=== PATIENT | female | born 1995 | race Caucasian/White ===

== ENCOUNTER 2023-04-02 10:10 | Outpatient (OUT) | payer MEDICAID, SELFPAY ==
--- NOTE | 2023-04-02 10:13 | US_ITS ---
[address] [address] Patient Name: RADHA KEENAN MRN: [id number] date: 1995 Sex: F Assigned Patient Location: [place] Current Patient Location: [place] Accession/Order Number: [id number] Exam Date: 04/02/2023 10:13 Report Date: 04/02/2023 18:03 At the request of: RIANNA LOREDO Procedure: US OB transvaginal EXAMINATION: US OB transvaginal HISTORY: MISSED MENSES COMPARISON: No relevant comparison available. FINDINGS: Diana intrauterine gestation Gestational sac: 3.99 cm, 9 weeks 2 days CRL: 2.31 cm, 9 weeks 0 days Yolk sac: 4.9 mm Heart rate: 167 bpm Uterus is normal The cervix is closed measuring 4.0 cm The ovaries are normal in appearance Clinical age: 9 weeks 6 days Clinical MAVERICK: 10/30/2023 Ultrasound age: 9 weeks 0 days Ultrasound MAVERICK: 11/05/2023 US/US OB transvaginal IMPRESSION: Viable diana intrauterine gestation measuring 9 weeks 0 days Electronically authenticated by: MICHAEL KIRK Date: 04/02/2023 18:03
== END 2023-04-02 10:11 | disposition home or self-care (01) ==
LOC: US 10:11
PROVIDERS: Visit Provider Obstetrics & Gynecology
DX: N92.6 Irregular menstruation, unspecified (principal); Z3A.09 9 weeks gestation of pregnancy
CPT/HCPCS: 76817

== ENCOUNTER 2023-04-09 13:48 | Outpatient (OUT) | payer MEDICAID, SELFPAY ==
[2023-04-09 14:45] LABS: Basophils Percent Auto 0.3 % (0.2-2.0); Eosinophils Absolute Auto 0.2 10^3/uL (0.0-0.7); Eosinophils Percent Auto 2.7 % (0.9-7.0); Hematocrit 39.2 % (36.0-48.0); Hemoglobin 13.3 g/dL (12.0-16.0); Immature Granulocytes Abs Auto 0.02 10^3/uL (0.00-0.03); Immature Granulocytes Pct Auto 0.3 % (0.0-0.5); Lymphocytes Absolute Auto 1.5 10^3/uL (1.2-3.8); Lymphocytes Percent Auto 19.6 % (20.5-60.0); Mean Corpuscular HGB Conc 33.9 g/dL (29.9-35.2); Mean Corpuscular Hemoglobin 29.4 pg (26.7-34.0); Mean Corpuscular Volume 86.7 fL (81.0-99.0); Mean Platelet Volume 9.4 fL (9.5-13.5); Monocytes Absolute Auto 0.4 10^3/uL (0.3-0.8); Neutrophils Absolute Auto 5.6 10^3/uL (1.4-6.5); Neutrophils Percent Auto 72.1 % (43.0-75.0); Platelet Count 277 10^3/uL (150-450); Red Blood Count 4.52 10^6/uL (4.20-5.40); Red Cell Distribution Width 11.9 % (11.0-15.0); White Blood Count 7.8 10^3/uL (4.0-11.0)
[2023-04-09 14:52] LABS: Estimated Average Glucose 105 mg/dL; Glycohemoglobin A1C 5.3 % (4.5-6.2)
[2023-04-09 15:19] LABS: Thyroid Stimulating Hormone 0.692 uIU/mL (0.358-3.740)
[2023-04-10 06:10] LABS: Rubella Antibodies, IgG 2.23 index (Immune >0.99)
[2023-04-10 07:08] LABS: HBsAg Screen Negative (Negative); HCV Ab Non Reactive (Non Reactive); HIV Ab/p24 Ag Screen Non Reactive (Non Reactive)
[2023-04-10 10:11] LABS: Rapid Plasma Reagin, Quant Non Reactive titer (NonRea<1:1)
== END 2023-04-09 13:49 | disposition home or self-care (01) ==
PROVIDERS: PCP Obstetrics & Gynecology; Visit Provider Obstetrics & Gynecology
DX: Z34.81 Encounter for supervision of other normal pregnancy, first trimester (principal); Z31.430 Encounter of female for testing for genetic disease carrier status for procreative management; N92.6 Irregular menstruation, unspecified
CPT/HCPCS: 36415; 83036; 84443; 85025; 86592; 86762; 86803; 86850; 86900; 86901; 87086; 87340; 87389

== ENCOUNTER 2023-06-03 19:55 | Outpatient (REF) | payer MEDICAID, SELFPAY ==
--- OUTSIDE RECORDS SUMMARY | 2023-06-03 19:58 | XMS_ITS | CCD ---
Author Name Unknown Address [address] [facility] [address] [place] [address] Organization [facility] Care Team Providers Care Fitter Tacker Name Role Phone HARISH, AN E. Unavailable Unavailable DON PEREZ Unavailable Unavailable HARISH, AN E. Unavailable Unavailable DON PEREZ Unavailable Unavailable HARISH, AN E. Unavailable Unavailable SHANA ABERNATHY Unavailable Unavailable HARISH, AN E. Unavailable Unavailable HARISH, AN E. Unavailable Unavailable HARISH, AN E. Unavailable Unavailable HARISH, AN E. Unavailable Unavailable HARISH, AN E. Unavailable Unavailable HARISH, AN E. Unavailable Unavailable Martin Burgos DO Primary Care Provider Martin Burgos DO Primary Care Provider BurgosMartin rodrigez DO Primary Care Provider LAMONT PULIDO Attending Unavailable MARTIN BURGOS Primary Care Unavailable SERENA SRINIVASAN Attending Unavailable MARTIN BURGOS Primary Care Unavailable MARTIN BURGOS Primary Care Unavailable RAINA BONNER Attending Unavailable MARTIN BURGOS Primary Care Unavailable MARTIN BURGOS Primary Care Unavailable DR RIANNA RODRIGUEZ Consulting Unavailable DR RIANNA RODRIGUEZ Attending Unavailable SOLIS, DR BYRNE Primary Care Unavailable DR RIANNA RODRIGUEZ Admitting Unavailable ADAN ., STEPHANIE Admitting Unavailable ADAN ., STEPHANIE Attending Unavailable COTTONWOOD, DR MICHAEL Siddiqui Consulting Unavailable MISC, DR BYRNE Primary Care Unavailable ADAN ., STEPHANIE Consulting Unavailable ADAN ., STEPHANIE Consulting Unavailable ADAN ., STEPHANIE Attending Unavailable SOLIS, DR BRYNE Primary Care Unavailable ADAN ., STEPHANIE Admitting Unavailable DR RIANNA RODRIGUEZ Attending Unavailable FACUNDO ., DR BLANCA Admitting Unavailable FACUNDO ., DR BLANCA Consulting Unavailable ZIEBER, DR SCARLET Yao Consulting Unavailable MISC, DR BYRNE Primary Care Unavailable KARASIK ., DR FLORES Attending Unavailabl e KARASIK ., DR FLORES Admitting Unavailabl e FACUNDO ., DR BLANCA Attending Unavailable MISC, DR BYRNE Primary Care Unavailable FACUNDO ., DR BLANCA Admitting Unavailable FACUNDO ., DR BLANCA Attending Unavailable MISC, DR BYRNE Primary Care Unavailable FACUNDO ., DR BLANCA Admitting Unavailable MISC, DR BYRNE Primary Care Unavailable REINECK, DR VALENTINO Martin Attending Unavailabl e REINECK, DR VALENTINO Martin Admitting Unavailabl e REINECK, DR VALENTINO Martin Consulting Unavailabl e NEWATIA, RONNY Consulting Unavailable MISC, DR BYRNE Primary Care Unavailable KARASIK ., DR FLORES Attending Unavailabl e KARASIK ., DR FLORES Admitting Unavailabl e KARASIK ., DR FLORES Consulting Unavailabl e WEST, DR MICHAEL Siddiqui Consulting Unavailable FACUNDO ., DR BLANCA Consulting Unavailable NADINE ENCISO Consulting Unavailable FACUNDO ., DR BLANCA Procedure Practitioner Unavail able ELLA BURKETT Consulting Unavailable FACUNDO ., DR BLANCA Consulting Unavailable FACUNDO ., DR BLANCA Admitting Unavailable FACUNDO ., DR BLANCA Attending Unavailable FACUNDO ., DR BLANCA Consulting Unavailable FACUNDO ., DR BLANCA Attending Unavailable FACUNDO ., DR BLANCA Admitting Unavailable ZIEBER, DR SCARLET Yao Consulting Unavailable ADAN ., STEPHANIE Admitting Unavailable ADAN ., STEPHANIE Consulting Unavailable ADAN ., STEPHANIE Attending Unavailable MISC, DR BYRNE Primary Care Unavailable FACUNDO ., DR BLANCA Attending Unavailable FACUNDO ., DR BLANCA Admitting Unavailable FACUNDO ., DR BLANCA Consulting Unavailable FACUNDO, RIANNA Attending Unavailable Allergies Allergy Classification Reported Allergen(s) Allergy Type Date of Onset Reaction(s) Facility (6 sources) environmental [Other] Propensity to adverse reactions 8 [facility] Work Phone: (1 source) OTHER; Translations: [OTHER] Propensity to adverse reactions (disorder) 8 [facility] Repository Medications Current Medications Medication Drug Class(es) Dates Sig (Normalized) Sig (Original) fluconazole 150 mg oral tablet (1 source) Azole Antifungal Start: 10-22-2015 End: 12-16-2021 fluconazole (DIFLUCAN) 150 mg tablet Indications: Monilial vaginitis Take 1 tablet today and repeat in 3 days 2 tablet 0 10/22/2015 12/16/2021 Discontinued (Course of therapy completed) Comment on above: Take 1 tablet today and repeat in 3 days Loratadine / Pseudoephedrine (5 sources) alpha-Adrenergic Agonist End: 01-27-2022 take 1 tablet by mouth once daily LORATADINE/PSEUDOE PHEDRINE (CLARITIN-D 24 HOUR ORAL) Take 1 tablet by mouth once daily. 0 01/27/2022 Discontinued take 1 tablet by jorge th once daily LORATADINE/PSEUDOEPHEDRINE (CLARITIN-D 2 4 HOUR ORAL) Take 1 tablet by mouth once daily. 0 Active Comment on above: Take 1 tablet by jorge th once daily. MULTIVITS,CA,AIRCRAFT ENGINE SPECIALIST ALS/IRON/FA (ONE-A-DAY WOMENS FORMULA ORAL) (1 source) End: 12-16-2021 take 1 tablet by mouth once daily MULTIVITS,CA,MINERALS/ IRON/FA (ONE-A-DAY WOMENS FORMULA ORAL) Take 1 tablet by mouth once daily. 0 12/16/2021 Discontinued (Course of therapy completed) Comment on above: Take 1 tablet by jorge th once daily. Completed/Discontinued Medications Medication Drug Class(es) Dates Sig (Normalized) Sig (Original) [id number] 200 actuat albuterol 0.09 mg/actuat metered dose inhaler (7 sources) beta2-Adrenergic Agonist Start: 12-16-2021 take 2 puff(s) by inhalation every four hours as needed albuterol HFA (PROVENTIL HFA, VENTOLIN HFA) 90 mcg/actuation inhaler Inhale 2 Puffs as instructed every 4 hours as needed. 1 g 1 12/16/2021 Active Start: 04-12-2010 End: 12-16-2021 take 2 puff(s) by inhalation every four to six hours as needed albuterol HFA 90 mcg/Actuation INHALATION inhaler 2 puffs q 4 to 6 hrs prn 1 g 1 04/12/2010 12/16/2021 Discontinued Comment on above: 2 puffs q 4 to 6 hrs prn Inhale 2 Puffs as in structed every 4 hours as needed. PNV no.95/ferrous fum/folic ac ( ORAL) (6 sources) PNV no.95/ferrou s fum/folic ac ( ORAL) Take by mouth. 0 Active Comment on above: Take by mouth. Problems Active Problems Problem Classification Problem Date Documented Date Episodic/Chronic Abdominal pain (1 source) Pelvic and perineal pain; Translations: [Pelvic and perineal pain] Onset: 11-25-2016 Asthma (6 sources) Unspecified asthma, uncomplicated; Translations: [Asthma, unspecified type, unspecified] Onset: 04-28-2006 04-28-2006 Chronic Genitourinary symptoms and ill-defined conditions (8 sources) Dysuria; Translations: [Unspecified symptoms and signs involving the genitourinary system] Onset: 06-10-2022 Episodic Menstrual disorders (2 sources) Missed period; Translations: [Irregular menstruation, unspecified] Onset: 12-16-2021 Chronic Mood disorders (6 sources) Depressive disorder; Translations: [Depression] Onset: 08-12-2012 08-12-2012 Chronic OB-related trauma to perineum and vulva (1 source) Second degree perineal laceration during delivery; Translations: [SECOND DEG PERINEAL LAC DUR DELIV] Onset: 07-27-2022 Episodic Other complications of (1 source) High risk ; Translations: [Supervision of high risk , unspecified, unspecified trimester] Episodic Other and delivery including normal (20 sources) test positive; Translations: [Encounter for test, result positive] Onset: 12-16-2021 Episodic Pulmonary heart disease (6 sources) Septic pulmonary embolism with acute cor pulmonale; Translations: [Septic pulmonary embolism] Onset: 10-22-2015 10-22-2015 Chronic Pulmonary heart disease (9 sources) H/O: pulmonary embolus; Translations: [Personal history of pulmonary embolism] Onset: 12-16-2021 12-16-2021 Episodic Residual codes; unclassified (1 source) Gestation period, 14 weeks; Translations: [14 weeks gestation of ] Episodic Residual codes; unclassified (1 source) 38 weeks gestation of ; Translations: [38 WEEKS GESTATION OF ] Onset: 07-27-2022 Episodic Urinary tract infections (1 source) Urinary tract infection, site not specified; Translations: [UTI SITE NOT SPECIFIED] Onset: 10-06-2022 Episodic Past or Other Problems Problem Classification Problem Date Documented Da te Episodic/Chronic Contraceptive and procreative management (2 sources) Encounter for routine checking of intrauterine contraceptive device; Translations: [Encounter for routine checking of intrauterine contraceptive device] Onset: 11-25-2016 Episodic Hemorrhage during ; abruptio placenta; placenta previa (4 sources) Low lying placenta NOS or without hemorrhage, second trimester; Translations: [LOW LYING PL NOS W/O HEMORR 2ND TRI] Onset: 04-28-2022 Episodic Immunizations and screening for infectious disease (1 source) Contact with and (suspected) exposure to infections with a predominantly sexual mode of transmission; Translations: [CONTCT W EXPOS INFECT SEXUAL TRNSMS] Onset: 06-24-2022 Episodic Other complications of (3 sources) Uterine size-date discrepancy, unspecified trimester; Translations: [UTERINE SZ-DATE DISCREPANCY UNS TRI] Onset: 06-09-2022 Episodic Other complications of (1 source) Uterine size-date discrepancy, third trimester; Translations: [UTERINE SZ-DATE DISCREPANCY 3RD TRI] Onset: 06-10-2022 Episodic Other female genital disorders (1 source) Other specified noninflammatory disorders of vagina; Translations: [OTH SPEC NONINFLAMMATORY D/O VAGINA] Onset: 06-24-2022 Episodic Other gastrointestinal disorders (4 sources) Other fecal abnormalities; Translations: [OTHER FECAL ABNORMALITIES] Onset: 04-14-2022 Episodic Other screening for suspected conditions (not mental disorders or infectious disease) (4 sources) Encounter for other specified screening; Translations: [ENCTR OTH SPEC SCREENING] Onset: 03-09-2022 Episodic Residual codes; unclassified (1 source) 33 weeks gestation of ; Translations: [33 WEEKS GESTATION OF ] Onset: 06-10-2022 Episodic Residual codes; unclassified (1 source) 27 weeks gestation of ; Translations: [27 WEEKS GESTATION OF ] Onset: 05-02-2022 Episodic Screening and history of mental health and substance abuse codes (9 sources) H/O: depression; Translations: [Personal history of other mental and behavioral disorders] Onset: 12-16-2021 Episodic Spondylosis; intervertebral disc disorders; other back problems (1 source) Low back pain; Translations: [Low back pain] Onset: 12-02-2016 Episodic Results Test Name Value Interpretation Reference Range Facil ity CULTURE URINEon 10-06-2022 CULTURE URINE Isolate 1 Escherichia coli >100,000 cfu/mL of ORGANISM 1 Escherichia coli ANTIBIOTIC M.I.C RX STATUS Ampicillin <=2 S F Ampicillin/Sulbactam <=2 S F Piperacillin/Tazobac rajput <=4 S F Cefazolin <=4 S F Ceftazidime <=1 S F Ceftriaxone <=1 S F Ertapenem <=0.5 S F Imipenem <=0.25 S F Amikacin <=2 S F Gentamicin <=1 S F Tobramycin <=1 S F Ciprofloxacin <=0.25 S F Levofloxacin <=0.12 S F Nitrofurantoin <=16 S F Trimethoprim/Sulfame thoxazole <=20 S F Normal [facility] Comment on above: Performed By: #### U RCX #### [facility] [address] [place] [address] Dr. Brando Betancourt CBC AUTO DIFFon 10-03-2022 BASO # 0.0 103/ul Normal 0.0-0.1 [facility] Comment on above: Performed By: #### H BSANS #### [facility] [address] [place] [address] Dr. Brando Betancourt Basophils/100 WBC (Bld) 0.3 % Normal 0.2-2.0 [facility] Comment on above: Performed By: #### H BSANS #### [facility] [address] [place] [address] Dr. Brando Betancourt EO # 0.2 103/ul Normal 0.0-0.7 [facility] Comment on above: Performed By: #### H BSANS #### [facility] [address] [place] [address] Dr. Brando Betancourt Eosinophils/100 WBC (Bld) 1.5 % Normal 0.9-7.0 [facility] Comment on above: Performed By: #### H BSANS #### [facility] [address] [place] [address] Dr. Brando Betancourt Erythrocyte distribution width (RBC) [Ratio] 12.6 % Normal 11.0-15.0 [facility] Comment on above: Performed By: #### H BSANS #### [facility] [address] [place] [address] Dr. Brando Betancourt Hematocrit (Bld) [Volume fraction] 38.3 % Normal 36.0-48.0 [facility] Comment on above: Performed By: #### H BSANS #### [facility] [address] [place] [address] Dr. Brando Betancourt Hemoglobin (Bld) [Mass/Vol] 12.8 g/dL Normal 12.0-16.0 [facility] Comment on above: Performed By: #### H BSANS #### [facility] [address] [place] [address] Dr. Brando Betancourt IG # 0.03 10e3/ul Normal 0.00-0.03 [facility] Comment on above: Performed By: #### H BSANS #### [facility] [address] [place] [address] Dr. Brando Betancourt IG % 0.3 % Normal 0.0-0.5 [facility] Comment on above: Performed By: #### H BSANS #### [facility] [address] [place] [address] Dr. Brando Betancourt LYMPH # 1.4 103/ul Normal 1.2-3.8 [facility] Comment on above: Performed By: #### H BSANS #### [facility] [address] [place] [address] Dr. Brando Betancourt Lymphocytes/100 WBC (Bld) 13.2 % Critically low 20.5-60.0 [facility] Comment on above: Performed By: #### H BSANS #### [facility] [address] [place] [address] Dr. Brando Betancourt MANUAL DIFF REQ NO Normal [facility] Comment on above: Performed By: #### H BSANS #### [facility] [address] [place] [address] Dr. Brando Betancourt MCH (RBC) [Entitic mass] 28.6 pg Normal 26.7-34.0 [facility] Comment on above: Performed By: #### H BSANS #### [facility] [address] [place] [address] Dr. Brando Betancourt MCHC (RBC) [Mass/Vol] 33.4 g/dL Normal 29.9-35.2 [facility] Comment on above: Performed By: #### H BSANS #### [facility] [address] [place] [address] Dr. Brando Betancourt MCV (RBC) [Entitic vol] 85.5 fL Normal 81.0-99.0 [facility] Comment on above: Performed By: #### H BSANS #### [facility] [address] [place] [address] Dr. Brando Betancourt MONO # 0.7 103/ul Normal 0.3-0.8 [facility] Comment on above: Performed By: #### H BSANS #### [facility] [address] [place] [address] Dr. Brando Betancourt Monocytes/100 WBC (Bld) 7.0 % Normal 1.7-12.0 [facility] Comment on above: Performed By: #### H BSANS #### [facility] [address] [place] [address] Dr. Brando Betancourt NEUT # 8.3 103/ul Critically high 1.4-6.5 [facility] Comment on above: Performed By: #### H BSANS #### [facility] [address] [place] [address] Dr. Brando Betancourt Neutrophils/100 WBC (Bld) 77.7 % Critically high 43.0-75.0 [facility] Comment on above: Performed By: #### H BSANS #### [facility] [address] [place] [address] Dr. Brando Betancourt Platelet mean volume (Bld) [Entitic vol] 8.5 fL Critically low 9.5-13.5 [facility] Comment on above: Performed By: #### H BSANS #### [facility] [address] [place] [address] Dr. Brando Betancourt PLT 263 103/ul Normal 150-450 [facility] Comment on above: Performed By: #### H BSANS #### [facility] [address] [address] [address] Brando Betancourt RBC 4.48 106/ul Normal 4.20-5.40 [facility] Comment on above: Performed By: #### H BSANS #### [facility] [id number] Brando Betancourt WBC 10.6 103/ul Normal 4.0-11.0 [facility] Comment on above: Performed By: #### H BSANS #### [facility] [id number] Brando Betancourt CT ABD/PELVIS WO CONon 10-03 CT ABD/PELVIS WO CON EXAMINATION: CT ABD/PELVIS WO CON, 10/03/2022 6:23 PM EDT HISTORY: CALCULUS OF KIDNEY COMPARISON: None. TECHNIQUE: CT scan of the abdomen and pelvis was performed without IV contrast. CT dose reduction technique was used, including Automated Exposure Control. FINDINGS: LOWER CHEST: There is a patchy reticular nodular density in the right lower lobe suspicious for an infiltrate. There is a 9 mm nodular density in this region (series 5, image 57). LIVER: Unremarkable. GALLBLADDER AND BILIARY SYSTEM: Unremarkable. SPLEEN: Unremarkable. PANCREAS: Unremarkable. ADRENAL GLANDS: Unremarkable. KIDNEYS AND URETERS: No nephrolithiasis or hydronephrosis. No ureteral calculus. BLADDER: Under distended. GASTROINTESTINAL TRACT: No evidence of bowel obstruction or colitis. Normal appendix. Moderate amount of stool in the right colon. VASCULATURE: The abdominal aorta is normal in caliber. RETROPERITONEUM: No lymphadenopathy. PERITONEUM/MESENTERY : No abdominal ascites. No free air. PELVIS: No pelvic ascites or lymphadenopathy. BODY WALL: Tiny fat-containing umbilical hernia. BONES: No acute abnormality. IMPRESSION: 1. Suspected right lower lobe infiltrate with 9 mm nodular density in this region. Short-term follow-up chest CT after treatment is suggested. 2. No nephrolithiasis or hydronephrosis noted. Electronically authenticated by: RONNY CUMMINGS Date: 2022-10-03 18:56 Normal [facility] URINE PROFILEon 3 Bilirubin Ql (U) Negative Normal NEGATIVE [facility] Comment on above: Performed By: #### H BSANS #### [facility] [address] [place] [address] Dr. Brando Betancourt Clarity (U) SL CLOUDY Abnormal CLEAR [facility] Comment on above: Performed By: #### H BSANS #### [facility] [address] [place] [address] Dr. Brando Betancourt Color (U) YELLOW Normal YELLOW [facility] Comment on above: Performed By: #### H BSANS #### [facility] [address] [place] [address] Dr. Brando Betancourt ERUAHDeonte A micrscopic examination will be performed if indicated. Normal [facility] Comment on above: Performed By: #### H BSANS #### [facility] [address] [place] [address] Dr. Brando Betancourt Glucose Ql (U) Negative Normal NEGATIVE [facility] Comment on above: Performed By: #### H BSANS #### [facility] [address] [place] [address] Dr. Brando Betancourt Hemoglobin Ql (U) MODERATE Abnormal NEGATIVE [facility] Comment on above: Performed By: #### H BSANS #### [facility] [address] [place] [address] Dr. Brando Betancourt Ketones Ql (U) Negative Normal NEGATIVE [facility] Comment on above: Performed By: #### H BSANS #### [facility] [address] [place] [address] Dr. Brando Betancourt LEUKOCYTES LARGE Abnormal NEGATIVE [facility] Comment on above: Performed By: #### H BSANS #### [facility] [address] [place] [address] Dr. Brando Betancourt Nitrite Ql (U) Negative Normal NEGATIVE [facility] Comment on above: Performed By: #### H BSANS #### [facility] [address] [place] [address] Dr. Brando Betancourt pH (U) 6.0 [pH] Normal 5-9 [facility] Comment on above: Performed By: #### H BSANS #### [facility] [address] [address] [address] Brando Betancourt Protein (U) [Mass/Vol] 100 mg/dL Abnormal NEGATIVE/ TRACE [facility] Comment on above: Performed By: #### H BSANS #### [facility] [address] [address] [address] Brando Betancourt SPEC GRAVITY 1.025 Normal 1.005-<=1.025 [facility] Comment on above: Performed By: #### H BSANS #### [facility] [address] [address] [address] Brando Betancourt UR MICRO IND INDICATED Normal [facility] Comment on above: Performed By: #### H BSANS #### [facility] [address] [place] [address] Dr. Brando Betancourt Urobilinogen Qn (U) 0.2 {Arturo'U}/dL Normal 0.2 - 1. 0 [facility] Comment on above: Performed By: #### H BSANS #### [facility] [address] [place] [address] Dr. Brando Betancourt URon 10-03-2022 , QUAL Negative Normal NEGATIVE [facility] Comment on above: Performed By: #### H BSANS #### [facility] [address] [place] [address] Dr. Brando Betancourt PROF CHEM 8 (BAS METB)on Anion gap [Moles/Vol] 11.8 mmol/L Normal [facility] Comment on above: Performed By: #### C BC #### [facility] [address] [place] [address] Dr. Brando Betancourt Calcium [Mass/Vol] 9.1 mg/dL Normal 8.5-10.1 [facility] Comment on above: Performed By: #### C BC #### [facility] [address] [place] [address] Dr. Brando Betancourt Chloride [Moles/Vol] 99 mmol/L Normal 98-107 [facility] Comment on above: Performed By: #### C BC #### [facility] [address] [address] [address] Brando Betancourt CO2 [Moles/Vol] 29.9 mmol/L Normal 21.0-32.0 [facility] Comment on above: Performed By: #### C BC #### [facility] [address] [address] [address] Brando Betancourt Creatinine [Mass/Vol] 0.89 mg/dL Normal 0.55-1.02 [facility] Comment on above: Performed By: #### C BC #### [facility] [address] [address] [address] Brando Betancourt EGFR-AF NIGERIAN >60 Normal >=60 [facility] Comment on above: Performed By: #### C BC #### [facility] [address] [place] [address] Dr. Brando Betancourt EGFR-NON AF NIGERIAN >60 Normal >=60 [facility] Comment on above: Performed By: #### C BC #### [facility] [address] [address] [address] Brando Betancourt Glucose [Mass/Vol] 122 mg/dL Critically high 74-106 [facility] Comment on above: Performed By: #### C BC #### [facility] [address] [address] [address] Brando Betancourt Potassium [Moles/Vol] 3.7 mmol/L Normal 3.5-5.1 [facility] Comment on above: Performed By: #### C BC #### [facility] [address] [place] [address] Dr. Brando Betancourt Sodium [Moles/Vol] 137 mmol/L Normal 136-145 [facility] Comment on above: Performed By: #### C BC #### [facility] [address] [address] [address] Brando Betancourt Urea nitrogen [Mass/Vol] 17.0 mg/dL Normal 7.0-18.0 [facility] Comment on above: Performed By: #### C BC #### [facility] [address] [place] [address] Dr. Brando Betancourt Urea nitrogen/Creatinine [Mass ratio] 19.1 mg/mg Normal [facility] Comment on above: Performed By: #### C BC #### [facility] [address] [place] [address] Dr. Brando Betancourt URINE MICROSCOPIC ONLYon BACTERIA TRACE Abnormal NONE SEEN [facility] Comment on above: Performed By: #### H BSANS #### [facility] [address] [place] [address] Dr. Brando Betancourt Bacteria identified Cx Nom (U) INDICATED Normal [facility] Comment on above: Performed By: #### H BSANS #### [facility] [address] [place] [address] Dr. Brando Betancourt CAST NONE SEEN Normal NONE SEEN [facility] Comment on above: Performed By: #### H BSANS #### [facility] [address] [place] [address] Dr. Brando Betancourt Crystals LM Nom (Urine sed) NONE SEEN Normal NONE SEEN [facility] Comment on above: Performed By: #### H BSANS #### [facility] [address] [place] [address] Dr. Brando Betancourt Epithelial cells LM Ql (Urine sed) RARE Normal NONE SEEN /RARE [facility] Comment on above: Performed By: #### H BSANS #### [facility] [address] [place] [address] Dr. Brando Betancourt MUCOUS NONE SEEN Normal NONE SEEN [facility] Comment on above: Performed By: #### H BSANS #### [facility] [address] [place] [address] Dr. Brando Betancourt RBC 5-10 Abnormal 0-2 [facility] Comment on above: Performed By: #### H BSANS #### [facility] [address] [place] [address] Dr. Brando Betancourt WBC 50-75 Abnormal NONE SEEN [facility] Comment on above: Performed By: #### H BSANS #### [facility] [address] [place] [address] Dr. Brando Betancourt CBC AUTO DIFFon 07-14-2022 BASO # 0.0 103/ul Normal 0.0-0.1 [facility] Comment on above: Performed By: #### C BC #### [facility] [address] [place] [address] [address] Brando Betancourt Basophils/100 WBC (Bld) 0.2 % Normal 0.2-2.0 [facility] Comment on above: Performed By: #### C BC #### [facility] [address] [place] [address] [address] Brando Betancourt EO # 0.0 103/ul Normal 0.0-0.7 [facility] Comment on above: Performed By: #### C BC #### [facility] [address] [place] [address] Dr. Brando Betancourt Eosinophils/100 WBC (Bld) 0.3 % Critically low 0.9-7.0 [facility] Comment on above: Performed By: #### C BC #### [facility] [address] [place] [address] Dr. Brando Betancourt Erythrocyte distribution width (RBC) [Ratio] 13.0 % Normal 11.0-15.0 [facility] Comment on above: Performed By: #### C BC #### [facility] [address] [place] [address] Dr. Brando Betancourt Hematocrit (Bld) [Volume fraction] 28.8 % Critically low 36.0-48.0 [facility] Comment on above: Performed By: #### C BC #### [facility] [address] [place] [address] Dr. Brando Betancourt Hemoglobin (Bld) [Mass/Vol] 9.7 g/dL Critically low 12.0-16.0 [facility] Comment on above: Performed By: #### C BC #### [facility] [address] [place] [address] Dr. Brando Betancourt IG # 0.04 10e3/ul Critically high 0.00-0.03 [facility] Comment on above: Performed By: #### C BC #### [facility] [address] [place] [address] Dr. Brando Betancourt IG % 0.4 % Normal 0.0-0.5 [facility] Comment on above: Performed By: #### C BC #### [facility] [address] [place] [address] Dr. Brando Betancourt LYMPH # 1.6 103/ul Normal 1.2-3.8 [facility] Comment on above: Performed By: #### C BC #### [facility] [address] [place] [address] Dr. Brando Betancourt Lymphocytes/100 WBC (Bld) 15.0 % Critically low 20.5-60.0 [facility] Comment on above: Performed By: #### C BC #### [facility] [address] [place] [address] Dr. Brando Betancourt MANUAL DIFF REQ NO Normal [facility] Comment on above: Performed By: #### C BC #### [facility] [address] [place] [address] Dr. Brando Betancourt MCH (RBC) [Entitic mass] 30.0 pg Normal 26.7-34.0 [facility] Comment on above: Performed By: #### C BC #### [facility] [address] [place] [address] Dr. Brando Betancourt MCHC (RBC) [Mass/Vol] 33.7 g/dL Normal 29.9-35.2 [facility] Comment on above: Performed By: #### C BC #### [facility] [address] [place] [address] Dr. Brando Betancourt MCV (RBC) [Entitic vol] 89.2 fL Normal 81.0-99.0 [facility] Comment on above: Performed By: #### C BC #### [facility] [address] [place] [address] Dr. Brando Betancourt MONO # 0.6 103/ul Normal 0.3-0.8 [facility] Comment on above: Performed By: #### C BC #### [facility] [address] [place] [address] Dr. Brando Betancourt Monocytes/100 WBC (Bld) 5.6 % Normal 1.7-12.0 [facility] Comment on above: Performed By: #### C BC #### [facility] [address] [place] [address] Dr. Brando Betancourt NEUT # 8.6 103/ul Critically high 1.4-6.5 [facility] Comment on above: Performed By: #### C BC #### [facility] [address] [place] [address] Dr. Brando Betancourt Neutrophils/100 WBC (Bld) 78.5 % Critically high 43.0-75.0 [facility] Comment on above: Performed By: #### C BC #### [facility] [address] [place] [address] Dr. Brando Betancourt Platelet mean volume (Bld) [Entitic vol] 11.2 fL Normal 9.5-13.5 [facility] Comment on above: Performed By: #### C BC #### [facility] [address] [place] [address] Dr. Brando Betancourt PLT 143 103/ul Critically low 150-450 [facility] Comment on above: Performed By: #### C BC #### [facility] [address] [place] [address] Dr. Brando Betancourt RBC 3.23 106/ul Critically low 4.20-5.40 [facility] Comment on above: Performed By: #### C BC #### [facility] [address] [place] [address] Dr. Brando Betancourt WBC 10.9 103/ul Normal 4.0-11.0 [facility] Comment on above: Performed By: #### C BC #### [facility] [address] [place] [address] Dr. Brando Betancourt AMNISUREon 07-12-2022 AMNISURE Negative Normal NEGATIVE [facility] Comment on above: Performed By: #### H BSANS #### [facility] [address] [place] [address] Dr. Brando Betancourt CBC AUTO DIFFon 07-12-2022 BASO # 0.0 103/ul Normal 0.0-0.1 [facility] Comment on above: Performed By: #### C BC #### [facility] [address] [place] [address] Dr. Brando Betancourt Basophils/100 WBC (Bld) 0.1 % Critically low 0.2-2.0 [facility] Comment on above: Performed By: #### C BC #### [facility] [address] [place] [address] Dr. Brando Betancourt EO # 0.1 103/ul Normal 0.0-0.7 [facility] Comment on above: Performed By: #### C BC #### [facility] [address] [place] [address] Dr. Brando Betancourt Eosinophils/100 WBC (Bld) 0.7 % Critically low 0.9-7.0 [facility] Comment on above: Performed By: #### C BC #### [facility] [address] [place] [address] Dr. Brando Betancourt Erythrocyte distribution width (RBC) [Ratio] 12.6 % Normal 11.0-15.0 [facility] Comment on above: Performed By: #### C BC #### [facility] [address] [place] [address] Dr. Brando Betancourt Hematocrit (Bld) [Volume fraction] 29.4 % Critically low 36.0-48.0 [facility] Comment on above: Performed By: #### C BC #### [facility] [address] [place] [address] Dr. Brando Betancourt Hemoglobin (Bld) [Mass/Vol] 10.0 g/dL Critically low 12.0-16.0 [facility] Comment on above: Performed By: #### C BC #### [facility] [address] [place] [address] Dr. Brando Betancourt IG # 0.04 10e3/ul Critically high 0.00-0.03 [facility] Comment on above: Performed By: #### C BC #### [facility] [address] [place] [address] Dr. Brando Betancourt IG % 0.4 % Normal 0.0-0.5 [facility] Comment on above: Performed By: #### C BC #### [facility] [address] [place] [address] Dr. Brando Betancourt LYMPH # 1.3 103/ul Normal 1.2-3.8 [facility] Comment on above: Performed By: #### C BC #### [facility] [address] [place] [address] Dr. Brando Betancourt Lymphocytes/100 WBC (Bld) 11.8 % Critically low 20.5-60.0 [facility] Comment on above: Performed By: #### C BC #### [facility] [address] [place] [address] Dr. Brando Betancourt MANUAL DIFF REQ NO Normal [facility] Comment on above: Performed By: #### C BC #### [facility] [address] [place] [address] Dr. Brando Betancourt MCH (RBC) [Entitic mass] 30.1 pg Normal 26.7-34.0 [facility] Comment on above: Performed By: #### C BC #### [facility] [address] [place] [address] Dr. Brando Betancourt MCHC (RBC) [Mass/Vol] 34.0 g/dL Normal 29.9-35.2 [facility] Comment on above: Performed By: #### C BC #### [facility] [address] [place] [address] Dr. Brando Betancourt MCV (RBC) [Entitic vol] 88.6 fL Normal 81.0-99.0 [facility] Comment on above: Performed By: #### C BC #### [facility] [address] [place] [address] Dr. Brando Betancourt MONO # 0.7 103/ul Normal 0.3-0.8 [facility] Comment on above: Performed By: #### C BC #### [facility] [address] [place] [address] Dr. Brando Betancourt Monocytes/100 WBC (Bld) 6.9 % Normal 1.7-12.0 [facility] Comment on above: Performed By: #### C BC #### [facility] [address] [place] [address] [address] Brando Betancourt NEUT # 8.6 103/ul Critically high 1.4-6.5 [facility] Comment on above: Performed By: #### C BC #### [facility] [address] [place] [address] [address] Brando Betancourt Neutrophils/100 WBC (Bld) 80.1 % Critically high 43.0-75.0 [facility] Comment on above: Performed By: #### C BC #### [facility] [address] [place] [address] [address] Brando Betancourt Platelet mean volume (Bld) [Entitic vol] 11.3 fL Normal 9.5-13.5 [facility] Comment on above: Performed By: #### C BC #### [facility] [address] [place] [address] Dr. Brando Betancourt PLT 149 103/ul Critically low 150-450 [facility] Comment on above: Performed By: #### C BC #### [facility] [address] [place] [address] [address] Brando Betancourt RBC 3.32 106/ul Critically low 4.20-5.40 [facility] Comment on above: Performed By: #### C BC #### [facility] [address] [place] [address] [address] Brando Betancourt WBC 10.7 103/ul Normal 4.0-11.0 [facility] Comment on above: Performed By: #### C BC #### [facility] [address] [place] [address] Dr. Brando Betancourt TYPE AND SCREENon 07-12-2022 TYPE AND SCREEN Negative Normal [facility] Comment on above: Performed By: #### T NS #### [facility] [address] [place] [address] Dr. Brando Betancourt US PREG AMNIOTIC FLUID VOLUM Zenon 07-12-2022 US PREG AMNIOTIC FLUID VOLUME EXAMINATION: US PREG AMNIOTIC FLUID VOLUME HISTORY: leaking COMPARISON: No relevant comparison available. TECHNIQUE: Limited sonographic examination for amniotic fluid volume FINDINGS: Amniotic fluid volume: 14.9 cm, normal, largest fluid pocket 8.9 cm position: Cephalic presentation, longitudinal Heart rate: 132 beats minute Clinical age: 38 weeks 2 days Clinical MAVERICK: 07/20 07/31 IMPRESSION: Normal amniotic fluid volume Electronically authenticated by: MICHAEL KIRK Date: 2022-07-12 07:56 Normal [facility] AMNISUREon 07-11-2022 AMNISURE Positive Abnormal NEGATIVE [facility] Comment on above: Performed By: #### A MNI #### [facility] [address] [place] [address] Dr. Brando Betancourt DRUG SCREEN RAPID (URINE)on 07-11-2022 AMP Negative Normal NEGATIVE [facility] Comment on above: Performed By: #### H BSANS #### [facility] [address] [place] [address] Dr. Brando Betancourt BAR Negative Normal NEGATIVE [facility] Comment on above: Performed By: #### H BSANS #### [facility] [address] [place] [address] Dr. Brando Betancourt BUP Negative Normal NEGATIVE [facility] Comment on above: Performed By: #### H BSANS #### [facility] [address] [place] [address] Dr. Brando Betancourt BZO Negative Normal NEGATIVE [facility] Comment on above: Performed By: #### H BSANS #### [facility] [address] [place] [address] Dr. Brando Betancourt JHONY Negative Normal NEGATIVE [facility] Comment on above: Performed By: #### H BSANS #### [facility] [address] [place] [address] Dr. Brando Betancourt CUT-OFFS SEE BELOW Normal [facility] Comment on above: Result Comment: AMP (Amphetamine): 500ng/mL, BAR (Barbituates): 200 ng/mL, BZO (Benzodiazepines): 150 ng/mL, BUP (Buprenorphine): 10 ng/mL, JHONY (Cocaine): 150 ng/mL, mAMP (Methamphetamine): 500 ng/mL, MTD (Methadone): 200 ng/mL, OPI (Opiates): 100 ng/mL, OXY (Oxycodone): 100 ng/mL, PCP (Phencyclidine): 25 ng/mL, PPX (Propoxyphene): 300 ng/mL, THC (Cannabinoids): 50 ng/mL, TCA (Trycyclic Antidepressants): 300 ng/mL Performed By: #### H BSANS #### [facility] [address] [place] [address] Dr. Brando Betancourt DRUG CUT HEADER DRUG CLASS TEST SYSTEM CUT-OFF CONCENTRATIONS ARE FOLLOWS: Normal [facility] Comment on above: Performed By: #### H BSANS #### [facility] [address] [place] [address] Dr. Brando Betancourt mAMP Negative Normal NEGATIVE [facility] Comment on above: Performed By: #### H BSANS #### [facility] [address] [place] [address] Dr. Brando Betancourt MTD Negative Normal NEGATIVE [facility] Comment on above: Performed By: #### H BSANS #### [facility] [address] [place] [address] Dr. Brando Betancourt OPI Negative Normal NEGATIVE [facility] Comment on above: Performed By: #### H BSANS #### [facility] [address] [place] [address] Dr. Brando Betancourt OXY Negative Normal NEGATIVE [facility] Comment on above: Performed By: #### H BSANS #### [facility] [address] [place] [address] Dr. Brando Betancourt PCP Negative Normal NEGATIVE [facility] Comment on above: Performed By: #### H BSANS #### [facility] [address] [place] [address] Dr. Brando Betancourt PPX Negative Normal NEGATIVE [facility] Comment on above: Performed By: #### H BSANS #### [facility] [address] [place] [address] Dr. Brando Betancourt TCA Negative Normal NEGATIVE [facility] Comment on above: Performed By: #### H BSANS #### [facility] [address] [place] [address] Dr. Brando Betancourt THC Negative Normal NEGATIVE [facility] Comment on above: Performed By: #### H BSANS #### [facility] [address] [place] [address] Dr. Brando Betancourt UA (CLEAN/CATCH) EXHIBITS MANAGER/MICRO I F IND.on 07-11-2022 Bilirubin Ql (U) Negative Normal NEGATIVE [facility] Comment on above: Performed By: #### C T/NGNA #### [facility] [address] [place] [address] Dr. Brando Betancourt Clarity (U) CLEAR Normal CLEAR [facility] Comment on above: Performed By: #### C T/NGNA #### [facility] [address] [place] [address] Dr. Brando Betancourt Color (U) LT. YELLOW Normal YELLOW [facility] Comment on above: Performed By: #### C T/NGNA #### [facility] [address] [place] [address] Dr. Brando Betancourt Glucose Ql (U) Negative Normal NEGATIVE [facility] Comment on above: Performed By: #### C T/NGNA #### [facility] [address] [place] [address] Dr. Brando Betancourt Hemoglobin Ql (U) Negative Normal NEGATIVE [facility] Comment on above: Performed By: #### C T/NGNA #### [facility] [address] [place] [address] Dr. Brando Betancourt Ketones Ql (U) Negative Normal NEGATIVE [facility] Comment on above: Performed By: #### C T/NGNA #### [facility] [address] [place] [address] Dr. Brando Betancourt LEUKOCYTES Negative Normal NEGATIVE [facility] Comment on above: Performed By: #### C T/NGNA #### [facility] [address] [place] [address] Dr. Brando Betancourt Nitrite Ql (U) Negative Normal NEGATIVE [facility] Comment on above: Performed By: #### C T/NGNA #### [facility] [address] [place] [address] Dr. Brando Betancourt pH (U) 7.0 [pH] Normal 5-9 [facility] Comment on above: Performed By: #### C T/NGNA #### [facility] [address] [place] [address] Dr. Brando Betancourt SPEC GRAVITY <=1.005 Abnormal 1.005-<=1.025 [facility] Comment on above: Performed By: #### C T/NGNA #### [facility] [address] [place] [address] Dr. Brando Betancourt UA PROTEIN Negative Normal NEGATIVE/ TRACE [facility] Comment on above: Performed By: #### C T/NGNA #### [facility] [address] [place] [address] Dr. Brando Betancourt UR MICRO IND NOT INDICATED Normal [facility] Comment on above: Performed By: #### C T/NGNA #### [facility] [address] [place] [address] Dr. Brando Betancourt Urobilinogen Qn (U) 0.2 {Arturo'U}/dL Normal 0.2 - 1. 0 [facility] Comment on above: Performed By: #### C T/NGNA #### [facility] [address] [place] [address] Dr. Brando Betancourt CHLAMYDIA/GONOCOCCUS JOBY (SW AB/URINE/PAPon 06-25-2022 Chlamydia trachomatis, JOBY Negative Normal Negative [facility] Comment on above: Performed By: #### C T/NGNA #### [facility] [address] [place] [address] Dr. Brando Betancourt Neisseria gonorrhoeae, JOBY Negative Normal Negative [facility] Comment on above: Performed By: #### C T/NGNA #### [facility] [address] [place] [address] Dr. Brando Betancourt VAGINITIS/VAGINOSIS DNA PROB [facility] 06-25-2022 Eugenia species Negative Normal Negative [facility] Comment on above: Performed By: #### C T/NGNA #### [facility] [address] [place], [place] [id number] Dr. Brando Betancourt Gardnerella vaginalis Negative Normal Negative [facility] Comment on above: Performed By: #### C T/NGNA #### [facility] [address] [place] [address] Dr. Brando Betancourt Trichomonas vaginalis Negative Normal Negative [facility] Comment on above: Performed By: #### C T/NGNA #### [facility] [address] [place] [address] Dr. Brando Betancourt GROUP B STREP CULTUREon 06-01 S. agalactiae Ag Ql (Unsp spec) Culture Observations: NEGATIVE FOR GROUP B STREPTOCOCCUS. Normal [facility] Comment on above: Performed By: #### C T/NGNA #### [facility] [address] [place] [address] Dr. Brando Betancourt CULTURE URINEon 06-09-2022 CULTURE URINE Culture Observations: NO GROWTH. Normal [facility] Comment on above: Performed By: #### U RCX #### [facility] [address] [place] [address] Dr. Brando Betancourt US PREG GROWTHon 06-09-2022 US PREG GROWTH EXAMINATION: US PREG GROWTH HISTORY: Uterine size for dates discrepancy COMPARISON: No relevant comparison available. FINDINGS: Heart Rate: 132.0 bpm Amniotic Fluid Volume: 15.5 cm Number: 1.0 Position: Cephalic presentation, longitudinal lie Maximum Vertical Pocket: 4.0 cm cm 4.8 cm cm 3.0 cm cm 3.6 cm cm BIOMETRY: BPD: 7.9 cm cm; 31 weeks 6 days; 5% HC: 29.8 cmcm; 33 weeks 0 days, 6% AC: 29.6 cm cm; 33 weeks 4 days, 48% FL: 6.7 cm cm; 34 weeks 4 days; 61.6 % % EFW: 2231.2 grams, 4 lbs. 15 oz., 39% FL/AC: 22.7 FL/BPD: 84.7 HC/AC: 1.0 GESTATIONAL AGE: Age by EDC: 33 weeks 5 days MAVERICK by EDC: 07/23/2022 Age by US: 33 weeks 2 days MAVERICK by US: 07/26/2022 IMPRESSION: BPD at the 5th percentile Head circumference at the 6th percentile Electronically authenticated by: MICHAEL KIRK Date: 2022-06-09 10:31 Normal [facility] HEP B SURFACE ANTIGEN SCREEN on 05-13-2022 HBsAg Screen Negative Normal Negative [facility] Comment on above: Performed By: #### H BSANS #### [facility] [address] [place] [address] Dr. Brando Betancourt HEPATITIS C VIRUS AB W/ REFL EX QUANTon 05-13-2022 HCV AB <0.1 Normal 0.0-0.9 [facility] Comment on above: Performed By: #### H BSANS #### [facility] [address] [place] [address] Dr. Brando Betancourt Interpretation: Comment Normal [facility] Comment on above: Result Comment: Nega tive Not infected with HCV, unless recent infection is suspected or other evidence exists to indicate HCV infection. Performed By: #### H BSANS #### [facility] [address] [address] [address] Brando Betancourt HIV 1 AND 2 WITH REFLEXon HIV Screen 4th Generation wRfx Non-Reactive Normal Non Reactive [facility] Comment on above: Result Comment: HIV Negative HIV-1/HIV-2 antibodies and HIV-1 p24 antigen were NOT detected. There is no laboratory evidence of HIV infection. Performed By: #### C BC #### [facility] [address] [place] [address] Dr. Brando Betancourt RPR QUANTon 05-13-2022 Rapid Plasma Reagin, Quant Non-Reactive Normal NonRea<1:1 [facility] Comment on above: Result Comment: Plea se Note: This test does not meet current guidelines for screening and diagnosis of syphilis. This test is intended for following treatment response in patients being treated for syphilis infection. To screen for syphilis infection, a reflex cascade that includes both RPR and a treponema-specific assay should be utilized, such as Treponema pallidum (Syphilis) Screening Heard (668094) or Rapid Plasma Reagin (RPR) Test With Reflex to Quantitative RPR and Confirmatory Treponema pallidum Antibodies (651147). Performed By: #### H BSANS #### [facility] [address] [place] [address] Dr. Brando Betancourt RUBELLA AB IGGon 05-13-2022 Rubella Antibodies, IgG 1.64 index Normal Immune >0.99 [facility] Comment on above: Result Comment: Non- immune <0.90 Equivocal 0.90 - 0.99 Immune >0.99 Performed By: #### R UBIGG #### [facility] [address] [place] [address] Dr. Brando Betancourt CBC AUTO DIFFon 05-12-2022 BASO # 0.0 103/ul Normal 0.0-0.1 [facility] Comment on above: Performed By: #### C BC #### [facility] [address] [place] [address] Dr. Brando Betancourt Basophils/100 WBC (Bld) 0.2 % Normal 0.2-2.0 [facility] Comment on above: Performed By: #### C BC #### [facility] [address] [place] [address] Dr. Brando Betancourt EO # 0.2 103/ul Normal 0.0-0.7 [facility] Comment on above: Performed By: #### C BC #### [facility] [address] [place] [address] Dr. Brando Betancourt Eosinophils/100 WBC (Bld) 2.0 % Normal 0.9-7.0 [facility] Comment on above: Performed By: #### C BC #### [facility] [address] [place] [address] Dr. Brando Betancourt Erythrocyte distribution width (RBC) [Ratio] 13.1 % Normal 11.0-15.0 [facility] Comment on above: Performed By: #### C BC #### [facility] [address] [place] [address] Dr. Brando Betancourt Hematocrit (Bld) [Volume fraction] 30.8 % Critically low 36.0-48.0 [facility] Comment on above: Performed By: #### C BC #### [facility] [address] [place] [address] Dr. Brando Betancourt Hemoglobin (Bld) [Mass/Vol] 10.4 g/dL Critically low 12.0-16.0 [facility] Comment on above: Performed By: #### C BC #### [facility] [address] [place] [address] Dr. Brando Betancourt IG # 0.04 10e3/ul Critically high 0.00-0.03 [facility] Comment on above: Performed By: #### C BC #### [facility] [address] [place] [address] Dr. Brando Betancourt IG % 0.4 % Normal 0.0-0.5 [facility] Comment on above: Performed By: #### C BC #### [facility] [address] [place] [address] Dr. Brando Betancourt LYMPH # 0.8 103/ul Critically low 1.2-3.8 [facility] Comment on above: Performed By: #### C BC #### [facility] [address] [place] [address] Dr. Brando Betancourt Lymphocytes/100 WBC (Bld) 8.6 % Critically low 20.5-60.0 [facility] Comment on above: Performed By: #### C BC #### [facility] [address] [place] [address] Dr. Brando Betancourt MANUAL DIFF REQ NO Normal [facility] Comment on above: Performed By: #### C BC #### [facility] [address] [place] [address] Dr. Brando Betancourt MCH (RBC) [Entitic mass] 30.5 pg Normal 26.7-34.0 [facility] Comment on above: Performed By: #### C BC #### [facility] [address] [place] [address] Dr. Brando Betancourt MCHC (RBC) [Mass/Vol] 33.8 g/dL Normal 29.9-35.2 [facility] Comment on above: Performed By: #### C BC #### [facility] [address] [place] [address] Dr. Brando Betancourt MCV (RBC) [Entitic vol] 90.3 fL Normal 81.0-99.0 [facility] Comment on above: Performed By: #### C BC #### [facility] [address] [place] [address] Dr. Brando Betancourt MONO # 0.5 103/ul Normal 0.3-0.8 [facility] Comment on above: Performed By: #### C BC #### [facility] [address] [place] [address] Dr. Brando Betancourt Monocytes/100 WBC (Bld) 4.9 % Normal 1.7-12.0 [facility] Comment on above: Performed By: #### C BC #### [facility] [address] [place] [address] Dr. Brando Betancourt NEUT # 7.9 103/ul Critically high 1.4-6.5 [facility] Comment on above: Performed By: #### C BC #### [facility] [address] [place] [address] Dr. Brando Betancourt Neutrophils/100 WBC (Bld) 83.9 % Critically high 43.0-75.0 [facility] Comment on above: Performed By: #### C BC #### [facility] [address] [place] [address] Dr. Brando Betancourt Platelet mean volume (Bld) [Entitic vol] 9.4 fL Critically low 9.5-13.5 [facility] Comment on above: Performed By: #### C BC #### [facility] [address] [place] [address] Dr. Brando Betancourt PLT 189 103/ul Normal 150-450 [facility] Comment on above: Performed By: #### C BC #### [facility] [address] [place] [address] Dr. Brando Betancourt RBC 3.41 106/ul Critically low 4.20-5.40 [facility] Comment on above: Performed By: #### C BC #### [facility] [address] [place] [address] Dr. Brando Betancourt WBC 9.4 103/ul Normal 4.0-11.0 [facility] Comment on above: Performed By: #### C BC #### [facility] [address] [address] [address] Brando Betancourt CULTURE URINEon 05-12-2022 CULTURE URINE Culture Observations: LIGHT GROWTH OF MIXED GENITAL STACEY. NO POTENTIAL PATHOGENS SEEN. Normal [facility] Comment on above: Performed By: #### U RCX #### [facility] [address] [address] [address] Brando Betancourt GLYCOHEMOGLOBIN A1Con 2021 ADA RECOMMENDATION SEE BELOW Normal The [facility] Comment on above: Result Comment: ADA RECOMMENDED LIMIT 4.0 - 6.0 ADA THERAPEUTIC TARGET < 7.0 ACTION SUGGESTED > 7.0 Performed By: #### C BC #### [facility] [address] [place] [address] Dr. Brando Betancourt Glucose [Mass/Vol] 94 mg/dL Normal [facility] Comment on above: Performed By: #### C BC #### [facility] [address] [address] [address] Brando Betancourt HbA1c (Bld) [Mass fraction] 4.9 % Normal 4.5-6.2 [facility] Comment on above: Performed By: #### C BC #### [facility] [address] [place] [address] Dr. Brando Betancourt TYPE AND SCREENon 05-12-2022 TYPE AND SCREEN Negative Normal [facility] Comment on above: Performed By: #### C T/NGNA #### [facility] [address] [address] [address] Brando Betancourt US PREG PLACENTAon 2 US PREG PLACENTA EXAMINATION: US PREG PLACENTA HISTORY: Low lying placenta COMPARISON: Ultrasound anatomy single 03/09/2022 FINDINGS: PLACENTA: Posterior with distal margin 4.0 cm from os. CERVIX LENGTH: Not measured. HEART RATE: 153 bpm OTHER: None. GA: 27 weeks 5 days MAVERICK: 07/23/2022 IMPRESSION: 1. Single live intrauterine . 2. Posterior placenta which is no longer low-lying. Electronically authenticated by: SCARLET TIAN Date: 2022-04-28 16:22 Normal [facility] OVA AND PARASITE EXAMINATION on 04-15-2022 Ova + Parasite Exam Final report Normal [facility] Comment on above: Result Comment: Thes e results were obtained using wet preparation(s) and trichrome stained smear. This test does not include testing for Cryptosporidium parvum, Cyclospora, or Microsporidia. Performed By: #### H SULAIMAN #### [facility] [address] [place] [address] Dr. Brando Betancourt Result 1 Comment Normal [facility] Comment on above: Result Comment: No o va, cysts, or parasites seen. . One negative specimen does not rule out the possibility of a parasitic infection. Performed By: #### H SULAIMAN #### [facility] [address] [place] [address] Dr. Brando Betancourt GLUCOSE - 1HRon 04-07-2022 Glucose [Mass/Vol] 113 mg/dL Critically high 74-106 T [facility] Comment on above: Performed By: #### H SULAIMAN #### [facility] [address] [place] [address] Dr. [facility] CNPN Telephone (OBGYWM) ELIDA KEENAN ([id number]) 1995 F Date Time Provider Department 03/30/22 ODESSA ISLAS OBGYWM During your visit today, we recorded the following information about you: Ike Teresa RN 03/30/2022 10:27 AM Signed Patient transferred care to [facility] office. She was seen in our office for 2 visits. Please bill all visits if needed. Ike Teresa RN Allergies As of Date: 03/30/2022 Noted Allergy Reaction environmental [Other] 07/15/2007 Date Reviewed: 01/27/2022 Reviewed by: Serena Srinivasan MD - Fully Assessed Reason for Visit: Transfer of Care [Other] Prescriptions as of 03/30/2022 - PNV no.95/ferrous fum/folic ac ( ORAL) Take by mouth. - albuterol HFA (PROVENTIL HFA, VENTOLIN HFA) 90 mcg/actuation inhaler Inhale 2 Puffs as instructed every 4 hours as needed. Problem List As Of Date 03/30/2022 Noted Resolved ASTHMA UNSPECIFIED [J45.909] 04/28/2006 Excessive or frequent menstruation [N92.0] 01/20/2008 04/04/2012 Shoulder disorder [M25.9] 05/02/2009 04/04/2012 Weight gain, abnormal [R63.5] 05/21/2010 04/04/2012 Abdominal pain, acute, epigastric [R10.13] 05/21/2010 04/04/2012 GERD (gastroesophageal reflux disease) [K21.9] 07/25/2010 01/19/2014 Depression [F32.A] 08/12/2012 Pulmonary embolism (HCC) [I26.99] 01/26/2013 01/19/2014 Acute septic pulmonary embolism with acute cor *10/22/2015 Patient request for diagnostic testing [Z01.89] 12/16/2021 History of pulmonary embolism [Z86.711] 12/16/2021 History of depression [Z86.59] 12/16/2021 Encounter Status:Closed by IKE TERESA RN on 03/30/22 Normal [facility] US PREG ANATOMY SINGLEon PREG ANATOMY SINGLE EXAMINATION: US PREG ANATOMY SINGLE HISTORY: Irregular periods COMPARISON: No relevant comparison available. TECHNIQUE: Transabdominal sonographic examination was performed for obstetrical and evaluation. FINDINGS: Number: 1 Heart Rate: 139.2 bpm H.B. /min Amniotic Fluid Volume: Subjectively normal Placental Location: POSTERIOR with lower margin 2.7 cm from os. Cervix Length: 5 cm , closed. ANATOMY: Normal Structures -cerebellum, choroid plexus, cisterna magna, lateral cerebral ventricles, orbits, midline falx, hard palate, four-chamber heart, RVOT, LVOT, stomach, kidneys, bladder, umbilical cord insertion into abdomen, three-vessel cord, cervical spine, thoracic spine, lumbar spine, sacral spine, right upper extremity, left upper extremity, right lower extremity, left lower extremity. SUBOPTIMALLY SEEN: None ABNORMALITIES: None BIOMETRY: BPD: 4.7 cm 20 weeks 1 days HC: 17.9 cm 20 weeks 3 days AC: 16.1 cm 21 weeks 1 days FL: 3.4 cm 20 weeks 5 days EFW:381.4 grams; 61% FL/AC: 21.1 FL/BPD: 72.3 HC/AC: 1.1 GESTATIONAL AGE: Age by EDC: 20 weeks 4 days MAVERICK by EDC: 07/23/2022 Age by current US: 20 weeks 4 days MAVERICK by current US: 07/23/2022 IMPRESSION: 1. Single live intrauterine with growth detailed above. 2. Low-lying posterior placenta. Electronically authenticated by: SCARLET TIAN Date: 2022-03-09 16:44 Normal [facility] URINE OB DIP B/Oon 2 Glucose Ql (U) Negative Neg mg/dL [facility] Protein.monoclonal (U) [Mass/Vol] Negative Neg mg/dL [facility] Bacteria Ur Culton 2 Bacteria identified Cx Nom (U) ORGANISM ID: 1 <10,000 CFU/ml Normal urogenital stacey Normal [facility] Comment on above: Performed By: #### 6 30-4 #### [facility] CLIA [id number] [address] [place] [address] [place] C. trachomatis+N. gonorrhoea e DNA JOBY+probe Ql (Unsp spec)on 12-30-2021 C. trachomatis DNA JOBY+probe Ql (Unsp spec) Negative Normal Negative for Chlamydia trachomatis by amplificaton [facility] Comment on above: Order Comment: Speci men Type: SWAB Ordering Facility: [facility] Address: [address] [place] [address] Performed By: #### 3 [id number] #### [facility] CLIA [id number] [address] [place] [address] [place] N. gonorrhoeae DNA JOBY+probe Ql (Unsp spec) Negative Normal Negative for Neisseria gonorrhoeae by amplification [facility] Comment on above: Order Comment: Speci men Type: SWAB Ordering Facility: [facility] Address: [address] [place] [address] Performed By: #### 3 6902-5 #### [facility] CLIA [id number] [address] [place] [address] [place] PAP FLUID CERVICAL SCREENING on 12-30-2021 CASE REPORT Normal [facility] Comment on above: Order Comment: Speci men Type: FLUID SAMPLE Ordering Facility: [facility] Address: [address] [place] [address] Result Comment: Gyne cologic Cytology Report Case: [id number] Authorizing Provider: Lamont Pulido MD Collected: 12/30/2021 01:57 PM Ordering Location: OB/Gynecology Received: 12/30/2021 05:25 PM First Screen: MITZY Scott, ASCP Specimen: Pap, Foundry Worker Apprentice, Screening, CERVICAL SCREENING FLUID Performed By: #### L [id number] #### [facility] CLIA [id number] [address] [place] [address] [place] CLINICAL HISTORY ROUTINE EXAM Normal [facility] Comment on above: Order Comment: Speci men Type: FLUID SAMPLE Ordering Facility: [facility] Address: [address] [place] [address] Performed By: #### L [id number] #### [facility] CLIA [id number] [address] [place] [address] [place] CYTOLOGY INTERPRETATION PAP Normal [facility] Comment on above: Order Comment: Speci men Type: FLUID SAMPLE Ordering Facility: [facility] Address: [address] [place] [address] Result Comment: Nega tive for Intraepithelial lesion or malignancy. Performed By: #### L [id number] #### [facility] CLIA [id number] [address] [place], [place] [id number] [place] FINAL DIAGNOSIS Normal [facility] Comment on above: Order Comment: Speci men Type: FLUID SAMPLE Ordering Facility: [facility] Address: [address] [place] [address] Result Comment: A - CERVICAL SCREENING FLUID Satisfactory for interpretation, No endocervical component Negative for Intraepithelial lesion or malignancy. Performed By: #### L [id number] #### [facility] CLIA [id number] [address] [place] [address] [place] [facility] FINAL PERFORMING LAB Normal [facility] Comment on above: Order Comment: Speci men Type: FLUID SAMPLE Ordering Facility: [facility] Address: [address] [place] [address] Result Comment: Tech nical component, manager wound care screening performed at [facility], [address] [place] [address] CLIA# [id number] Diagnostic interpretation performed at [facility], [address] [place] [address] [place] [address] CLIA# [id number] Pepper Picker: Baldev Jones M.D. Performed By: #### L [id number] #### [facility] CLIA [id number] [address] [place] [address] [place] HPV REQUESTED? Yes, Reflex HPV for ASCUS Normal [facility] Comment on above: Order Comment: Speci men Type: FLUID SAMPLE Ordering Facility: [facility] Address: [address] [place] [address] Performed By: #### L [id number] #### [facility] CLIA [id number] [address] [place], [place] [id number] [place] LMP Normal [facility] Comment on above: Order Comment: Speci men Type: FLUID SAMPLE Ordering Facility: [facility] Address: [address] [place] [address] Performed By: #### L [id number] #### [facility] CLIA [id number] [address] [place] [address] PAP DISCLAIMER COMMENT The Pap Smear is a screening test for cervical cancer. False negative results occur with all screening tests, emphasizing the need for rescreening at recommended intervals, and clinical correlation. Normal [facility] Comment on above: Order Comment: Speci men Type: FLUID SAMPLE Ordering Facility: [facility] Address: [address] [place] [address] Performed By: #### L [id number] #### [facility] CLIA [id number] [address] [place] [address] STATES [facility] PAP CONSULTANT INTERN COMMENT This specimen has been analyzed by the ThinPrep Imaging System, an automated imaging and review system, which assists the laboratory in evaluating cells on ThinPrep Pap tests. Following automated imaging, selected arriaga from every slide are reviewed by a manager wound care. Normal [facility] Comment on above: Order Comment: Speci men Type: FLUID SAMPLE Ordering Facility: [facility] Address: [address] [place] [address] Performed By: #### L [id number] #### [facility] CLIA [id number] [address] [place] [address] CNNURSEon 12-16-2021 CNNURSE Nurse Visit (OBGYWM) ELIDA KEENAN ([id number]) 1995 F Date Time Provider Department 12/16/21 9:30 AM NURSE PNOB [facility] OBGYWM During your visit today, we recorded the following information about you: Last Period 10/25/21 Anabel Bhardwaj RN 12/16/2021 10:11 AM Signed SEQUENTIAL SCREENINGS The [facility] offers sequential screenings for women who are interested in screenings for chromosomal abnormalities and certain defects during a . The sequential screen combines ultrasound and blood tests to determine the risk of chromosomal abnormalities, including Down's Syndrome (Trisomy 21) and Trisomy 18, as well as open neural tube defects including spina bifida. Ultrasound examination is performed between 11 weeks and 13 weeks gestational age. Blood tests are drawn after the ultrasound and again later in the between 15 and 21 weeks gestational age. Please let your physician know if you are interested in this testing. It will require an appointment with our semiconductor manufacturing technician. This is not an ultrasound performed by a physician in our office during a routine visit. SIGNS AND SYMPTOMS OF LABOR 1. Contractions every 10 minutes or more often 2. Clear, pink, or brownish fluid (water) leaking from vagina 3. Feeling that baby is pushing down, pressure 4. Low, dull backache 5. Cramps that feel like a period 6. Cramps with or without diarrhea If you notice any of the above symptoms, contact our office at [phone] and ask to speak with a nurse. After hours, you can call doctors registry at [phone] OR call [facility] at [phone] and ask to have the doctor communications clerk paged. If you consider this an emergency, dial 9-1-1 or go to your nearest emergency department. Cord-Blood Banking Up until recently, the umbilical cord--along with the blood that remained in it after a baby was born and the cord cut--was simply discarded by the hospital. Then, in the late 1980s, researchers discovered that cord blood possessed unusual properties that made it useful in the treatment of patients with some cancers and other illnesses. While the actual process of collecting cord blood is straightforward, many parents are not even aware that this option now exists, much less familiar with all the issues involved. The case for saving your baby's cord blood The blood running back and forth between your baby and the placenta is full of immature cells called stem cells. Unlike embryonic stem cells, which have the ability to develop into any type of body cell, cord-blood stem cells already are locked into a certain, vital function: making all the different components of the blood, such as platelets, white blood cells, and red blood cells-serving, in effect, like bone marrow. When transfused into a patient whose own blood cells have faulty genetic coding or have been destroyed by chemotherapy or other cancer treatments, the cord-blood cells can implant themselves in the bone marrow and generate legions of new, healthy cells. These days, cord-blood transplants most commonly are used in cancer patients when a donor can't be found for a bone-marrow transplant. The treatment is particularly effective in young patients-the [facility] Cord Blood Bank reports a 70 percent success rate in children, but only 20 to 40 percent in adults. Researchers envision improving those odds and see many future applications as well, such as curing sickle cell disease and other blood-related genetic illnesses. So there is a possibility that your child, or someone else, may need these super-healthy and versatile cells one day. The drawbacks Aside from not knowing about this medical option, the main reason most people do not save their baby's stem cells is cost. In a private blood bank, the initial costs run from $275 to $1,500. Most also charge a yearly storage fee of $50 to $95. The advantage of using a private bank is that your sample is saved for only you to use. An alternative to private banking Public cord-blood herrmann are an alternative. These cost no money to use, but your sample is not specifically saved for you. Another person with a more immediate need may use it. If the time should come that you need stem cells, yours may still be available, or you may use donations from other people without charge. You also can direct your sample to go to a relative with an immediate need if the blood type matches. Anyone else needing to use stem cells from a public bank who has not been a donor must pay for it, sometimes tens of thousands of dollars. Will my family benefit from saving stem cells? Right now, situations in which stem cells would be helpful are quite rare. As mentioned earlier, stem-cell transplants are most commonly used for rare genetic conditions and for some types of can (more content not included)... Normal [facility] HCG QUAL UR B/Oon 12-16-2021 status Positive neg - pos [facility] Quality Check Yes [facility] US TRANSVAGINAL OBon 017 US TRANSVAGINAL OB EXAMINATION: Transvaginal pelvic ultrasound.CLINICAL INFORMATION: Pelvic pain, check IUD placement.COMPARISON : None.FINDINGS: The uterus measures 7.8 x 3.8 x 5.5 cm. An IUD is present in the upper uterine segment, in good position. The endometrium measures 4 mm in thickness. There is no uterine mass.The right ovary measures 2.6 x 2.0 x 3.0 cm. The left ovary measures 3.3 x 1.8 x 2.4 cm. No adnexal mass or free fluid is present.IMPRESSION: 1. IUD in good position in the upper uterine segment.2. Otherwise, normal pelvic ultrasound.Report electronically signed by: Dr. Adair Blank [facility] Vital Signs Date Time Vital Sign Value Performing Clinician Dorian james 01-27-2022 09:28-0400 Body weight 63.5 kg Serena Srinivasan MD Work Phone: [facility] 01-27-2022 09:28-0400 Diastolic blood pressure 62 mm[Hg] Serena Srinivasan MD Work Phone: [facility] 01-27-2022 09:28-0400 Systolic blood pressure 98 mm[Hg] Serena Srinivasan MD Work Phone: [facility] 12-30-2021 13:09-0400 Body weight 62.6 kg Lamont Pulido MD Work Phone: [facility] 12-30-2021 13:09-0400 Diastolic blood pressure 70 mm[Hg] Lamont Pulido MD Work Phone: [facility] 12-30-2021 13:09-0400 Systolic blood pressure 110 mm[Hg] Lamont Pulido MD Work Phone: [facility] 12-16-2021 08:55-0400 Body height 160 cm Raina Bonner [employer]CNM Work Phone: [facility] 12-16-2021 08:55-0400 Body weight 61.69 kg Raina Bonner [employer].CNM Work Phone: [facility] 12-16-2021 08:55-0400 Diastolic blood pressure 64 mm[Hg] Raina Bonner [employer].CNM Work Phone: [facility] 12-16-2021 08:55-0400 Systolic blood pressure 112 mm[Hg] Raina Bonner [employer].CNM Work Phone: [facility] Encounters Encounter Date Encounter Type Care Provider Facility Start: 05-05-2023 End: 05-05-2023 ambulatory RIANNA LOREDO Not Available Start: 10-03-2022 End: 10-03-[address] DOCTOR AYON Facility:[facility] Start: 07-28-2022 End: 07-28-[address] RIANNA LOREDO . Facility:[facility] Start: 07-21-2022 End: 07-21-[address] RIANNA LOREDO . Facility:[facility] Start: 07-13-[address] DOCTOR AYON Facility :[facility] Start: 07-12-2022 End: 07-15-2022 Evaluation and management of inpatient DR DOCTOR AYON Facility:[facility] Start: 06-23-2022 End: 06-23-2022 ambulatory STEPHANIE ARELLANO . Facility:[facility] Start: 06-09-2022 End: 06-10-2022 ambulatory STEPHANIE ARELLANO . Facility:[facility] Start: 05-12-2022 End: 05-13-2022 ambulatory STEPHANIE ARELLANO . Facility:[facility] Start: 04-28-2022 End: 04-29-[address] RIANNA LOREDO . Facility:[facility] Start: 04-14-2022 End: 04-14-[address] RIANNA LOREDO . Facility:[facility] Start: 04-07-2022 End: 04-08-[address] RIANNA LOREDO . Facility: Start: 03-30-2022 Telephone encounter Odessa Baldwin zack [employer].ANNETTEM Work Phone: OB/Gynecology Comment on above: Transfer of Care Start: 03-09-2022 End: 03-10-[address] RIANNA LOREDO . Facility: Start: 01-27-2022 End: 01-27-2022 ambulatory SERENA SRINIVASAN Facility:[facility] Start: 01-27-2022 End: 01-27-2022 Patient encounter procedure Serena Srinivasan MD Work Phone: OB/Gynecology Comment on above: 14 weeks gestation o f (Primary Dx); Encounter for supervision of normal first in second trimester Start: 12-30-2021 End: 12-30-2021 ambulatory LAMONT PULIDO Facility:[facility] Start: 12-30-2021 End: 12-30-2021 Patient encounter procedure Lamont Pulido MD Work Phone: OB/Gynecology Comment on above: History of pulmonary embolism (Primary Dx); History of depression; Encounter for care in first trimester of first Start: 12-16-2021 End: 12-16-2021 ambulatory Raina Bonner APRN.CNIsaias Work Phone: OB/Gynecology Comment on above: online resource Start: 12-16-2021 E-mail encounter fro m caregiver Raina Bonner APRN.CNIsaias Work Phone: [facility] Start: 12-16-2021 End: 12-16-2021 Nursing evaluation of patient and report Nurse [facility] Work Phone: OB/Gynecology Comment on above: Supervision of high risk , antepartum (Primary Dx); Patient request for diagnostic testing; History of pulmonary embolism; History of depression Start: 12-16-2021 End: 12-16-2021 Patient requested procedure Nurse [facility] Work Phone: [facility] Work Phone: Start: 12-16-2021 End: 12-16-2021 Patient encounter procedure Raina Bonner APRN.CNIsaias Work Phone: OB/Gynecology Comment on above: Missed menses (Prima ry Dx); Encounter for test, result positive; History of depression Start: 12-11-2021 End: 12-11-2021 ambulatory MARTIN BURGOS Facility:[facility] Start: 12-18-2016 Ambulatory AN MOREIRA Facili ty:[facility] Start: 12-02-2016 End: 12-28-2016 Ambulatory AN MOREIRA Facility:[facility] Start: 11-26-2016 End: 11-26-2016 Ambulatory AN MOREIRA Facility:[facility] Start: 11-25-2016 End: 11-25-2016 Ambulatory AN NÚÑEZIN Facility:[facility] Procedures Date Procedure Procedure Detail Performing Clinician Start: 07-13-2022 Delivery of Products of Conception, External Approach DR RIANNA LOREDO . Start: 07-13-2022 Division of Female Perineum, External Approach DR RIANNA LOREDO . Start: 07-13-2022 Drainage of Amniotic Fluid, Therapeutic from Products of Conception, Via Natural or Artificial Opening DR RIANNA LOREDO . Start: 07-13-2022 Repair Perineum Musc le, Open Approach DR RIANNA LOREDO . Start: 01-27-2022 URINE OB DIP B/O Serena Srinivasan MD Work Phone: Start: 12-16-2021 Urine test visual color cmprsn ramin Allandinesh [employer] BUILDER.CNM Work Phone: Plan of Treatment Date Care Activity Detail Author Start: 12-30-2024 PAP TESTING PAP TESTING [facility] Start: 01-29-2022 Influenza vaccination INFLUENZA (#1) [facility] Start: 12-30-2021 End: 03-01-2022 CBC panel - Blood by Automated count CBC Lab Routine History of pulmonary embolism History of depression Encounter for care in first trimester of first Expected: 12/30/2021, Expires: 03/01/2022 [facility] Work Phone: Comment on above: Expected: 12/30/2021 , Expires: 03/01/2022 Start: 12-30-2021 End: 03-01-2022 Hepatitis B virus surface Ab [Presence] in Serum by Immunoassay HEP B SURF AG SCRN Lab Routine History of pulmonary embolism History of depression Encounter for care in first trimester of first Expected: 12/30/2021, Expires: 03/01/2022 [facility] Work Phone: Comment on above: Expected: 12/30/2021 , Expires: 03/01/2022 Start: 12-30-2021 End: 03-01-2022 Hepatitis C virus Ab [Presence] in Serum HEP C AB IA W/CONF SCRN Lab Routine History of pulmonary embolism History of depression Encounter for care in first trimester of first Expected: 12/30/2021, Expires: 03/01/2022 [facility] Work Phone: Comment on above: Expected: 12/30/2021 , Expires: 03/01/2022 Start: 12-30-2021 End: 03-01-2022 HIV 1+2 Ab [Presence] in Serum or Plasma by Immunoassay HIV 1 2 COMBO(AG/AB),WITH REFLEX TO DIFFERENTIATION Lab Routine History of pulmonary embolism History of depression Encounter for care in first trimester of first Expected: 12/30/2021, Expires: 03/01/2022 [facility] Work Phone: Comment on above: Expected: 12/30/2021 , Expires: 03/01/2022 Start: 12-30-2021 End: 03-01-2022 RUBELLA IGG AB RUBELLA IGG AB Lab Routine History of pulmonary embolism History of depression Encounter for care in first trimester of first Expected: 12/30/2021, Expires: 03/01/2022 [facility] Work Phone: Comment on above: Expected: 12/30/2021 , Expires: 03/01/2022 Start: 12-30-2021 End: 03-01-2022 SYPHILIS TOTAL W/REFLEX SYPHILIS TOTAL W/REFLEX Lab Routine History of pulmonary embolism History of depression Encounter for care in first trimester of first Expected: 12/30/2021, Expires: 03/01/2022 [facility] Work Phone: Comment on above: Expected: 12/30/2021 , Expires: 03/01/2022 Start: 12-30-2021 End: 03-01-2022 TYPE + SCREEN TYPE + SCREEN Blood Bank Routine History of pulmonary embolism History of depression Encounter for care in first trimester of first Expected: 12/30/2021, Expires: 03/01/2022 [facility] Work Phone: Comment on above: Expected: 12/30/2021 , Expires: 03/01/2022 Start: 07-15-2017 Urine microalbumin profile DTAP,TDAP,TD (2 - Td or Tdap) [facility] Start: 04-09-2017 PAP TESTING PAP TESTING [facility] Start: 1993 COVID-19 VACCINE (#1) COVID-19 VACCI NE (#1) [facility] Start: 1993 HEPATITIS B (1 of 3 - 3-dose series) HEPATITIS B (1 of 3 - 3-dose series) [facility] Bacteria identified in Urine by Culture URINE CULTURE Microbiology Routine History of pulmonary embolism History of depression Encounter for care in first trimester of first 12/30/2021 1:57 PM EDT [facility] Work Phone: Chlamydia trachomatis+Neisseria gonorrhoeae DNA [Presence] in Unspecified specimen by JOBY with probe detection GC/CHLAMYDIA DNA DET Lab Routine History of pulmonary embolism History of depression Encounter for care in first trimester of first 12/30/2021 1:57 PM EDT [facility] Work Phone: OBSTETRIC ULTRASOUND [facility] OBSTETRIC ULTRASOUND [facility] Anc Imaging Routine Encounter for supervision of normal first in second trimester Ordered: 01/27/2022 [facility] Work Phone: Comment on above: Ordered: 01/27/2022 PAP FLUID CERVICAL SCREENING PAP FLUID CERVICAL SCREENING Lab Routine History of pulmonary embolism History of depression Encounter for care in first trimester of first 12/30/2021 1:57 PM EDT [facility] Work Phone: [facility] Immunizations Immunization Date Immunization Notes Care Provider Jack mora 04-12-2010 influenza virus vaccine, unspecified formulation Raina Bonner [employer] BUILDER.CNM Work Phone: [facility] 09-04-2008 human papilloma viru s vaccine, quadrivalent Raina Bonner BR[employer] CH[employer]NEY BUILDER.CNM Work Phone: [facility] Work Phone: 03-19-2008 human papilloma viru s vaccine, quadrivalent Raina Bonner BR[employer] CHIMNEY BUILDER.CNM Work Phone: [facility] Work Phone: 01-17-2008 hepatitis A vaccine, unspecified formulation Raina Bonner BR[employer] CH[employer] BUILDER.CNM Work Phone: [facility] Work Phone: 01-17-2008 human papilloma viru s vaccine, quadrivalent Raina Bonner BR[employer] CHIMNEY BUILDER.CNM Work Phone: [facility] Work Phone: 07-15-2007 hepatitis A vaccine, unspecified formulation Raina Bonner BR[employer] CHIMNEY BUILDER.CNM Work Phone: [facility] Work Phone: 07-15-2007 Meningococcal, MCV4, unspecified conjugate formulation(groups A, C, Y and W-135) Raina Bonner BR[employer] CHIMNEY BUILDER.CNM Work Phone: [facility] Work Phone: 07-15-2007 tetanus toxoid, redu ruchi diphtheria toxoid, and acellular pertussis vaccine, adsorbed Rainadanyelle Bonner BRICK CHIMNEY BUILDER.CNM Work Phone: [facility] Work Phone: Payers Date Payer Category Payer Medicaid [place] [id number] 2021-Present [phone] [address] [place] [address] Medicaid [id number] 2015 Private Health Insurance [id number] 1993 Unknown [id number] 1993 Unknown [id number] 1993 Unknown [id number] [id number] 1993 Unknown [id number] [id number] 1993 Unknown [id number] [id number] 1993 Unknown [id number] [id number] 93 1993 Unknown [id number] [id number] 93 1993 Unknown [id number] [id number] 93 1993 Unknown [id number] [id number] 93 1993 Unknown [id number] [id number] 93 1993 Unknown [id number] [id number] 93 1993 Unknown [id number] [id number] 93 1993 Unknown [id number] [id number] 93 1993 Unknown [id number] 259 1959 Medicaid [id number] Social History Date Type Detail Facility Start: 01-27-2022 Tobacco smoking stat [facility] Never smoked tobacco [facility] Start: 12-16-2021 End: 03-30-2022 Alcohol intake Current non-drinker of alcohol (finding) [facility] Start: 12-16-2021 Education 15 [facility] Start: 10-30-2021 [facility] Start: 1995 Sex Assigned At Female C [facility] Start: 12-06-2021 End: 01-27-2022 Exposure to SARS-CoV-2 (event) Not sure [facility] Start: 01-27-2022 Tobacco use and exposure Smoke less tobacco non-user [facility] Goals Date Patient Goal Desired Activity /State Clinical Notes 01-26-2013 to 07-12-2022 Telephone Encounter - Ike Teresa RN - 03/30/2022 10:22 AM EDTPrenatal Quick Notes - Serena Srinivasan MD - 01/27/2022 9:47 AM EDTPatient Kofi Pulido MD - 12/30/2021 12:59 PM EDT Note Date & Type Note Facility 07-12-2022 Note PROCEDURE: US PREG B IOPHYSICAL NO NST, 07/12/2022 6:52 AM EST CLINICAL INDICATIONS: Encounter for third trimester . Pain, biophysical profile assessment. 1 para 0 Expected gestational age: 30 weeks 3 days Expected MAVERICK: 07/23/2022 COMPARISON: 06/09/2022 TECHNIQUE: Limited third trimester obstetric sonogram, biophysical profile evaluation. FINDINGS: Single living intrauterine identified, cephalic presentation. body and cardiac motion seen heart rate 130 bpm. Amniotic fluid index 14.3 cm, maximum vertical pocket 10.5 cm. Placenta: Not evaluated, no previa BIOPHYSICAL PROFILE ASSESSMENT: movement: 2/2 tone: 2/2 breathin/2 fluid: 2/2 Total biophysical profile score: 8/8 anatomic assessment: Not performed. biometry: Not performed. IMPRESSION: 1. Single living intrauterine , cephalic presentation 2. Normal amniotic fluid index, 14.3 cm, maximum vertical pocket 10.5 3. Normal biophysical profile assessment, total score 8/8 Electronically authenticated by: NADINE ENCISO Date: 2022-07-12 07:58 [facility] 03-30-2022 Miscellaneous Notes Patient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 the cells would be after years of being stored. The treatment is so new and rare, we just don't have the data yet to resolve these important issues. What do the experts say? The [place] [employer] encourages philanthropic blood banking in public herrmann, but only for families with a current or potential need. Blood-bank proponents encourage any kind of banking, pointing out that research is getting closer and closer to many diverse, live-saving applications. How do I decide? Each family must weigh the pros and cons for themselves. Some families say that any cost is worth their peace of mind. Others say that in the face of uncertainty about the effectiveness of the treatment, they will use their resources elsewhere. Some choose the middle ground of donating publicly, knowing that their sample might benefit another family, if not themselves. For more information, ask your doctor or nurse, and be sure to check out our article on the technical aspects of cord-blood banking. Technical Aspects of Cord-Blood Banking If you are interested in storing your baby's umbilical-cord blood because of its possible use in emerging medical treatments, you must make arrangements with a blood bank before your child is born. The collection procedure is quite simple: After delivery of the baby, the umbilical cord is clamped and cut in the usual way. The blood that remains in the umbilical-cord vessels is then collected in sterile containers. The blood may be removed from the cord with a large needle or allowed to flow freely, depending on the company's collection system. The containers may look like large test tubes or like the plastic bags used in a blood bank. It does not cause the mother or the baby any pain to collect the blood, and no blood is taken that the baby needs at the moment. The nurse, major account representative, or physician will then label the samples, check them over with you, and package them for a special pickup arranged with a commercial carrier. When the blood arrives at the blood-bank facility, it is processed and the parents are notified. It is then kept in an advanced storage system for years. How do I know that my sample is safe? Power outages and bankruptcies potentially could threaten any organization, but so far none have been reported. It is to be hoped that the scientists in these herrmann would arrange for safe transfer to another facility if the need arose. YOU MUST MAKE ARRANGEMENTS AHEAD OF TIME! Public cord-blood herrmann--DONATION: [employer] [phone] [facility]'s Placental Blood Program, [facility] Umbilical Cord Blood [facility], Private cord-blood herrmann--SAVING FOR YOUR OWN USE: [employer], (I think this is the least expensive) [employer] [phone] [employer], (278) [employer] [place] [facility], [phone], [phone] [place] [facility], Cord Blood Registry, (647) [employer], An Internet search may provide you with additional listings. documented in this encounter [facility] 12-16-2021 History of Presen t illness Narrative Elida Keenan is a 26 year old female who presents with missed menses. LMP was approximately 10/25/21. No control since 2018- only using condoms Currently but from . Was in open relationship and unsure of paternity. OB History T0 L0 SAB0 IAB0 Ectopic0 Multiple0 Live Births0 Mobile Practice Lead History LMP: 10/25/2021, Age at Menarche: Age at First : Age at Menopause: Mobile Practice Lead History Comments: Sexual Activity: Yes; Male Contraception: Condom, I.U.D. PAST MEDICAL HISTORY Diagnosis Date HPV test positive 03/2014 MTHFR mutation PE (pulmonary embolism) 12/2012 [facility], took Xarelto for 6+ months from [facility] ([place], [place]) PMH - PAST MEDICAL HISTORY OF stayed in hospital after for r/o meningitis PMH - PAST MEDICAL HISTORY OF asthma PMH - PAST MEDICAL HISTORY OF recurrent ear infections when younger PMH - PAST MEDICAL HISTORY OF was a slow learner for reading PMH - PAST MEDICAL HISTORY OF broken 2nd toe left foot -2004 PMH - PAST MEDICAL HISTORY OF tore a hole in right leg with hog fencing PMH - PAST MEDICAL HISTORY OF nosebleeds Precocious sexual development and puberty, not elsewhere classified age 6 years PAST SURGICAL HISTORY Procedure Laterality Date COLONOSCOPY FLX DX W/COLLJ SPEC WHEN PFRMD 01-15-13 EGD TRANSORAL BIOPSY SINGLE/MULTIPLE 01-15-13 FAMILY HISTORY Problem Relation Age of Onset No Known Problems Mother Diabetes Father Type 1 Heart Father 2ndary to diabetes No Known Problems Sister No Known Problems Sister Breast Cancer Maternal Grandmother Cervical Cancer Maternal Grandmother Cancer Maternal Grandfather bone cancer No Known Problems Paternal Grandmother Alzheimer's Disease Paternal Grandfather other (Crohn's [Other]) Maternal Uncle Social History Tobacco Use Smoking status: Never Smoker Smokeless tobacco: Never Used Substance Use Topics Alcohol use: No Drug use: No Current Outpatient Medications Medication Sig PNV no.95/ferrous fum/folic ac ( ORAL) Take by mouth. albuterol HFA 90 mcg/Actuation INHALATION inhaler 2 puffs q 4 to 6 hrs prn fluconazole (DIFLUCAN) 150 mg tablet Take 1 tablet today and repeat in 3 days MULTIVITS,CA,MINERALS/IRON/FA (ONE-A-DAY WOMENS FORMULA ORAL) Take 1 tablet by mouth once daily. (Patient not taking: Reported on 12/16/2021 ) LORATADINE/PSEUDOEPHEDRINE (CLARITIN-D 24 HOUR ORAL) Take 1 tablet by mouth once daily. (Patient not taking: Reported on 12/16/2021 ) No current facility-administered medications for this visit. Allergies As of Date: 12/16/2021 Allergen Noted Reaction ENVIRONMENTAL [OTHER] 07/15/2007 Fully Assessed 12/16/2021 REVIEW OF SYSTEMS Abdomen: No bloating, early satiety, indigestion, or increased flatulence. No abdominal pain, diarrhea, or constipation. Occasional nausea without emesis Bladder: No dysuria, gross hematuria, urinary frequency, urinary urgency, or incontinence. Breast: No breast lumps, nipple d/c, overlying skin changes, redness or skin retraction. Expanded ROS: N/A Allergies and current medication updated:Yes EXAM: BP 112/64 Ht 5' 3 (1.60m) Wt 136 lb (61.7kg) LMP 10/25/2021 BMI 24.10 kg/(m^2). GENERAL: pleasant, female in no apparent distress HEENT: Normocephalic and atraumatic NECK: Supple and full range of motion DERMATOLOGY: Normal and without lesions BREAST: deferred CHEST: Normal inspiratory effort ABDOMEN: Deferred PELVIC: deferred BIMANUAL: deferred NEURO: alert and oriented x3,exam grossly non-focal EXTREMITIES: normal ASSESSMENT/PLAN: 1. Missed menses - ICD9: 626.4, ICD10: N92.6 (primary diagnosis) - HCG QUAL UR B/O- Positive 2. Encounter for test, result positive - ICD9: V72.42, ICD10: Z32.01 - Patient to have PNOB completed today - Bleeding/ectopic precautions reviewed RTO- 2 weeks for NOB or sooner if needed Raina Bonner APRN.CNM I spent a total of 30 minutes on the date of the service which included preparing to see the patient, [id number] patient care, completing clinical documentation, obtaining and/or reviewing separately obtained history and counseling and educating the patient/family/caregiver Medical Decision Making Raina Bonner APRN.CNM documented in this encounter [facility] 01-26-2013 History of Past i llness Narrative Problem Noted Date Resolved Date Pulmonary embolism 01/26/2013 01/19/2014 GERD (gastroesophageal reflux disease) 01/19/2014 Weight gain, abnormal 05/21/2010 04/04/2012 Abdominal pain, acute, epigastric 05/21/2010 04/04/2012 Shoulder disorder 05/02/2009 04/04/2012 Excessive or frequent menstruation 01/20/2008 04/04/2012 documented as of this encounter (statuses as of 12/16/2021) [facility] History of Past illness Narrative* Problem Noted Date Resolved Date Pulmonary embolism 01/26/2013 01/19/2014 GERD (gastroesophageal reflux disease) 01/19/2014 Weight gain, abnormal 05/21/2010 04/04/2012 Abdominal pain, acute, epigastric 05/21/2010 04/04/2012 Shoulder disorder 05/02/2009 04/04/2012 Excessive or frequent menstruation 01/20/2008 04/04/2012 documented as of this encounter (statuses as of 12/16/2021) [facility] History of Past illness Narrative* Problem Noted Date Resolved Date Pulmonary embolism 01/26/2013 01/19/2014 GERD (gastroesophageal reflux disease) 01/19/2014 Weight gain, abnormal 05/21/2010 04/04/2012 Abdominal pain, acute, epigastric 05/21/2010 04/04/2012 Shoulder disorder 05/02/2009 04/04/2012 Excessive or frequent menstruation 01/20/2008 04/04/2012 documented as of this encounter (statuses as of 12/16/2021) [facility] History of Past illness Narrative* Problem Noted Date Resolved Date Pulmonary embolism 01/26/2013 01/19/2014 GERD (gastroesophageal reflux disease) 01/19/2014 Weight gain, abnormal 05/21/2010 04/04/2012 Abdominal pain, acute, epigastric 05/21/2010 04/04/2012 Shoulder disorder 05/02/2009 04/04/2012 Excessive or frequent menstruation 01/20/2008 04/04/2012 documented as of this encounter (statuses as of 12/30/2021) [facility] History of Past illness Narrative* Problem Noted Date Resolved Date Pulmonary embolism 01/26/2013 01/19/2014 GERD (gastroesophageal reflux disease) 01/19/2014 Weight gain, abnormal 05/21/2010 04/04/2012 Abdominal pain, acute, epigastric 05/21/2010 04/04/2012 Shoulder disorder 05/02/2009 04/04/2012 Excessive or frequent menstruation 01/20/2008 04/04/2012 documented as of this encounter (statuses as of 01/27/2022) [facility] History of Past illness Narrative* Problem Noted Date Resolved Date Pulmonary embolism 01/26/2013 01/19/2014 GERD (gastroesophageal reflux disease) 01/19/2014 Weight gain, abnormal 05/21/2010 04/04/2012 Abdominal pain, acute, epigastric 05/21/2010 04/04/2012 Shoulder disorder 05/02/2009 04/04/2012 Excessive or frequent menstruation 01/20/2008 04/04/2012 documented as of this encounter (statuses as of 03/30/2022) [facility] Missed menses- Primary Absence of menstruation Encounter for test, result positive examination or test, positive result History of depression Personal history of other mental disorder documented in this encounter [facility] note* Diagnosis Supervision of high risk , antepartum- Primary Patient request for diagnostic testing Other specified examination History of pulmonary embolism Personal history of pulmonary embolism History of depression Personal history of other mental disorder documented in this encounter [facility] note* Diagnosis History of pulmonary embolism- Primary Personal history of pulmonary embolism History of depression Personal history of other mental disorder Encounter for care in first trimester of first documented in this encounter [facility] note* Diagnosis 14 weeks gestation of - Primary state, incidental Encounter for supervision of normal first in second trimester Supervision of normal first documented in this encounter [facility] for referral (narrative)* Diagnostic Procedure Only (Routine) - Pending Review Specialty Diagnoses / Procedures Referred By Pavel nettles Referred To Contact [facility] Diagnoses Encounter for supervision of normal first in second trimester Procedures OBSTETRIC ULTRASOUND WHI US PREG UTERUS AFTER 1ST TRIMEST GESTATION Serena Srinivasan MD [facility] [place] [address] Formerly Named [facility] [address] [place] [id number] Referral ID Status Reason Start Date Expiration Date Visits Requested Visits Authorized [id number] Pending Review Auto-Generat ed Referral 01/27/2022 01/27/2023 1 1 [facility] Summary Purpose Family History No Family History Records FoundNo Family History Records FoundNo Family History Records FoundNo Family History Records Found Advance Directives No Advanced Directives Records FoundDocuments on File Type Date Recorded Patient 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 EPIC Source Comments (unrecognize d section and content) In the event this informatio n is protected by the Federal Confidentiality of Alcohol and Drug Abuse Patient Records regulations: The Federal rules restrict any use of the information to criminally investigate or prosecute any alcohol or drug abuse patient.[facility] the event this information is protected by the Federal Confidentiality of Alcohol and Drug Abuse Patient Records regulations: The Federal rules restrict any use of the information to criminally investigate or prosecute any alcohol or drug abuse patient.[facility] the event this information is protected by the Federal Confidentiality of Alcohol and Drug Abuse Patient Records regulations: The Federal rules restrict any use of the information to criminally investigate or prosecute any alcohol or drug abuse patient.[facility] the event this information is protected by the Federal Confidentiality of Alcohol and Drug Abuse Patient Records regulations: The Federal rules restrict any use of the information to criminally investigate or prosecute any alcohol or drug abuse patient.[facility] the event this information is protected by the Federal Confidentiality of Alcohol and Drug Abuse Patient Records regulations: The Federal rules restrict any use of the information to criminally investigate or prosecute any alcohol or drug abuse patient.[facility] the event this information is protected by the Federal Confidentiality of Alcohol and Drug Abuse Patient Records regulations: The Federal rules restrict any use of the information to criminally investigate or prosecute any alcohol or drug abuse patient.[facility] Reason for Visit (unrecogniz ed section and content) Reason Comments Missed period Specialty Diagnoses / Procedures Referred By Pavel nettles Referred To Contact [facility] Diagnoses NEW PATIENT Procedures ANNUAL EXAM MD Bobo Formerly Named [facility] [address] [place] [address] Referral ID Status Reason Start Date Expiration Date Visits Requested Visits Authorized [id number] Authorized Financial Clearance Required - Self Pay Patient Cleared - Qualified 100% FAS 11/28/2021 02/26/2022 99 99 Reason Onset Date Comments Care 12/16/2021 Pre-New OB Reason Comments Initial OB Visit Reason Onset Date Comments Care 01/27/2022 Specialty Diagnoses / Procedures Referred By Pavel nettles Referred To Contact [facility] Diagnoses NEW PATIENT Procedures ANNUAL EXAM MD Bobo Formerly Named [facility] [address] [place] [address] Reason Comments Transfer of Care Care Teams (unrecognized sec tion and content) Fitter Tacker Relationship Specialty Start Date End Date Martin Burgos, DO [address] [facility] [place] [address] PCP - General Family Practice 03/03/14 Fitter Tacker Relationship Specialty Start Date End Date Martin Burgos, DO [address] [place] [place] [address] PCP - General Family Practice 03/03/14 Fitter Tacker Relationship Specialty Start Date End Date Martin Burgos, DO [address] [place] [address] PCP - General Family Practice 03/03/14 Fitter Tacker Relationship Specialty Start Date End Date Martin Burgos, DO [address] [place] [place] [address] PCP - General Family Practice 03/03/14 Fitter Tacker Relationship Specialty Start Date End Date Martin Burgos, DO [address] [place] [place] [address] PCP - General Family Practice 03/03/14 Fitter Tacker Relationship Specialty Start Date End Date Martin Burgos, DO [address] [place] [place] [address] PCP - General Family Medicine 03/03/14 FOR RECORDS PERTAINING TO PATIENTS WHO ARE OR HAVE BEEN ENROLLED IN A CHEMICAL DEPENDENCY/SUBSTANCEABUSE PROGRAM, SOME INFORMATION MAY BE OMITTED. This clinical summary was aggregated from multiple sources. Caution should be exercised in using it in the provision of clinical care. This summary normalizes information from multiple sources, and as a consequence, information in this document may materially change the coding, format and clinical context of patient data. In addition, data may be omitted in some cases. CLINICAL DECISIONS SHOULD BE BASED ON THE PRIMARY CLINICAL RECORDS. [facility] [employer] [facility]. provides no warranty or guarantee of the accuracy or completeness of information in this document.
[2023-06-08 16:09] LABS: Age Gdln ACOG Testing Note (.); HPV Aptima Negative (Negative); IGP, Aptima HPV, rfx 16/18,45 Note (.)
== END 2023-06-03 19:56 | disposition home or self-care (01) ==
LOC: LAB 19:55
PROVIDERS: PCP Obstetrics & Gynecology; Visit Provider Physician Assistant
DX: Z01.419 Encounter for gynecological examination (general) (routine) without abnormal findings (principal)
CPT/HCPCS: 87624; G0145

== ENCOUNTER 2023-06-24 09:02 | Outpatient (OUT) | payer MEDICAID, SELFPAY ==
--- NOTE | 2023-06-24 09:05 | US_ITS ---
[address] [address] Patient Name: RADHA KEENAN MRN: [id number] date: 1995 Sex: F Assigned Patient Location: [facility] Current Patient Location: [facility] Accession/Order Number: [id number] Exam Date: 06/24/2023 09:05 Report Date: 06/24/2023 10:51 At the request of: RIANNA LOREDO Procedure: US OB anatomy EXAMINATION: US OB anatomy, US OB cervical length HISTORY: ANATOMY COMPARISON: No relevant comparison available. TECHNIQUE: Transabdominal sonographic examination was performed for obstetrical and evaluation. FINDINGS: Number: 1 Heart Rate: 153.0 bpm H.B. /min Amniotic Fluid Volume: Subjectively normal position: Breech presentation, longitudinal lie Placental Location: POST/FUNDAL , grade 1. Placental edge 6.5 cm from the cervical os Cervix Length: 4.9 cm , closed Normal anatomy: Lateral ventricles, cerebellum, posterior fossa, nose, lips, orbits, four-chamber heart, RVOT, LVOT, diaphragm, stomach, kidneys, abdominal cord insertion, bladder, umbilical arteries, three-vessel cord, spine, extremities BIOMETRY: BPD: 4.7 cm 20 weeks 1 days , 20% HC: 18.4 cm 20 weeks 5 days, 35% AC: 16.3 cm 21 weeks 3 days, 61% FL: 3.5 cm 21 weeks 0 days , 44% EFW:398.2 grams; 14 ounces, 58% FL/AC: 21.3 FL/BPD: 74.3 HC/AC: 1.1 GESTATIONAL AGE: Age by EDC: 20 weeks 6 days Age by current US: 20 weeks 6 days MAVERICK by current US: 11/05/2023 MAVERICK by EDC: 11/05/2023 US/US OB anatomy IMPRESSION: Normal anatomy scan Closed cervix measuring 4.9 cm *Reference: [employer] Practice Guideline for the performance of Obstetric Ultrasound Examinations, February 28, 2007. Electronically authenticated by: MICHAEL KIRK Date: 06/24/2023 10:51
--- NOTE | 2023-06-24 09:07 | US_ITS ---
[address] [address] Patient Name: RADHA KEENAN MRN: [id number] date: 1995 Sex: F Assigned Patient Location: [facility] Current Patient Location: [facility] Accession/Order Number: [id number] Exam Date: 06/24/2023 09:08 Report Date: 06/24/2023 10:51 At the request of: RIANNA LOREDO Procedure: US OB cervical length EXAMINATION: US OB anatomy, US OB cervical length HISTORY: ANATOMY COMPARISON: No relevant comparison available. TECHNIQUE: Transabdominal sonographic examination was performed for obstetrical and evaluation. FINDINGS: Number: 1 Heart Rate: 153.0 bpm H.B. /min Amniotic Fluid Volume: Subjectively normal position: Breech presentation, longitudinal lie Placental Location: POST/FUNDAL , grade 1. Placental edge 6.5 cm from the cervical os Cervix Length: 4.9 cm , closed Normal anatomy: Lateral ventricles, cerebellum, posterior fossa, nose, lips, orbits, four-chamber heart, RVOT, LVOT, diaphragm, stomach, kidneys, abdominal cord insertion, bladder, umbilical arteries, three-vessel cord, spine, extremities BIOMETRY: BPD: 4.7 cm 20 weeks 1 days , 20% HC: 18.4 cm 20 weeks 5 days, 35% AC: 16.3 cm 21 weeks 3 days, 61% FL: 3.5 cm 21 weeks 0 days , 44% EFW:398.2 grams; 14 ounces, 58% FL/AC: 21.3 FL/BPD: 74.3 HC/AC: 1.1 GESTATIONAL AGE: Age by EDC: 20 weeks 6 days Age by current US: 20 weeks 6 days MAVERICK by current US: 11/05/2023 MAVERICK by EDC: 11/05/2023 US/US OB cervical length IMPRESSION: Normal anatomy scan Closed cervix measuring 4.9 cm *Reference: [employer] Practice Guideline for the performance of Obstetric Ultrasound Examinations, February 28, 2007. Electronically authenticated by: MICHAEL KIRK Date: 06/24/2023 10:51
--- OUTSIDE RECORDS SUMMARY | 2023-06-24 09:07 | XMS_ITS | CCD ---
Author Name Unknown Address [address] [facility] [address] [place] [address] Organization [facility] Care Team Providers Care Patient Assessment Coordinator Name Role Phone HARISH, AN E. Unavailable [...] Admitting Unavailable ADAN ., STEPHANIE Attending Unavailable [place], DR MICHAEL Siddiqui Consulting Unavailable MISC, DR BYRNE Primary Care Unavailable ADAN ., STEPHANIE Consulting Unavailable ADAN ., STEPHANIE Consulting Unavailable ADAN ., STEPHANIE Attending Unavailable SOLIS, DR BYRNE Primary Care Unavailable ADAN ., STEPHANIE Admitting [...] Unavailable FACUNDO ., DR BLANCA Consulting Unavailable ADAN, STEPHANIE Attending Unavailable FACUNDO, RIANNA Attending Unavailable Allergies Allergy Classification Reported Allergen(s) Allergy Type Date of Onset Reaction(s) Facility (6 sources) environmental [Other] Propensity to adverse reactions [address] [place] [address] Work Phone: (1 source) OTHER; Translations: [OTHER] Propensity to adverse reactions (disorder) [facility] Repository Medications Current Medications Medication Drug Class(es) [...] 1 tablet by jorge th once daily. 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 0 12/16/2021 Discontinued (Course of therapy completed) Comment on above: Take 1 tablet by jorge th once daily. Completed/Discontinued Medications Medication Drug Class(es) Dates Sig (Normalized) Sig (Original) [id number] 200 actuat albuterol 0.09 mg/actuat metered dose [...] Translations: [38 WEEKS GESTATION OF ] Onset: 2023 Episodic Urinary tract infections (1 source) Urinary [...] F Trimethoprim/Sulfame thoxazole <=20 S F Normal [facility] Comment on above: Performed By: #### U RCX #### [facility] [address] [place] [address] Dr. Brando Betancourt CBC AUTO DIFFon 10-03-2022 BASO # 0.0 103/ul Normal 0.0-0.1 [facility] Comment on above: Performed By: #### H BSANS #### [facility] [address] [place] [address] Dr. Brando Betancourt Basophils/100 WBC (Bld) 0.3 % Normal 0.2-2.0 [facility] Comment on above: Performed By: #### H BSANS #### [facility] [address] [place] [address] Dr. Brando Betancourt EO # 0.2 103/ul Normal 0.0-0.7 [facility] Comment on above: Performed By: #### H BSANS #### [facility] [address] [place] [address] Dr. Brando Betancourt Eosinophils/100 WBC (Bld) 1.5 % Normal 0.9-7.0 [facility] Comment on above: Performed By: #### H BSANS #### [facility] [address] [place] [address] Dr. Brando Betancourt Erythrocyte distribution width (RBC) [Ratio] 12.6 % Normal 11.0-15.0 [facility] Comment on above: Performed By: #### H BSANS #### [facility] [address] [place] [address] Dr. Brando Betancourt Hematocrit (Bld) [Volume fraction] 38.3 % Normal 36.0-48.0 [facility] Comment on above: Performed By: #### H BSANS #### [facility] [address] [place] [address] Dr. Brando Betancourt Hemoglobin (Bld) [Mass/Vol] 12.8 g/dL Normal 12.0-16.0 [facility] Comment on above: Performed By: #### H BSANS #### [facility] [address] [place] [address] Dr. Brando Betancourt IG # 0.03 10e3/ul Normal 0.00-0.03 [facility] Comment on above: Performed By: #### H BSANS #### [facility] [address] [place] [address] Dr. Brando Betancourt IG % 0.3 % Normal 0.0-0.5 [facility] Comment on above: Performed By: #### H BSANS #### [facility] [address] [place] [address] Dr. Brando Betancourt LYMPH # 1.4 103/ul Normal 1.2-3.8 [facility] Comment on above: Performed By: #### H BSANS #### [facility] [address] [place] [address] Dr. Brando Betancourt Lymphocytes/100 WBC (Bld) 13.2 % Critically low 20.5-60.0 [facility] Comment on above: Performed By: #### H BSANS #### [facility] [address] [place] [address] Dr. Brando Betancourt MANUAL DIFF REQ NO Normal [facility] Comment on above: Performed By: #### H BSANS #### [facility] [address] [place] [address] Dr. Brando Betancourt MCH (RBC) [Entitic mass] 28.6 pg Normal 26.7-34.0 [facility] Comment on above: Performed By: #### H BSANS #### [facility] [address] [place] [address] Dr. Brando Betancourt MCHC (RBC) [Mass/Vol] 33.4 g/dL Normal 29.9-35.2 [facility] Comment on above: Performed By: #### H BSANS #### [facility] [address] [place] [address] Dr. Brando Betancourt MCV (RBC) [Entitic vol] 85.5 fL Normal 81.0-99.0 [facility] Comment on above: Performed By: #### H BSANS #### [facility] [address] [place] [address] Dr. Brando Betancourt MONO # 0.7 103/ul Normal 0.3-0.8 [facility] Comment on above: Performed By: #### H BSANS #### [facility] [address] [place] [address] Dr. Brando Betancourt Monocytes/100 WBC (Bld) 7.0 % Normal 1.7-12.0 [facility] Comment on above: Performed By: #### H BSANS #### [facility] [address] [place] [address] Dr. Brando Betancourt NEUT # 8.3 103/ul Critically high 1.4-6.[address] [facility] Comment on above: Performed By: #### H BSANS #### [facility] [address] [place] [address] Dr. Brando Betancourt Neutrophils/100 WBC (Bld) 77.7 % Critically high 43.0-75.0 [facility] Comment on above: Performed By: #### H BSANS #### [facility] [address] [place] [address] Dr. Brando Betancourt Platelet mean volume (Bld) [Entitic vol] 8.5 fL Critically low 9.5-13.5 [facility] Comment on above: Performed By: #### H BSANS #### [facility] [address] [place], [place] [id number] Dr. Brando Betancourt PLT 263 103/ul Normal 150-450 [facility] Comment on above: Performed By: #### H BSANS #### [facility] [address] [address] [address] Brando Betancourt RBC 4.48 106/ul Normal 4.20-5.40 [facility] Comment on above: Performed By: #### H BSANS #### [facility] [address] [address] [address] Brando Betancourt WBC 10.6 103/ul Normal 4.0-11.0 [facility] Comment on above: Performed By: #### H BSANS #### [facility] [address] [address] [address] ABD/PELVIS WO CONon [...] RONNY CUMMINGS Date: 2022-10-03 18:56 Normal [facility] ER URINE PROFILEon 3 Bilirubin Ql (U) Negative Normal NEGATIVE [facility] Comment on above: Performed By: #### H BSANS #### [facility] [address] [place] [address] Dr. Brando Betancourt Clarity (U) SL CLOUDY Abnormal CLEAR [facility] Comment on above: Performed By: #### H BSANS #### [facility] [address] [address] [address] Brando Betancourt Color (U) YELLOW Normal YELLOW [facility] Comment on above: Performed By: #### H BSANS #### [facility] [address] [address] [address] Brando ORE A micrscopic examination will be performed if indicated. Normal [facility] Comment on above: Performed By: #### H BSANS #### [facility] [address] [place] [address] Dr. Brando Betancourt Glucose Ql (U) Negative Normal NEGATIVE [facility] Comment on above: Performed By: #### H BSANS #### [facility] [address] [place] [address] Dr. Brando Betancourt Hemoglobin Ql (U) MODERATE Abnormal NEGATIVE [facility] Comment on above: Performed By: #### H BSANS #### [facility] [address] [place] [address] Dr. Brando Betancourt Ketones Ql (U) Negative Normal NEGATIVE [facility] Comment on above: Performed By: #### H BSANS #### [facility] [address] [address] [address] Brando Betancourt LEUKOCYTES LARGE Abnormal NEGATIVE [facility] Comment on above: Performed By: #### H BSANS #### [facility] [address] [place] [address] Dr. Brando Betancourt Nitrite Ql (U) Negative Normal NEGATIVE [facility] Comment on above: Performed By: #### H BSANS #### [facility] [address] [place] [address] Dr. Brando Betancoutr pH (U) 6.0 [pH] Normal 5-9 [facility] Comment on above: Performed By: #### H BSANS #### [facility] [address] [address] [address] Brando Betancourt Protein (U) [Mass/Vol] 100 mg/dL Abnormal NEGATIVE/ TRACE [facility] Comment on above: Performed By: #### H BSANS #### [facility] [address] [address] [address] Brando Betancourt SPEC GRAVITY 1.025 Normal 1.005-<=1.025 [facility] Comment on above: Performed By: #### H BSANS #### [facility] [address] [address] [address] Brando Betancourt UR MICRO IND INDICATED Normal [facility] Comment on above: Performed By: #### H BSANS #### [facility] [address] [address] [address] Brando Betancourt Urobilinogen Qn (U) 0.2 {Arturo'U}/dL Normal 0.2 - 1. 0 [facility] Comment on above: Performed By: #### H BSANS #### [facility] [address] [address] [address] Brando Betancourt URon 10-03-2022 , QUAL Negative Normal NEGATIVE [facility] Comment on above: Performed By: #### H BSANS #### [facility] [address] [address] [address] Brando Betancourt PROF CHEM 8 (BAS METB)on Anion gap [Moles/Vol] 11.8 mmol/L Normal [facility] Comment on above: Performed By: #### C BC #### [facility] [address] [address] [address] Brando Betancourt Calcium [Mass/Vol] 9.1 mg/dL Normal 8.5-10.1 [facility] Comment on above: Performed By: #### C BC #### [facility] [address] [address] [address] Brando Betancourt Chloride [Moles/Vol] 99 mmol/L Normal 98-107 [facility] Comment on above: Performed By: #### C BC #### [facility] [address] [address] [address] Brando Betancourt CO2 [Moles/Vol] 29.9 mmol/L Normal 21.0-32.0 [facility] Comment on above: Performed By: #### C BC #### [facility] [address] [address] [address] Brando Betancourt Creatinine [Mass/Vol] 0.89 mg/dL Normal 0.55-1.02 [facility] Comment on above: Performed By: #### C BC #### [facility] [address] [address] [address] Brando Betancourt EGFR-AF SLOVENIAN >60 Normal >=60 [facility] Comment on above: Performed By: #### C BC #### [facility] [address] [place] [address] Dr. Brando Betancourt EGFR-NON AF SLOVENIAN >60 Normal >=60 [facility] Comment on above: Performed By: #### C BC #### [facility] [address] [address] [address] Brando Betancourt Glucose [Mass/Vol] 122 mg/dL Critically high 74-[address] [facility] Comment on above: Performed By: #### C BC #### [facility] [address] [address] [address] Brando Betancourt Potassium [Moles/Vol] 3.7 mmol/L Normal 3.5-5.1 [facility] Comment on above: Performed By: #### C BC #### [facility] [address] [address] [address] Brando Betancourt Sodium [Moles/Vol] 137 mmol/L Normal 136-145 [facility] Comment on above: Performed By: #### C BC #### [facility] [address] [address] [address] Brando Betancourt Urea nitrogen [Mass/Vol] 17.0 mg/dL Normal 7.0-18.0 [facility] Comment on above: Performed By: #### C BC #### [facility] [address] [place] [address] Dr. Brando Betancourt Urea nitrogen/Creatinine [Mass ratio] 19.1 mg/mg Normal [facility] Comment on above: Performed By: #### C BC #### [facility] [address] [place] [address] Dr. Brando Betancourt URINE MICROSCOPIC ONLYon BACTERIA TRACE Abnormal NONE SEEN [facility] Comment on above: Performed By: #### H BSANS #### [facility] [address] [place] [address] Dr. Brando Betancourt Bacteria identified Cx Nom (U) INDICATED Normal [facility] Comment on above: Performed By: #### H BSANS #### [facility] [address] [place] [address] Dr. Brando Betancourt CAST NONE SEEN Normal NONE SEEN [facility] Comment on above: Performed By: #### H BSANS #### [facility] [address] [place] [address] Dr. Brando Betancourt Crystals LM Nom (Urine sed) NONE SEEN Normal NONE SEEN [facility] Comment on above: Performed By: #### H BSANS #### [facility] [address] [place] [address] Dr. Brando Betancourt Epithelial cells LM Ql (Urine sed) RARE Normal NONE SEEN /RARE [facility] Comment on above: Performed By: #### H BSANS #### [facility] [address] [place] [address] Dr. Brando Betancourt MUCOUS NONE SEEN Normal NONE SEEN [facility] Comment on above: Performed By: #### H BSANS #### [facility] [address] [place] [address] Dr. Brando Betancourt RBC 5-10 Abnormal 0-2 [facility] Comment on above: Performed By: #### H BSANS #### [facility] [address] [place] [address] Dr. Brando Betancourt WBC 50-75 Abnormal NONE SEEN [facility] Comment on above: Performed By: #### H BSANS #### [facility] [address] [place] [address] Dr. Brando Betancourt CBC AUTO DIFFon 07-14-2022 BASO # 0.0 103/ul Normal 0.0-0.1 [facility] Comment on above: Performed By: #### C BC #### [facility] [address] [place] [address] Dr. Brando Betancourt Basophils/100 WBC (Bld) 0.2 % Normal 0.2-2.0 [facility] Comment on above: Performed By: #### C BC #### [facility] [address] [place] [address] Dr. Brando Betancourt EO # 0.0 103/ul Normal 0.0-0.7 [facility] Comment on above: Performed By: #### C BC #### [facility] [address] [place] [address] Dr. Brando Betancourt Eosinophils/100 WBC (Bld) 0.3 % Critically low 0.9-7.0 [facility] Comment on above: Performed By: #### C BC #### [facility] [address] [place] [address] Dr. Brando Betancourt Erythrocyte distribution width (RBC) [Ratio] 13.0 % Normal 11.0-15.0 [facility] Comment on above: Performed By: #### C BC #### [facility] [address] [place] [address] Dr. Brando Betancourt Hematocrit (Bld) [Volume fraction] 28.8 % Critically low 36.0-48.0 [facility] Comment on above: Performed By: #### C BC #### [facility] [address] [place] [address] Dr. Brando Betancourt Hemoglobin (Bld) [Mass/Vol] 9.7 g/dL Critically low 12.0-16.0 [facility] Comment on above: Performed By: #### C BC #### [facility] [address] [place] [address] Dr. Brando Betancourt IG # 0.04 10e3/ul Critically high 0.00-0.03 [facility] Comment on above: Performed By: #### C BC #### [facility] [address] [place] [address] Dr. Brando Betancourt IG % 0.4 % Normal 0.0-0.5 [facility] Comment on above: Performed By: #### C BC #### [facility] [address] [place] [address] Dr. Brando Betancourt LYMPH # 1.6 103/ul Normal 1.2-3.8 [facility] Comment on above: Performed By: #### C BC #### [facility] [address] [place] [address] Dr. Brando Betancourt Lymphocytes/100 WBC (Bld) 15.0 % Critically low 20.5-60.0 [facility] Comment on above: Performed By: #### C BC #### [facility] [address] [place] [address] Dr. Brando Betancourt MANUAL DIFF REQ NO Normal [facility] Comment on above: Performed By: #### C BC #### [facility] [address] [place] [address] Dr. Brando Betancourt MCH (RBC) [Entitic mass] 30.0 pg Normal 26.7-34.0 [facility] Comment on above: Performed By: #### C BC #### [facility] [address] [place] [address] Dr. Brando Betancourt MCHC (RBC) [Mass/Vol] 33.7 g/dL Normal 29.9-35.2 [facility] Comment on above: Performed By: #### C BC #### [facility] [address] [place] [address] Dr. Brando Betancourt MCV (RBC) [Entitic vol] 89.2 fL Normal 81.0-99.0 [facility] Comment on above: Performed By: #### C BC #### [facility] [address] [place] [address] Dr. Brando Betancourt MONO # 0.6 103/ul Normal 0.3-0.8 [facility] Comment on above: Performed By: #### C BC #### [facility] [address] [place] [address] Dr. Brando Betancourt Monocytes/100 WBC (Bld) 5.6 % Normal 1.7-12.0 [facility] Comment on above: Performed By: #### C BC #### [facility] [address] [place] [address] Dr. Brando Betancourt NEUT # 8.6 103/ul Critically high 1.4-6.5 [facility] Comment on above: Performed By: #### C BC #### [facility] [address] [place] [address] Dr. Brando Betancourt Neutrophils/100 WBC (Bld) 78.5 % Critically high 43.0-75.0 [facility] Comment on above: Performed By: #### C BC #### [facility] [address] [place] [address] Dr. Brando Betancourt Platelet mean volume (Bld) [Entitic vol] 11.2 fL Normal 9.5-13.5 [facility] Comment on above: Performed By: #### C BC #### [facility] [address] [place] [address] Dr. Brando Betancourt PLT 143 103/ul Critically low 150-450 [facility] Comment on above: Performed By: #### C BC #### [facility] [address] [place] [address] Dr. Brando Betancourt RBC 3.23 106/ul Critically low 4.20-5.[address] [facility] Comment on above: Performed By: #### C BC #### [facility] [address] [place] [address] Dr. Brando Betancourt WBC 10.9 103/ul Normal 4.0-11.0 [facility] Comment on above: Performed By: #### C BC #### [facility] [address] [place] [address] Dr. Brando Betancourt AMNISUREon 07-12-2022 AMNISURE Negative Normal NEGATIVE [facility] Comment on above: Performed By: #### H BSANS #### [facility] [address] [place] [address] Dr. Brando Betancourt CBC AUTO DIFFon 07-12-2022 BASO # 0.0 103/ul Normal 0.0-0.1 [facility] Comment on above: Performed By: #### C BC #### [facility] [address] [place] [address] Dr. Brando Betancourt Basophils/100 WBC (Bld) 0.1 % Critically low 0.2-2.0 [facility] Comment on above: Performed By: #### C BC #### [facility] [address] [place] [address] Dr. Brando Betancourt EO # 0.1 103/ul Normal 0.0-0.7 [facility] Comment on above: Performed By: #### C BC #### [facility] [address] [place] [address] Dr. Brando Betancourt Eosinophils/100 WBC (Bld) 0.7 % Critically low 0.9-7.0 [facility] Comment on above: Performed By: #### C BC #### [facility] [address] [place] [address] Dr. Brando Betancourt Erythrocyte distribution width (RBC) [Ratio] 12.6 % Normal 11.0-15.0 [facility] Comment on above: Performed By: #### C BC #### [facility] [address] [place] [address] Dr. Brando Betancourt Hematocrit (Bld) [Volume fraction] 29.4 % Critically low 36.0-48.0 [facility] Comment on above: Performed By: #### C BC #### [facility] [address] [place] [address] Dr. Brando Betancourt Hemoglobin (Bld) [Mass/Vol] 10.0 g/dL Critically low 12.0-16.0 [facility] Comment on above: Performed By: #### C BC #### [facility] [address] [place] [address] Dr. Brando Betancourt IG # 0.04 10e3/ul Critically high 0.00-0.03 [facility] Comment on above: Performed By: #### C BC #### [facility] [address] [place] [address] Dr. Brando Betancourt IG % 0.4 % Normal 0.0-0.5 [facility] Comment on above: Performed By: #### C BC #### [facility] [address] [place] [address] Dr. Brando Betancourt LYMPH # 1.3 103/ul Normal 1.2-3.8 [facility] Comment on above: Performed By: #### C BC #### [facility] [address] [place] [address] Dr. Brnado Betancourt Lymphocytes/100 WBC (Bld) 11.8 % Critically low 20.5-60.0 [facility] Comment on above: Performed By: #### C BC #### [facility] [address] [place] [address] Dr. Brando Betancourt MANUAL DIFF REQ NO Normal [facility] Comment on above: Performed By: #### C BC #### [facility] [address] [place] [address] Dr. Brando Betancourt MCH (RBC) [Entitic mass] 30.1 pg Normal 26.7-34.0 [facility] Comment on above: Performed By: #### C BC #### [facility] [address] [place] [address] Dr. Brando Betancourt MCHC (RBC) [Mass/Vol] 34.0 g/dL Normal 29.9-35.2 [facility] Comment on above: Performed By: #### C BC #### [facility] [address] [place] [address] Dr. Brando Betancourt MCV (RBC) [Entitic vol] 88.6 fL Normal 81.0-99.0 [facility] Comment on above: Performed By: #### C BC #### [facility] [address] [place] [address] Dr. Brando Betancourt MONO # 0.7 103/ul Normal 0.3-0.8 [facility] Comment on above: Performed By: #### C BC #### [facility] [address] [place] [address] Dr. Brando Betancourt Monocytes/100 WBC (Bld) 6.9 % Normal 1.7-12.0 [facility] Comment on above: Performed By: #### C BC #### [facility] [address] [place] [address] Dr. Brando Betancourt NEUT # 8.6 103/ul Critically high 1.4-6.5 [facility] Comment on above: Performed By: #### C BC #### [facility] [address] [address] [address] Brando Betancourt Neutrophils/100 WBC (Bld) 80.1 % Critically high 43.0-75.0 [facility] Comment on above: Performed By: #### C BC #### [facility] [address] [place] [address] Dr. Brando Betancourt Platelet mean volume (Bld) [Entitic vol] 11.3 fL Normal 9.5-13.5 [facility] Comment on above: Performed By: #### C BC #### [facility] [address] [place] [address] Dr. Brando Betancourt PLT 149 103/ul Critically low 150-450 [facility] Comment on above: Performed By: #### C BC #### [facility] [address] [place] [address] Dr. Brando Betancourt RBC 3.32 106/ul Critically low 4.20-5.40 [facility] Comment on above: Performed By: #### C BC #### [facility] [address] [place] [address] Dr. Brando Betancourt WBC 10.7 103/ul Normal 4.0-11.0 [facility] Comment on above: Performed By: #### C BC #### [facility] [address] [place] [address] Dr. Brando Betancourt TYPE AND SCREENon 07-12-2022 TYPE AND SCREEN Negative Normal [facility] Comment on above: Performed By: #### T NS #### [facility] [address] [place] [address] Dr. Brando Betancourt US PREG AMNIOTIC FLUID [...] MICHAEL KIRK Date: 2022-07-12 07:56 Normal [facility] AMNISUREon 07-11-2022 AMNISURE Positive Abnormal NEGATIVE [facility] Comment on above: Performed By: #### A MNI #### [facility] [address] [place] [address] Dr. Brando Betancourt DRUG SCREEN RAPID (URINE)on 07-11-2022 AMP Negative Normal NEGATIVE [facility] Comment on above: Performed By: #### H BSANS #### [facility] [address] [place] [address] Dr. Brando Betancourt BAR Negative Normal NEGATIVE [facility] Comment on above: Performed By: #### H BSANS #### [facility] [address] [place] [address] Dr. Brando Betancourt BUP Negative Normal NEGATIVE [facility] Comment on above: Performed By: #### H BSANS #### [facility] [address] [place] [address] Dr. Brando Betancourt BZO Negative Normal NEGATIVE [facility] Comment on above: Performed By: #### H BSANS #### [facility] [address] [place] [address] Dr. Brando Betancourt JHONY Negative Normal NEGATIVE [facility] Comment on above: Performed By: #### H BSANS #### [facility] [address] [place] [address] Dr. Brando Betancourt CUT-OFFS SEE BELOW Normal [facility] Comment on above: Result Comment: AMP (Amphetamine): 500ng/mL, BAR (Barbituates): 200 ng/mL, BZO (Benzodiazepines): 150 ng/mL, BUP (Buprenorphine): 10 ng/mL, JHONY (Cocaine): 150 ng/mL, mAMP (Methamphetamine): 500 ng/mL, MTD (Methadone): 200 ng/mL, OPI (Opiates): 100 ng/mL, OXY (Oxycodone): 100 ng/mL, PCP (Phencyclidine): 25 ng/mL, PPX (Propoxyphene): 300 ng/mL, THC (Cannabinoids): 50 ng/mL, TCA (Trycyclic Antidepressants): 300 ng/mL Performed By: #### H BSANS #### [facility] [address] [place] [address] Dr. Brando Betancourt DRUG CUT HEADER DRUG CLASS TEST SYSTEM CUT-OFF CONCENTRATIONS ARE FOLLOWS: Normal [facility] Comment on above: Performed By: #### H BSANS #### [facility] [address] [place] [address] Dr. Brando Betancourt mAMP Negative Normal NEGATIVE [facility] Comment on above: Performed By: #### H BSANS #### [facility] [address] [place] [address] Dr. Brando Betancourt MTD Negative Normal NEGATIVE [facility] Comment on above: Performed By: #### H BSANS #### [facility] [address] [place] [address] Dr. Brando Betancourt OPI Negative Normal NEGATIVE [facility] Comment on above: Performed By: #### H BSANS #### [facility] [address] [place] [address] Dr. Brando Betancourt OXY Negative Normal NEGATIVE [facility] Comment on above: Performed By: #### H BSANS #### [facility] [address] [place] [address] Dr. Brando Betancourt PCP Negative Normal NEGATIVE [facility] Comment on above: Performed By: #### H BSANS #### [facility] [address] [place] [address] Dr. Brando Betancourt PPX Negative Normal NEGATIVE [facility] Comment on above: Performed By: #### H BSANS #### [facility] [address] [place] [address] Dr. Brando Betancourt TCA Negative Normal NEGATIVE [facility] Comment on above: Performed By: #### H BSANS #### [facility] [address] [place] [address] Dr. Brando Betancourt THC Negative Normal NEGATIVE [facility] Comment on above: Performed By: #### H BSANS #### [facility] [address] [place] [address] Dr. Brando Beatncourt UA (CLEAN/CATCH) GEOLOGICAL AIDE/MICRO I F IND.on 07-11-2022 Bilirubin Ql (U) Negative Normal NEGATIVE [facility] Comment on above: Performed By: #### C T/NGNA #### [facility] [address] [place] [address] Dr. Brando Betancourt Clarity (U) CLEAR Normal CLEAR [facility] Comment on above: Performed By: #### C T/NGNA #### [facility] [address] [place] [address] Dr. Brando Betancourt Color (U) LT. YELLOW Normal YELLOW [facility] Comment on above: Performed By: #### C T/NGNA #### [facility] [address] [place] [address] Dr. Brando Betancourt Glucose Ql (U) Negative Normal NEGATIVE [facility] Comment on above: Performed By: #### C T/NGNA #### [facility] [address] [place] [address] Dr. Brando Betancourt Hemoglobin Ql (U) Negative Normal NEGATIVE [facility] Comment on above: Performed By: #### C T/NGNA #### [facility] [address] [place] [address] Dr. Brando Betancourt Ketones Ql (U) Negative Normal NEGATIVE [facility] Comment on above: Performed By: #### C T/NGNA #### [facility] [address] [place] [address] Dr. Brando Betancourt LEUKOCYTES Negative Normal NEGATIVE [facility] Comment on above: Performed By: #### C T/NGNA #### [facility] [address] [place] [address] Dr. Brando Betancourt Nitrite Ql (U) Negative Normal NEGATIVE [facility] Comment on above: Performed By: #### C T/NGNA #### [facility] [address] [place] [address] Dr. Brando Betancourt pH (U) 7.0 [pH] Normal 5-9 [facility] Comment on above: Performed By: #### C T/NGNA #### [facility] [address] [place] [address] Dr. Brando Betancourt SPEC GRAVITY <=1.005 Abnormal 1.005-<=1.[address] [facility] Comment on above: Performed By: #### C T/NGNA #### [facility] [address] [place] [address] Dr. Brando Betancourt UA PROTEIN Negative Normal NEGATIVE/ TRACE [facility] Comment on above: Performed By: #### C T/NGNA #### [facility] [address] [place] [address] Dr. Brando Betancourt UR MICRO IND NOT INDICATED Normal [facility] Comment on above: Performed By: #### C T/NGNA #### [facility] [address] [place] [address] Dr. Brando Betancourt Urobilinogen Qn (U) 0.2 {Arturo'U}/dL Normal 0.2 - 1. 0 [facility] Comment on above: Performed By: #### C T/NGNA #### [facility] [address] [place] [address] Dr. Brando Betancourt CHLAMYDIA/GONOCOCCUS JOBY ( AB/URINE/PAPon 06-25-2022 Chlamydia trachomatis, JOBY Negative Normal Negative [facility] Comment on above: Performed By: #### C T/NGNA #### [facility] [address] [place] [address] Dr. Brando Betancourt Neisseria gonorrhoeae, JOBY Negative Normal Negative [facility] Comment on above: Performed By: #### C T/NGNA #### [facility] [address] [place] [address] Dr. Brando Betancourt VAGINITIS/VAGINOSIS DNA PROB Zenon 06-25-2022 Eugenia species Negative Normal Negative [facility] Comment on above: Performed By: #### C T/NGNA #### [facility] [address] [address] [address] Brando Betancourt Gardnerella vaginalis Negative Normal Negative [facility] Comment on above: Performed By: #### C T/NGNA #### [facility] [address] [address] [address] Brando Betancourt Trichomonas vaginalis Negative Normal Negative [facility] Comment on above: Performed By: #### C T/NGNA #### [facility] [address] [address] [address] Brando Betancourt GROUP B STREP CULTUREon 06-01 S. agalactiae Ag Ql (Unsp spec) Culture Observations: NEGATIVE FOR GROUP B STREPTOCOCCUS. Normal [facility] Comment on above: Performed By: #### C T/NGNA #### [facility] [address] [place] [address] Dr. Brando Betancourt CULTURE URINEon 06-09-2022 CULTURE URINE Culture Observations: NO GROWTH. Normal [facility] Comment on above: Performed By: #### U RCX #### [facility] [address] [place] [address] Dr. Brando Betancourt US PREG GROWTHon 06-09-2022 [...] MICHAEL KIRK Date: 2022-06-09 10:31 Normal [facility] HEP B SURFACE ANTIGEN SCREEN on 05-13-2022 HBsAg Screen Negative Normal Negative [facility] Comment on above: Performed By: #### H BSANS #### [facility] [address] [place] [address] Dr. Brando Betancourt HEPATITIS C VIRUS AB W/ REFL EX QUANTon 05-13-2022 HCV AB <0.1 Normal 0.0-0.9 [facility] Comment on above: Performed By: #### H BSANS #### [facility] [address] [place] [address] Dr. Brando Betancourt Interpretation: Comment Normal [facility] Comment on above: Result Comment: Nega tive Not infected with HCV, unless recent infection is suspected or other evidence exists to indicate HCV infection. Performed By: #### H BSANS #### [facility] [address] [place] [address] Dr. Brando Betancourt HIV 1 AND 2 WITH REFLEXon HIV Screen 4th Generation wRfx Non-Reactive Normal Non Reactive [facility] Comment on above: Result Comment: HIV Negative HIV-1/HIV-2 antibodies and HIV-1 p24 antigen were NOT detected. There is no laboratory evidence of HIV infection. Performed By: #### C BC #### [facility] [address] [place] [address] Dr. Brando Betancourt RPR QUANTon 05-13-2022 Rapid Plasma Reagin, Quant Non-Reactive Normal NonRea<1:1 [facility] Comment on above: Result Comment: Plea se Note: This test does not meet current guidelines for screening and diagnosis of syphilis. This test is intended for following treatment response in patients being treated for syphilis infection. To screen for syphilis infection, a reflex cascade that includes both RPR and a treponema-specific assay should be utilized, such as Treponema pallidum (Syphilis) Screening [place] (089780) or Rapid Plasma Reagin (RPR) Test With Reflex to Quantitative RPR and Confirmatory Treponema pallidum Antibodies (962021). Performed By: #### H BSANS #### [facility] [address] [place] [address] Dr. Brando Betancourt RUBELLA AB IGGon 05-13-2022 Rubella Antibodies, IgG 1.64 index Normal Immune >0.99 [facility] Comment on above: Result Comment: Non- immune <0.90 Equivocal 0.90 - 0.99 Immune >0.99 Performed By: #### R UBIGG #### [facility] [address] [place] [address] Dr. Brando Betancourt CBC AUTO DIFFon 05-12-2022 BASO # 0.0 103/ul Normal 0.0-0.1 [facility] Comment on above: Performed By: #### C BC #### [facility] [address] [place] [address] Dr. Brando Betancourt Basophils/100 WBC (Bld) 0.2 % Normal 0.2-2.0 [facility] Comment on above: Performed By: #### C BC #### [facility] [address] [place] [address] Dr. Brando Betancourt EO # 0.2 103/ul Normal 0.0-0.7 [facility] Comment on above: Performed By: #### C BC #### [facility] [address] [place] [address] Dr. Brando Betancourt Eosinophils/100 WBC (Bld) 2.0 % Normal 0.9-7.0 [facility] Comment on above: Performed By: #### C BC #### [facility] [address] [place] [address] Dr. Brando Betancourt Erythrocyte distribution width (RBC) [Ratio] 13.1 % Normal 11.0-15.0 [facility] Comment on above: Performed By: #### C BC #### [facility] [address] [place] [address] Dr. Brando Betancourt Hematocrit (Bld) [Volume fraction] 30.8 % Critically low 36.0-48.0 [facility] Comment on above: Performed By: #### C BC #### [facility] [address] [address] [address] Brando Betancourt Hemoglobin (Bld) [Mass/Vol] 10.4 g/dL Critically low 12.0-16.0 [facility] Comment on above: Performed By: #### C BC #### [facility] [address] [place] [address] Dr. Brando Betancourt IG # 0.04 10e3/ul Critically high 0.00-0.03 [facility] Comment on above: Performed By: #### C BC #### [facility] [address] [place] [address] Dr. Brando Betancourt IG % 0.4 % Normal 0.0-0.5 [facility] Comment on above: Performed By: #### C BC #### [facility] [address] [place] [address] Dr. Brando Betancourt LYMPH # 0.8 103/ul Critically low 1.2-3.8 [facility] Comment on above: Performed By: #### C BC #### [facility] [address] [place] [address] Dr. Brando Betancourt Lymphocytes/100 WBC (Bld) 8.6 % Critically low 20.5-60.0 [facility] Comment on above: Performed By: #### C BC #### [facility] [address] [place] [address] Dr. Brando Betancourt MANUAL DIFF REQ NO Normal [facility] Comment on above: Performed By: #### C BC #### [facility] [address] [place] [address] Dr. Brando Betancourt MCH (RBC) [Entitic mass] 30.5 pg Normal 26.7-34.0 [facility] Comment on above: Performed By: #### C BC #### [facility] [address] [place] [address] Dr. Brando Betancourt MCHC (RBC) [Mass/Vol] 33.8 g/dL Normal 29.9-35.2 [facility] Comment on above: Performed By: #### C BC #### [facility] [address] [place] [address] Dr. Brando Betancourt MCV (RBC) [Entitic vol] 90.3 fL Normal 81.0-99.0 [facility] Comment on above: Performed By: #### C BC #### [facility] [address] [place] [address] Dr. Brando Betancourt MONO # 0.5 103/ul Normal 0.3-0.8 [facility] Comment on above: Performed By: #### C BC #### [facility] [address] [place] [address] Dr. Brando Betancourt Monocytes/100 WBC (Bld) 4.9 % Normal 1.7-12.0 [facility] Comment on above: Performed By: #### C BC #### [facility] [address] [place] [address] Dr. Brando Betancourt NEUT # 7.9 103/ul Critically high 1.4-6.[address] [facility] Comment on above: Performed By: #### C BC #### [facility] [address] [place] [address] Dr. Brando Betancourt Neutrophils/100 WBC (Bld) 83.9 % Critically high 43.0-75.0 [facility] Comment on above: Performed By: #### C BC #### [facility] [address] [place] [address] Dr. Brando Betancourt Platelet mean volume (Bld) [Entitic vol] 9.4 fL Critically low 9.5-13.5 [facility] Comment on above: Performed By: #### C BC #### [facility] [address] [place] [address] Dr. Brando Betancourt PLT 189 103/ul Normal 150-450 [facility] Comment on above: Performed By: #### C BC #### [facility] [address] [place] [address] Dr. Brando Betancourt RBC 3.41 106/ul Critically low 4.20-5.[address] [facility] Comment on above: Performed By: #### C BC #### [facility] [address] [place] [address] Dr. Brando Betancourt WBC 9.4 103/ul Normal 4.0-11.0 [facility] Comment on above: Performed By: #### C BC #### [facility] [address] [place] [address] Dr. Brando Betancourt CULTURE URINEon 05-12-2022 CULTURE URINE Culture Observations: LIGHT GROWTH OF MIXED GENITAL STACEY. NO POTENTIAL PATHOGENS SEEN. Normal [facility] Comment on above: Performed By: #### U RCX #### [facility] [address] [place] [address] Dr. Brando Betancourt GLYCOHEMOGLOBIN A1Con 2021 ADA RECOMMENDATION SEE BELOW Normal [facility] Comment on above: Result Comment: ADA RECOMMENDED LIMIT 4.0 - 6.0 ADA THERAPEUTIC TARGET < 7.0 ACTION SUGGESTED > 7.0 Performed By: #### C BC #### [facility] [address] [place] [address] Dr. Brando Betancourt Glucose [Mass/Vol] 94 mg/dL Normal [facility] Comment on above: Performed By: #### C BC #### [facility] [address] [place] [address] Dr. Brando Betancourt HbA1c (Bld) [Mass fraction] 4.9 % Normal 4.5-6.2 [facility] Comment on above: Performed By: #### C BC #### [facility] [address] [place] [address] Dr. Brando Betancourt TYPE AND SCREENon 05-12-2022 TYPE AND SCREEN Negative Normal [facility] Comment on above: Performed By: #### C T/NGNA #### [facility] [address] [place] [address] Dr. Brando Betancourt US PREG PLACENTAon 2 [...] no longer low-lying. Electronically authenticated by: SCARLET Langford: 2022-04-28 16:22 Normal [facility] OVA AND PARASITE EXAMINATION on 04-15-2022 Ova + Parasite Exam Final report Normal [facility] Comment on above: Result Comment: Thes e results were obtained using wet preparation(s) and trichrome stained smear. This test does not include testing for Cryptosporidium parvum, Cyclospora, or Microsporidia. Performed By: #### H DWAINENS #### [facility] [address] [place] [address] Dr. Brando Betancourt Result 1 Comment Normal [facility] Comment on above: Result Comment: No o va, cysts, or parasites seen. . One negative specimen does not rule out the possibility of a parasitic infection. Performed By: #### H DWAINENS #### [facility] [address] [place] [address] Dr. Brando Betancourt GLUCOSE - 1HRon 04-07-2022 Glucose [Mass/Vol] 113 mg/dL Critically high 74-106 T [facility] Comment on above: Performed By: #### H DWAINENS #### [facility] [address] [place] [address] Dr. [facility] Tele[facility] (OBGYWM) ELIDA KEENAN ([id number]) 1995 F Date Time Provider Department 03/30/22 ODESSA ISLAS OBGYWM During your visit today, we recorded the following information about you: Ike Teresa RN 03/30/2022 10:27 AM Signed Patient transferred care to [facility] office. She was seen in our office [...] by IKE TERESA RN on 03/30/22 Normal [facility] PREG ANATOMY SINGLEon US PREG ANATOMY SINGLE EXAMINATION: US PREG ANATOMY [...] 2. Low-lying posterior placenta. Electronically authenticated by: SCRALET TIAN Date: 2022-03-09 16:44 Normal [facility] URINE OB DIP B/Oon 2 Glucose Ql (U) Negative Neg mg/dL [facility] Protein.monoclonal (U) [Mass/Vol] Negative Neg mg/dL [facility] Bacteria Ur Culton 2 Bacteria identified Cx Nom (U) ORGANISM ID: 1 <10,000 CFU/ml Normal urogenital stacey Normal [facility] Comment on above: Performed By: #### 6 30-4 #### [facility] CLIA [id number] [address] [place] [address] [place] C. trachomatis+N. gonorrhoea e DNA JOBY+probe Ql (Unsp spec)on 12-30-2021 C. trachomatis DNA JOBY+probe Ql (Unsp spec) Negative Normal Negative for Chlamydia trachomatis by amplificaton [facility] Comment on above: Order Comment: Speci men Type: SWAB Ordering Facility: [facility] Address: [address] [place] [address] Performed By: #### 3 6902-5 #### [facility] CLIA [id number] [address] [place] [address] [place] N. gonorrhoeae DNA JOBY+probe Ql (Unsp spec) Negative Normal Negative for Neisseria gonorrhoeae by amplification [facility] Comment on above: Order Comment: Speci men Type: SWAB Ordering Facility: [facility] Address: [address] [place] [address] Performed By: #### 3 6902-5 #### [facility] CLIA [id number] [address] [place] [address] [place] PAP FLUID CERVICAL SCREENING on 12-30-2021 CASE REPORT Normal [facility] Comment on above: Order Comment: Speci men Type: FLUID SAMPLE Ordering Facility: [facility] Address: [address] [place] [address] Result Comment: Gyne cologic Cytology Report Case: [id number] Authorizing Provider: Lamont Pulido MD Collected: 12/30/2021 01:57 PM Ordering Location: OB/Gynecology Received: 12/30/2021 05:25 PM First Screen: MITZY Scott, ASCP Specimen: Pap, Swing Tender, Screening, CERVICAL SCREENING FLUID Performed By: #### L [id number] #### [facility] CLIA [id number] [address] [place] [address] [place] CLINICAL HISTORY ROUTINE EXAM Normal [facility] Comment on above: Order Comment: Speci men Type: FLUID SAMPLE Ordering Facility: [facility] Address: [address] [place] [address] Performed By: #### L [id number] #### [facility] CLIA [id number] [address] [place] [address] [place] CYTOLOGY INTERPRETATION PAP Normal [facility] Comment on above: Order Comment: Speci men Type: FLUID SAMPLE Ordering Facility: [facility] Address: [address] [place] [address] Result Comment: Nega tive for Intraepithelial lesion or malignancy. Performed By: #### L [id number] #### [facility] CLIA [id number] [address] [id number] [place] FINAL DIAGNOSIS Normal [facility] Comment on above: Order Comment: Speci men Type: FLUID SAMPLE Ordering Facility: [facility] Address: [address] [place] [address] Result Comment: A - CERVICAL SCREENING FLUID Satisfactory for interpretation, No endocervical component Negative for Intraepithelial lesion or malignancy. Performed By: #### L [id number] #### [facility] CLIA [id number] [address] [place] [address] [place] FINAL PERFORMING LAB Normal [facility] Comment on above: Order Comment: Speci men Type: FLUID SAMPLE Ordering Facility: [facility] Address: [address] [place], [place] [id number] Result Comment: Tech nical component, vest busheler screening performed at [facility], [address] [place] [address] CLIA# [id number] Diagnostic interpretation performed at [facility], [address] [place] [address] CLIA# [id number] Supervisor Screen Printing: Baldev Jones M.D. Performed By: #### L [id number] #### [facility] CLIA [id number] [address] [place] [address] [place] HPV REQUESTED? Yes, Reflex HPV for ASCUS [facility] Comment on above: Order Comment: Speci men Type: FLUID SAMPLE Ordering Facility: [facility] Address: [address] [place], [place] [id number] Performed By: #### L [id number] #### [facility] CLIA [id number] [address] [place], [place] [id number] [place] LMP Normal [facility] Comment on above: Order Comment: Speci men Type: FLUID SAMPLE Ordering Facility: [facility] Address: [address] [address] Performed By: #### L [id number] #### [facility] CLIA [id number] [address] [place] [address] PAP DISCLAIMER COMMENT The Pap Smear is a screening test for cervical cancer. False negative results occur with all screening tests, emphasizing the need for rescreening at recommended intervals, and clinical correlation. [facility] Comment on above: Order Comment: Speci men Type: FLUID SAMPLE Ordering Facility: [facility] Address: [address] [place] [address] Performed By: #### L [id number] #### [facility] CLIA [id number] [address] [place] [address] PAP PATTERN DRAFTER COMMENT This specimen has been analyzed by the ThinPrep Imaging System, an automated imaging and review system, which assists the laboratory in evaluating cells on ThinPrep Pap tests. Following automated imaging, selected arriaga from every slide are reviewed by a vest busheler. Normal [facility] Comment on above: Order Comment: Speci men Type: FLUID SAMPLE Ordering Facility: [facility] Address: [address] [place] [address] Performed By: #### L [id number] #### [facility] CLIA [id number] [address] [place] [address] CNNURSEon 12-16-2021 CNNURSE Nurse Visit (OBGYWM) ELIDA KEENAN ([id number]) 1995 F Date Time Provider Department 12/16/21 9:30 AM NURSE PNOB [facility] OBGYWM During your visit today, we recorded the following information about you: Last Period 10/25/21 Anabel Bhardwaj RN 12/16/2021 10:11 AM Signed SEQUENTIAL SCREENINGS The [facility] offers sequential screenings for women who are [...] It will require an appointment with our automotive glass technician. This is not an ultrasound performed [...] the above symptoms, contact our office at [phone] and ask to speak with a nurse. After hours, you can call doctors registry at [phone] OR call [facility] at [phone] and ask to have the doctor rn infusion paged. If you consider this an emergency, [...] treatment is particularly effective in young patients-the [facility] Cord Blood Bank reports a 70 percent [...] of can (more content not included)... [facility] HCG QUAL UR B/Oon 12-16-2021 status Positive neg - pos [facility] Quality Check Yes [facility] US TRANSVAGINAL OBon 017 US TRANSVAGINAL OB [...] ultrasound.Report electronically signed by: Dr. Adair Blank [facility] Vital Signs Date Time Vital Sign Value Performing Clinician Dorian james 01-27-2022 09:28-0400 Body weight 63.5 kg Serena Srinivasan MD Work Phone: [facility] 01-27-2022 09:28-0400 Diastolic blood pressure 62 mm[Hg] Serena Srinivasan MD Work Phone: [facility] 01-27-2022 09:28-0400 Systolic blood pressure 98 mm[Hg] Serena Srinivasan MD Work Phone: [facility] 12-30-2021 13:09-0400 Body weight 62.6 kg Lamont Pulido MD Work Phone: [facility] 12-30-2021 13:09-0400 Diastolic blood pressure 70 mm[Hg] Lamont Pulido MD Work Phone: [facility] 12-30-2021 13:09-0400 Systolic blood pressure 110 mm[Hg] Lamont Pulido MD Work Phone: [facility] 12-16-2021 08:55-0400 Body height 160 cm Raina Bonner SCARFER.CNM Work Phone: [facility] 12-16-2021 08:55-0400 Body weight 61.69 kg Raina Bonner SCARFER.CNM Work Phone: [facility] 12-16-2021 08:55-0400 Diastolic blood pressure 64 mm[Hg] Raina Bonner SCARFER.CNM Work Phone: [facility] 12-16-2021 08:55-0400 Systolic blood pressure 112 mm[Hg] Raina Bonner SCARFER.CNM Work Phone: [facility] Encounters Encounter Date Encounter Type Care Provider Facility Start: 06-03-2023 End: 06-03-2023 ambulatory STEPHANIE ARELLANO Not Available Start: 05-05-2023 End: 05-05-2023 ambulatory RIANNA LOREDO Not Available Start: 10-03-2022 End: 10-03-[address] DOCTOR AYON Facility: Start: 07-28-2022 End: 07-28-[address] RIANNA LOREDO . Facility:[facility] Start: 07-21-2022 End: 07-21-[address] RIANNA LOREDO . Facility: Start: 07-13-[address] DOCTOR AYON Facility : Start: 07-12-2022 End: 07-15-2022 Evaluation and management of inpatient DR DOCTOR AYON Facility: Start: 06-23-2022 End: 06-23-2022 ambulatory STEPHANIE ARELLANO . Facility: Start: 06-09-2022 End: 06-10-2022 ambulatory STEPHANIE ARELLANO . Facility: Start: 05-12-2022 End: 05-13-2022 ambulatory STEPHANIE ARELLANO . Facility: Start: 04-28-2022 End: 04-29-[address] RIANNA LOREDO . Facility: Start: 04-14-2022 End: 04-14-[address] RIANNA LOREDO . Facility:[facility] Start: 04-07-2022 End: 04-08-[address] RIANNA LOREDO . Facility: Start: 03-30-2022 Telephone encounter Odessa Baldwin zack SCARFER.CNM Work Phone: OB/Gynecology Comment on above: Transfer of Care Start: 03-09-2022 End: 03-10-[address] RIANNA LOREDO . Facility: Start: 01-27-2022 End: 01-27-2022 ambulatory SERENA SRINIVASAN Facility:[facility] Start: 01-27-2022 End: 01-27-2022 Patient encounter procedure Serena Srinivasan MD Work Phone: OB/Gynecology Comment on above: 14 weeks gestation o f (Primary Dx); Encounter for supervision of normal first in second trimester Start: 12-30-2021 End: 12-30-2021 ambulatory LAMONT PULIDO Facility:[facility] Start: 12-30-2021 End: 12-30-2021 Patient encounter procedure Lamont Pulido MD Work Phone: OB/Gynecology Comment on above: History of pulmonary embolism (Primary Dx); History of depression; Encounter for care in first trimester of first Start: 12-16-2021 End: 12-16-2021 ambulatory Raina Bonner SCARFER.CNM Work Phone: OB/Gynecology Comment on above: online resource Start: 12-16-2021 E-mail encounter fro m caregiver Raina Bonner SCARFER.CNM Work Phone: [facility] Start: 12-16-2021 End: 12-16-2021 Nursing evaluation of patient and report Nurse [facility] Work Phone: OB/Gynecology Comment on above: Supervision of high risk , antepartum (Primary Dx); Patient request for diagnostic testing; History of pulmonary embolism; History of depression Start: 12-16-2021 End: 12-16-2021 Patient requested procedure Nurse Pnob [facility] Work Phone: [facility] Work Phone: Start: 12-16-2021 End: 12-16-2021 Patient encounter procedure Raina Bonner SCARFER.CNM Work Phone: OB/Gynecology Comment on above: Missed menses (Prima ry Dx); Encounter for test, result positive; History of depression Start: 12-11-2021 End: 12-11-2021 ambulatory MARTIN BURGOS Facility:[facility] Start: 12-18-2016 Ambulatory AN Velezi ty:[facility] Start: 12-02-2016 End: 12-28-2016 Ambulatory AN MOREIRA Facility:[facility] Start: 11-26-2016 End: 11-26-2016 Ambulatory AN MOREIRA Facility:[facility] Start: 11-25-2016 End: 11-25-2016 Ambulatory AN MOREIRA Facility:[facility] Procedures Date Procedure Procedure Detail Performing [...] Start: 12-16-2021 Urine test visual color cmprsn methmariano Bonner SCARFER.CNM Work Phone: Plan of Treatment Date Care Activity Detail Author Start: 12-30-2024 PAP TESTING PAP TESTING [facility] Start: 01-29-2022 Influenza vaccination INFLUENZA (#1) [facility] Start: 12-30-2021 End: 03-01-2022 CBC panel - Blood by Automated count CBC Lab Routine History of pulmonary embolism History of depression Encounter for care in first trimester of first Expected: 12/30/2021, Expires: 03/01/2022 [facility] Work Phone: Comment on above: Expected: 12/30/2021 , Expires: 03/01/2022 Start: 12-30-2021 End: 03-01-2022 Hepatitis B virus surface Ab [Presence] in Serum by Immunoassay HEP B SURF AG SCRN Lab Routine History of pulmonary embolism History of depression Encounter for care in first trimester of first Expected: 12/30/2021, Expires: 03/01/2022 [facility] Work Phone: Comment on above: Expected: 12/30/2021 , Expires: 03/01/2022 Start: 12-30-2021 End: 03-01-2022 Hepatitis C virus Ab [Presence] in Serum HEP C AB IA W/CONF SCRN Lab Routine History of pulmonary embolism History of depression Encounter for care in first trimester of first Expected: 12/30/2021, Expires: 03/01/2022 [facility] Work Phone: Comment on above: Expected: 12/30/2021 , Expires: 03/01/2022 Start: 12-30-2021 End: 03-01-2022 HIV 1+2 Ab [Presence] in Serum or Plasma by Immunoassay HIV 1 2 COMBO(AG/AB),WITH REFLEX TO DIFFERENTIATION Lab Routine History of pulmonary embolism History of depression Encounter for care in first trimester of first Expected: 12/30/2021, Expires: 03/01/2022 [facility] Work Phone: Comment on above: Expected: 12/30/2021 , Expires: 03/01/2022 Start: 12-30-2021 End: 03-01-2022 RUBELLA IGG AB RUBELLA IGG AB Lab Routine History of pulmonary embolism History of depression Encounter for care in first trimester of first Expected: 12/30/2021, Expires: 03/01/2022 [facility] Work Phone: Comment on above: Expected: 12/30/2021 , Expires: 03/01/2022 Start: 12-30-2021 End: 03-01-2022 SYPHILIS TOTAL W/REFLEX SYPHILIS TOTAL W/REFLEX Lab Routine History of pulmonary embolism History of depression Encounter for care in first trimester of first Expected: 12/30/2021, Expires: 03/01/2022 [facility] Work Phone: Comment on above: Expected: 12/30/2021 , Expires: 03/01/2022 Start: 12-30-2021 End: 03-01-2022 TYPE + SCREEN TYPE + SCREEN Blood Bank Routine History of pulmonary embolism History of depression Encounter for care in first trimester of first Expected: 12/30/2021, Expires: 03/01/2022 [facility] Work Phone: Comment on above: Expected: 12/30/2021 , Expires: 03/01/2022 Start: 07-15-2017 Urine microalbumin profile DTAP,TDAP,TD (2 - Td or Tdap) [facility] Start: 04-09-2017 PAP TESTING PAP TESTING [facility] Start: 1995 COVID-19 VACCINE (#1) COVID-19 VACCI NE (#1) [facility] Start: 1995 HEPATITIS B (1 of 3 - 3-dose series) HEPATITIS B (1 of 3 - 3-dose series) [facility] Bacteria identified in Urine by Culture URINE CULTURE Microbiology Routine History of pulmonary embolism History of depression Encounter for care in first trimester of first 12/30/2021 1:57 PM EDT [facility] Work Phone: Chlamydia trachomatis+Neisseria gonorrhoeae DNA [Presence] in Unspecified specimen by JOBY with probe detection GC/CHLAMYDIA DNA DET Lab Routine History of pulmonary embolism History of depression Encounter for care in first trimester of first 12/30/2021 1:57 PM EDT [facility] Work Phone: OBSTETRIC ULTRASOUND WHI OBSTETRIC ULTRASOUND WHI Anc Imaging Routine Encounter for supervision of normal first in second trimester Ordered: 01/27/2022 [facility] Work Phone: Comment on above: Ordered: 01/27/2022 PAP FLUID CERVICAL SCREENING PAP FLUID CERVICAL SCREENING Lab Routine History of pulmonary embolism History of depression Encounter for care in first trimester of first 12/30/2021 1:57 PM EDT [facility] Work Phone: [facility] Immunizations Immunization Date Immunization Notes Care Provider Jack mora 04-12-2010 influenza virus vaccine, unspecified formulation aRina Bonner SCARFER.CNM Work Phone: [facility] 09-04-2008 human papilloma viru s vaccine, quadrivalent Raina Bonner SCARFER.CNM Work Phone: [facility] Work Phone: 03-19-2008 human papilloma viru s vaccine, quadrivalent Raina Bonner SCARFER.CNM Work Phone: [facility] Work Phone: 01-17-2008 hepatitis A vaccine, unspecified formulation Raina Bonner SCARFER.CNM Work Phone: [facility] Work Phone: 01-17-2008 human papilloma viru s vaccine, quadrivalent Raina Bonner SCARFER.CNM Work Phone: [facility] Work Phone: 07-15-2007 hepatitis A vaccine, unspecified formulation Raina Bonner SCARFER.CNM Work Phone: [facility] Work Phone: 07-15-2007 Meningococcal, MCV4, unspecified conjugate formulation(groups A, C, Y and W-135) Raina Bonner SCARFER.CNM Work Phone: [facility] Work Phone: 07-15-2007 tetanus toxoid, redu ruchi diphtheria toxoid, and acellular pertussis vaccine, adsorbed Raina Bonner SCARFER.CNM Work Phone: [facility] Work Phone: Payers Date Payer Category Payer Medicaid MEDICAID [facility] MEDICAID [id number] 2021-Present [phone] [address] [place] [address] Medicaid [id number] 2015 Private Health Insurance [id number] 1993 Unknown [id number] 1993 Unknown [id number] [id number] 1993 Unknown [id number] [id number] 1993 Unknown [id number] 2.16.840.1.181695.3.579.2.5 1993 Unknown [id number] 2.16.840.1.218649.3.579.2.5 93 1995 Unknown [id number] 2.16.840.1.215742.3.579.2.5 93 1993 Unknown [id number] 2.16.840.1.651575.3.579.2.5 93 1993 Unknown [id number] 2.16.840.1.454051.3.579.2.5 93 1993 Unknown [id number] 2.16.840.1.248362.3.579.2.5 93 1993 Unknown [id number] 2.16.840.1.708333.3.579.2.5 93 1993 Unknown [id number] 2.16.840.1.829618.3.579.2.5 93 1993 Unknown [id number] 2.16.840.1.049180.3.579.2.5 93 1993 Unknown [id number] 2.16.840.1.546744.3.579.2.5 93 1993 Unknown [id number] 2.16.840.1.554704.3.579.2.1 259 1993 Unknown [id number] [id number] 259 1959 Medicaid [id number] Social History Date Type Detail Facility Start: 01-27-2022 Tobacco smoking stat [facility] Never smoked tobacco [facility] Start: 12-16-2021 End: 03-30-2022 Alcohol intake Current non-drinker of alcohol (finding) [facility] Start: 12-16-2021 Education 15 [facility] Start: 10-30-2021 [facility] Start: 1995 Sex Assigned At Female C [facility] Start: 12-06-2021 End: 01-27-2022 Exposure to SARS-CoV-2 (event) Not sure [facility] Start: 01-27-2022 Tobacco use and exposure Smoke less tobacco non-user [facility] Goals Date Patient Goal Desired Activity /State Clinical Notes 01-26-2013 to 07-12-2022 Telephone Encounter - Ike Teresa RN - 03/30/2022 10:22 AM EDTPrenatal Quick Notes - Serena Srinivasan MD - 01/27/2022 9:47 AM EDTPatient InstructionsRetrever Pulido MD - 12/30/2021 12:59 PM EDT [...] by: NADINE ENCISO Date: 2022-07-12 07:58 [facility] 03-30-2022 Miscellaneous Notes Patient transferred care to [facility] office. She was seen in our office for 2 visits. Please bill all visits if needed. Ike Teresa RN documented in this encounter [facility] 01-27-2022 Miscellaneous Notes KJ - VB No. LOF No. CTXS No. Movement: absent. Other c/o: No. Medication list reviewed. 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 This is not an ultrasound performed [...] the above symptoms, contact our office at [phone] and ask to speak with a nurse. After hours, you can call doctors registry at [phone] OR call [facility] at [phone] and ask to have the doctor rn infusion paged. If you consider this an emergency, dial -- or go to your nearest emergency department. NEED HELP? Are you dealing with a violent or abusive relationship? Are you a victim of rape or sexual assult? Call [facility] ([place]) 24 hour Crisis Hotline: 141.493.6390 or 797-479-4966. MANUAL Your Guide to a Healthy manual is now on-line. Visit [email or web address] to download your free copy documented in this encounter [facility] 12-30-2021 Note HNO ID: [id number] Author: Lamont Pulido MD Service: ? Author [...] Multivitamin with Folic acid: Yes Occupation: Unemployed Buddhism or heritage: No Would refuse blood transfusion if medically necessary: No No weight on file for this encounter. Patient BMI over 30? No Marital Status:getting but in a relationship w/ new partner and they tested paternity and are confident he is FOB Partner: Name: Giancarlo Age: 25 Occupation: [employer] Gender: male History of STDs: None PAST MEDICAL HISTORY Diagnosis Date - Anemia - Asthma - Blood dyscrasia - Depression - HPV test positive 03/31/2014 - MTHFR mutation - PE (pulmonary embolism) 12/29/2012 [facility], [facility] - PMH - PAST MEDICAL HISTORY OF [...] Risk Screening: Completed, no positive findings documented. TYRA Chisholmki was given the 4P's screening tool. Elida [...] is considered at (more content not included)... [facility] 12-30-2021 History of Presen t illness Narrative [...] Multivitamin with Folic acid: Yes Occupation: Unemployed Buddhism or heritage: No Would refuse blood transfusion if medically necessary: No No weight on file for this encounter. Patient BMI over 30? 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 [email or web address] documented in this encounter [facility] 12-16-2021 Miscellaneous Notes Patient is legally from [...] She states that she was hospitalized at [facility]. She states that she took Xarelto for 6+ months. She denies any other recurrences. She denies any family history of blood clots.Pt has a history of depression/anxiety diagnosed at age 16. She states that she was hospitalized in [place] for a suicidal attempt in 2012 with [...] would like referral to services here at [facility]. I did talk to Raina Bonner about this. Patient was also given the mental health crisis phone number that is open 24 hours a day. Patient declines aneuploidy screening and genetic carrier screening testing.Anabel Bhardwaj RN documented in this encounter [facility] 12-16-2021 Miscellaneous Notes Addended by: RAINA BONNER on: 12/16/2021 12:03 PM Modules accepted: Orders documented in this encounter [facility] 12-16-2021 Note HNO ID: [id number] Author: Raina Bonner APRN.CNM Service: ? Author Type: Bin Worker Type: Progress Notes Filed: 12/16/2021 9:39 AM Note Text: Elida eKenan is a 26 year old female who presents with missed menses. LMP was approximately 10/25/21. No control since 2018- only using condoms Currently but from . Was in open relationship and unsure of paternity. OB History T0 L0 SAB0 IAB0 Ectopic0 Multiple0 Live Births0 Hat Band Attacher History LMP: 10/25/2021, Age at Menarche: Age at First : Age at Menopause: Hat Band Attacher History Comments: Sexual Activity: Yes; Male Contraception: Condom, I.U.D. PAST MEDICAL HISTORY Diagnosis Date - HPV test positive 03/2014 - MTHFR mutation - PE (pulmonary embolism) 12/2012 [facility], [facility] - PMH - PAST MEDICAL HISTORY OF [...] NOB or sooner if needed Raina Bonner APRN.ALONZO I spent a total of 30 minutes on the date of the service which included preparing to see the patient, [id number] patient care, completing clinical documentation, obtaining and/or reviewing separately obtained history and counseling and educating the patient/family/caregiver Medical Decision Making Raina Bonner APRN.ALONZO [facility] 12-16-2021 Instructions Anabel Bhardwaj RN - 12/16/2021 10:11 AM EDT SEQUENTIAL SCREENINGS The [facility] offers sequential screenings for women who are [...] It will require an appointment with our automotive glass technician. This is not an ultrasound performed [...] the above symptoms, contact our office at [phone] and ask to speak with a nurse. After hours, you can call doctors [facility] at [phone] OR call [facility] at [phone] and ask to have the doctor rn infusion paged. If you consider this an emergency, [...] treatment is particularly effective in young patients-the [facility] Cord Blood Bank reports a 70 percent [...] issues. What do the experts say? The [place] [employer] encourages philanthropic blood banking [...] baby needs at the moment. The nurse, registered midwife, or physician will then label the samples, [...] AHEAD OF TIME! Public cord-blood herrmann--DONATION: [employer] [phone] [facility]'s Placental Blood Program, [facility] Umbilical Cord Blood Bank, Private cord-blood herrmann--SAVING FOR YOUR OWN USE: [employer] [facility], (I think this is the least expensive) [employer] [phone] [employer], (070) [employer] [facility] Blood [facility], [phone] 700-CORD Cells, [phone] [place] [facility], Cord Blood Registry, (004) CORDBLOOD [employer], An Internet search may provide you with additional listings. documented in this encounter [facility] 12-16-2021 History of Presen t illness Narrative Elida Keenan is a 26 year old female who presents with missed menses. LMP was approximately 10/25/21. No control since 2018- only using condoms Currently but from . Was in open relationship and unsure of paternity. OB History T0 L0 SAB0 IAB0 Ectopic0 Multiple0 Live Births0 Hat Band Attacher History LMP: 10/25/2021, Age at Menarche: Age at First : Age at Menopause: Hat Band Attacher History Comments: Sexual Activity: Yes; Male Contraception: Condom, I.U.D. PAST MEDICAL HISTORY Diagnosis Date HPV test positive 03/2014 MTHFR mutation PE (pulmonary embolism) 12/2012 [facility], took Xarelto for 6+ months from [facility] PMH - PAST MEDICAL HISTORY OF stayed [...] which included preparing to see the patient, [id number] patient care, completing clinical documentation, obtaining and/or reviewing separately obtained history and counseling and educating the patient/family/caregiver Medical Decision Making Raina Bonner APRN.CNM documented in this encounter [facility] 01-26-2013 History of Past i llness Narrative Problem Noted Date Resolved Date Pulmonary embolism 01/26/2013 01/19/2014 GERD (gastroesophageal reflux disease) 01/19/2014 Weight gain, abnormal 05/21/2010 04/04/2012 Abdominal pain, acute, epigastric 05/21/2010 04/04/2012 Shoulder disorder 05/02/2009 04/04/2012 Excessive or frequent menstruation 01/20/2008 04/04/2012 documented as of this encounter (statuses as of 12/16/2021) [facility] History of Past illness Narrative* Problem Noted Date Resolved Date Pulmonary embolism 01/26/2013 01/19/2014 GERD (gastroesophageal reflux disease) 1 01/19/2014 Weight gain, abnormal 05/21/2010 04/04/2012 Abdominal pain, acute, epigastric 05/21/2010 04/04/2012 Shoulder disorder 05/02/2009 04/04/2012 Excessive or frequent menstruation 01/20/2008 04/04/2012 documented as of this encounter (statuses as of 12/16/2021) [facility] History of Past illness Narrative* Problem Noted Date Resolved Date Pulmonary embolism 01/26/2013 01/19/2014 GERD (gastroesophageal reflux disease) 01/19/2014 Weight gain, abnormal 05/21/2010 04/04/2012 Abdominal pain, acute, epigastric 05/21/2010 04/04/2012 Shoulder disorder 05/02/2009 04/04/2012 Excessive or frequent menstruation 01/20/2008 04/04/2012 documented as of this encounter (statuses as of 12/16/2021) [facility] History of Past illness Narrative* Problem Noted Date Resolved Date Pulmonary embolism 01/26/2013 01/19/2014 GERD (gastroesophageal reflux disease) 01/19/2014 Weight gain, abnormal 05/21/2010 04/04/2012 Abdominal pain, acute, epigastric 05/21/2010 04/04/2012 Shoulder disorder 05/02/2009 04/04/2012 Excessive or frequent menstruation 01/20/2008 04/04/2012 documented as of this encounter (statuses as of 12/30/2021) [facility] History of Past illness Narrative* Problem Noted Date Resolved Date Pulmonary embolism 01/26/2013 01/19/2014 GERD (gastroesophageal reflux disease) 01/19/2014 Weight gain, abnormal 05/21/2010 04/04/2012 Abdominal pain, acute, epigastric 05/21/2010 04/04/2012 Shoulder disorder 05/02/2009 04/04/2012 Excessive or frequent menstruation 01/20/2008 04/04/2012 documented as of this encounter (statuses as of 01/27/2022) [facility] History of Past illness Narrative* Problem Noted Date Resolved Date Pulmonary embolism 01/26/2013 01/19/2014 GERD (gastroesophageal reflux disease) 01/19/2014 Weight gain, abnormal 05/21/2010 04/04/2012 Abdominal pain, acute, epigastric 05/21/2010 04/04/2012 Shoulder disorder 05/02/2009 04/04/2012 Excessive or frequent menstruation 01/20/2008 04/04/2012 documented as of this encounter (statuses as of 03/30/2022) [facility] note* Diagnosis Missed menses- Primary Absence of menstruation Encounter for test, result positive examination or test, positive result History of depression Personal history of other mental disorder documented in this encounter [facility] note* Diagnosis Supervision of high risk , antepartum- Primary Patient request for diagnostic testing Other specified examination History of pulmonary embolism Personal history of pulmonary embolism History of depression Personal history of other mental disorder documented in this encounter [facility] note* Diagnosis History of pulmonary embolism- Primary Personal history of pulmonary embolism History of depression Personal history of other mental disorder Encounter for care in first trimester of first documented in this encounter [facility] note* Diagnosis 14 weeks gestation of - Primary state, incidental Encounter for supervision of normal first in second trimester Supervision of normal first [facility] Diagnostic Procedure Only (Routine) - Pending Review Specialty Diagnoses / Procedures Referred By Pavel nettles Referred To Contact [facility] Diagnoses Encounter for supervision of normal first in second trimester Procedures OBSTETRIC ULTRASOUND WHI US PREG UTERUS AFTER 1ST TRIMEST GESTATION Serena Srinivasan MD [facility] 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 DATE CREATED AUTHOR AUTHOR'S ORGANIZ ATION 06/05/2023 [facility] EPIC Source Comments (unrecognize d section and content) In the event this informatio n is protected by the Federal Confidentiality of Alcohol and Drug Abuse Patient Records regulations: The Federal rules restrict any use of the information to criminally investigate or prosecute any alcohol or drug abuse patient.[facility] the event this information is protected by the Federal Confidentiality of Alcohol and Drug Abuse Patient Records regulations: The Federal rules restrict any use of the information to criminally investigate or prosecute any alcohol or drug abuse patient.[facility] the event this information is protected by the Federal Confidentiality of Alcohol and Drug Abuse Patient Records regulations: The Federal rules restrict any use of the information to criminally investigate or prosecute any alcohol or drug abuse patient.[facility] the event this information is protected by the Federal Confidentiality of Alcohol and Drug Abuse Patient Records regulations: The Federal rules restrict any use of the information to criminally investigate or prosecute any alcohol or drug abuse patient.[facility] the event this information is protected by the Federal Confidentiality of Alcohol and Drug Abuse Patient Records regulations: The Federal rules restrict any use of the information to criminally investigate or prosecute any alcohol or drug abuse patient.[facility] the event this information is protected by the Federal Confidentiality of Alcohol and Drug Abuse Patient Records regulations: The Federal rules restrict any use of the information to criminally investigate or prosecute any alcohol or drug abuse patient.[facility] Reason for Visit (unrecogniz ed section and content) Reason Comments Missed period Specialty Diagnoses / Procedures Referred By Pavel nettles Referred To Contact [facility] Diagnoses NEW PATIENT Procedures ANNUAL EXAM MD [facility] [address] [place] [address] Referral ID Status Reason Start Date Expiration Date Visits Requested Visits Authorized [id number] Authorized Financial Clearance Required - Self Pay Patient Cleared - Qualified 100% FAS 11/28/2021 02/26/2022 99 99 Reason Onset Date Comments Care 12/16/2021 Pre-New OB Reason Comments Initial OB Visit Reason Onset Date Comments Care 01/27/2022 Specialty Diagnoses / Procedures Referred By Pavel nettles Referred To Contact [facility] Diagnoses NEW PATIENT Procedures ANNUAL EXAM Bobo, [facility] [address] [place] [address] Reason Comments Transfer of Care Care Teams (unrecognized sec tion and content) Patient Assessment Coordinator Relationship Specialty Start Date End Date Martin Burgos, DO [address] [facility] [place] [address] PCP - General Family Practice 03/03/14 Patient Assessment Coordinator Relationship Specialty Start Date End Date Martin Burgos, DO [address] [place] [place] [address] PCP - General Family Practice 03/03/14 Patient Assessment Coordinator Relationship Specialty Start Date End Date Martin Burgos DO [address] [place] [place] [address] PCP - General Family Practice 03/03/14 Patient Assessment Coordinator Relationship Specialty Start Date End Date Martin Burgos, DO [address] [place] [place] [address] PCP - General Family Practice 03/03/14 Patient Assessment Coordinator Relationship Specialty Start Date End Date Martin Burgos, DO [address] [place] [place] [address] PCP - General Family Practice 03/03/14 Patient Assessment Coordinator Relationship Specialty Start Date End Date aMrtin Burgos, DO [address] [place] [place] [address] PCP - General Family Medicine 03/03/14 FOR [...] BE BASED ON THE PRIMARY CLINICAL RECORDS. [facility] [employer] [facility]. provides no warranty or guarantee of the accuracy or completeness of information in this document.
== END 2023-06-24 09:03 | disposition home or self-care (01) ==
LOC: NOMS 09:02
PROVIDERS: PCP Obstetrics & Gynecology; Visit Provider Obstetrics & Gynecology
DX: Z36.89 Encounter for other specified antenatal screening (principal); Z3A.20 20 weeks gestation of pregnancy
CPT/HCPCS: 76805; 76817

== ENCOUNTER 2023-08-09 10:35 | Outpatient (OUT) | payer MEDICAID, SELFPAY ==
--- OUTSIDE RECORDS SUMMARY | 2023-08-09 10:43 | XMS_ITS | CCD ---
Author Name Unknown Address [id number] [place] [address] Organization [facility] Care Team Providers Care Loss Prevention Consultant Name Role Phone HARISH, AN E. Unavailable [...] Provider Martin Burgos DO Primary Care Provider Martin Burgos DO Primary Care Provider LAMONT PULIDO Attending Unavailable MARTIN BURGOS Primary Care Unavailable SERENA SRINIVASAN Attending Unavailable MARTIN BURGOS Primary Care Unavailable MARTIN BURGOS Primary Care Unavailable RAINA BONNER Attending Unavailable MARTIN BURGOS Primary Care Unavailable MARTIN BURGOS Primary Care Unavailable DR RIANNA RODRIGUEZ Consulting Unavailable DR RIANNA RODRIGUEZ Attending Unavailable [facility], DR BYRNE Primary Care Unavailable DR RIANNA RODRIGUEZ Admitting Unavailable ADAN ., ISABEL Admitting Unavailable ADAN ., ISABEL Attending Unavailable DR MICHAEL KIRK V Consulting Unavailable MISC, DR BYRNE Primary Care Unavailable ISABEL SANFORD Consulting Unavailable ADAN .ISABEL Consulting Unavailable ADAN Nemo, ISABEL Attending Unavailable [facility], DR BYRNE Primary Care Unavailable ADAN ., ISABEL Admitting Unavailable DIPAK ., DR BLANCA Attending Unavailable DIPAK ., DR BLANCA Admitting Unavailable DIPAK ., DR BLANCA Consulting Unavailable ZIEBER, DR SCARLET Yao Consulting Unavailable MISC, DR BYRNE Primary Care Unavailable KARASIK ., DR FLORES Attending Unavailabl e KARASIK ., DR FLORES Admitting Unavailabl e DIPAK ., DR BLANCA Attending Unavailable MISC, DR BYRNE Primary Care Unavailable DIPAK ., DR BLANCA Admitting Unavailable DIPAK ., DR BLANCA Attending Unavailable MISC, DR BYRNE Primary Care Unavailable DIPAK ., DR BLANCA Admitting Unavailable MISC, DR [...] e WEST, DR MICHAEL Siddiqui Consulting Unavailable DIPAK ., DR BLANCA Consulting Unavailable NADINE ENCISO Consulting Unavailable DIPAK ., DR BLANCA Procedure Practitioner Unavail able ELLA BURKETT Consulting Unavailable DIPAK ., DR BLANCA Consulting Unavailable DIPAK ., DR BLANCA Admitting Unavailable DIPAK ., DR BLANCA Attending Unavailable DIPAK ., DR BLANCA Consulting Unavailable DIPAK ., DR BLANCA Attending Unavailable DIPAK ., DR BLANCA Admitting Unavailable ZIEBER, DR SCARLET Yao Consulting Unavailable ADAN ., ISABEL Admitting Unavailable ADAN ., ISABEL Consulting Unavailable ADAN ., ISABEL Attending Unavailable MISC, DR BYRNE Primary Care Unavailable DIPAK ., DR BLANCA Attending Unavailable DIPAK ., DR BLANCA Admitting Unavailable DIPAK ., DR BLANCA Consulting Unavailable Kevin, Lyndsey Unavailable Rianna Quesada DO Unavailable ADANISABEL DIANE Attending Unavailable DIPAK, RIANNA Attending Unavailable ADAN ISABEL Attending Unavailable DIPAKRIANNA Attending Unavailable Allergies Allergy Classification Reported Allergen(s) Allergy Type Date of Onset Reaction(s) Facility (6 sources) environmental [Other] Propensity to adverse reactions 8 [facility] Work Phone: (3 sources) OTHER; Translations: [OTHER] Propensity to adverse reactions (disorder) 8 [facility] Medications Current Medications Medication Drug Class(es) Dates Sig (Normalized) Sig (Original) amoxicillin 875 mg / clavulanate 125 mg oral tablet (1 source) Penicillin-class Antibacterial Start: 06-27-2023 take 1 tablet by mouth every twelve hours Amoxicillin-Pot Clavulanate 875-125 MG 1 tablet Orally every 12 hrs for 10 day(s) May, Active aspirin 81 mg delayed release oral tablet (3 sources) Platelet Aggregation Inhibitor, Nonsteroidal Anti-inflammatory Drug take 1 tablet by mouth once in the morning aspirin 81 MG EC tablet Indications: with h/o blood clot Take 81 mg by mouth in the morning. 0 Active take 1 tablet by jorge th every twenty-four hours Aspirin 81 81 MG 1 tablet Orally Once a day Active fluconazole 150 mg oral tablet (1 source) Azole Antifungal Start: 10-22-2015 End: 12-16-2021 fluconazole (DIFLUCAN) 150 mg tablet Indications: Monilial vaginitis Take 1 tablet today and repeat in 3 days 2 tablet 0 10/22/2015 12/16/2021 Discontinued (Course of therapy completed) Comment on above: Take 1 tablet today and repeat in 3 days fluticasone propionate 0.05 mg/actuat metered dose nasal spray (1 source) Corticosteroid Start: 06-27-2023 take 1 spray(s) nasal route once daily Fluticasone Propionate 50 MCG/ACT 1 spray in each nostril Nasally Once a day for 14 day(s) May, Active Loratadine / Pseudoephedrine (5 sources) alpha-Adrenergic Agonist End: 01-27-2022 take 1 tablet by mouth once daily LORATADINE/PSEUDO EPHEDRINE (CLARITIN-D 24 HOUR ORAL) Take 1 tablet by mouth once daily. 0 01/27/2022 Discontinued take 1 tablet by jorge th once daily LORATADINE/PSEUDOEPHEDRINE (CLARITIN-D 2 4 HOUR ORAL) Take 1 tablet by mouth once daily. 0 Active Comment on above: Take 1 tablet by jorge th once daily. MULTIVITS,CA,MINERALS/I DEVI/FA (ONE-A-DAY WOMENS FORMULA ORAL) (1 source) End: 12-17-19 22 take 1 tablet by mouth once daily MULTIVITS,CA,MINERALS/ IRON/FA (ONE-A-DAY WOMENS FORMULA ORAL) Take 1 tablet by mouth once daily. 0 12/16/2021 Discontinued (Course of therapy completed) Comment on above: Take 1 tablet by jorge once daily. ondansetron 4 mg disintegrating oral tablet (2 sources) Serotonin-3 Receptor Antagonist Start: 05-05-20 End: 08-03-19 24 take 1 tablet by mouth every four hours for nausea ondansetron ODT (Zofran-ODT) 4 MG disintegrating tablet Indications: Nausea and vomiting during Take 1 tablet (4 mg) by mouth every 4 (four) hours if needed for nausea or vomiting 120 tablet 1 05/05/2023 08/03/2023 Active 27-1 MG (1 source) take 1 tablet by mouth once daily 27-1 MG 1 tablet Orally Once a day Active Vit-Fe Fumarate-FA ( Vitamin and Mineral) 28-0.8 MG tablet (2 sources) Vit-Fe Fumarate-FA ( Vitamin and Mineral) 28-0.8 MG tablet 1 (one) time each day at the same time. 0 Active Completed/Discontinued Medications Medication Drug Class(es) Dates Sig (Normalized) Sig (Original) [id number] 200 actuat albuterol 0.09 mg/actuat metered dose [...] for test, result positive] Onset: 12-16-2021 Episodic Other screening for suspected conditions (not mental disorders or infectious disease) (6 sources) Encounter for other specified screening; Translations: [Patient encounter status] Onset: 03-09-2022 Episodic Other upper respiratory disease (1 source) Nasal congestion Episodic Other upper respiratory infections (1 source) Acute pansinusitis, unspecified Episodic Pulmonary heart disease (6 sources) Septic [...] WEEKS GESTATION OF ] Onset: 07-27-2022 Episodic Unclassified (2 sources) OB Reminders Onset: 04-10-2023 04-10-2023 Urinary tract infections (1 source) Urinary tract [...] Translations: [OTHER FECAL ABNORMALITIES] Onset: 04-14-2022 Episodic Residual codes; unclassified (1 source) 33 [...] Name Value Interpretation Reference Range Facil ity Urinalysis macro (dipstick) panel (U)on 07-01-2023 Bilirubin, UA Negative Negative - 4(7 0) +++ mg/dL [facility] Blood, UA Negative Negative - 50 Bartolo/mcL [facility] Clarity, UA Clear [facility] re Color, UA Yellow [facility] e Glucose, UA Negative Negative - 1999(110) ++++ mg/dL [facility] Interpretation and review of laboratory results Normal [facility] re Ketones, UA Negative Negative - 160(16) ++++ mg/dL [facility] Leukocytes, UA Negative Negative - 500+++ Mary/mcL [facility] Nitrite, UA Negative Negative - Positive [facility] pH, UA 7.0 5 - [address] [facility] e Protein, UA Negative Negative - 1999(20) ++++ mg/dL [facility] Spec Grav, UA 1.020 1 - 1.03 [facility] Urobilinogen, UA 0.2 0.2 - 12 mg/dL [facility] Health[facility] e COVID + FLU Quick Testingon 06-27-2023 SARS-CoV-2 (COVID-19) RNA JOBY+probe Ql (Unsp spec) Negative [facility] [employer] Other COVID + FLU Quick Testing Negative [facility] [employer] Other CULTURE URINEon 10-06-2022 CULTURE URINE Isolate 1 Escherichia coli >100,000 cfu/mL of ORGANISM 1 Escherichia coli ANTIBIOTIC M.I.C RX STATUS Ampicillin <=2 S F Ampicillin/Sulbacta m <=2 S F Piperacillin/Tazoba ctam <=4 S F Cefazolin <=4 S F Ceftazidime <=1 S F Ceftriaxone <=1 S F Ertapenem <=0.5 S F Imipenem <=0.25 S F Amikacin <=2 S F Gentamicin <=1 S F Tobramycin <=1 S F Ciprofloxacin <=0.25 S F Levofloxacin <=0.12 S F Nitrofurantoin <=16 S F Trimethoprim/Sulfam ethoxazole <=20 S F Normal [facility] Comment on above: Performed By: #### U RCX #### [facility] [address] [place] [address] Dr. Brando Betancourt CBC AUTO DIFFon 10-03-2022 BASO # 0.0 103/ul Normal 0.0-0.1 [facility] Comment on above: Performed By: #### H BSANS #### [facility] [address] [place] [address] Dr. Brando Betancourt Basophils/100 WBC (Bld) 0.3 % Normal 0.2-2.0 [facility] Comment on above: Performed By: #### H BSANS #### [facility] [address] [place] [address] Dr. Brando Betancourt EO # 0.2 103/ul Normal 0.0-0.7 [facility] Comment on above: Performed By: #### H BSANS #### [facility] [address] [place] [address] Dr. Brando Betancourt Eosinophils/100 WBC (Bld) 1.5 % Normal 0.9-7.0 [facility] Comment on above: Performed By: #### H BSANS #### [facility] [address] [place] [address] Dr. Brando Betancourt Erythrocyte distribution width (RBC) [Ratio] 12.6 % Normal 11.0-15.0 [facility] Comment on above: Performed By: #### H BSANS #### [facility] [address] [place] [address] Dr. Brando Betancourt Hematocrit (Bld) [Volume fraction] 38.3 % Normal 36.0-48.0 [facility] Comment on above: Performed By: #### H BSANS #### [facility] [address] [place] [address] Dr. Brando Betancourt Hemoglobin (Bld) [Mass/Vol] 12.8 g/dL Normal 12.0-16.0 [facility] Comment on above: Performed By: #### H BSANS #### [facility] [address] [place] [address] Dr. Brando Betancourt IG # 0.03 10e3/ul Normal 0.00-0.03 [facility] Comment on above: Performed By: #### H BSANS #### [facility] [address] [place] [address] Dr. Brando Betancourt IG % 0.3 % Normal 0.0-0.5 [facility] Comment on above: Performed By: #### H BSANS #### [facility] [address] [place] [address] Dr. Brando Betancourt LYMPH # 1.4 103/ul Normal 1.2-3.8 [facility] Comment on above: Performed By: #### H BSANS #### [facility] [address] [place] [address] Dr. Brando Betancourt Lymphocytes/100 WBC (Bld) 13.2 % Critically low 20.5-60.0 [facility] Comment on above: Performed By: #### H BSANS #### [facility] [address] [place] [address] Dr. Brando Betancourt MANUAL DIFF REQ NO Normal [facility] Comment on above: Performed By: #### H BSANS #### [facility] [address] [place] [address] Dr. Brando Betancourt MCH (RBC) [Entitic mass] 28.6 pg Normal 26.7-34.0 [facility] Comment on above: Performed By: #### H BSANS #### [facility] [address] [place] [address] Dr. Brando Betancourt MCHC (RBC) [Mass/Vol] 33.4 g/dL Normal 29.9-35.2 [facility] Comment on above: Performed By: #### H BSANS #### [facility] [address] [place] [address] Dr. Brando Betancourt MCV (RBC) [Entitic vol] 85.5 fL Normal 81.0-99.0 [facility] Comment on above: Performed By: #### H BSANS #### [facility] [address] [place] [address] Dr. Brando Betancourt MONO # 0.7 103/ul Normal 0.3-0.8 [facility] Comment on above: Performed By: #### H BSANS #### [facility] [address] [place] [address] Dr. Brando Betancourt Monocytes/100 WBC (Bld) 7.0 % Normal 1.7-12.0 [facility] Comment on above: Performed By: #### H BSANS #### [facility] [address] [address] [address] Brando Betancourt NEUT # 8.3 103/ul Critically high 1.4-6.5 [facility] Comment on above: Performed By: #### H BSANS #### [facility] [address] [place] [address] Dr. Brando Betancourt Neutrophils/100 WBC (Bld) 77.7 % Critically high 43.0-75.0 [facility] Comment on above: Performed By: #### H BSANS #### [facility] [address] [place] [address] Dr. Brando Betancourt Platelet mean volume (Bld) [Entitic vol] 8.5 fL Critically low 9.5-13.5 [facility] Comment on above: Performed By: #### H BSANS #### [facility] [address] [place] [address] Dr. Brando Betancourt PLT 263 103/ul Normal 150-450 [facility] Comment on above: Performed By: #### H BSANS #### [facility] [address] [place] [address] Dr. Brando Betancourt RBC 4.48 106/ul Normal 4.20-5.40 [facility] Comment on above: Performed By: #### H BSANS #### [facility] [address] [place] [address] Dr. Brando Betancourt WBC 10.6 103/ul Normal 4.0-11.0 [facility] Comment on above: Performed By: #### H BSANS #### [facility] [address] [place] [address] ABD/PELVIS WO CONon 05-06 -2023 CT ABD/PELVIS WO CON EXAMINATION: CT ABD/PELVIS [...] is normal in caliber. RETROPERITONEUM: No lymphadenopathy. PERITONEUM/MESENTER Y: No abdominal ascites. No free air. PELVIS: No pelvic ascites or lymphadenopathy. BODY WALL: Tiny fat-containing umbilical hernia. BONES: No acute abnormality. IMPRESSION: 1. Suspected right lower lobe infiltrate with 9 mm nodular density in this region. Short-term follow-up chest CT after treatment is suggested. 2. No nephrolithiasis or hydronephrosis noted. Electronically authenticated by: RONNY CUMMINGS Date: 2022-10-03 18:56 Normal [facility] ER URINE PROFILEon 3 Bilirubin Ql (U) Negative Normal NEGATIVE [facility] Comment on above: Performed By: #### H BSANS #### [facility] [address] [address] [address] Brando Betancourt Clarity (U) SL CLOUDY Abnormal CLEAR [facility] Comment on above: Performed By: #### H BSANS #### [facility] [address] [address] [address] Brando Betancourt Color (U) YELLOW Normal YELLOW [facility] Comment on above: Performed By: #### H BSANS #### [facility] [address] [address] [address] Brando Betancourt ERUAHD A micrscopic examination will be performed if indicated. Normal [facility] Comment on above: Performed By: #### H BSANS #### [facility] [address] [address] [address] Brando Betancourt Glucose Ql (U) Negative Normal NEGATIVE [facility] Comment on above: Performed By: #### H BSANS #### [facility] [address] [address] [address] Brando Betancourt Hemoglobin Ql (U) MODERATE Abnormal NEGATIVE [facility] Comment on above: Performed By: #### H BSANS #### [facility] [address] [address] [address] Brando Betancourt Ketones Ql (U) Negative Normal NEGATIVE [facility] Comment on above: Performed By: #### H BSANS #### [facility] [address] [place] [address] Dr. Brando Betancourt LEUKOCYTES LARGE Abnormal NEGATIVE [facility] Comment on above: Performed By: #### H BSANS #### [facility] [address] [address] [address] Brando Betancourt Nitrite Ql (U) Negative Normal NEGATIVE [facility] Comment on above: Performed By: #### H BSANS #### [facility] [address] [place] [address] Dr. Brando Betancourt pH (U) 6.0 [pH] Normal 5-9 [facility] Comment on above: Performed By: #### H BSANS #### [facility] [address] [address] [address] Brando Betancourt Protein (U) [Mass/Vol] 100 mg/dL Abnormal NEGATIVE/ TRACE [facility] Comment on above: Performed By: #### H BSANS #### [facility] [address] [address] [address] Brando Betancourt SPEC GRAVITY 1.025 Normal 1.005-<=1.025 [facility] Comment on above: Performed By: #### H BSANS #### [facility] [address] [place] [address] Dr. Brando Betancourt UR MICRO IND INDICATED Normal [facility] Comment on above: Performed By: #### H BSANS #### [facility] [address] [address] [address] Brando Betancourt Urobilinogen Qn (U) 0.2 {Arturo'U}/dL Normal 0.2 - 1. 0 [facility] Comment on above: Performed By: #### H BSANS #### [facility] [address] [place] [address] Dr. Brando Betancourt URon 10-03-2022 , QUAL Negative Normal NEGATIVE [facility] Comment on above: Performed By: #### H BSANS #### [facility] [address] [place] [address] Dr. Brando Betancourt PROF CHEM 8 (BAS METB)on Anion gap [Moles/Vol] 11.8 mmol/L Normal [facility] Comment on above: Performed By: #### C BC #### [facility] [address] [place] [address] Dr. Brando Betancourt Calcium [Mass/Vol] 9.1 mg/dL Normal 8.5-10.1 [facility] Comment on above: Performed By: #### C BC #### [facility] [address] [place] [address] Dr. Brando Betancourt Chloride [Moles/Vol] 99 mmol/L Normal 98-107 [facility] Comment on above: Performed By: #### C BC #### [facility] [address] [place] [address] Dr. Brando Betancourt CO2 [Moles/Vol] 29.9 mmol/L Normal 21.0-32.0 [facility] Comment on above: Performed By: #### C BC #### [facility] [address] [place] [address] Dr. Brando Betancourt Creatinine [Mass/Vol] 0.89 mg/dL Normal 0.55-1.02 [facility] Comment on above: Performed By: #### C BC #### [facility] [address] [place] [address] Dr. Brando Betancourt EGFR-AF LATVIAN >60 Normal >=60 [facility] Comment on above: Performed By: #### C BC #### [facility] [address] [place] [address] Dr. Brando Betancourt EGFR-NON AF LATVIAN >60 Normal >=60 [facility] Comment on above: Performed By: #### C BC #### [facility] [address] [place] [address] Dr. Brando Betancourt Glucose [Mass/Vol] 122 mg/dL Critically high 74-106 [facility] Comment on above: Performed By: #### C BC #### [facility] [address] [place] [address] Dr. Brando Betancourt Potassium [Moles/Vol] 3.7 mmol/L Normal 3.5-5.1 [facility] Comment on above: Performed By: #### C BC #### [facility] [address] [place] [address] Dr. Brando Betancourt Sodium [Moles/Vol] 137 mmol/L Normal 136-145 [facility] Comment on above: Performed By: #### C BC #### [facility] [address] [place] [address] Dr. Brando Betancourt Urea nitrogen [Mass/Vol] 17.0 mg/dL Normal 7.0-18.0 [facility] Comment on above: Performed By: #### C BC #### [facility] [address] [place] [address] Dr. Brando Betancourt Urea nitrogen/Creatinine [Mass ratio] 19.1 mg/mg Normal [facility] Comment on above: Performed By: #### C BC #### [facility] [address] [place] [address] Dr. Brando Betancourt URINE MICROSCOPIC ONLYon BACTERIA TRACE Abnormal NONE SEEN [facility] Comment on above: Performed By: #### H BSANS #### [facility] [address] [place] [address] Dr. Brando Betancourt Bacteria identified Cx Nom (U) INDICATED Normal [facility] Comment on above: Performed By: #### H BSANS #### [facility] [address] [place] [address] Dr. Brando Betancourt CAST NONE SEEN Normal NONE SEEN [facility] Comment on above: Performed By: #### H BSANS #### [facility] [address] [place] [address] Dr. Brando Betancourt Crystals LM Nom (Urine sed) NONE SEEN Normal NONE SEEN [facility] Comment on above: Performed By: #### H BSANS #### [facility] [address] [place] [address] Dr. Brando Betancourt Epithelial cells LM Ql (Urine sed) RARE Normal NONE SEEN /RARE [facility] Comment on above: Performed By: #### H BSANS #### [facility] [address] [place] [address] Dr. Brando Betancourt MUCOUS NONE SEEN Normal NONE SEEN [facility] Comment on above: Performed By: #### H BSANS #### [facility] [address] [place] [address] Dr. Brando Betancourt RBC 5-10 Abnormal 0-2 [facility] Comment on above: Performed By: #### H BSANS #### [facility] [address] [place] [address] Dr. Brando Betancourt WBC 50-75 Abnormal NONE SEEN [facility] Comment on above: Performed By: #### H BSANS #### [facility] [address] [place] [address] Dr. Brando Betancourt CBC AUTO DIFFon 07-14-2022 BASO # 0.0 103/ul Normal 0.0-0.1 [facility] Comment on above: Performed By: #### C BC #### [facility] [address] [place] [address] Dr. Brando Betancourt Basophils/100 WBC (Bld) 0.2 % Normal 0.2-2.0 [facility] Comment on above: Performed By: #### C BC #### [facility] [address] [place] [address] Dr. Brando Betancourt EO # 0.0 103/ul Normal 0.0-0.7 [facility] Comment on above: Performed By: #### C BC #### [facility] [address] [address] [address] Brando Betancourt Eosinophils/100 WBC (Bld) 0.3 % Critically low 0.9-7.0 [facility] Comment on above: Performed By: #### C BC #### [facility] [address] [place] [address] Dr. Brando Betancourt Erythrocyte distribution width (RBC) [Ratio] 13.0 % Normal 11.0-15.0 [facility] Comment on above: Performed By: #### C BC #### [facility] [address] [place] [address] Dr. Brando Betancourt Hematocrit (Bld) [Volume fraction] 28.8 % Critically low 36.0-48.0 [facility] Comment on above: Performed By: #### C BC #### [facility] [address] [place] [address] Dr. Brando Betancourt Hemoglobin (Bld) [Mass/Vol] 9.7 g/dL Critically low 12.0-16.0 [facility] Comment on above: Performed By: #### C BC #### [facility] [address] [place] [address] Dr. Brando Betancourt IG # 0.04 10e3/ul Critically high 0.00-0.03 [facility] Comment on above: Performed By: #### C BC #### [facility] [address] [place] [address] Dr. Brando Betancourt IG % 0.4 % Normal 0.0-0.5 [facility] Comment on above: Performed By: #### C BC #### [facility] [address] [place] [address] Dr. Brando Betancourt LYMPH # 1.6 103/ul Normal 1.2-3.8 [facility] Comment on above: Performed By: #### C BC #### [facility] [address] [place] [address] Dr. Brando Betancourt Lymphocytes/100 WBC (Bld) 15.0 % Critically low 20.5-60.0 [facility] Comment on above: Performed By: #### C BC #### [facility] [address] [place] [address] Dr. Brando Betancourt MANUAL DIFF REQ NO Normal [facility] Comment on above: Performed By: #### C BC #### [facility] [address] [place] [address] Dr. Brando Betancourt MCH (RBC) [Entitic mass] 30.0 pg Normal 26.7-34.0 [facility] Comment on above: Performed By: #### C BC #### [facility] [address] [place] [address] Dr. Brando Betancourt MCHC (RBC) [Mass/Vol] 33.7 g/dL Normal 29.9-35.2 [facility] Comment on above: Performed By: #### C BC #### [facility] [address] [place] [address] Dr. Brando Betancourt MCV (RBC) [Entitic vol] 89.2 fL Normal 81.0-99.0 [facility] Comment on above: Performed By: #### C BC #### [facility] [address] [place] [address] Dr. Brando Betancourt MONO # 0.6 103/ul Normal 0.3-0.8 [facility] Comment on above: Performed By: #### C BC #### [facility] [address] [place] [address] Dr. Brando Betancourt Monocytes/100 WBC (Bld) 5.6 % Normal 1.7-12.0 [facility] Comment on above: Performed By: #### C BC #### [facility] [address] [place] [address] Dr. Brando Betancourt NEUT # 8.6 103/ul Critically high 1.4-6.5 [facility] Comment on above: Performed By: #### C BC #### [facility] [address] [place] [address] Dr. Brando Betancourt Neutrophils/100 WBC (Bld) 78.5 % Critically high 43.0-75.0 [facility] Comment on above: Performed By: #### C BC #### [facility] [address] [place] [address] Dr. Brando Betancourt Platelet mean volume (Bld) [Entitic vol] 11.2 fL Normal 9.5-13.5 [facility] Comment on above: Performed By: #### C BC #### [facility] [address] [place] [address] Dr. Brando Betancourt PLT 143 103/ul Critically low 150-450 [facility] Comment on above: Performed By: #### C BC #### [facility] [address] [place] [address] Dr. Brando Betancourt RBC 3.23 106/ul Critically low 4.20-5.40 [facility] Comment on above: Performed By: #### C BC #### [facility] [address] [place] [address] Dr. Brando Betancourt WBC 10.9 103/ul Normal 4.0-11.0 [facility] Comment on above: Performed By: #### C BC #### [facility] [address] [place] [address] Dr. Brando Betancourt AMNISUREon 07-12-2022 AMNISURE Negative Normal NEGATIVE [facility] Comment on above: Performed By: #### H BSANS #### [facility] [address] [place] [address] Dr. Brando Betancourt CBC AUTO DIFFon 07-12-2022 BASO # 0.0 103/ul Normal 0.0-0.1 [facility] Comment on above: Performed By: #### C BC #### [facility] [address] [place] [address] Dr. Brando Betancourt Basophils/100 WBC (Bld) 0.1 % Critically low 0.2-2.0 [facility] Comment on above: Performed By: #### C BC #### [facility] [address] [place] [address] Dr. Brando Betancourt EO # 0.1 103/ul Normal 0.0-0.7 [facility] Comment on above: Performed By: #### C BC #### [facility] [address] [place] [address] Dr. Brando Betancourt Eosinophils/100 WBC (Bld) 0.7 % Critically low 0.9-7.0 [facility] Comment on above: Performed By: #### C BC #### [facility] [address] [place] [address] Dr. Brando Betancourt Erythrocyte distribution width (RBC) [Ratio] 12.6 % Normal 11.0-15.0 [facility] Comment on above: Performed By: #### C BC #### [facility] [address] [place] [address] Dr. Brando Betancourt Hematocrit (Bld) [Volume fraction] 29.4 % Critically low 36.0-48.0 [facility] Comment on above: Performed By: #### C BC #### [facility] [address] [place] [address] Dr. Brando Betancourt Hemoglobin (Bld) [Mass/Vol] 10.0 g/dL Critically low 12.0-16.0 [facility] Comment on above: Performed By: #### C BC #### [facility] [address] [place] [address] Dr. Brando Betancourt IG # 0.04 10e3/ul Critically high 0.00-0.03 [facility] Comment on above: Performed By: #### C BC #### [facility] [address] [place] [address] Dr. Brando Betancourt IG % 0.4 % Normal 0.0-0.5 [facility] Comment on above: Performed By: #### C BC #### [facility] [address] [place] [address] Dr. Brando Betancourt LYMPH # 1.3 103/ul Normal 1.2-3.8 [facility] Comment on above: Performed By: #### C BC #### [facility] [address] [place] [address] Dr. Brando Betancourt Lymphocytes/100 WBC (Bld) 11.8 % Critically low 20.5-60.0 [facility] Comment on above: Performed By: #### C BC #### [facility] [address] [place] [address] Dr. Brando Betancourt MANUAL DIFF REQ NO Normal [facility] Comment on above: Performed By: #### C BC #### [facility] [address] [place] [address] Dr. Brando Betancourt MCH (RBC) [Entitic mass] 30.1 pg Normal 26.7-34.0 [facility] Comment on above: Performed By: #### C BC #### [facility] [address] [place] [address] Dr. Brando Betancourt MCHC (RBC) [Mass/Vol] 34.0 g/dL Normal 29.9-35.2 [facility] Comment on above: Performed By: #### C BC #### [facility] [address] [place] [address] Dr. Brando Betancourt MCV (RBC) [Entitic vol] 88.6 fL Normal 81.0-99.0 [facility] Comment on above: Performed By: #### C BC #### [facility] [address] [place] [address] Dr. Brando Betancourt MONO # 0.7 103/ul Normal 0.3-0.8 [facility] Comment on above: Performed By: #### C BC #### [facility] [address] [place] [address] Dr. Brando Betancourt Monocytes/100 WBC (Bld) 6.9 % Normal 1.7-12.0 [facility] Comment on above: Performed By: #### C BC #### [facility] [address] [place] [address] Dr. Brando Betancourt NEUT # 8.6 103/ul Critically high 1.4-6.5 [facility] Comment on above: Performed By: #### C BC #### [facility] [address] [place] [address] Dr. Brando Betancourt Neutrophils/100 WBC (Bld) 80.1 % Critically high 43.0-75.0 [facility] Comment on above: Performed By: #### C BC #### [facility] [address] [place] [address] Dr. Brando Betancourt Platelet mean volume (Bld) [Entitic vol] 11.3 fL Normal 9.5-13.5 [facility] Comment on above: Performed By: #### C BC #### [facility] [address] [place] [address] Dr. Brando Betancourt PLT 149 103/ul Critically low 150-450 [facility] Comment on above: Performed By: #### C BC #### [facility] [address] [place] [address] Dr. Brando Betancourt RBC 3.32 106/ul Critically low 4.20-5.40 [facility] Comment on above: Performed By: #### C BC #### [facility] [address] [place] [address] Dr. Brando Betancourt WBC 10.7 103/ul Normal 4.0-11.0 [facility] Comment on above: Performed By: #### C BC #### [facility] [address] [place] [address] Dr. Brando Betancourt TYPE AND SCREENon 07-12-2022 TYPE AND SCREEN Negative Normal [facility] Comment on above: Performed By: #### T NS #### [facility] [address] [place] [address] Dr. Brando Betancourt US PREG AMNIOTIC FLUID [...] MICHAEL KIRK Date: 2022-07-12 07:56 Normal [facility] AMNISUREon 07-11-2022 AMNISURE Positive Abnormal NEGATIVE [facility] Comment on above: Performed By: #### A MNI #### [facility] [address] [place] [address] Dr. Brando Betancourt DRUG SCREEN RAPID (URINE)on 07-11-2022 AMP Negative Normal NEGATIVE [facility] Comment on above: Performed By: #### H BSANS #### [facility] [address] [address] [address] Brando Betancourt BAR Negative Normal NEGATIVE [facility] Comment on above: Performed By: #### H BSANS #### [facility] [address] [address] [address] Brando Betancourt BUP Negative Normal NEGATIVE [facility] Comment on above: Performed By: #### H BSANS #### [facility] [address] [place] [address] Dr. Brando Betancourt BZO Negative Normal NEGATIVE [facility] Comment on above: Performed By: #### H BSANS #### [facility] [address] [place] [address] Dr. Brando Betancourt JHONY Negative Normal NEGATIVE [facility] Comment on above: Performed By: #### H BSANS #### [facility] [address] [place] [address] Dr. Brando Betancourt CUT-OFFS SEE BELOW Normal [facility] Comment on above: Result Comment: AMP (Amphetamine): 500ng/mL, BAR (Barbituates): 200 ng/mL, BZO (Benzodiazepines): 150 ng/mL, BUP (Buprenorphine): 10 ng/mL, JHONY (Cocaine): 150 ng/mL, mAMP (Methamphetamine): 500 ng/mL, MTD (Methadone): 200 ng/mL, OPI (Opiates): 100 ng/mL, OXY (Oxycodone): 100 ng/mL, PCP (Phencyclidine): 25 ng/mL, PPX (Propoxyphene): 300 ng/mL, THC (Cannabinoids): 50 ng/mL, TCA (Trycyclic Antidepressants): 300 ng/mL Performed By: #### H BSANS #### [facility] [address] [place] [address] Dr. Brando Betancourt DRUG CUT HEADER DRUG CLASS TEST SYSTEM CUT-OFF CONCENTRATIONS ARE FOLLOWS: Normal [facility] Comment on above: Performed By: #### H BSANS #### [facility] [address] [place] [address] Dr. Brando Betancourt mAMP Negative Normal NEGATIVE [facility] Comment on above: Performed By: #### H BSANS #### [facility] [address] [address] [address] Brando Betancourt MTD Negative Normal NEGATIVE [facility] Comment on above: Performed By: #### H BSANS #### [facility] [address] [address] [address] Brando Betancourt OPI Negative Normal NEGATIVE [facility] Comment on above: Performed By: #### H BSANS #### [facility] [address] [place] [address] Dr. Brando Betancourt OXY Negative Normal NEGATIVE [facility] Comment on above: Performed By: #### H BSANS #### [facility] [address] [place] [address] Dr. Brando Betancourt PCP Negative Normal NEGATIVE [facility] Comment on above: Performed By: #### H BSANS #### [facility] [address] [place] [address] Dr. Brando Betancourt PPX Negative Normal NEGATIVE [facility] Comment on above: Performed By: #### H BSANS #### [facility] [address] [place] [address] Dr. Brando Betancourt TCA Negative Normal NEGATIVE [facility] Comment on above: Performed By: #### H BSANS #### [facility] [address] [place] [address] Dr. Brando Betancourt THC Negative Normal NEGATIVE [facility] Comment on above: Performed By: #### H BSANS #### [facility] [address] [place] [address] Dr. Brando Betancourt UA (CLEAN/CATCH) PHOTONIC LABORATORY TECHNICIAN/MICRO I F IND.on 07-11-2022 Bilirubin Ql (U) Negative Normal NEGATIVE [facility] Comment on above: Performed By: #### C T/NGNA #### [facility] [address] [place] [address] Dr. Brando Betancourt Clarity (U) CLEAR Normal CLEAR [facility] Comment on above: Performed By: #### C T/NGNA #### [facility] [address] [place] [address] Dr. Brando Betancourt Color (U) LT. YELLOW Normal YELLOW [facility] Comment on above: Performed By: #### C T/NGNA #### [facility] [address] [place] [address] Dr. Brando Betancourt Glucose Ql (U) Negative Normal NEGATIVE [facility] Comment on above: Performed By: #### C T/NGNA #### [facility] [address] [place] [address] Dr. Brando Betancourt Hemoglobin Ql (U) Negative Normal NEGATIVE [facility] Comment on above: Performed By: #### C T/NGNA #### [facility] [address] [place] [address] Dr. Brando Betancourt Ketones Ql (U) Negative Normal NEGATIVE [facility] Comment on above: Performed By: #### C T/NGNA #### [facility] [address] [place] [address] Dr. Brando Betancourt LEUKOCYTES Negative Normal NEGATIVE [facility] Comment on above: Performed By: #### C T/NGNA #### [facility] [address] [place] [address] Dr. Brando Betancourt Nitrite Ql (U) Negative Normal NEGATIVE [facility] Comment on above: Performed By: #### C T/NGNA #### [facility] [address] [place] [address] Dr. Brando Betancourt pH (U) 7.0 [pH] Normal 5-9 [facility] Comment on above: Performed By: #### C T/NGNA #### [facility] [address] [place] [address] Dr. Brando Betancourt SPEC GRAVITY <=1.005 Abnormal 1.005-<=1.025 [facility] Comment on above: Performed By: #### C T/NGNA #### [facility] [address] [place] [address] Dr. Brando Betancourt UA PROTEIN Negative Normal NEGATIVE/ TRACE [facility] Comment on above: Performed By: #### C T/NGNA #### [facility] [address] [place] [address] Dr. Brando Betancourt UR MICRO IND NOT INDICATED Normal [facility] Comment on above: Performed By: #### C T/NGNA #### [facility] [address] [place] [address] Dr. Brando Betancourt Urobilinogen Qn (U) 0.2 {Arturo'U}/dL Normal 0.2 - 1. 0 [facility] Comment on above: Performed By: #### C T/NGNA #### [facility] [address] [place] [address] Dr. Brando Betancourt CHLAMYDIA/GONOCOCCUS JOBY ( AB/URINE/PAPon 06-25-2022 Chlamydia trachomatis, JOBY Negative Normal Negative [facility] Comment on above: Performed By: #### C T/NGNA #### [facility] [address] [place] [address] Dr. Brando Betancourt Neisseria gonorrhoeae, JOBY Negative Normal Negative [facility] Comment on above: Performed By: #### C T/NGNA #### [facility] [address] [place] [address] Dr. Brando Betancorut VAGINITIS/VAGINOSIS DNA PROB Zenon 06-25-2022 Eugenia species Negative Normal Negative [facility] Comment on above: Performed By: #### C T/NGNA #### [facility] [address] [place] [address] Dr. Brando Betancourt Gardnerella vaginalis Negative Normal Negative [facility] Comment on above: Performed By: #### C T/NGNA #### [facility] [address] [place] [address] Dr. Brando Betancourt Trichomonas vaginalis Negative Normal Negative [facility] Comment on above: Performed By: #### C T/NGNA #### [facility] [address] [place] [address] Dr. Brando Betancourt GROUP B STREP CULTUREon 06-01 S. agalactiae Ag Ql (Unsp spec) Culture Observations: NEGATIVE FOR GROUP B STREPTOCOCCUS. Normal [facility] Comment on above: Performed By: #### C T/NGNA #### [facility] [address] [address] [address] Brando Betancourt CULTURE URINEon 06-09-2022 CULTURE URINE Culture Observations: NO GROWTH. Normal [facility] Comment on above: Performed By: #### U RCX #### [facility] [address] [address] [address] Brando Betancourt US PREG GROWTHon 06-09-2022 [...] by: MICHAEL KIRK Date: 2022-06-09 10:31 Normal [facility] HEP B SURFACE ANTIGEN SCREEN on 05-13-2022 HBsAg Screen Negative Normal Negative [facility] Comment on above: Performed By: #### H BSANS #### [facility] [address] [address] [address] Brando Betancourt HEPATITIS C VIRUS AB W/ REFL EX QUANTon 05-13-2022 HCV AB <0.1 Normal 0.0-0.9 [facility] Comment on above: Performed By: #### H BSANS #### [facility] [address] [address] [address] Brando Betancourt Interpretation: Comment Normal [facility] Comment on above: Result Comment: Nega tive Not infected with HCV, unless recent infection is suspected or other evidence exists to indicate HCV infection. Performed By: #### H DWAINENS #### [facility] [address] [place] [address] Dr. Brando Betancourt HIV 1 AND 2 WITH REFLEXon HIV Screen 4th Generation wRfx Non-Reactive Normal Non Reactive [facility] Comment on above: Result Comment: HIV Negative HIV-1/HIV-2 antibodies and HIV-1 p24 antigen were NOT detected. There is no laboratory evidence of HIV infection. Performed By: #### C BC #### [facility] [address] [place] [address] Dr. Brando Betancourt RPR QUANTon 05-13-2022 Rapid Plasma Reagin, Quant Non-Reactive Normal NonRea<1:1 [facility] Comment on above: Result Comment: Plea se Note: This test does not meet current guidelines for screening and diagnosis of syphilis. This test is intended for following treatment response in patients being treated for syphilis infection. To screen for syphilis infection, a reflex cascade that includes both RPR and a treponema-specific assay should be utilized, such as Treponema pallidum (Syphilis) Screening [place] (907206) or Rapid Plasma Reagin (RPR) Test With Reflex to Quantitative RPR and Confirmatory Treponema pallidum Antibodies (208313). Performed By: #### H BSANS #### [facility] [address] [place] [address] Dr. Brando Betancourt RUBELLA AB IGGon 05-13-2022 Rubella Antibodies, IgG 1.64 index Normal Immune >0.99 [facility] Comment on above: Result Comment: Non- immune <0.90 Equivocal 0.90 - 0.99 Immune >0.99 Performed By: #### R UBIGG #### [facility] [address] [place] [address] Dr. Brando Betancourt CBC AUTO DIFFon 05-12-2022 BASO # 0.0 103/ul Normal 0.0-0.1 [facility] Comment on above: Performed By: #### C BC #### [facility] [address] [place] [address] Dr. Brando Betancourt Basophils/100 WBC (Bld) 0.2 % Normal 0.2-2.0 [facility] Comment on above: Performed By: #### C BC #### [facility] [address] [place] [address] Dr. Brando Betancourt EO # 0.2 103/ul Normal 0.0-0.7 [facility] Comment on above: Performed By: #### C BC #### [facility] [address] [place] [address] Dr. Brando Betancourt Eosinophils/100 WBC (Bld) 2.0 % Normal 0.9-7.0 [facility] Comment on above: Performed By: #### C BC #### [facility] [address] [place] [address] Dr. Brando Betancourt Erythrocyte distribution width (RBC) [Ratio] 13.1 % Normal 11.0-15.0 [facility] Comment on above: Performed By: #### C BC #### [facility] [address] [place] [address] Dr. Brando Betancourt Hematocrit (Bld) [Volume fraction] 30.8 % Critically low 36.0-48.0 [facility] Comment on above: Performed By: #### C BC #### [facility] [address] [place] [address] Dr. Brando Betancourt Hemoglobin (Bld) [Mass/Vol] 10.4 g/dL Critically low 12.0-16.0 [facility] Comment on above: Performed By: #### C BC #### [facility] [address] [place] [address] Dr. Brando Betancourt IG # 0.04 10e3/ul Critically high 0.00-0.03 [facility] Comment on above: Performed By: #### C BC #### [facility] [address] [place] [address] Dr. Brando Betancourt IG % 0.4 % Normal 0.0-0.5 [facility] Comment on above: Performed By: #### C BC #### [facility] [address] [place] [address] Dr. Brando Betancourt LYMPH # 0.8 103/ul Critically low 1.2-3.8 [facility] Comment on above: Performed By: #### C BC #### [facility] [address] [place] [address] Dr. Brando Betancourt Lymphocytes/100 WBC (Bld) 8.6 % Critically low 20.5-60.0 [facility] Comment on above: Performed By: #### C BC #### [facility] [address] [place] [address] Dr. Brando Betancourt MANUAL DIFF REQ NO Normal [facility] Comment on above: Performed By: #### C BC #### [facility] [address] [place] [address] Dr. Brando Betancourt MCH (RBC) [Entitic mass] 30.5 pg Normal 26.7-34.0 [facility] Comment on above: Performed By: #### C BC #### [facility] [address] [place] [address] Dr. Brando Betancourt MCHC (RBC) [Mass/Vol] 33.8 g/dL Normal 29.9-35.2 [facility] Comment on above: Performed By: #### C BC #### [facility] [address] [place] [address] Dr. Brando Betancourt MCV (RBC) [Entitic vol] 90.3 fL Normal 81.0-99.0 [facility] Comment on above: Performed By: #### C BC #### [facility] [address] [place] [address] Dr. Brando Betancourt MONO # 0.5 103/ul Normal 0.3-0.8 [facility] Comment on above: Performed By: #### C BC #### [facility] [address] [place] [address] Dr. Brando Betancourt Monocytes/100 WBC (Bld) 4.9 % Normal 1.7-12.0 [facility] Comment on above: Performed By: #### C BC #### [facility] [address] [place] [address] Dr. Brando Betancourt NEUT # 7.9 103/ul Critically high 1.4-6.5 [facility] Comment on above: Performed By: #### C BC #### [facility] [address] [address] [address] Brando Betancourt Neutrophils/100 WBC (Bld) 83.9 % Critically high 43.0-75.0 [facility] Comment on above: Performed By: #### C BC #### [facility] [address] [address] [address] Brando Betancourt Platelet mean volume (Bld) [Entitic vol] 9.4 fL Critically low 9.5-13.5 [facility] Comment on above: Performed By: #### C BC #### [facility] [address] [place] [address] Dr. Brando Betancourt PLT 189 103/ul Normal 150-450 [facility] Comment on above: Performed By: #### C BC #### [facility] [address] [address] [address] Brando Betancourt RBC 3.41 106/ul Critically low 4.20-5.40 [facility] Comment on above: Performed By: #### C BC #### [facility] [address] [place] [address] Dr. Brando Betancourt WBC 9.4 103/ul Normal 4.0-11.0 [facility] Comment on above: Performed By: #### C BC #### [facility] [address] [place] [address] Dr. Brando Betancourt CULTURE URINEon 05-12-2022 CULTURE URINE Culture Observations: LIGHT GROWTH OF MIXED GENITAL STACEY. NO POTENTIAL PATHOGENS SEEN. Normal [facility] Comment on above: Performed By: #### U RCX #### [facility] [address] [place] [address] Dr. Brando Betancourt GLYCOHEMOGLOBIN A1Con 2021 ADA RECOMMENDATION SEE BELOW Normal [facility] Comment on above: Result Comment: ADA RECOMMENDED LIMIT 4.0 - 6.0 ADA THERAPEUTIC TARGET < 7.0 ACTION SUGGESTED > 7.0 Performed By: #### C BC #### [facility] [address] [place], [place] [address] Dr. Brando Betancourt Glucose [Mass/Vol] 94 mg/dL Normal [facility] Comment on above: Performed By: #### C BC #### [facility] [address] [place], [place] [address] Dr. Brando Betancourt HbA1c (Bld) [Mass fraction] 4.9 % Normal 4.5-6.2 [facility] Comment on above: Performed By: #### C BC #### [facility] [address] [place], [place] [address] Dr. Brando Betancourt TYPE AND SCREENon 05-12-2022 TYPE AND SCREEN Negative Normal [facility] Comment on above: Performed By: #### C T/NGNA #### [facility] [address] [place], [place] [address] Dr. Brando Betancourt US PREG PLACENTAon US PREG PLACENTA EXAMINATION: US PREG PLACENTA [...] SCARLET TIAN Date: 2022-04-28 16:22 Normal [facility] OVA AND PARASITE EXAMINATION on 04-15-2022 Ova + Parasite Exam Final report Normal [facility] Comment on above: Result Comment: Thes e results were obtained using wet preparation(s) and trichrome stained smear. This test does not include testing for Cryptosporidium parvum, Cyclospora, or Microsporidia. Performed By: #### H BSANS #### [facility] [address] [place], [place] [address] Dr. Brando Betancourt Result 1 Comment Normal [facility] Comment on above: Result Comment: No o va, cysts, or parasites seen. . One negative specimen does not rule out the possibility of a parasitic infection. Performed By: #### H BSANS #### [facility] [address] [place] [address] [address] Brando Betancourt GLUCOSE - 1HRon 04-07-2022 Glucose [Mass/Vol] 113 mg/dL Critically high 74-106 T [facility] Comment on above: Performed By: #### H BSANS #### [facility] [address] [place] [address] [address] Brando Betancourt CNPNon 03-30-2022 CNPN Telephone (OBGYWM) ---- ELIDA KEENAN ([id number]) 1995 F Date Time Provider Department 03/30/22 ODESSA ISLAS OBALONA During your visit today, we recorded the following information about you: Ike Teresa RN 03/30/2022 10:27 AM Signed Patient transferred care to [facility] office. She was seen in our [...] by IKE TERESA RN on 03/30/22 Normal [facility] US PREG ANATOMY SINGLEon US PREG ANATOMY SINGLE [...] by: SCARLET TIAN Date: 2022-03-09 16:44 Normal [facility] URINE OB DIP B/Oon 2 Glucose Ql (U) Negative Neg mg/dL [facility] Protein.monoclonal (U) [Mass/Vol] Negative Neg mg/dL [facility] Bacteria Ur Culton 2 Bacteria identified Cx Nom (U) ORGANISM ID: 1 <10,000 CFU/ml Normal urogenital stacey Normal [facility] Comment on above: Performed By: #### 6 30-4 #### [facility] CLIA [id number] [address] [place] [address] [place] C. trachomatis+N. gonorrhoea e DNA JOBY+probe Ql (Unsp spec)on 12-30-2021 C. trachomatis DNA JOBY+probe Ql (Unsp spec) Negative Normal Negative for Chlamydia trachomatis by amplificaton [facility] Comment on above: Order Comment: Speci men Type: SWAB Ordering Facility: [facility] Address: [address] [place] [address] Performed By: #### 3 6902-5 #### [facility] CLIA [id number] [address] [place] [address] OF [place] N. gonorrhoeae DNA JOBY+probe Ql (Unsp spec) Negative Normal Negative for Neisseria gonorrhoeae by amplification [facility] Comment on above: Order Comment: Speci men Type: SWAB Ordering Facility: [facility] Address: [address] [place] [address] Performed By: #### 3 6902-5 #### [facility] CLIA [id number] [address] [place] [address] [place] PAP FLUID CERVICAL SCREENING on 12-30-2021 CASE REPORT Normal [facility] Comment on above: Order Comment: Speci men Type: FLUID SAMPLE Ordering Facility: [facility] Address: [address] [place] [address] Result Comment: Gyne cologic Cytology Report Case: [id number] Authorizing Provider: Lamont Pulido MD Collected: 12/30/2021 01:57 PM Ordering Location: OB/Gynecology Received: 12/30/2021 05:25 PM First Screen: MITZY Scott, ASCP Specimen: Pap, Stylist Apprentice, Screening, CERVICAL SCREENING FLUID Performed By: #### L [id number] #### [facility] CLIA [id number] [address] [place] [address] [place] CLINICAL HISTORY ROUTINE EXAM Normal [facility] Comment on above: Order Comment: Speci men Type: FLUID SAMPLE Ordering Facility: [facility] Address: [address] [place] [address] Performed By: #### L [id number] #### [facility] CLIA [id number] [address] [place] [address] CYTOLOGY INTERPRETATION PAP Normal [facility] Comment on above: Order Comment: Speci men Type: FLUID SAMPLE Ordering Facility: [facility] Address: [address] [place] [address] Result Comment: Nega tive for Intraepithelial lesion or malignancy. Performed By: #### L [id number] #### [facility] CLIA [id number] [address] [place] [address] FINAL DIAGNOSIS Normal [facility] Comment on above: Order Comment: Speci men Type: FLUID SAMPLE Ordering Facility: [facility] Address: [address] [place] [address] Result Comment: A - CERVICAL SCREENING FLUID Satisfactory for interpretation, No endocervical component Negative for Intraepithelial lesion or malignancy. Performed By: #### L [id number] #### [facility] CLIA [id number] [address] [place] [address] STATES OF [facility] FINAL PERFORMING LAB Normal [facility] Comment on above: Order Comment: Speci men Type: FLUID SAMPLE Ordering Facility: [facility] Address: [address] [place], [place] [id number] Result Comment: Tech nical component, bank vault custodian screening performed at [facility], [address] [place] [address] [place] [address] CLIA# [id number] Diagnostic interpretation performed at [facility], [address] [place] [address] [place] [address] CLIA# [id number] Veneer Sander: Baldev Jones M.D. Performed By: #### L [id number] #### [facility] CLIA [id number] [address] [place] [address] [place] HPV REQUESTED? Yes, Reflex HPV for ASCUS Normal [facility] Comment on above: Order Comment: Speci men Type: FLUID SAMPLE Ordering Facility: [facility] Address: [address] [place] [address] Performed By: #### L [id number] #### [facility] CLIA [id number] [address] [place] [address] [place] LMP Normal [facility] Comment on above: Order Comment: Speci men Type: FLUID SAMPLE Ordering Facility: [facility] Address: [address] [place], [place] [id number] Performed By: #### L [id number] #### [facility] CLIA [id number] [address] [place] [address] [place] PAP DISCLAIMER COMMENT The Pap Smear is a screening test for cervical cancer. False negative results occur with all screening tests, emphasizing the need for rescreening at recommended intervals, and clinical correlation. Normal [facility] Comment on above: Order Comment: Speci men Type: FLUID SAMPLE Ordering Facility: [facility] Address: [address] [place], [place] [id number] Performed By: #### L [id number] #### [facility] CLIA [id number] [address] [place] [address] [place] PAP RAG CUTTING MACHINE TENDER COMMENT This specimen has been analyzed by the ThinPrep Imaging System, an automated imaging and review system, which assists the laboratory in evaluating cells on ThinPrep Pap tests. Following automated imaging, selected arriaga from every slide are reviewed by a bank vault custodian. Normal [facility] Comment on above: Order Comment: Speci men Type: FLUID SAMPLE Ordering Facility: [facility] Address: [address] [place] [address] Performed By: #### L [id number] #### [facility] CLIA [id number] [address] [place] [address] CNNURSEon 12-16-2021 CNNURSE Nurse Visit (OBGYWM) ---- ELIDA KEENAN ([id number]) 1995 F Date Time Provider Department 12/16/21 9:30 AM NURSE PNOB [facility] OBGYWM During your visit today, we recorded the following information about you: Last Period 10/25/21 Anabel Bhardwaj RN 12/16/2021 10:11 AM Signed SEQUENTIAL SCREENINGS The [facility] offers sequential screenings for women who are [...] It will require an appointment with our electrical laboratory technician. This is not an ultrasound performed [...] the above symptoms, contact our office at [phone] and ask to speak with a nurse. After hours, you can call doctors registry at [phone] OR call [facility] at [phone] and ask to have the doctor personnel security specialist paged. If you consider this an emergency, dial 9-1-1 or go to your nearest emergency department. Cord-Blood Banking Up until recently, the umbilical cord--along with the blood that remained in it after a baby was born and the cord cut--was simply discarded by the hospital. Then, in the late , researchers discovered that cord blood possessed unusual [...] treatment is particularly effective in young patients-the [facility] Cord Blood Bank reports a [...] of can (more content not included)... Normal [facility] HCG QUAL UR B/Oon 12-16-2021 status Positive neg - pos [facility] Quality Check Yes [facility] US TRANSVAGINAL OBon 017 US TRANSVAGINAL OB EXAMINATION: Transvaginal pelvic ultrasound.CLINICAL INFORMATION: Pelvic pain, check IUD placement.COMPARISO N: None.FINDINGS: The uterus measures 7.8 x 3.8 [...] ultrasound.Report electronically signed by: Dr. Adair Blank [facility] Vital Signs Date Time Vital Sign Value Performing Clinician Facility 07-01-2023 11:29-0500 Body mass index (BMI) [Ratio] 27.59 kg/m2 Rianna Dipak DO Work Phone: [facility] 07-01-2023 11:29-0500 Body weight 75.21 kg Rianna Dipak DO Work Phone: [facility] 07-01-2023 11:29-0500 Diastolic blood pressure 60 mm[Hg] Rianna Dipak DO Work Phone: [facility] 07-01-2023 11:29-0500 Systolic blood pressure 112 mm[Hg] Rianna Dipak DO Work Phone: [facility] 06-27-2023 13:45-0500 Body height 160.02 cm Lyndsey Brown Other [employer] Other 06-27-2023 13:45-0500 Body mass index (BMI) [Ratio] 29.54 kg/m2 Lyndsey Brown Other [employer] Other 06-27-2023 13:45-0500 Body temperature 97.8 [degF] Lyndsey Brown Other [employer] Other 06-27-2023 13:45-0500 Body weight 75.66 kg Lyndsey Brown Other [employer] Other 06-27-2023 13:45-0500 Respiratory rate 18 /min Lyndsey Brown Other [employer] Other 06-27-2023 13:45-0500 SaO2% (BldA) [Mass fraction] 97 % Lyndsey Brown Other [employer] Other 01-27-2022 09:28-0400 Body weight 63.5 kg Serena Srinivasan MD Work Phone: [facility] 01-27-2022 09:28-0400 Diastolic blood pressure 62 mm[Hg] Serena Srinivasan MD Work Phone: [facility] 01-27-2022 09:28-0400 Systolic blood pressure 98 mm[Hg] Serena Srinivasan MD Work Phone: [facility] 12-30-2021 13:09-0400 Body weight 62.6 kg Lamont Pulido MD Work Phone: [facility] 12-30-2021 13:09-0400 Diastolic blood pressure 70 mm[Hg] Lamont Pulido MD Work Phone: [facility] 12-30-2021 13:09-0400 Systolic blood pressure 110 mm[Hg] Lamont Pulido MD Work Phone: [facility] 12-16-2021 08:55-0400 Body height 160 cm Raina Plotts FIELD ARTILLERY SENIOR SERGEANT.CNM Work Phone: [facility] 12-16-2021 08:55-0400 Body weight 61.69 kg Raina Plotts FIELD ARTILLERY SENIOR SERGEANT.CNM Work Phone: [facility] 12-16-2021 08:55-0400 Diastolic blood pressure 64 mm[Hg] Raina Plotts FIELD ARTILLERY SENIOR SERGEANT.CNM Work Phone: [facility] 12-16-2021 08:55-0400 Systolic blood pressure 112 mm[Hg] Raina Plotts FIELD ARTILLERY SENIOR SERGEANT.CNM Work Phone: [facility] Encounters Encounter Date Encounter Type Care Provider Facility Start: 07-29-2023 End: 07-29-2023 ambulatory ISABEL ARELLANO Not Available Start: 07-01-2023 End: 07-01-2023 ambulatory RIANNA QUESADA Not Available Start: 07-01-2023 End: 07-01-2023 Office outpatient visit 15 minutes Rianna Quesada DO Work Phone: [facility] Comment on above: Second trimester pre gnancy; Diabetes mellitus screening Start: 06-27-2023 End: 06-27-2023 ambulatory Lyndsey Brown Other [employer] Other Start: 06-27-2023 Office outpatient ne w 20 minutes Lyndsey Brown [facility] Start: 06-03-2023 End: 06-03-2023 ambulatory ISABEL ARELLANO Not Available Start: 05-05-2023 End: 05-05-2023 ambulatory RIANNA QUESADA Not Available Start: 10-03-2022 End: 10-03-[address] DOCTOR AYON Facility: Start: 07-28-2022 End: 07-28-[address] RIANNA QUESADA . Facility:[facility] Start: 07-21-2022 End: 07-21-[address] RIANNA QUESADA . Facility:[facility] Start: 07-13-[address] DOCTOR AYON Facility :[facility] Start: 07-12-2022 End: 07-15-2022 Evaluation and management of inpatient DR DOCTOR AYON Facility: Start: 06-23-2022 End: 06-23-2022 ambulatory ISABEL ARELLANO . Facility: Start: 06-09-2022 End: 06-10-2022 ambulatory ISABEL ARELLANO . Facility:[facility] Start: 05-12-2022 End: 05-13-2022 ambulatory ISABEL ARELLANO . Facility:[facility] Start: 04-28-2022 End: 04-29-[address] RIANNA QUESADA . Facility: Start: 04-14-2022 End: 04-14-[address] RIANNA QUESADA . Facility: Start: 04-07-2022 End: 04-08-[address] RIANNA QUESADA . Facility: Start: 03-30-2022 Telephone encounter Odessa dixon APRN.CNM Work Phone: OB/Gynecology Comment on above: Transfer of Care Start: 03-09-2022 End: 03-10-[address] RIANNA QUESADA . Facility: Start: 01-27-2022 End: 01-27-2022 ambulatory SERENA SRINIVASAN Facility:[facility] Start: 01-27-2022 End: 01-27-2022 Patient encounter procedure Serena Srinivasan MD Work Phone: OB/Gynecology Comment on above: 14 weeks gestation o f (Primary Dx); Encounter for supervision of normal first in second trimester Start: 12-30-2021 End: 12-30-2021 ambulatory LAMONT PULIDO Facility:[facility] Start: 12-30-2021 End: 12-30-2021 Patient encounter procedure Lamont Pulido MD Work Phone: OB/Gynecology Comment on above: History of pulmonary embolism (Primary Dx); History of depression; Encounter for care in first trimester of first Start: 12-16-2021 End: 12-16-2021 ambulatory Raina Bonner APRN.CNM Work Phone: OB/Gynecology Comment on above: online resource Start: 12-16-2021 E-mail encounter fro m caregiver Raina Bonner APRN.CNM Work Phone: [facility] Start: 12-16-2021 End: 12-16-2021 Nursing evaluation of patient and report Nurse Pnob Pending [facility] To [facility] Work Phone: OB/Gynecology Comment on above: Supervision of high risk , antepartum (Primary Dx); Patient request for diagnostic testing; History of pulmonary embolism; History of depression Start: 12-16-2021 End: 12-16-2021 Patient requested procedure Nurse Pnob Pending Sale To [facility] Work Phone: [facility] Work Phone: Start: 12-16-2021 End: 12-16-2021 Patient encounter procedure Raina Bonner APRN.CNM Work Phone: OB/Gynecology Comment on above: Missed menses (Prima ry Dx); Encounter for test, result positive; History of depression Start: 12-11-2021 End: 12-11-2021 ambulatory MARTIN BURGOS Facility:[facility] Start: 12-18-2016 Ambulatory AN MOREIRA Facili ty:[facility] Start: 12-02-2016 End: 12-28-2016 Ambulatory AN MOREIRA Facility:[facility] Start: 11-26-2016 End: 11-26-2016 Ambulatory AN MOREIRA Facility:[facility] Start: 11-25-2016 End: 11-25-2016 Ambulatory AN MOREIRA Facility:[facility] Procedures Date Procedure Procedure Detail Performing Clinician Start: 07-01-2023 Urnls dip stick/tabl et rgnt non-auto w/o micrscp Rianna Quesada DO Work Phone: Start: 07-13-2022 Delivery of Products of Conception, External Approach DR RIANNA QUESADA . Start: 07-13-2022 Division of Female Perineum, External Approach DR RIANNA QUESADA . Start: 07-13-2022 Drainage of Amniotic Fluid, Therapeutic from Products of Conception, Via Natural or Artificial Opening DR RIANNA QUESADA . Start: 07-13-2022 Repair Perineum Musc le, Open Approach DR RIANNA QUESADA . Start: 01-27-2022 URINE OB DIP B/O Serena Srinivasan MD Work Phone: Start: 12-30-2021 Microscopic observat ion [Identifier] in Cervix by Cyto stain Rianna Quesada DO Work Phone: Start: 12-16-2021 Urine test visual color cmprsn methmariano Bonner FIELD ARTILLERY SENIOR SERGEANT.CNM Work Phone: Plan of Treatment Date Care Activity Detail Author Start: 12-30-2024 PAP TESTING PAP TESTING [facility] Start: 12-30-2024 Screening for malignant neoplasm of cervix [facility] Start: 07-29-2023 End: 07-29-2023 Patient encounter procedure 07/29/2023 10:10 AM EST Routine [facility] [address] [place] [id number] Isabel Arellano PA [address] [place] [address] [facility] Start: 07-01-2023 End: 07-01-2024 CBC panel - Blood by Automated count CBC Lab Routine Diabetes mellitus screening Expected: 07/01/2023 (Approximate), Expires: 07/01/2024 [facility] Work Phone: Comment on above: Expected: 07/01/2023 (Approximate), Expires: 07/01/2024 Start: 07-01-2023 End: 07-01-2024 Measurement of glucose 1 hour after glucose challenge for glucose tolerance test Glucose tolerance, 1 hour Lab Routine Diabetes mellitus screening Expected: 07/01/2023 (Approximate), Expires: 07/01/2024 [facility] Comment on above: Expected: 07/01/2023 (Approximate), Expires: 07/01/2024 Start: 2023 Screening for malignant neoplasm of cervix HPV/Cotest [facility] Start: 01-29-2023 Influenza vaccination Influenza Vacc ine (#1) [facility] Start: 01-29-2022 Influenza vaccination INFLUENZA (#1) [facility] Start: 12-30-2021 End: 03-01-2022 CBC panel - Blood by Automated count CBC Lab Routine History of pulmonary embolism History of depression Encounter for care in first trimester of first Expected: 12/30/2021, Expires: 03/01/2022 [facility] [place] [facility] Work Phone: Comment on above: Expected: 12/30/2021 , Expires: 03/01/2022 Start: 12-30-2021 End: 03-01-2022 Hepatitis B virus surface Ab [Presence] in Serum by Immunoassay HEP B SURF AG SCRN Lab Routine History of pulmonary embolism History of depression Encounter for care in first trimester of first Expected: 12/30/2021, Expires: 03/01/2022 [facility] [place] [facility] Work Phone: Comment on above: Expected: 12/30/2021 , Expires: 03/01/2022 Start: 12-30-2021 End: 03-01-2022 Hepatitis C virus Ab [Presence] in Serum HEP C AB IA W/CONF SCRN Lab Routine History of pulmonary embolism History of depression Encounter for care in first trimester of first Expected: 12/30/2021, Expires: 03/01/2022 [facility] [place] [facility] Work Phone: Comment on above: Expected: 12/30/2021 , Expires: 03/01/2022 Start: 12-30-2021 End: 03-01-2022 HIV 1+2 Ab [Presence] in Serum or Plasma by Immunoassay HIV 1 2 COMBO(AG/AB),WITH REFLEX TO DIFFERENTIATION Lab Routine History of pulmonary embolism History of depression Encounter for care in first trimester of first Expected: 12/30/2021, Expires: 03/01/2022 [facility] [place] [facility] Work Phone: Comment on above: Expected: 12/30/2021 , Expires: 03/01/2022 Start: 12-30-2021 End: 03-01-2022 RUBELLA IGG AB RUBELLA IGG AB Lab Routine History of pulmonary embolism History of depression Encounter for care in first trimester of first Expected: 12/30/2021, Expires: 03/01/2022 [facility] [place] [facility] Work Phone: Comment on above: Expected: 12/30/2021 , Expires: 03/01/2022 Start: 12-30-2021 End: 03-01-2022 SYPHILIS TOTAL W/REFLEX SYPHILIS TOTAL W/REFLEX Lab Routine History of pulmonary embolism History of depression Encounter for care in first trimester of first Expected: 12/30/2021, Expires: 03/01/2022 [facility] [place] [facility] Work Phone: Comment on above: Expected: 12/30/2021 , Expires: 03/01/2022 Start: 12-30-2021 End: 03-01-2022 TYPE + SCREEN TYPE + SCREEN Blood Bank Routine History of pulmonary embolism History of depression Encounter for care in first trimester of first Expected: 12/30/2021, Expires: 03/01/2022 [facility] [place] [facility] Work Phone: Comment on above: Expected: 12/30/2021 , Expires: 03/01/2022 Start: 07-15-2017 Urine microalbumin profile DTAP,TDAP,TD (2 - Td or Tdap) [facility] Start: 04-09-2017 PAP TESTING PAP TESTING [facility] Start: 1995 COVID-19 VACCINE (#1) COVID-19 VACCI NE (#1) [facility] Start: 1995 HEPATITIS B (1 of 3 - 3-dose series) HEPATITIS B (1 of 3 - 3-dose series) [facility] Bacteria identified in Urine by Culture URINE CULTURE Microbiology Routine History of pulmonary embolism History of depression Encounter for care in first trimester of first 12/30/2021 1:57 PM EDT [facility] [place] [facility] Work Phone: Chlamydia trachomatis+Neisseria gonorrhoeae DNA [Presence] in Unspecified specimen by JOBY with probe detection GC/CHLAMYDIA DNA DET Lab Routine History of pulmonary embolism History of depression Encounter for care in first trimester of first 12/30/2021 1:57 PM EDT [facility] [place] [facility] Work Phone: OBSTETRIC ULTRASOUND [facility] OBSTETRIC ULTRASOUND [facility] Anc Imaging Routine Encounter for supervision of normal first in second trimester Ordered: 01/27/2022 [facility] Work Phone: Comment on above: Ordered: 01/27/2022 PAP FLUID CERVICAL SCREENING PAP FLUID CERVICAL SCREENING Lab Routine History of pulmonary embolism History of depression Encounter for care in first trimester of first 12/30/2021 1:57 PM EDT [facility] Work Phone: [facility] Immunizations Immunization Date Immunization Notes Care Provider Jack mora 04-12-2010 influenza virus vaccine, unspecified formulation Raina Plotts FIELD ARTILLERY SENIOR SERGEANT.CNM Work Phone: [facility] 09-04-2008 human papilloma viru s vaccine, quadrivalent Raina Plotts FIELD ARTILLERY SENIOR SERGEANT.CNM Work Phone: [facility] Work Phone: 03-19-2008 human papilloma viru s vaccine, quadrivalent Raina Plotts FIELD ARTILLERY SENIOR SERGEANT.CNM Work Phone: [facility] Work Phone: 01-17-2008 hepatitis A vaccine, unspecified formulation Raina Plotts FIELD ARTILLERY SENIOR SERGEANT.CNM Work Phone: [facility] Work Phone: 01-17-2008 human papilloma viru s vaccine, quadrivalent Raina Plotts FIELD ARTILLERY SENIOR SERGEANT.CNM Work Phone: [facility] Work Phone: 07-15-2007 hepatitis A vaccine, unspecified formulation Raina Plotts FIELD ARTILLERY SENIOR SERGEANT.CNM Work Phone: [facility] Work Phone: 07-15-2007 Meningococcal, MCV4, unspecified conjugate formulation(groups A, C, Y and W-135) Raina Bonner FIELD ARTILLERY SENIOR SERGEANT.CNM Work Phone: [facility] Work Phone: 07-15-2007 tetanus toxoid, redu ruchi diphtheria toxoid, and acellular pertussis vaccine, adsorbed Raina Bonner FIELD ARTILLERY SENIOR SERGEANT.CNM Work Phone: [facility] Work Phone: Payers Date Payer Category Payer Medicaid [id number] 2015 Private Health Insurance [id number] 1993 Unknown [id number] 2.16.84 [id number] 1993 Unknown [id number] 2.16.84 [id number] 1993 Unknown [id number] 2.16.84 [id number] 1993 Unknown [id number] 2.16.84 [id number] 1993 Unknown [id number] 2.16.84 [id number] 1993 Unknown [id number] 2.16.84 [id number] 1993 Unknown [id number] 2.16.84 [id number] 1993 Unknown [id number] 2.16.84 [id number] 1993 Unknown [id number] 2.16.84 [id number] 1993 Unknown [id number] 2.16.84 [id number] 1993 Unknown [id number] 2.16.84 [id number] 1993 Unknown [id number] 2.16.84 [id number] 1993 Unknown [id number] 2.16.84 [id number] 1993 Unknown [id number] 2.16.84 [id number] 1993 Unknown [id number] 2.16.84 [id number] 1993 Unknown [id number] [id number] 1993 Unknown [id number] 1961 Medicaid [id number] Social History Date Type Detail Facility Start: 01-27-2022 End: 01-10-2023 Tobacco smoking status TNIS Never smoked tobacco [facility] Start: 12-16-2021 End: 03-30-2022 Alcohol intake Current non-drinker of alcohol (finding) [facility] Start: 12-16-2021 Education 15 [facility] Start: 10-30-2021 [facility] Start: 1995 Sex Assigned At Female [facility] Start: 12-06-2021 End: 01-27-2022 Exposure to SARS-CoV-2 (event) Not sure [facility] Start: 01-27-2022 End: 01-10-2023 Tobacco use and exposure Smokeless tobacco non-user [facility] Start: 01-13-2023 Sex Assigned At [facility] [facility] Other Start: 07-01-2023 Alcohol intake Lifetime non-drinker (finding) [facility] Start: 01-13-2023 History of Social function [facility] Start: 12-17-2022 Gender identity Identifies as female gender (finding) [facility] Start: 12-17-2022 Sexual orientation Heterosexual (finding) [facility] Goals Date Patient Goal Desired Activity /State Personal health goal Clinical Notes 01-26-2013 to 07-01-2023 Merry Oden, ENGINE MONITOR - 07/01/2023 11:10 AM EST Note Date & Type Note Facility 07-01-2023 History of Presen t illness Narrative Reason for Appointment: Patient ID: Elida Keenan is a 28 y.o. female who presents for Routine Visit Patient presents today for Return OB appointment. Current Medications: has a current medication list which includes the following prescription(s): aspirin, ondansetron odt, and vitamin and mineral. Medical History: Active Ambulatory Problems Diagnosis Date Noted No Active Ambulatory Problems Resolved Ambulatory Problems Diagnosis Date Noted No Resolved Ambulatory Problems Past Medical History: Diagnosis Date H/O blood clots 2012 Family History Problem Relation Name Age of Onset Other (Blood clot in lung with control) Other Social History Tobacco Use Smoking status: Never Smokeless tobacco: Never Substance Use Topics Alcohol use: Never Drug use: Never History reviewed. No pertinent surgical history. Allergies Allergen Reactions Other Review of Systems: Review of Systems All other systems reviewed and are negative. Objective Physical Exam Constitutional: Appearance: Normal appearance. She is well-developed. Cardiovascular: Rate and Rhythm: Normal rate and regular rhythm. Pulmonary: Effort: Pulmonary effort is normal. Breath sounds: Normal breath sounds. Abdominal: General: Bowel sounds are normal. There is no distension. Palpations: Abdomen is soft. Tenderness: There is no abdominal tenderness. There is no guarding or rebound. Musculoskeletal: General: No swelling. Normal range of motion. Right lower leg: No edema. Left lower leg: No edema. Neurological: Mental Status: She is alert and oriented to person, place, and time. Skin: General: Skin is warm and dry. Psychiatric: Mood and Affect: Mood normal. Behavior: Behavior normal. Vitals and nursing note reviewed. Exam conducted with a supervisor brake repair present. Vitals: Estimated body mass index is 27.59 kg/m as calculated from the following: Height as of 01/13/23: 5' 5 . Weight as of this encounter: 165 lb 12.8 oz. BP: 112/60 Patient's last menstrual period was 01/23/2023. Assessment/Plan Encounter Diagnoses Name Primary? Second trimester Diabetes mellitus screening Patient presents for routine OB appointment. Patient was given orders for 1hour gtt and CBC to be done. Patient to return to clinic in 4 weeks for routine OB appointment. Documented by Merry Oden LPN on behalf of: Rianna Quesada DO documented in this encounter [facility] 06-27-2023 Evaluation note Encounter Date Diagnosis Assessment Notes May, Nasal congestion (ICD-10 - R09.81) May, Acute pansinusitis (ICD-10 - J01.40) testing is negative today in clinic. pt is 21 weeks , rx sent, take as directed. recommended hot steam baths and/or cool mist humidifier. push rest/fluids. reinforced universal infection control protocols and good hand hygiene for infection control. immediate eval if warning s/s of intractable fevers, respir distress or other emergent symptoms. otherwise f/u with PCP INB despite tx. [employer] Other 02-12-2023 NotePROCEDURE: US PREG BIOPHYSICAL NO NST, 07/12/2022 6:52 AM EST CLINICAL [...] Electronically authenticated by: NADINE ENCISO Date: 2022-07-12 07:58[id number] History general Narrative - Reported* Type Description Date Medical History 21 weeks Hospitalization History CHILD 07/2022 [employer] Other 10-31-2022 Miscellaneous Notes* Telephone Encounter - Ike Teresa RN - 03/30/2022 10:22 AM EDT Patient transferred care to [facility] office. She was seen in our office for 2 visits.Please bill all visits if needed. Ike Teresa RN [facility] Miscellaneous Notes* Quick Notes - Serena Srinivasan MD - 01/27/2022 9:47 AM EDT KJ - VB No. LOF No. CTXS [...] indicated Serena Srinivasan MD documented in [facility] encounterThe [facility] Instructions* Patient Instructions* Carlota Alexandre Ma - 01/27/2022 9:23 AM EDT SEQUENTIAL SCREENINGS The [facility] offers sequential screenings for women who are interested in screenings for chromosomal abnormalities and certain defects during a . The sequential screen combinesultrasound and blood tests to determine the risk [...] this testing. It will require an appointment withour electrical laboratory technician. This is not an ultrasound performed [...] the above symptoms, contact our office at [phone] and ask to speak with anurse. After hours, you can call doctors registry at [phone] OR call [facility] at [phone] ask to have the doctor personnel security specialist paged. If you consider this an emergency, dial [phone] or go to your nearest emergency department. NEED HELP? Are you dealing with a violent or abusive relationship? Are you a victim of rape or sexual assult? Call [facility] ([place]) 24 hour Crisis Hotline: 210.847.3714 or 412-929-8080. MANUAL Your Guide to a Healthy manual is now on-line. Visit [email or web address] to download your free copy documented in this encounterThe [facility]-2022 NoteHNO ID: [id number] Author: Lamont Pulido MD Service: ? Author [...] Multivitamin with Folic acid: Yes Occupation: Unemployed Congregational or heritage: No Would refuse blood transfusion if medically necessary: No No weight on file for this encounter. Patient BMI over 30? No Marital Status:getting but in a relationship w/ new partner and they tested paternity and are confident he is FOB Partner: Name: Giancarlo Age: 25 Occupation: [employer] Gender: male History of STDs: None PAST MEDICAL HISTORY Diagnosis Date - Anemia - Asthma - Blood dyscrasia - Depression - HPV test positive 03/31/2014 - MTHFR mutation - PE (pulmonary embolism) 12/29/2012 [facility], [facility] - [facility]H - PAST MEDICAL HISTORY OF stayed in hospital after for r/o meningitis - PMH - PAST MEDICAL HISTORY OF asthma - PMH - PAST MEDICAL HISTORY OF recurrent ear infections when younger - [facility] - PAST MEDICAL HISTORY OF was a slow learner for reading - PM - PAST MEDICAL HISTORY OF broken 2nd toe left foot -2004 - PMH - PAST MEDICAL HISTORY OF tore a hole in right leg with hog fencing - [facility] - PAST MEDICAL HISTORY OF nosebleeds - [...] documented. SBIRT Elida Keenan was given the 4's screening tool. Elida answered as follows: OB [...] she is considered at (more content not included)...[facility]08-02-2022 History of Present illness Narrative* Lamont Pulido MD - 12/30/2021 12:59 PM EDT Images from the original note were not included. INITIAL OB ASSESSMENT OB Provider: Lamont Pulido MD HPI: Elida Keenan is a 26 year old female here to establish Obstetrical Care. Patient'slast menstrual period was 10/25/2021 (approximate). from OB [...] Multivitamin with Folic acid: Yes Occupation: Unemployed Congregational or heritage: No Would refuse blood transfusion if medically necessary: No No weight on file for this encounter. Patient BMI over 30? No Marital Status:getting but in a relationship w/ new partner and they tested paternity and are confident he is FOB Partner: Name: Giancarlo Age: 25 Occupation: [employer] Gender: male History of STDs: None PAST MEDICAL HISTORY Diagnosis Date Anemia Asthma Blood dyscrasia Depression HPV test positive 03/31/2014 MTHFR mutation PE (pulmonary embolism) 12/29/2012 [facility], took Xarelto for 6+ months from [facility] - PAST MEDICAL HISTORY OF stayed [...] prn. Lamont Pulido MD documented in this encounterThe [facility]08-[facility]-2022 Instructions* Patient Instructions* Glenis Lee Ma - 12/30/2021 12:59 PM EDT Please select the following link to access the [facility] Your Guide to a Healthy . [email or web address] documented in this encounterThe [facility]07-19-2022 Miscellaneous Notes* Quick Notes - Anabel Bhardwaj RN - 12/16/2021 1:07 PM EDT Patient is legally from her . She [...] She states that she was hospitalized at [facility]. Shestates that she took Xarelto for 6+ months. She denies any other recurrences. She denies any familyhistory of blood clots.Pt has a history of depression/anxiety diagnosed at age 16. She states that she was hospitalized in [place] for a suicidal attempt in 2012 with [...] referral to services here at [facility]. I did talk to Raina Bonner about this. Patient was also given the mental health crisis phone number that is open 24 hours a day. Patient declines aneuploidy screening and genetic carrier screening testing.Anabel Bhardwaj RN documented in this encounterThe [facility] System07-19-2022 Miscellaneous Notes* Addendum Note - Raina Bonner APRN.CNM - 12/16/2021 12:03 PM EDT Addended by: RAINA BONNER on: 12/16/2021 12:03 PM Modules accepted: Orders documented in this encounterThe [facility]health System07-19-2022 NoteHNO ID: [id number] Author: Raina Bonner APRN.CNM Service: ? Author Type: [employer] Window [employer] Craftsman Type: Progress Notes Filed: 12/16/2021 9:39 AM Note Text: Elida Keenan is a 26 year old female who presents with missed menses. LMP was approximately 10/25/21. No control since 2018- only using condoms Currently but from . Was in open relationship and unsure of paternity. OB History T0 L0 SAB0 IAB0 Ectopic0 Multiple0 Live Births0 Haunted History Tour Guide History LMP: 10/25/2021, Age at Menarche: Age at First : Age at Menopause: Haunted History Tour Guide History Comments: Sexual Activity: Yes; Male Contraception: Condom, I.U.D. PAST MEDICAL HISTORY Diagnosis Date - HPV test positive 03/2014 - MTHFR mutation - PE (pulmonary embolism) 12/2012 [facility], [facility] [...] which included preparing to see the patient, [id number] patient care, completing clinical documentation, obtaining and/or reviewing separately obtained history and counseling and educating the patient/family/caregiver Medical Decision Making Raina Bonner APRN.[facility] Instructions* Patient Instructions* Anabel Bhardwaj RN - 12/16/2021 10:11 AM EDT SEQUENTIAL SCREENINGS The [facility] offers sequential screenings for women who are interested in screenings for chromosomal abnormalities and certain defects during a . The sequential screen combinesultrasound and blood tests to determine the risk [...] this testing. It will require an appointment withour electrical laboratory technician. This is not an ultrasound performed [...] the above symptoms, contact our office at [phone] and ask to speak with anurse. After hours, you can call [facility] at [phone] OR call [facility] at [phone] ask to have the doctor personnel security specialist paged. If you consider this an emergency, dial [phone] or go to your nearest emergency department. Cord-Blood Banking Up until recently, the umbilical cord--along with the blood that remained in it after a baby was born and the cord cut--was simply discarded by the hospital. Then, in the late , researchers discovered that cord blood possessed unusual properties that made it useful in the treatment of patientswith some cancers and other illnesses. While the [...] treatment is particularly effective in young patients-the [facility] Cord Blood Bank reports a [...] or you may use donations from other peoplewithout charge. You also can direct your sample to go to a relative with an immediate need if the blood type matches. Anyone else needing to use stem cells from a public bank who has not been a donormust pay for it, sometimes tens of thousands of dollars. Will my family benefit from saving stem cells? Right now, situations in which stem cells would be helpful are quite rare. As mentioned earlier, stem-cell transplants are most commonly used for rare genetic conditions and for some types of cancer,including leukemia and lymphoma. And even with these [...] issues. What do the experts say? The [employer] [employer] encourages philanthropic blood banking in public herrmann, but onlyfor families with a current or potential need. [...] baby needs at the moment. The nurse, parker, or physician will then label the samples, check them over with you, and packagethem for a special pickup arranged with a [...] these herrmann would arrange for safe transfer toanother facility if the need arose. YOU MUST MAKE ARRANGEMENTS AHEAD OF TIME! Public cord-blood herrmann--DONATION: [employer] [phone] [facility] Placental Blood Program, [facility] Umbilical Cord Blood Bank, Private cord-blood herrmann--SAVING FOR YOUR OWN USE: [employer], (I think this is the least expensive) [employer] [phone] [employer], (697) [employer] [place] Cord Blood Bank, [phone] 700-CORD Cells, [phone] [place] [facility], Cord Blood Registry, (672) [facility] [employer], An Internet search may provide you with additional listings. documented in this encounterThe [facility] System07-19-2022 History of Present illness Narrative* Raina Bonner APRN.ANNETTEM - 12/16/2021 8:46 AM EDT Elida Keenan is a 26 year old female who presents with missed menses. LMP was approximately 10/25/21. No control since 2018- only using condoms Currently but from . Was in open relationship and unsure of paternity. OB History T0 L0 SAB0 IAB0 Ectopic0 Multiple0 Live Births0 Haunted History Tour Guide History LMP: 10/25/2021, Age at Menarche: Age at First : Age at Menopause: Haunted History Tour Guide History Comments: Sexual Activity: Yes; Male Contraception: Condom, I.U.D. PAST MEDICAL HISTORY Diagnosis Date HPV test positive 03/2014 MTHFR mutation PE (pulmonary embolism) 12/2012 [facility], took Xarelto for 6+ months from [facility] - PAST MEDICAL HISTORY OF stayed [...] which included preparing to see the patient, [id number] patient care, completing clinical documentation, obtaining and/or reviewing separately obtained history and counseling and educating the patient/family/caregiver Medical Decision Making Raina Bonner APRN.CNM documented in this encounterThe [facility]08-29-2013 History of Past illness Narrative* Problem Noted Date Resolved Date Pulmonary embolism 01/26/2013 01/19/2014 GERD (gastroesophageal reflux disease) 01/19/2014 Weight gain, abnormal 05/21/2010 04/04/2012 Abdominal pain, acute, epigastric 05/21/2010 04/04/2012 Shoulder disorder 05/02/2009 04/04/2012 Excessive or frequent menstruation 01/20/2008 04/04/2012 documented as of this encounter (statuses as of 12/16/2021) [facility] History of Past illness Narrative* Problem Noted Date Resolved Date Pulmonary embolism 01/26/2013 01/19/2014 GERD (gastroesophageal reflux disease) 01/19/2014 Weight gain, abnormal 05/21/2010 04/04/2012 Abdominal pain, acute, epigastric 05/21/2010 04/04/2012 Shoulder disorder 05/02/2009 04/04/2012 Excessive or frequent menstruation 01/20/2008 04/04/2012 documented as of this encounter (statuses as of 12/16/2021) [facility] History of Past illness Narrative* Problem Noted Date Resolved Date Pulmonary embolism 01/26/2013 01/19/2014 GERD (gastroesophageal reflux disease) 01/19/2014 Weight gain, abnormal 05/21/2010 04/04/2012 Abdominal pain, acute, epigastric 05/21/2010 04/04/2012 Shoulder disorder 05/02/2009 04/04/2012 Excessive or frequent menstruation 01/20/2008 04/04/2012 documented as of this encounter (statuses as of 12/16/2021) [facility] History of Past illness Narrative* Problem Noted Date Resolved Date Pulmonary embolism 01/26/2013 01/19/2014 GERD (gastroesophageal reflux disease) 1 01/19/2014 Weight gain, abnormal 05/21/2010 04/04/2012 Abdominal pain, acute, epigastric 05/21/2010 04/04/2012 Shoulder disorder 05/02/2009 04/04/2012 Excessive or frequent menstruation 01/20/2008 04/04/2012 documented as of this encounter (statuses as of 12/30/2021) [facility] History of Past illness Narrative* Problem Noted Date Resolved Date Pulmonary embolism 01/26/2013 01/19/2014 GERD (gastroesophageal reflux disease) 1 01/19/2014 Weight gain, abnormal 05/21/2010 04/04/2012 Abdominal pain, acute, epigastric 05/21/2010 04/04/2012 Shoulder disorder 05/02/2009 04/04/2012 Excessive or frequent menstruation 01/20/2008 04/04/2012 documented as of this encounter (statuses as of 01/27/2022) [facility] History of Past illness Narrative* Problem Noted Date Resolved Date Pulmonary embolism 01/26/2013 01/19/2014 GERD (gastroesophageal reflux disease) 1 01/19/2014 Weight gain, abnormal 05/21/2010 04/04/2012 Abdominal pain, acute, epigastric 05/21/2010 04/04/2012 Shoulder disorder 05/02/2009 04/04/2012 Excessive or frequent menstruation 01/20/2008 04/04/2012 documented as of this encounter (statuses as of 03/30/2022) [facility] note* Diagnosis Missed menses- Primary Absence of menstruation Encounter for test, result positive examination or test, positive result History of depression Personal history of other mental disorder documented [facility] this encounter [facility]* Diagnosis Supervision of high risk , antepartum- Primary Patient request for diagnostic testing Other specified examination History of pulmonary embolism Personal history of pulmonary embolism History of depression Personal history of other mental disorder documented in this encounter [facility]* Diagnosis History of pulmonary embolism- Primary Personal history of pulmonary embolism History of depression Personal history of other mental disorder Encounter for care in first trimester of first documented [facility] encounter [facility]* Diagnosis 14 weeks gestation of - Primary state, incidental Encounter for supervision of normal first in second trimester Supervision of normal first documented in this encounter [facility]* Diagnosis Second trimester state, incidental Diabetes mellitus screening Screening for diabetes mellitus documented in this encounter [facility] (n[facility]ative)* Diagnostic Procedure Only (Routine) - Pending Review Specialty Diagnoses / Procedures Referred By Pavel nettles Referred To Contact [facility] Diagnoses Encounter for supervision of normal first in second trimester Procedures OBSTETRIC ULTRASOUND WHI US PREG UTERUS AFTER 1ST TRIMEST GESTATION Serena Srinivasan MD [address] [place] [address] 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 Advance Directive(s) Health Concerns Problem Noted Date OB Reminders 12/17/2021 Problem Noted Date OB Reminders 12/17/2021 Problem Noted Date OB Reminders 12/17/2021 Additional Source Comments INFORMATION SOURCE (unrecogn ized section and content) DATE CREATED AUTHOR 11/24/2017 [facility] DATE CREATED AUTHOR AUTHOR'S ORGANIZ ATION 03/30/2022 [facility] DATE CREATED AUTHOR AUTHOR'S ORGANIZ ATION 10/07/2022 [facility] DATE CREATED AUTHOR AUTHOR'S ORGANIZ ATION 07/31/2023 [facility] EPIC Source Comments (unrecognize d section and content) In the event this informatio n is protected by the Federal Confidentiality of Alcohol and Drug Abuse Patient Records regulations: The Federal rules restrict any use of the information to criminally investigate or prosecute any alcohol or drug abuse patient.[facility]In the event this information is protected by the Federal Confidentiality of Alcohol and Drug Abuse Patient Records regulations: The Federal rules restrict any use of the information to criminally investigate or prosecute any alcohol or drug abuse patient.[facility] the event this information is protected by the Federal Confidentiality of Alcohol and Drug Abuse Patient Records regulations: The Federal rules restrict any use of the information to criminally investigate or prosecute any alcohol or drug abuse patient.[facility] the event this information is protected by the Federal Confidentiality of Alcohol and Drug Abuse Patient Records regulations: The Federal rules restrict any use of the information to criminally investigate or prosecute any alcohol or drug abuse patient.[facility] SystemIn the event this information is protected by the Federal Confidentiality of Alcohol and Drug Abuse Patient Records regulations: The Federal rules restrict any use of the information to criminally investigate or prosecute any alcohol or drug abuse patient.[facility] SystemIn the event this information is protected by the Federal Confidentiality of Alcohol and Drug Abuse Patient Records regulations: The Federal rules restrict any use of the information to criminally investigate or prosecute any alcohol or drug abuse patient.[facility] Reason for Visit (unrecogniz ed section and content) Reason Comments Missed period Specialty Diagnoses / Procedures Referred By Pavel nettles Referred To Contact [facility] Diagnoses NEW PATIENT Procedures ANNUAL EXAM MD [place] [address] [place] [address] Referral ID Status Reason Start Date Expiration Date Visits Requested Visits Authorized [id number] Authorized Financial Clearance Required - Self Pay Patient Cleared - Qualified 100% FAS 11/28/2021 02/26/2022 99 99 Reason Onset Date Comments Care 12/16/2021 Pre-New OB Reason Comments Initial OB Visit Reason Onset Date Comments Care 01/27/2022 Specialty Diagnoses / Procedures Referred By Pavel t Referred To Contact [facility] Diagnoses NEW PATIENT Procedures ANNUAL EXAM SelfMD [facility] [address], [place] [id number] Reason Comments Transfer of Care Reason Comments Routine Visit Care Teams (unrecognized sec tion and content) Loss Prevention Consultant Relationship Specialty Start Date End Date Martin Burgos, [address] [place], [place] [id number] PCP - General Family Practice 03/03/14 Loss Prevention Consultant Relationship Specialty Start Date End Date Martin Burgos, DO [address] [place] [address] PCP - General Family Practice 03/03/14 Loss Prevention Consultant Relationship Specialty Start Date End Date Martin Burgos, DO [address] [place] [address] PCP - General Family Practice 03/03/14 Loss Prevention Consultant Relationship Specialty Start Date End Date Martin Burgos, DO [address] [place] [address] PCP - General Family Practice 03/03/14 Loss Prevention Consultant Relationship Specialty Start Date End Date Martin Burgos, DO [address] [place] [address] PCP - General Family Practice 03/03/14 Loss Prevention Consultant Relationship Specialty Start Date End Date Martin Burgos, DO [address] [place] [address] PCP - General Family Medicine 03/03/14 Loss Prevention Consultant Relationship Specialty Start Date End Date Rianna Quesada DO [address] [place] [address] [place] [address] PCP - [facility] 08/29/22 FOR RECORDS PERTAINING TO PATIENTS WHO ARE [...] BE BASED ON THE PRIMARY CLINICAL RECORDS. [facility] [employer] [facility] provides no warranty or guarantee of the accuracy or completeness of information in this document.
[2023-08-09 12:18] LABS: Glucose 1 Hour 77 mg/dL (<130)
[2023-08-09 12:20] LABS: Basophils Percent Auto 0.2 % (0.2-2.0); Eosinophils Absolute Auto 0.3 10^3/uL (0.0-0.7); Eosinophils Percent Auto 2.8 % (0.9-7.0); Hematocrit 33.1 % (36.0-48.0); Immature Granulocytes Abs Auto 0.03 10^3/uL (0.00-0.03); Immature Granulocytes Pct Auto 0.3 % (0.0-0.5); Lymphocytes Absolute Auto 1.4 10^3/uL (1.2-3.8); Lymphocytes Percent Auto 15.5 % (20.5-60.0); Mean Corpuscular HGB Conc 33.2 g/dL (29.9-35.2); Mean Corpuscular Hemoglobin 30.3 pg (26.7-34.0); Mean Corpuscular Volume 91.2 fL (81.0-99.0); Mean Platelet Volume 9.9 fL (9.5-13.5); Monocytes Absolute Auto 0.5 10^3/uL (0.3-0.8); Neutrophils Absolute Auto 6.8 10^3/uL (1.4-6.5); Neutrophils Percent Auto 75.2 % (43.0-75.0); Platelet Count 209 10^3/uL (150-450); Red Blood Count 3.63 10^6/uL (4.20-5.40); Red Cell Distribution Width 12.9 % (11.0-15.0)
== END 2023-08-09 10:36 | disposition home or self-care (01) ==
LOC: LAB 10:37
PROVIDERS: PCP Obstetrics & Gynecology; Visit Provider Obstetrics & Gynecology
DX: Z13.1 Encounter for screening for diabetes mellitus (principal)
CPT/HCPCS: 36415; 82950; 85025

== ENCOUNTER 2023-09-22 07:09 | Outpatient (OUT) | payer MEDICAID, SELFPAY ==
--- OUTSIDE RECORDS SUMMARY | 2023-09-22 07:12 | XMS_ITS | CCD ---
Author Organization [facility] Care Team Providers Care Carpet Renovator Name Role Phone HARISH, AN E. Unavailable [...] Primary Care Provider LAMONT PULIDO Attending Unavailable BURGOS, MARTIN Perez Primary Care Unavailable SERENA SRINIVASAN Attending Unavailable BURGOSMARTIN BOUDREAUX Primary Care Unavailable MARTIN BURGOS Primary Care Unavailable RAINA BONNER Attending Unavailable MARTIN BURGOS Primary Care Unavailable MARTIN BURGOS Primary Care Unavailable DR RIANNA RODRIGUEZ Consulting Unavailable DIPAK ., DR BLANCA Attending Unavailable [facility], DR BYRNE Primary Care Unavailable DR RIANNA RODRIGUEZ Admitting Unavailable ADAN ., ISABEL Admitting Unavailable ADAN ., ISABEL Attending Unavailable YELENA, DR MICHAEL Siddiqui Consulting Unavailable MISC, DR BYRNE Primary Care Unavailable ADAN ., ISABEL Consulting Unavailable ADAN ., ISABEL Consulting Unavailable ADAN ., ISABEL Attending Unavailable SOLISC, DR BYRNE Primary Care Unavailable ADAN ., [...] Unavailable DIPAK ., DR BLANCA Consulting Unavailable Brown, Lyndsey Unavailable Dipak Rianna TRACY Unavailable ADAN, ISABEL Attending Unavailable DIPAKRIANNA Attending Unavailable ADAN, ISABEL Attending Unavailable DIPAK, RIANNA Attending Unavailable ADAN, ISABEL Attending Unavailable DIPAKRIANNA Attending Unavailable Allergies Allergy Classification Reported Allergen(s) Allergy Type Date of Onset Reaction(s) Facility (6 sources) environmental [Other] Propensity to adverse reactions 8 [facility] Work Phone: (3 sources) OTHER; Translations: [OTHER] Propensity to adverse reactions (disorder) 8 [facility] Medications Current Medications Medication Drug [...] (ONE-A-DAY WOMENS FORMULA ORAL) (1 source) End: 07-19-20 22 take 1 tablet by mouth once daily MULTIVITS,CA,MINERALS/ IRON/FA (ONE-A-DAY WOMENS FORMULA ORAL) Take 1 tablet by mouth once daily. 0 12/16/2021 Discontinued (Course of therapy completed) Comment on above: Take 1 tablet by jorge once daily. ondansetron 4 mg disintegrating oral tablet (2 sources) Serotonin-3 Receptor Antagonist Start: 05-05-20 23 End: 08-03-19 24 take 1 tablet by [...] Drug Class(es) Dates Sig (Normalized) Sig (Original) [id number] 200 actuat albuterol 0.09 mg/actuat metered dose [...] Negative Negative - 4(7 0) +++ mg/dL [facility] Blood, UA Negative Negative - 50 Bartolo/mcL [facility] Clarity, UA Clear [facility] re Color, UA Yellow [facility] Healthcar e Glucose, UA Negative Negative - 1999(110) ++++ mg/dL [facility] Interpretation and review of laboratory results Normal [facility] re Ketones, UA Negative Negative - 160(16) ++++ mg/dL [facility] Leukocytes, UA Negative Negative - 500+++ Mary/mcL [facility] Nitrite, UA Negative Negative - Positive [facility] pH, UA 7.0 5 - 9 [facility] Protein, UA Negative Negative - 1999(20) ++++ mg/dL [facility] Spec Grav, UA 1.020 1 - 1.03 [facility] Urobilinogen, UA 0.2 0.2 - 12 mg/dL [facility] Healthcar e COVID + FLU Quick Testingon 06-27-2023 SARS-CoV-2 (COVID-19) RNA JOBY+probe Ql (Unsp spec) Negative [facility] Other COVID + FLU Quick Testing Negative [facility] Other CULTURE URINEon 10-06-2022 CULTURE URINE Isolate [...] F Trimethoprim/Sulfam ethoxazole <=20 S F Normal [facility] Comment on above: Performed By: #### U RCX #### [facility] [address] [place] [address] Dr. Brando Betancourt CBC AUTO DIFFon 10-03-2022 BASO # 0.0 103/ul Normal 0.0-0.1 [facility] Comment on above: Performed By: #### H BSANS #### [facility] [address] [place] [address] Dr. Brando Betancourt Basophils/100 WBC (Bld) 0.3 % Normal 0.2-2.0 [facility] Comment on above: Performed By: #### H BSANS #### [facility] [address] [place] [address] Dr. Brando Betancourt EO # 0.2 103/ul Normal 0.0-0.7 [facility] Comment on above: Performed By: #### H BSANS #### [facility] [address] [place] [address] Dr. Brando Betancourt Eosinophils/100 WBC (Bld) 1.5 % Normal 0.9-7.0 [facility] Comment on above: Performed By: #### H BSANS #### [facility] [address] [place] [address] Dr. Brando Betancourt Erythrocyte distribution width (RBC) [Ratio] 12.6 % Normal 11.0-15.0 [facility] Comment on above: Performed By: #### H BSANS #### [facility] [address] [place] [address] Dr. Brando Betancourt Hematocrit (Bld) [Volume fraction] 38.3 % Normal 36.0-48.0 [facility] Comment on above: Performed By: #### H BSANS #### [facility] [address] [place] [address] Dr. Brando Betancourt Hemoglobin (Bld) [Mass/Vol] 12.8 g/dL Normal 12.0-16.0 [facility] Comment on above: Performed By: #### H BSANS #### [facility] [address] [place] [address] Dr. Brando Betancourt IG # 0.03 10e3/ul Normal 0.00-0.03 [facility] Comment on above: Performed By: #### H BSANS #### [facility] [address] [place] [address] Dr. Brando Betancourt IG % 0.3 % Normal 0.0-0.5 [facility] Comment on above: Performed By: #### H BSANS #### [facility] [address] [place] [address] Dr. Brando Betancourt LYMPH # 1.4 103/ul Normal 1.2-3.8 [facility] Comment on above: Performed By: #### H BSANS #### [facility] [address] [place] [address] Dr. Brando eBtancourt Lymphocytes/100 WBC (Bld) 13.2 % Critically low 20.5-60.0 [facility] Comment on above: Performed By: #### H BSANS #### [facility] [address] [place] [address] Dr. Brando Betancourt MANUAL DIFF REQ NO Normal [facility] Comment on above: Performed By: #### H BSANS #### [facility] [address] [place] [address] Dr. Brando Betancourt MCH (RBC) [Entitic mass] 28.6 pg Normal 26.7-34.0 [facility] Comment on above: Performed By: #### H BSANS #### [facility] [address] [place] [address] Dr. Brando Betancourt MCHC (RBC) [Mass/Vol] 33.4 g/dL Normal 29.9-35.2 [facility] Comment on above: Performed By: #### H BSANS #### [facility] [address] [place] [address] Dr. Brando Betancourt MCV (RBC) [Entitic vol] 85.5 fL Normal 81.0-99.0 [facility] Comment on above: Performed By: #### H BSANS #### [facility] [address] [place] [address] Dr. Brando Betancourt MONO # 0.7 103/ul Normal 0.3-0.8 [facility] Comment on above: Performed By: #### H BSANS #### [facility] [address] [place] [address] Dr. Brando Betancourt Monocytes/100 WBC (Bld) 7.0 % Normal 1.7-12.0 [facility] Comment on above: Performed By: #### H BSANS #### [facility] [address] [place] [address] Dr. Brando Betancourt NEUT # 8.3 103/ul Critically high 1.4-6.5 [facility] Comment on above: Performed By: #### H BSANS #### [facility] [address] [place] [address] Dr. Brando Betancourt Neutrophils/100 WBC (Bld) 77.7 % Critically high 43.0-75.0 [facility] Comment on above: Performed By: #### H BSANS #### [facility] [address] [place] [address] Dr. Brando Betancourt Platelet mean volume (Bld) [Entitic vol] 8.5 fL Critically low 9.5-13.5 [facility] Comment on above: Performed By: #### H BSANS #### [facility] [address] [place] [address] Dr. Brando Betancourt PLT 263 103/ul Normal 150-450 [facility] Comment on above: Performed By: #### H BSANS #### [facility] [address] [place] [address] Dr. Brando Betancourt RBC 4.48 106/ul Normal 4.20-5.40 [facility] Comment on above: Performed By: #### H BSANS #### [facility] [address] [place] [address] Dr. Brando Betancourt WBC 10.6 103/ul Normal 4.0-11.0 [facility] Comment on above: Performed By: #### H BSANS #### [facility] [address] [place] [address] ABD/PELVIS WO CONon [...] by: RONNY CUMMINGS Date: 2022-10-03 18:56 Normal [facility] ER URINE PROFILEon 3 Bilirubin Ql (U) Negative Normal NEGATIVE [facility] Comment on above: Performed By: #### H BSANS #### [facility] [address] [place] [address] Dr. Brando Betancourt Clarity (U) SL CLOUDY Abnormal CLEAR [facility] Comment on above: Performed By: #### H BSANS #### [facility] [address] [address] [address] Brando Betancourt Color (U) YELLOW Normal YELLOW [facility] Comment on above: Performed By: #### H BSANS #### [facility] [address] [place] [address] Dr. Brando Betancourt ERUAHD A micrscopic examination will be performed if indicated. Normal [facility] Comment on above: Performed By: #### H BSANS #### [facility] [address] [address] [address] Brando Betancourt Glucose Ql (U) Negative Normal NEGATIVE [facility] Comment on above: Performed By: #### H BSANS #### [facility] [address] [address] [address] Brando Betancourt Hemoglobin Ql (U) MODERATE Abnormal NEGATIVE [facility] Comment on above: Performed By: #### H BSANS #### [facility] [address] [address] [address] Brando Betancourt Ketones Ql (U) Negative Normal NEGATIVE [facility] Comment on above: Performed By: #### H BSANS #### [facility] [address] [address] [address] Brando Betancourt LEUKOCYTES LARGE Abnormal NEGATIVE [facility] Comment on above: Performed By: #### H BSANS #### [facility] [address] [address] [address] Brando Betancourt Nitrite Ql (U) Negative Normal NEGATIVE [facility] Comment on above: Performed By: #### H BSANS #### [facility] [address] [address] [address] Brando Betancourt pH (U) 6.0 [pH] Normal 5-9 [facility] Comment on above: Performed By: #### H BSANS #### [facility] [address] [address] [address] Brando Betancourt Protein (U) [Mass/Vol] 100 mg/dL Abnormal NEGATIVE/ TRACE [facility] Comment on above: Performed By: #### H BSANS #### [facility] [address] [address] [address] Brando Betancourt SPEC GRAVITY 1.025 Normal 1.005-<=1.[address] [facility] Comment on above: Performed By: #### H BSANS #### [facility] [address] [address] [address] Brando Betancourt UR MICRO IND INDICATED Normal [facility] Comment on above: Performed By: #### H BSANS #### [facility] [address] [address] [address] Brando Betancourt Urobilinogen Qn (U) 0.2 {Arturo'U}/dL Normal 0.2 - 1. 0 [facility] Comment on above: Performed By: #### H BSANS #### [facility] [address] [place] [address] Dr. Brando Betancourt URon 10-03-2022 , QUAL Negative Normal NEGATIVE [facility] Comment on above: Performed By: #### H BSANS #### [facility] [address] [place] [address] Dr. Brando Betancourt PROF CHEM 8 (BAS METB)on Anion gap [Moles/Vol] 11.8 mmol/L Normal [facility] Comment on above: Performed By: #### C BC #### [facility] [address] [place] [address] Dr. Brando Betancourt Calcium [Mass/Vol] 9.1 mg/dL Normal 8.5-10.1 [facility] Comment on above: Performed By: #### C BC #### [facility] [address] [place] [address] Dr. Brando Betancourt Chloride [Moles/Vol] 99 mmol/L Normal 98-107 [facility] Comment on above: Performed By: #### C BC #### [facility] [address] [place] [address] Dr. Brando Betancourt CO2 [Moles/Vol] 29.9 mmol/L Normal 21.0-32.0 [facility] Comment on above: Performed By: #### C BC #### [facility] [address] [place] [address] Dr. Brando Betancourt Creatinine [Mass/Vol] 0.89 mg/dL Normal 0.55-1.02 [facility] Comment on above: Performed By: #### C BC #### [facility] [address] [place] [address] Dr. Brando Betancourt EGFR-AF CYMRO >60 Normal >=60 [facility] Comment on above: Performed By: #### C BC #### [facility] [address] [place] [address] Dr. Brando Betancourt EGFR-NON AF CYMRO >60 Normal >=60 [facility] Comment on above: Performed By: #### C BC #### [facility] [address] [place] [address] Dr. Brando Betancourt Glucose [Mass/Vol] 122 mg/dL Critically high 74-106 [facility] Comment on above: Performed By: #### C BC #### [facility] [address] [place] [address] Dr. Brando Betancourt Potassium [Moles/Vol] 3.7 mmol/L Normal 3.5-5.1 [facility] Comment on above: Performed By: #### C BC #### [facility] [address] [place] [address] Dr. Brando Betancourt Sodium [Moles/Vol] 137 mmol/L Normal 136-145 [facility] Comment on above: Performed By: #### C BC #### [facility] [address] [place] [address] Dr. Brando Betancourt Urea nitrogen [Mass/Vol] 17.0 mg/dL Normal 7.0-18.0 [facility] Comment on above: Performed By: #### C BC #### [facility] [address] [place] [address] Dr. Brando Betancoutr Urea nitrogen/Creatinine [Mass ratio] 19.1 mg/mg Normal [facility] Comment on above: Performed By: #### C BC #### [facility] [address] [place] [address] Dr. Brando Betancourt URINE MICROSCOPIC ONLYon BACTERIA TRACE Abnormal NONE SEEN [facility] Comment on above: Performed By: #### H BSANS #### [facility] [address] [place] [address] Dr. Brando Betancourt Bacteria identified Cx Nom (U) INDICATED Normal [facility] Comment on above: Performed By: #### H BSANS #### [facility] [address] [place] [address] Dr. Brando Betancourt CAST NONE SEEN Normal NONE SEEN [facility] Comment on above: Performed By: #### H BSANS #### [facility] [address] [place] [address] Dr. Brando Betancourt Crystals LM Nom (Urine sed) NONE SEEN Normal NONE SEEN [facility] Comment on above: Performed By: #### H BSANS #### [facility] [address] [place] [address] Dr. Brando Betancourt Epithelial cells LM Ql (Urine sed) RARE Normal NONE SEEN /RARE [facility] Comment on above: Performed By: #### H BSANS #### [facility] [address] [place] [address] Dr. Brando Betancourt MUCOUS NONE SEEN Normal NONE SEEN [facility] Comment on above: Performed By: #### H BSANS #### [facility] [address] [place] [address] Dr. Brando Betancourt RBC 5-10 Abnormal 0-2 [facility] Comment on above: Performed By: #### H BSANS #### [facility] [address] [place] [address] Dr. Brando Betancourt WBC 50-75 Abnormal NONE SEEN [facility] Comment on above: Performed By: #### H BSANS #### [facility] [address] [place] [address] Dr. Brando Betancourt CBC AUTO DIFFon 07-14-2022 BASO # 0.0 103/ul Normal 0.0-0.1 [facility] Comment on above: Performed By: #### C BC #### [facility] [address] [place] [address] Dr. Brando Betancourt Basophils/100 WBC (Bld) 0.2 % Normal 0.2-2.0 [facility] Comment on above: Performed By: #### C BC #### [facility] [address] [place] [address] Dr. Brando Betancourt EO # 0.0 103/ul Normal 0.0-0.7 [facility] Comment on above: Performed By: #### C BC #### [facility] [address] [place] [address] Dr. Brando Betancourt Eosinophils/100 WBC (Bld) 0.3 % Critically low 0.9-7.0 [facility] Comment on above: Performed By: #### C BC #### [facility] [address] [place] [address] Dr. Brando Betancourt Erythrocyte distribution width (RBC) [Ratio] 13.0 % Normal 11.0-15.0 [facility] Comment on above: Performed By: #### C BC #### [facility] [address] [place] [address] Dr. Brando Betancourt Hematocrit (Bld) [Volume fraction] 28.8 % Critically low 36.0-48.0 [facility] Comment on above: Performed By: #### C BC #### [facility] [address] [place] [address] Dr. Brando Betancourt Hemoglobin (Bld) [Mass/Vol] 9.7 g/dL Critically low 12.0-16.0 [facility] Comment on above: Performed By: #### C BC #### [facility] [address] [place] [address] Dr. Brando Betancourt IG # 0.04 10e3/ul Critically high 0.00-0.03 [facility] Comment on above: Performed By: #### C BC #### [facility] [address] [place] [address] Dr. Brando Betancourt IG % 0.4 % Normal 0.0-0.5 [facility] Comment on above: Performed By: #### C BC #### [facility] [address] [place] [address] Dr. Brando Betancourt LYMPH # 1.6 103/ul Normal 1.2-3.8 [facility] Comment on above: Performed By: #### C BC #### [facility] [address] [place] [address] Dr. Brando Betancourt Lymphocytes/100 WBC (Bld) 15.0 % Critically low 20.5-60.0 [facility] Comment on above: Performed By: #### C BC #### [facility] [address] [place] [address] Dr. Brando Betancourt MANUAL DIFF REQ NO Normal [facility] Comment on above: Performed By: #### C BC #### [facility] [address] [place] [address] Dr. Brando Betancourt MCH (RBC) [Entitic mass] 30.0 pg Normal 26.7-34.0 [facility] Comment on above: Performed By: #### C BC #### [facility] [address] [place] [address] Dr. Brando Betancourt MCHC (RBC) [Mass/Vol] 33.7 g/dL Normal 29.9-35.2 [facility] Comment on above: Performed By: #### C BC #### [facility] [address] [place] [address] Dr. Brando Betancourt MCV (RBC) [Entitic vol] 89.2 fL Normal 81.0-99.0 [facility] Comment on above: Performed By: #### C BC #### [facility] [address] [place] [address] Dr. Brando Betancourt MONO # 0.6 103/ul Normal 0.3-0.8 [facility] Comment on above: Performed By: #### C BC #### [facility] [address] [place] [address] Dr. Brando Betancourt Monocytes/100 WBC (Bld) 5.6 % Normal 1.7-12.0 [facility] Comment on above: Performed By: #### C BC #### [facility] [address] [place] [address] Dr. Brando Betancourt NEUT # 8.6 103/ul Critically high 1.4-6.[address] [facility] Comment on above: Performed By: #### C BC #### [facility] [address] [place] [address] Dr. Brando Betancourt Neutrophils/100 WBC (Bld) 78.5 % Critically high 43.0-75.0 [facility] Comment on above: Performed By: #### C BC #### [facility] [address] [place] [address] Dr. Brando Betancourt Platelet mean volume (Bld) [Entitic vol] 11.2 fL Normal 9.5-13.5 [facility] Comment on above: Performed By: #### C BC #### [facility] [address] [place] [address] Dr. Brando Betancourt PLT 143 103/ul Critically low 150-450 [facility] Comment on above: Performed By: #### C BC #### [facility] [address] [place] [address] Dr. Brando Betancourt RBC 3.23 106/ul Critically low 4.20-5.40 [facility] Comment on above: Performed By: #### C BC #### [facility] [address] [place] [address] Dr. Brando Betancourt WBC 10.9 103/ul Normal 4.0-11.0 [facility] Comment on above: Performed By: #### C BC #### [facility] [address] [place] [address] Dr. Brando Betancourt AMNISUREon 07-12-2022 AMNISURE Negative Normal NEGATIVE [facility] Comment on above: Performed By: #### H BSANS #### [facility] [address] [place] [address] Dr. Brando Betancourt CBC AUTO DIFFon 07-12-2022 BASO # 0.0 103/ul Normal 0.0-0.1 [facility] Comment on above: Performed By: #### C BC #### [facility] [address] [place] [address] Dr. Brando Betancourt Basophils/100 WBC (Bld) 0.1 % Critically low 0.2-2.0 [facility] Comment on above: Performed By: #### C BC #### [facility] [address] [place] [address] Dr. Brando Betancourt EO # 0.1 103/ul Normal 0.0-0.7 [facility] Comment on above: Performed By: #### C BC #### [facility] [address] [place] [address] Dr. Brando Betancourt Eosinophils/100 WBC (Bld) 0.7 % Critically low 0.9-7.0 [facility] Comment on above: Performed By: #### C BC #### [facility] [address] [place] [address] Dr. Brando Betancourt Erythrocyte distribution width (RBC) [Ratio] 12.6 % Normal 11.0-15.0 [facility] Comment on above: Performed By: #### C BC #### [facility] [address] [place] [address] Dr. Brando Betancourt Hematocrit (Bld) [Volume fraction] 29.4 % Critically low 36.0-48.0 [facility] Comment on above: Performed By: #### C BC #### [facility] [address] [place] [address] Dr. Brando Betancourt Hemoglobin (Bld) [Mass/Vol] 10.0 g/dL Critically low 12.0-16.0 [facility] Comment on above: Performed By: #### C BC #### [facility] [address] [place] [address] Dr. Brando Betancourt IG # 0.04 10e3/ul Critically high 0.00-0.03 [facility] Comment on above: Performed By: #### C BC #### [facility] [address] [place] [address] Dr. Brando Betancourt IG % 0.4 % Normal 0.0-0.5 [facility] Comment on above: Performed By: #### C BC #### [facility] [address] [place] [address] Dr. Brando Betancourt LYMPH # 1.3 103/ul Normal 1.2-3.8 [facility] Comment on above: Performed By: #### C BC #### [facility] [address] [place] [address] Dr. Brando Betancourt Lymphocytes/100 WBC (Bld) 11.8 % Critically low 20.5-60.0 [facility] Comment on above: Performed By: #### C BC #### [facility] [address] [place] [address] Dr. rBando Betancourt MANUAL DIFF REQ NO Normal [facility] Comment on above: Performed By: #### C BC #### [facility] [address] [address] [address] Brando Betancourt MCH (RBC) [Entitic mass] 30.1 pg Normal 26.7-34.0 [facility] Comment on above: Performed By: #### C BC #### [facility] [address] [address] [address] Brando Betancourt MCHC (RBC) [Mass/Vol] 34.0 g/dL Normal 29.9-35.2 [facility] Comment on above: Performed By: #### C BC #### [facility] [address] [place] [address] Dr. Brando Betancourt MCV (RBC) [Entitic vol] 88.6 fL Normal 81.0-99.0 [facility] Comment on above: Performed By: #### C BC #### [facility] [address] [place] [address] Dr. Brando Betancourt MONO # 0.7 103/ul Normal 0.3-0.8 [facility] Comment on above: Performed By: #### C BC #### [facility] [address] [place] [address] Dr. Brando Betancourt Monocytes/100 WBC (Bld) 6.9 % Normal 1.7-12.0 [facility] Comment on above: Performed By: #### C BC #### [facility] [address] [place] [address] Dr. Brando Betancourt NEUT # 8.6 103/ul Critically high 1.4-6.[address] [facility] Comment on above: Performed By: #### C BC #### [facility] [address] [place] [address] Dr. Brando Betancourt Neutrophils/100 WBC (Bld) 80.1 % Critically high 43.0-75.0 [facility] Comment on above: Performed By: #### C BC #### [facility] [address] [place] [address] Dr. Brando Betancourt Platelet mean volume (Bld) [Entitic vol] 11.3 fL Normal 9.5-13.5 [facility] Comment on above: Performed By: #### C BC #### [facility] [address] [address] [address] Brando Betancourt PLT 149 103/ul Critically low 150-450 [facility] Comment on above: Performed By: #### C BC #### [facility] [address] [address] [address] Brando Betancourt RBC 3.32 106/ul Critically low 4.20-5.40 [facility] Comment on above: Performed By: #### C BC #### [facility] [address] [address] [address] Brando Betancourt WBC 10.7 103/ul Normal 4.0-11.0 [facility] Comment on above: Performed By: #### C BC #### [facility] [address] [place] [address] Dr. Brando Betancourt TYPE AND SCREENon 07-12-2022 TYPE AND SCREEN Negative Normal [facility] Comment on above: Performed By: #### T NS #### [facility] [address] [place] [address] Dr. Brando Betancourt US PREG AMNIOTIC FLUID [...] MICHAEL KIRK Date: 2022-07-12 07:56 Normal [facility] AMNISUREon 07-11-2022 AMNISURE Positive Abnormal NEGATIVE [facility] Comment on above: Performed By: #### A MNI #### [facility] [address] [place] [address] Dr. Brando Betancourt DRUG SCREEN RAPID (URINE)on 07-11-2022 AMP Negative Normal NEGATIVE [facility] Comment on above: Performed By: #### H BSANS #### [facility] [address] [address] [address] Brando Betancourt BAR Negative Normal NEGATIVE [facility] Comment on above: Performed By: #### H BSANS #### [facility] [address] [place] [address] Dr. Brando Betancourt BUP Negative Normal NEGATIVE [facility] Comment on above: Performed By: #### H BSANS #### [facility] [address] [place] [address] Dr. Brando Betancourt BZO Negative Normal NEGATIVE [facility] Comment on above: Performed By: #### H BSANS #### [facility] [address] [place] [address] Dr. Brando Betancourt JHONY Negative Normal NEGATIVE [facility] Comment on above: Performed By: #### H BSANS #### [facility] [address] [place] [address] Dr. Brando Betancourt CUT-OFFS SEE BELOW Normal [facility] Comment on above: Result Comment: [...] ng/mL Performed By: #### H BSANS #### [facility] [address] [place] [address] Dr. Brando Betancourt DRUG CUT HEADER DRUG CLASS TEST SYSTEM CUT-OFF CONCENTRATIONS ARE FOLLOWS: Normal [facility] Comment on above: Performed By: #### H BSANS #### [facility] [address] [place] [address] Dr. Brando Betancourt mAMP Negative Normal NEGATIVE [facility] Comment on above: Performed By: #### H BSANS #### [facility] [address] [place] [address] Dr. Brando Betancourt MTD Negative Normal NEGATIVE [facility] Comment on above: Performed By: #### H BSANS #### [facility] [address] [place] [address] Dr. Brando Betancourt OPI Negative Normal NEGATIVE [facility] Comment on above: Performed By: #### H BSANS #### [facility] [address] [place] [address] Dr. Brando Betancourt OXY Negative Normal NEGATIVE [facility] Comment on above: Performed By: #### H BSANS #### [facility] [address] [place] [address] Dr. Brando Betancourt PCP Negative Normal NEGATIVE [facility] Comment on above: Performed By: #### H BSANS #### [facility] [address] [place] [address] Dr. Brando Betancourt PPX Negative Normal NEGATIVE [facility] Comment on above: Performed By: #### H BSANS #### [facility] [address] [place] [address] Dr. Brando Betancourt TCA Negative Normal NEGATIVE [facility] Comment on above: Performed By: #### H BSANS #### [facility] [address] [place] [address] Dr. Brando Betancourt THC Negative Normal NEGATIVE [facility] Comment on above: Performed By: #### H BSANS #### [facility] [address] [place] [address] Dr. 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 Brando Betancourt Clarity (U) CLEAR Normal CLEAR [facility] Comment on above: Performed By: #### C T/NGNA #### [facility] [address] [place] [address] Dr. Brando Betancourt Color (U) LT. YELLOW Normal YELLOW [facility] Comment on above: Performed By: #### C T/NGNA #### [facility] [address] [place] [address] Dr. Brando Betancourt Glucose Ql (U) Negative Normal NEGATIVE [facility] Comment on above: Performed By: #### C T/NGNA #### [facility] [address] [place] [address] Dr. Brando Betancourt Hemoglobin Ql (U) Negative Normal NEGATIVE [facility] Comment on above: Performed By: #### C T/NGNA #### [facility] [address] [place] [address] Dr. Brando Betancourt Ketones Ql (U) Negative Normal NEGATIVE The [facility] Comment on above: Performed By: #### C T/NGNA #### [facility] [address] [place] [address] Dr. Brando Betancourt LEUKOCYTES Negative Normal NEGATIVE [facility] Comment on above: Performed By: #### C T/NGNA #### [facility] [address] [place] [address] Dr. Brando Betancourt Nitrite Ql (U) Negative Normal NEGATIVE [facility] Comment on above: Performed By: #### C T/NGNA #### [facility] [address] [place] [address] Dr. Brando Betancourt pH (U) 7.0 [pH] Normal 5-9 [facility] Comment on above: Performed By: #### C T/NGNA #### [facility] [address] [place] [address] Dr. Brando Betancourt SPEC GRAVITY <=1.005 Abnormal 1.005-<=1.[address] [facility] Comment on above: Performed By: #### C T/NGNA #### [facility] [address] [place] [address] Dr. Brando Betancourt UA PROTEIN Negative Normal NEGATIVE/ TRACE [facility] Comment on above: Performed By: #### C T/NGNA #### [facility] [address] [place] [address] Dr. Brando Betancourt UR MICRO IND NOT INDICATED Normal [facility] Comment on above: Performed By: #### C T/NGNA #### [facility] [address] [place] [address] Dr. Brando Betancourt Urobilinogen Qn (U) 0.2 {Arturo'U}/dL Normal 0.2 - 1. 0 [facility] Comment on above: Performed By: #### C T/NGNA #### [facility] [address] [place] [address] Dr. Brando Betancourt CHLAMYDIA/GONOCOCCUS JOBY ( AB/URINE/PAPon 06-25-2022 Chlamydia trachomatis, JOBY Negative Normal Negative [facility] Comment on above: Performed By: #### C T/NGNA #### [facility] [address] [place] [address] Dr. Brando Betancourt Neisseria gonorrhoeae, JOBY Negative Normal Negative [facility] Comment on above: Performed By: #### C T/NGNA #### [facility] [address] [place] [address] Dr. Brando Betancourt VAGINITIS/VAGINOSIS DNA PROB Zenon 06-25-2022 Eugenia species Negative Normal Negative [facility] Comment on above: Performed By: #### C T/NGNA #### [facility] [address] [place] [address] Dr. Brando Betancourt Gardnerella vaginalis Negative Normal Negative [facility] Comment on above: Performed By: #### C T/NGNA #### [facility] [address] [place] [address] Dr. Brando Betancourt Trichomonas vaginalis Negative Normal Negative [facility] Comment on above: Performed By: #### C T/NGNA #### [facility] [address] [place] [address] Dr. Brando Betancourt GROUP B STREP CULTUREon 06-01 S. agalactiae Ag Ql (Unsp spec) Culture Observations: NEGATIVE FOR GROUP B STREPTOCOCCUS. Normal [facility] Comment on above: Performed By: #### C T/NGNA #### [facility] [address] [place] [address] Dr. Brando Betancourt CULTURE URINEon 06-09-2022 CULTURE URINE Culture Observations: NO GROWTH. Normal [facility] Comment on above: Performed By: #### U RCX #### [facility] [address] [address] [address] Brando Betancourt US PREG GROWTHon 06-09-2022 [...] MICHAEL KIRK Date: 2022-06-09 10:31 Normal [facility] HEP B SURFACE ANTIGEN SCREEN on 05-13-2022 HBsAg Screen Negative Normal Negative [facility] Comment on above: Performed By: #### H BSANS #### [facility] [address] [address] [address] Brando Betancourt HEPATITIS C VIRUS AB W/ REFL EX QUANTon 05-13-2022 HCV AB <0.1 Normal 0.0-0.9 [facility] Comment on above: Performed By: #### H BSANS #### [facility] [address] [address] [address] Brando Betancourt Interpretation: Comment Normal [facility] Comment on above: Result Comment: Nega tive Not infected with HCV, unless recent infection is suspected or other evidence exists to indicate HCV infection. Performed By: #### H BSANS #### [facility] [address] [place] [address] Dr. Brando Betancourt HIV 1 AND 2 WITH REFLEXon HIV Screen 4th Generation wRfx Non-Reactive Normal Non Reactive [facility] Comment on above: Result Comment: HIV Negative HIV-1/HIV-2 antibodies and HIV-1 p24 antigen were NOT detected. There is no laboratory evidence of HIV infection. Performed By: #### C BC #### [facility] [address] [place] [address] Dr. Brando Betancourt RPR QUANTon 05-13-2022 Rapid Plasma Reagin, Quant Non-Reactive Normal NonRea<1:1 [facility] Comment on above: Result Comment: Plea se Note: This test does not meet current guidelines for screening and diagnosis of syphilis. This test is intended for following treatment response in patients being treated for syphilis infection. To screen for syphilis infection, a reflex cascade that includes both RPR and a treponema-specific assay should be utilized, such as Treponema pallidum (Syphilis) Screening [place] (976441) or Rapid Plasma Reagin (RPR) Test With Reflex to Quantitative RPR and Confirmatory Treponema pallidum Antibodies (227169). Performed By: #### H BSANS #### [facility] [address] [place] [address] Dr. Brando Betancourt RUBELLA AB IGGon 05-13-2022 Rubella Antibodies, IgG 1.64 index Normal Immune >0.99 [facility] Comment on above: Result Comment: Non- immune <0.90 Equivocal 0.90 - 0.99 Immune >0.99 Performed By: #### R UBIGG #### [facility] [address] [place] [address] Dr. Brando Betancourt CBC AUTO DIFFon 05-12-2022 BASO # 0.0 103/ul Normal 0.0-0.1 [facility] Comment on above: Performed By: #### C BC #### [facility] [address] [place] [address] Dr. Brando Betancourt Basophils/100 WBC (Bld) 0.2 % Normal 0.2-2.0 [facility] Comment on above: Performed By: #### C BC #### [facility] [address] [place] [address] Dr. Brando Betancourt EO # 0.2 103/ul Normal 0.0-0.7 [facility] Comment on above: Performed By: #### C BC #### [facility] [address] [place] [address] Dr. Brando Betancourt Eosinophils/100 WBC (Bld) 2.0 % Normal 0.9-7.0 [facility] Comment on above: Performed By: #### C BC #### [facility] [address] [place] [address] Dr. Brando Betancourt Erythrocyte distribution width (RBC) [Ratio] 13.1 % Normal 11.0-15.0 [facility] Comment on above: Performed By: #### C BC #### [facility] [address] [place] [address] Dr. Brando Betancourt Hematocrit (Bld) [Volume fraction] 30.8 % Critically low 36.0-48.0 [facility] Comment on above: Performed By: #### C BC #### [facility] [address] [place] [address] Dr. Brando Betancourt Hemoglobin (Bld) [Mass/Vol] 10.4 g/dL Critically low 12.0-16.0 [facility] Comment on above: Performed By: #### C BC #### [facility] [address] [place] [address] Dr. Brando Betancourt IG # 0.04 10e3/ul Critically high 0.00-0.03 [facility] Comment on above: Performed By: #### C BC #### [facility] [address] [place] [address] Dr. Brando Betancourt IG % 0.4 % Normal 0.0-0.5 [facility] Comment on above: Performed By: #### C BC #### [facility] [address] [place] [address] Dr. Brando Betancourt LYMPH # 0.8 103/ul Critically low 1.2-3.8 [facility] Comment on above: Performed By: #### C BC #### [facility] [address] [place] [address] Dr. Brando Betancourt Lymphocytes/100 WBC (Bld) 8.6 % Critically low 20.5-60.0 [facility] Comment on above: Performed By: #### C BC #### [facility] [address] [place] [address] Dr. Brando Betancourt MANUAL DIFF REQ NO Normal [facility] Comment on above: Performed By: #### C BC #### [facility] [address] [place] [address] Dr. Brando Betancourt MCH (RBC) [Entitic mass] 30.5 pg Normal 26.7-34.0 [facility] Comment on above: Performed By: #### C BC #### [facility] [address] [place] [address] Dr. Brando Betancourt MCHC (RBC) [Mass/Vol] 33.8 g/dL Normal 29.9-35.2 [facility] Comment on above: Performed By: #### C BC #### [facility] [address] [place] [address] Dr. Brando Betancourt MCV (RBC) [Entitic vol] 90.3 fL Normal 81.0-99.0 [facility] Comment on above: Performed By: #### C BC #### [facility] [address] [place] [address] Dr. Brando Betancourt MONO # 0.5 103/ul Normal 0.3-0.8 [facility] Comment on above: Performed By: #### C BC #### [facility] [address] [place] [address] Dr. Brando Betancourt Monocytes/100 WBC (Bld) 4.9 % Normal 1.7-12.0 [facility] Comment on above: Performed By: #### C BC #### [facility] [address] [place] [address] Dr. Brando Betancourt NEUT # 7.9 103/ul Critically high 1.4-6.5 [facility] Comment on above: Performed By: #### C BC #### [facility] [address] [place] [address] Dr. Brando Betancourt Neutrophils/100 WBC (Bld) 83.9 % Critically high 43.0-75.0 [facility] Comment on above: Performed By: #### C BC #### [facility] [address] [address] [address] Brando Betancourt Platelet mean volume (Bld) [Entitic vol] 9.4 fL Critically low 9.5-13.5 [facility] Comment on above: Performed By: #### C BC #### [facility] [address] [place] [address] Dr. Brando Betancourt PLT 189 103/ul Normal 150-450 [facility] Comment on above: Performed By: #### C BC #### [facility] [address] [place] [address] Dr. Brando Betancourt RBC 3.41 106/ul Critically low 4.20-5.40 [facility] Comment on above: Performed By: #### C BC #### [facility] [address] [place] [address] Dr. Brando Betancourt WBC 9.4 103/ul Normal 4.0-11.0 [facility] Comment on above: Performed By: #### C BC #### [facility] [address] [place] [address] Dr. Brando Betancourt CULTURE URINEon 05-12-2022 CULTURE URINE Culture Observations: LIGHT GROWTH OF MIXED GENITAL STACEY. NO POTENTIAL PATHOGENS SEEN. Normal [facility] Comment on above: Performed By: #### U RCX #### [facility] [address] [place] [address] Dr. Brando Betancourt GLYCOHEMOGLOBIN A1Con 2021 ADA RECOMMENDATION SEE BELOW Normal [facility] Comment on above: Result Comment: ADA RECOMMENDED LIMIT 4.0 - 6.0 ADA THERAPEUTIC TARGET < 7.0 ACTION SUGGESTED > 7.0 Performed By: #### C BC #### [facility] [address] [address] [address] Brando Betancourt Glucose [Mass/Vol] 94 mg/dL Normal [facility] Comment on above: Performed By: #### C BC #### [facility] [address] [place], [place] [address] Dr. Brando Betancourt HbA1c (Bld) [Mass fraction] 4.9 % Normal 4.5-6.2 [facility] Comment on above: Performed By: #### C BC #### [facility] [address] [address] [address] Brando Betancourt TYPE AND SCREENon 05-12-2022 TYPE AND SCREEN Negative Normal [facility] Comment on above: Performed By: #### C T/NGNA #### [facility] [address] [address] [address] Brando Betancourt US PREG PLACENTAon US [...] SCARLET TIAN Date: 2022-04-28 16:22 Normal [facility] OVA AND PARASITE EXAMINATION on 04-15-2022 Ova + Parasite Exam Final report Normal [facility] Comment on above: Result Comment: Thes e results were obtained using wet preparation(s) and trichrome stained smear. This test does not include testing for Cryptosporidium parvum, Cyclospora, or Microsporidia. Performed By: #### H BSANS #### [facility] [id number] Brando Betancourt Result 1 Comment Normal [facility] Comment on above: Result Comment: No o va, cysts, or parasites seen. . One negative specimen does not rule out the possibility of a parasitic infection. Performed By: #### H BSANS #### [facility] [id number] Brando Betancourt GLUCOSE - 1HRon 04-07-2022 Glucose [Mass/Vol] 113 mg/dL Critically high 74-106 T [facility] Comment on above: Performed By: #### H BSANS #### [facility] [address] [address] [address] Brando Betancourt CNPNon 03-30-2022 CNPN Telephone (OBGYWM) ---- ELIDA KEENAN ([id number]) 1995 F Date Time Provider Department 03/30/22 ODESSA ISLAS OBALONA During your visit today, we recorded the following information about you: Ike Teresa RN 03/30/2022 10:27 AM Signed Patient transferred care to [facility] office. She was seen in our [...] by IKE TERESA RN on 03/30/22 Normal [facility] US PREG ANATOMY SINGLEon US PREG ANATOMY [...] by: SCARLET TIAN Date: 2022-03-09 16:44 Normal [facility] URINE OB DIP B/Oon 2 Glucose Ql (U) Negative Neg mg/dL [facility] Protein.monoclonal (U) [Mass/Vol] Negative Neg mg/dL [facility] Bacteria Ur Culton 2 Bacteria identified Cx Nom (U) ORGANISM ID: 1 <10,000 CFU/ml Normal urogenital stacey Normal [facility] Comment on above: Performed By: #### 6 30-4 #### [facility] CLIA [id number] [address] [place] [address] [place] C. trachomatis+N. gonorrhoea e DNA JOBY+probe Ql (Unsp spec)on 12-30-2021 C. trachomatis DNA JOBY+probe Ql (Unsp spec) Negative Normal Negative for Chlamydia trachomatis by amplificaton [facility] Comment on above: Order Comment: Speci men Type: SWAB Ordering Facility: [facility] Address: [address] [place] [address] Performed By: #### 3 6902-5 #### [facility] CLIA [id number] [address] [place] [address] [place] N. gonorrhoeae DNA JOBY+probe Ql (Unsp spec) Negative Normal Negative for Neisseria gonorrhoeae by amplification [facility] Comment on above: Order Comment: Speci men Type: SWAB Ordering Facility: [facility] Address: [address] [place] [address] Performed By: #### 3 6902-5 #### [facility] CLIA [id number] [address] [place] [address] [place] PAP FLUID CERVICAL SCREENING on 12-30-2021 CASE REPORT Normal [facility] Comment on above: Order Comment: Speci men Type: FLUID SAMPLE Ordering Facility: [facility] Address: [address] [place] [address] Result Comment: Gyne cologic Cytology Report Case: [id number] Authorizing Provider: Lamont Pulido MD Collected: 12/30/2021 01:57 PM Ordering Location: OB/Gynecology Received: 12/30/2021 05:25 PM First Screen: [place], CT, ASCP Specimen: Pap, Toe Closing Machine Tender, Screening, CERVICAL SCREENING FLUID Performed By: #### L [id number] #### [facility] CLIA [id number] [address] [place] [address] [place] OF [place] CLINICAL HISTORY ROUTINE EXAM Normal [facility] Comment on above: Order Comment: Speci men Type: FLUID SAMPLE Ordering Facility: [facility] Address: [address] [place] [address] Performed By: #### L [id number] #### [facility] CLIA [id number] [address] [place] [address] STATES OF [facility] CYTOLOGY INTERPRETATION PAP [facility] Comment on above: Order Comment: Speci men Type: FLUID SAMPLE Ordering Facility: [facility] Address: [address] [place] [address] Result Comment: Nega tive for Intraepithelial lesion or malignancy. Performed By: #### L [id number] #### [facility] CLIA [id number] [address] [place] [address] FINAL DIAGNOSIS [facility] Comment on above: Order Comment: Speci men Type: FLUID SAMPLE Ordering Facility: [facility] Address: [address] [place] [address] Result Comment: A - CERVICAL SCREENING FLUID Satisfactory for interpretation, No endocervical component Negative for Intraepithelial lesion or malignancy. Performed By: #### L [id number] #### [facility] CLIA [id number] [address] [place] [address] STATES OF [place] FINAL PERFORMING LAB [facility] Comment on above: Order Comment: Speci men Type: FLUID SAMPLE Ordering Facility: [facility] Address: [address] [place] [address] Result Comment: Tech nical component, furnace room supervisor screening performed at [facility], [address] [place] [address] [place] [address] CLIA# [id number] Diagnostic interpretation performed at [facility], [address] [place] [address] [place] [address] CLIA# [id number] Mine Safety Director: Baldev Jones M.D. Performed By: #### L [id number] #### [facility] CLIA [id number] [address] [place] [address] [place] HPV REQUESTED? Yes, Reflex HPV for ASCUS [facility] Comment on above: Order Comment: Speci men Type: FLUID SAMPLE Ordering Facility: [facility] Address: [address] [place] [address] Performed By: #### L [id number] #### [facility] CLIA [id number] [address] [place] [address] [place] LMP [facility] Comment on above: Order Comment: Speci men Type: FLUID SAMPLE Ordering Facility: [facility] Address: [address] [place] [address] Performed By: #### L [id number] #### [facility] CLIA [id number] [address] [place] [address] STATES OF [place] PAP DISCLAIMER COMMENT The Pap Smear is a screening test for cervical cancer. False negative results occur with all screening tests, emphasizing the need for rescreening at recommended intervals, and clinical correlation. [facility] Comment on above: Order Comment: Speci men Type: FLUID SAMPLE Ordering Facility: [facility] Address: [address] [place], [place] [address] Performed By: #### L [id number] #### [facility] CLIA [id number] [address] [place] [address] STATES OF [place] PAP SENIOR ADMINISTRATOR SUPPORT COMMENT This specimen has been analyzed by the ThinPrep Imaging System, an automated imaging and review system, which assists the laboratory in evaluating cells on ThinPrep Pap tests. Following automated imaging, selected arriaga from every slide are reviewed by a furnace room supervisor. [facility] Comment on above: Order Comment: Speci men Type: FLUID SAMPLE Ordering Facility: [facility] Address: [address] [place] [address] Performed By: #### L [id number] #### [facility] CLIA [id number] [address] [place] [address] OF [facility] CNNURSEon 12-16-2021 CNNURSE Nurse Visit (OBGYWM) ---- ELIDA KEENAN ([id number]) 1995 F Date Time Provider Department 12/16/21 9:30 AM [facility]URSE [facility] O[facility] During your visit today, we recorded the following information about you: Last Period 10/25/21 Anabel Bhardwaj RN 12/16/2021 10:11 AM Signed SEQUENTIAL SCREENINGS The [facility] offers sequential screenings for women who [...] It will require an appointment with our it telecom technician. This is not an ultrasound performed [...] the above symptoms, contact our office at [phone] and ask to speak with a nurse. After hours, you can call doctors registry at [phone] OR call [facility] at [phone] and ask to have the doctor reproduction machine loader paged. If you consider this an emergency, dial [phone]- or go to your nearest emergency department. [...] treatment is particularly effective in young patients-the [facility] Cord Blood Bank reports a 70 percent [...] of can (more content not included)... [facility] HCG QUAL UR B/Oon 12-16-2021 status Positive neg - pos [facility] Quality Check Yes [facility] US TRANSVAGINAL OBon 017 US TRANSVAGINAL [...] ultrasound.Report electronically signed by: Dr. Adair Blank [facility] Vital Signs Date Time Vital Sign Value Performing Clinician Facility 07-01-2023 11:29-0500 Body mass index (BMI) [Ratio] 27.59 kg/m2 Rianna Quesada DO Work Phone: [facility] 07-01-2023 11:29-0500 Body weight 75.21 kg Rianna Dipak DO Work Phone: [facility] 07-01-2023 11:29-0500 Diastolic blood pressure 60 mm[Hg] Rianna Dipak DO Work Phone: [facility] 07-01-2023 11:29-0500 Systolic blood pressure 112 mm[Hg] Rianna Dipak DO Work Phone: [facility] 06-27-2023 13:45-0500 Body height 160.02 cm Lyndsey Brown Other [employer] Other 06-27-2023 13:45-0500 Body mass index (BMI) [Ratio] 29.54 kg/m2 Lyndsey Brown Other [employer] Other 06-27-2023 13:45-0500 Body temperature 97.8 [degF] Lyndsey Brown Other [employer] Other 06-27-2023 13:45-0500 Body weight 75.66 kg Lyndsey Brown Other [employer] Other 06-27-2023 13:45-0500 Respiratory rate 18 /min Lyndsey Brown Other [employer] Other 06-27-2023 13:45-0500 SaO2% (BldA) [Mass fraction] 97 % Lyndsey Brown Other [employer] Other 01-27-2022 09:28-0400 Body weight 63.5 kg Serena Srinivasan MD Work Phone: [facility] 01-27-2022 09:28-0400 Diastolic blood pressure 62 mm[Hg] Serena Srinivasan MD Work Phone: [facility] 01-27-2022 09:28-0400 Systolic blood pressure 98 mm[Hg] Serena Srinivasan MD Work Phone: [facility] 12-30-2021 13:09-0400 Body weight 62.6 kg Lamont Pulido MD Work Phone: [facility] 12-30-2021 13:09-0400 Diastolic blood pressure 70 mm[Hg] Lamont Pulido MD Work Phone: [facility] 12-30-2021 13:09-0400 Systolic blood pressure 110 mm[Hg] Lamont Pulido MD Work Phone: [facility] 12-16-2021 08:55-0400 Body height 160 cm Raina Plotts COASTAL AND ESTUARY SPECIALIST.CNM Work Phone: [facility] 12-16-2021 08:55-0400 Body weight 61.69 kg Raina Plotts COASTAL AND ESTUARY SPECIALIST.CNM Work Phone: [facility] 12-16-2021 08:55-0400 Diastolic blood pressure 64 mm[Hg] Raina Plotts COASTAL AND ESTUARY SPECIALIST.CNM Work Phone: [facility] 12-16-2021 08:55-0400 Systolic blood pressure 112 mm[Hg] Raina Plotts COASTAL AND ESTUARY SPECIALIST.CNM Work Phone: [facility] Encounters Encounter Date Encounter Type Care Provider Facility Start: 09-14-2023 End: 09-14-2023 ambulatory ISABEL ADAN Not Available Start: 08-25-2023 End: 08-25-2023 ambulatory RIANNA DIPAK Not Available Start: 07-29-2023 End: 07-29-2023 ambulatory ISABEL ADAN Not Available Start: 07-01-2023 End: 07-01-2023 ambulatory RIANNA DIPAK Not Available Start: 07-01-2023 End: 07-01-2023 Office outpatient visit 15 minutes Rianna Dipak DO Work Phone: [facility] Comment on above: Second trimester pre gnancy; Diabetes mellitus screening Start: 06-27-2023 End: 06-27-2023 ambulatory Lyndsey Brown Other [facility] Other Start: 06-27-2023 Office outpatient ne w 20 minutes Lyndseymerari Brown [facility] Start: 06-03-2023 [...] AYON Facility:[facility] Start: 06-23-2022 End: 06-23-2022 ambulatory ISABEL ARELLANO . Facility:[facility] Start: 06-09-2022 End: 06-10-2022 ambulatory ISABEL ARELLANO . Facility:[facility] Start: 05-12-2022 End: 05-13-2022 ambulatory ISABEL ARELLANO . Facility: Start: 04-28-2022 End: 04-29-[address] RIANNA QUESADA . Facility: Start: 04-14-2022 End: 04-14-[address] RIANNA QUESADA . Facility:[facility] Start: 04-07-2022 End: 04-08-[address] RINANA QUESADA . Facility:[facility] Start: 03-30-2022 Telephone encounter Odessa dixon APRN.CNM Work Phone: OB/Gynecology Comment on above: Transfer of Care Start: 03-09-2022 End: 03-10-[address] RIANNA QUESADA . Facility: Start: 01-27-2022 End: 01-27-2022 ambulatory SERENA SRINIVASAN Facility:[facility] Start: 01-27-2022 End: 01-27-2022 Patient encounter procedure Serena Srinivasan MD Work Phone: OB/Gynecology Comment on above: 14 weeks gestation o f (Primary Dx); Encounter for supervision of normal first in second trimester Start: 12-30-2021 End: 12-30-2021 ambulatory LAMONT PULIDO Facility:[facility] Start: 12-30-2021 End: 12-30-2021 Patient encounter procedure Lamont Pulido MD Work Phone: OB/Gynecology Comment on above: History of pulmonary embolism (Primary Dx); History of depression; Encounter for care in first trimester of first Start: 12-16-2021 End: 12-16-2021 ambulatory Raina Bonner APRN.CNM Work Phone: OB/Gynecology Comment on above: online resource Start: 12-16-2021 E-mail encounter fro m caregiver Raina Bonner APRN.CNM Work Phone: [facility] Start: 12-16-2021 End: 12-16-2021 Nursing evaluation of patient and report Nurse Pnob [facility] Work Phone: OB/Gynecology Comment on above: Supervision of high risk , antepartum (Primary Dx); Patient request for diagnostic testing; History of pulmonary embolism; History of depression Start: 12-16-2021 End: 12-16-2021 Patient requested procedure Nurse Pnskinny [facility] Work Phone: [facility] Work Phone: Start: 12-16-2021 End: 12-16-2021 Patient encounter procedure Raina Bonner APRN.CNM Work Phone: OB/Gynecology Comment on above: Missed menses (Prima ry Dx); Encounter for test, result positive; History of depression Start: 12-11-2021 End: 12-11-2021 ambulatory MARTIN BURGOS Facility:[facility] Start: 12-18-2016 Ambulatory AN MOREIRA Facili ty:[facility] Start: 12-02-2016 End: 12-28-2016 Ambulatory AN MOREIRA Facility:[facility] Start: 11-26-2016 End: 11-26-2016 Ambulatory AN MOREIRA Facility:[facility] Start: 11-25-2016 End: 11-25-2016 Ambulatory AN MOREIRA Facility:[facility] Procedures Date Procedure Procedure Detail Performing [...] Start: 12-16-2021 Urine test visual color cmprsn meths Raina Bonner COASTAL AND ESTUARY SPECIALIST.CNM Work Phone: Plan of Treatment Date Care Activity Detail Author Start: 12-30-2024 PAP TESTING PAP TESTING [facility] Start: 12-30-2024 Screening for malignant neoplasm of cervix [facility] Start: 07-29-2023 End: 07-29-2023 Patient encounter procedure 07/29/2023 10:10 AM EST Routine [facility] [address] [place] [id number] Isabel Arellano PA [address] [place] [address] [facility] Start: 07-01-2023 End: 07-01-2024 CBC panel - Blood by Automated count CBC Lab Routine Diabetes mellitus screening Expected: 07/01/2023 (Approximate), Expires: 07/01/2024 [facility] Work Phone: Comment on above: Expected: 07/01/2023 (Approximate), Expires: 07/01/2024 Start: 07-01-2023 End: 07-01-2024 Measurement of glucose 1 hour after glucose challenge for glucose tolerance test Glucose tolerance, 1 hour Lab Routine Diabetes mellitus screening Expected: 07/01/2023 (Approximate), Expires: 07/01/2024 [facility] Comment on above: Expected: 07/01/2023 (Approximate), Expires: 07/01/2024 Start: 2023 Screening for malignant neoplasm of cervix HPV/Cotest [facility] Start: 01-29-2023 Influenza vaccination Influenza Vacc ine (#1) [facility] Start: 01-29-2022 Influenza vaccination INFLUENZA (#1) [facility] Start: 12-30-2021 End: 03-01-2022 CBC panel - Blood by Automated count CBC Lab Routine History of pulmonary embolism History of depression Encounter for care in first trimester of first Expected: 12/30/2021, Expires: 03/01/2022 [facility] Work Phone: Comment on above: Expected: 12/30/2021 , Expires: 03/01/2022 Start: 12-30-2021 End: 03-01-2022 Hepatitis B virus surface Ab [Presence] in Serum by Immunoassay HEP B SURF AG SCRN Lab Routine History of pulmonary embolism History of depression Encounter for care in first trimester of first Expected: 12/30/2021, Expires: 03/01/2022 [facility] Work Phone: Comment on above: Expected: 12/30/2021 , Expires: 03/01/2022 Start: 12-30-2021 End: 03-01-2022 Hepatitis C virus Ab [Presence] in Serum HEP C AB IA W/CONF SCRN Lab Routine History of pulmonary embolism History of depression Encounter for care in first trimester of first Expected: 12/30/2021, Expires: 03/01/2022 [facility] Work Phone: Comment on above: Expected: 12/30/2021 , Expires: 03/01/2022 Start: 12-30-2021 End: 03-01-2022 HIV 1+2 Ab [Presence] in Serum or Plasma by Immunoassay HIV 1 2 COMBO(AG/AB),WITH REFLEX TO DIFFERENTIATION Lab Routine History of pulmonary embolism History of depression Encounter for care in first trimester of first Expected: 12/30/2021, Expires: 03/01/2022 [facility] Work Phone: Comment on above: Expected: 12/30/2021 , Expires: 03/01/2022 Start: 12-30-2021 End: 03-01-2022 RUBELLA IGG AB RUBELLA IGG AB Lab Routine History of pulmonary embolism History of depression Encounter for care in first trimester of first Expected: 12/30/2021, Expires: 03/01/2022 [facility] Work Phone: Comment on above: Expected: 12/30/2021 , Expires: 03/01/2022 Start: 12-30-2021 End: 03-01-2022 SYPHILIS TOTAL W/REFLEX SYPHILIS TOTAL W/REFLEX Lab Routine History of pulmonary embolism History of depression Encounter for care in first trimester of first Expected: 12/30/2021, Expires: 03/01/2022 [facility] Work Phone: Comment on above: Expected: 12/30/2021 , Expires: 03/01/2022 Start: 12-30-2021 End: 03-01-2022 TYPE + SCREEN TYPE + SCREEN Blood Bank Routine History of pulmonary embolism History of depression Encounter for care in first trimester of first Expected: 12/30/2021, Expires: 03/01/2022 [facility] Work Phone: Comment on above: Expected: 12/30/2021 , Expires: 03/01/2022 Start: 07-15-2017 Urine microalbumin profile DTAP,TDAP,TD (2 - Td or Tdap) [facility] Start: 04-09-2017 PAP TESTING PAP TESTING [facility] Start: 1995 COVID-19 VACCINE (#1) COVID-19 VACCI NE (#1) [facility] Start: 1995 HEPATITIS B (1 of 3 - 3-dose series) HEPATITIS B (1 of 3 - 3-dose series) [facility] Bacteria identified in Urine by Culture URINE CULTURE Microbiology Routine History of pulmonary embolism History of depression Encounter for care in first trimester of first 12/30/2021 1:57 PM EDT [facility] Work Phone: Chlamydia trachomatis+Neisseria gonorrhoeae DNA [Presence] in Unspecified specimen by JOBY with probe detection GC/CHLAMYDIA DNA DET Lab Routine History of pulmonary embolism History of depression Encounter for care in first trimester of first 12/30/2021 1:57 PM EDT [facility] Work Phone: OBSTETRIC ULTRASOUND [facility] OBSTETRIC ULTRASOUND [facility] Anc Imaging Routine Encounter for supervision of normal first in second trimester Ordered: 01/27/2022 [facility] Work Phone: Comment on above: Ordered: 01/27/2022 PAP FLUID CERVICAL SCREENING PAP FLUID CERVICAL SCREENING Lab Routine History of pulmonary embolism History of depression Encounter for care in first trimester of first 12/30/2021 1:57 PM EDT [facility] Work Phone: [facility] Immunizations Immunization Date Immunization Notes Care Provider Jack jeffery 04-12-2010 influenza virus vaccine, unspecified formulation Raina Bonner COASTAL AND ESTUARY SPECIALIST.CNM Work Phone: [facility] 09-04-2008 human papilloma viru s vaccine, quadrivalent Raina Plotdinesh COASTAL AND ESTUARY SPECIALIST.CNM Work Phone: [facility] Work Phone: 03-19-2008 human papilloma viru s vaccine, quadrivalent Raina Plotts COASTAL AND ESTUARY SPECIALIST.CNM Work Phone: [facility] Work Phone: 01-17-2008 hepatitis A vaccine, unspecified formulation Raina Plotts COASTAL AND ESTUARY SPECIALIST.CNM Work Phone: [facility] Work Phone: 01-17-2008 human papilloma viru s vaccine, quadrivalent Raina Plotts COASTAL AND ESTUARY SPECIALIST.CNM Work Phone: [facility] Work Phone: 07-15-2007 hepatitis A vaccine, unspecified formulation Raina Bonner COASTAL AND ESTUARY SPECIALIST.CNM Work Phone: [facility] Work Phone: 07-15-2007 Meningococcal, MCV4, unspecified conjugate formulation(groups A, C, Y and W-135) Raina Bonner COASTAL AND ESTUARY SPECIALIST.CNM Work Phone: [facility] Work Phone: 07-15-2007 tetanus toxoid, redu ruchi diphtheria toxoid, and acellular pertussis vaccine, adsorbed Raina Bonner COASTAL AND ESTUARY SPECIALIST.CNM Work Phone: [facility] Work Phone: Payers Date Payer Category Payer Medicaid [id number] 2015 Private Health Insurance [id number] 1995 Unknown [id number] 2.16.84 [id number] 1995 Unknown [id number] 2.16.84 0.1.516679.3.579.2.593 1993 Unknown [id number] 2.16.84 0.1.588305.3.579.2.593 1993 Unknown [id number] 2.16.84 0.1.742232.3.579.2.593 1993 Unknown [id number] 2.16.84 0.1.956056.3.579.2.593 1993 Unknown [id number] 2.16.84 0.1.635357.3.579.2.593 1993 Unknown [id number] 2.16.84 0.1.437081.3.579.2.593 1993 Unknown [id number] 2.16.84 0.1.831491.3.579.2.593 1993 Unknown [id number] 2.16.84 0.1.120232.3.579.2.593 1993 Unknown [id number] 2.16.84 0.1.071448.3.579.2.593 1993 Unknown [id number] 2.16.84 0.1.007816.3.579.2.593 1993 Unknown [id number] 2.16.84 0.1.551204.3.579.2.593 1993 Unknown [id number] 2.16.84 0.1.483196.3.579.2.593 1993 Unknown [id number] 2.16.84 0.1.465053.3.579.2.1259 1993 Unknown [id number] 2.16.84 0.1.014539.3.579.2.1259 1993 Unknown [id number] 2.16.84 0.1.883135.3.579.2.1259 1993 Unknown [id number] 2.16.84 0.1.643999.3.579.2.1259 1993 Unknown [id number] 2.16.840 .1.819224.3.579.2.1259 1993 Unknown [id number] 2.16.840 .1.934255.3.579.2.1259 1961 Medicaid [id number] Social History Date Type Detail Facility Start: 01-27-2022 End: 01-10-2023 Tobacco smoking status [facility] Never smoked tobacco [facility] Start: 12-16-2021 End: 03-30-2022 Alcohol intake Current non-drinker of alcohol (finding) [facility] Start: 12-16-2021 Education 15 [facility] Start: 10-30-2021 [facility] Start: 1995 Sex Assigned At Female [facility] Start: 12-06-2021 End: 01-27-2022 Exposure to SARS-CoV-2 (event) Not sure [facility] Start: 01-27-2022 End: 01-10-2023 Tobacco use and exposure Smokeless tobacco non-user [facility] Start: 08-16-2023 Sex Assigned At [employer] Other Start: 07-01-2023 Alcohol intake Lifetime non-drinker (finding) [facility] Start: 01-13-2023 History of Social function [facility] Start: 12-17-2022 Gender identity Identifies as female gender (finding) [facility] Start: 12-17-2022 Sexual orientation Heterosexual (finding) [facility] Goals Date Patient Goal Desired Activity /State Personal health goal Clinical Notes 01-26-2013 to 07-01-2023 Merry Oden LPN - 07/01/2023 11:10 AM EST Note Date [...] nursing note reviewed. Exam conducted with a director property present. Vitals: Estimated body mass index is [...] Rianna Quesada DO documented in this encounter [facility] 06-27-2023 Evaluation note Encounter Date Diagnosis Assessment [...] otherwise f/u with PCP INB despite tx. [employer] Other 02-12-2023 NotePROCEDURE: US PREG BIOPHYSICAL NO [...] Electronically authenticated by: NADINE ENCISO Date: 2022-07-12 07:58[facility]02-01-2023 History general Narrative - Reported* Type Description Date Medical History 21 weeks Hospitalization History CHILD 07/2022 [employer] Other 10-31-2022 Miscellaneous Notes* Telephone Encounter - Ike Teresa RN - 03/30/2022 10:22 AM EDT Patient transferred care to [facility] office. She was seen in our office for 2 visits.Please bill all visits if needed. Ike Teresa RN [facility] Miscellaneous Notes* Quick Notes - Serena Srinivasan [...] indicated Serena Srinivasan MD [facility] Instructions* Patient Instructions* Carlota Alexandre Ma - 01/27/2022 9:23 AM EDT SEQUENTIAL SCREENINGS The [facility] offers sequential screenings for women who [...] testing. It will require an appointment withour it telecom technician. This is not an ultrasound performed [...] the above symptoms, contact our office at [phone] and ask to speak with anurse. After hours, you can call doctors registry at [phone] OR call [facility] at [phone] ask to have the doctor reproduction machine loader paged. If you consider this an emergency, dial [phone] or go to your nearest emergency department. NEED HELP? Are you dealing with a violent or abusive relationship? Are you a victim of rape or sexual assult? Call [facility] ([place]) 24 hour Crisis Hotline: 547.755.6821 or 527-038-2445. MANUAL Your Guide to a Healthy manual is now on-line. Visit [email or web address] to download your free copy documented [facility] NoteHNO ID: [id number] Author: Lamont Pulido MD Service: ? Author [...] Multivitamin with Folic acid: Yes Occupation: Unemployed Yarsanism or heritage: No Would refuse blood transfusion if medically necessary: No No weight on file for this encounter. Patient BMI over 30? No Marital Status:getting but in a relationship w/ new partner and they tested paternity and are confident he is FOB Partner: Name: Giancarlo Age: 25 Occupation: [employer] Gender: male History of STDs: None PAST MEDICAL HISTORY Diagnosis Date - Anemia - Asthma - Blood dyscrasia - Depression - HPV test positive 03/31/2014 - MTHFR mutation - PE (pulmonary embolism) 12/29/2012 [facility], took Xarelto for 6+ months from [facility] - PMH - PAST MEDICAL HISTORY OF [...] she is considered at (more content not included)...[facility] of Present illness Narrative* Lamont Pulido [...] Multivitamin with Folic acid: Yes Occupation: Unemployed Yarsanism or heritage: No Would refuse blood transfusion if medically necessary: No No weight on file for this encounter. Patient BMI over 30? 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 SBIRT Elida Ree was given the 4P's screening tool. Elida [...] prn. Lamont Pulido MD documented [facility] encounterDay[facility] Instructions* Patient Instructions* Glenis Lee Ma - 12/30/2021 12:59 PM EDT Please select the following link to access the [place] [facility] Your Guide to a Healthy . [email or web address] documented in this encounterDayton [facility]07-19-2022 Miscellaneous Notes* Quick Notes - Anabel Bhardwaj [...] She states that she was hospitalized at [facility]. Shestates that she took Xarelto for 6+ months. She denies any other recurrences. She denies any familyhistory of blood clots.Pt has a history of depression/anxiety diagnosed at age 16. She states that she was hospitalized in [place] for a suicidal attempt in 2012 with [...] would like referral to services here at [facility]. I did talk to Raina Bonner about this. Patient was also given the mental health crisis phone number that is open 24 hours a day. Patient declines aneuploidy screening and genetic carrier screening testing.Anabel Bhardwaj RN documented in this encounterDay[facility]07-19-2022 Miscellaneous Notes* Addendum Note - Raina Bonner APRN.CNM - 12/16/2021 12:03 PM EDT Addended by: RAINA BONNER on: 12/16/2021 12:03 PM Modules accepted: Orders documented in this encounterDayton Children'[facility]07-19-2022 NoteHNO ID: [id number] Author: Raina Bonner APRN.CNM Service: ? Author Type: Conductor Sleeping Car Type: Progress Notes Filed: 12/16/2021 9:39 AM Note Text: Elida Keenan is a 26 year old female who presents with missed menses. LMP was approximately 10/25/21. No control since 2018- only using condoms Currently but from . Was in open relationship and unsure of paternity. OB History T0 L0 SAB0 IAB0 Ectopic0 Multiple0 Live Births0 Legal Adviser History LMP: 10/25/2021, Age at Menarche: Age at First : Age at Menopause: Legal Adviser History Comments: Sexual Activity: Yes; Male Contraception: Condom, I.U.D. PAST MEDICAL HISTORY Diagnosis Date - HPV test positive 03/2014 - MTHFR mutation - PE (pulmonary embolism) 12/2012 [facility], took Xarelto for 6+ months from [facility] - PMH - PAST MEDICAL HISTORY OF [...] in right leg with hog fencing - [facility] - PAST MEDICAL HISTORY OF nosebleeds - [...] which included preparing to see the patient, [id number] patient care, completing clinical documentation, obtaining and/or reviewing separately obtained history and counseling and educating the patient/family/caregiver Medical Decision Making Raina Bonner APRN.[facility] Instructions* Patient Instructions* Anabel Bhardwaj RN - 12/16/2021 10:11 AM EDT SEQUENTIAL SCREENINGS The [facility] offers sequential screenings for women who [...] testing. It will require an appointment withour it telecom technician. This is not an ultrasound performed [...] the above symptoms, contact our office at [phone] and ask to speak with anurse. After hours, you can call doctors registry at [phone] OR call [facility] at [phone] ask to have the doctor reproduction machine loader paged. If you consider this an emergency, [...] treatment is particularly effective in young patients-the [facility] Cord Blood Bank reports a 70 percent [...] issues. What do the experts say? The [place] [employer] encourages philanthropic blood banking [...] baby needs at the moment. The nurse, emulsion coater, or physician will then label the samples, [...] AHEAD OF TIME! Public cord-blood herrmann--DONATION: [employer] [phone] [facility]'s Placental Blood Program, [facility] Umbilical Cord Blood Bank, Private cord-blood herrmann--SAVING FOR YOUR OWN USE: [employer], (I think this is the least expensive) [employer] [phone] [employer], (138) [employer] [place] Cord Blood [facility], [phone], [phone] [place] [employer], Cord Blood Registry, (603) [employer], An Internet search may provide you with additional listings. documented in this encounterDayton Children'[facility] Hospital07-19-2022 History of Present illness Narrative* Raina Bonner APRN.[facility] - 12/16/2021 8:46 AM EDT Elida Keenan is a 26 year old female who presents with missed menses. LMP was approximately 10/25/21. No control since 2018- only using condoms Currently but from . Was in open relationship and unsure of paternity. OB History T0 L0 SAB0 IAB0 Ectopic0 Multiple0 Live Births0 Legal Adviser History LMP: 10/25/2021, Age at Menarche: Age at First : Age at Menopause: Legal Adviser History Comments: Sexual Activity: Yes; Male Contraception: Condom, I.U.D. PAST MEDICAL HISTORY Diagnosis Date HPV test positive 03/2014 MTHFR mutation PE (pulmonary embolism) 12/2012 [facility], took Xarelto for 6+ months from [facility] PMH - PAST MEDICAL HISTORY OF stayed [...] which included preparing to see the patient, [id number] patient care, completing clinical documentation, obtaining and/or reviewing separately obtained history and counseling and educating the patient/family/caregiver Medical Decision Making Raina Bonner APRN.CNM documented in this encounterDayton [facility]08-29-2013 History of Past illness Narrative* Problem Noted Date Resolved Date Pulmonary embolism 01/26/2013 01/19/2014 GERD (gastroesophageal reflux disease) 01/19/2014 Weight gain, abnormal 05/21/2010 04/04/2012 Abdominal pain, acute, epigastric 05/21/2010 04/04/2012 Shoulder disorder 05/02/2009 04/04/2012 Excessive or frequent menstruation 01/20/2008 04/04/2012 documented as of this encounter (statuses as of 12/16/2021) [facility] History of Past illness Narrative* Problem Noted Date Resolved Date Pulmonary embolism 01/26/2013 01/19/2014 GERD (gastroesophageal reflux disease) 01/19/2014 Weight gain, abnormal 05/21/2010 04/04/2012 Abdominal pain, acute, epigastric 05/21/2010 04/04/2012 Shoulder disorder 05/02/2009 04/04/2012 Excessive or frequent menstruation 01/20/2008 04/04/2012 documented as of this encounter (statuses as of 12/16/2021) [facility] History of Past illness Narrative* Problem Noted Date Resolved Date Pulmonary embolism 01/26/2013 01/19/2014 GERD (gastroesophageal reflux disease) 1 01/19/2014 Weight gain, abnormal 05/21/2010 04/04/2012 Abdominal pain, acute, epigastric 05/21/2010 04/04/2012 Shoulder disorder 05/02/2009 04/04/2012 Excessive or frequent menstruation 01/20/2008 04/04/2012 documented as of this encounter (statuses as of 12/16/2021) [facility] History of Past illness Narrative* Problem Noted Date Resolved Date Pulmonary embolism 01/26/2013 01/19/2014 GERD (gastroesophageal reflux disease) 1 01/19/2014 Weight gain, abnormal 05/21/2010 04/04/2012 Abdominal pain, acute, epigastric 05/21/2010 04/04/2012 Shoulder disorder 05/02/2009 04/04/2012 Excessive or frequent menstruation 01/20/2008 04/04/2012 documented as of this encounter (statuses as of 12/30/2021) [facility] History of Past illness Narrative* Problem Noted Date Resolved Date Pulmonary embolism 01/26/2013 01/19/2014 GERD (gastroesophageal reflux disease) 1 01/19/2014 Weight gain, abnormal 05/21/2010 04/04/2012 Abdominal pain, acute, epigastric 05/21/2010 04/04/2012 Shoulder disorder 05/02/2009 04/04/2012 Excessive or frequent menstruation 01/20/2008 04/04/2012 documented as of this encounter (statuses as of 01/27/2022) [facility] History of Past illness Narrative* Problem Noted Date Resolved Date Pulmonary embolism 01/26/2013 01/19/2014 GERD (gastroesophageal reflux disease) 1 01/19/2014 Weight gain, abnormal 05/21/2010 04/04/2012 Abdominal pain, acute, epigastric 05/21/2010 04/04/2012 Shoulder disorder 05/02/2009 04/04/2012 Excessive or frequent menstruation 01/20/2008 04/04/2012 documented as of this encounter (statuses as of 03/30/2022) [place] [facility] Diagnosis Missed menses- Primary Absence of menstruation Encounter for test, result positive examination or test, positive result History of depression Personal history of other mental disorder documented in this encounter [facility] note* Diagnosis Supervision of high risk , antepartum- Primary Patient request for diagnostic testing Other specified examination History of pulmonary embolism Personal history of pulmonary embolism History of depression Personal history of other mental disorder documented in this encounter [facility] note* Diagnosis History of pulmonary embolism- Primary Personal history of pulmonary embolism History of depression Personal history of other mental disorder Encounter for care in first trimester of first documented in this encounter [facility] note* Diagnosis 14 weeks gestation of - Primary state, incidental Encounter for supervision of normal first in second trimester Supervision of normal first documented in this encounter [facility] note* Diagnosis Second trimester state, incidental Diabetes mellitus screening Screening for diabetes mellitus [facility] Diagnostic Procedure Only (Routine) - Pending Review Specialty Diagnoses / Procedures Referred By Pavel nettles Referred To Contact [facility] Diagnoses Encounter for supervision of normal first in second trimester Procedures OBSTETRIC ULTRASOUND WHI US PREG UTERUS AFTER 1ST TRIMEST GESTATION Serena Srinivasan MD [address] [place] [address] [address] Referral ID Status Reason Start Date Expiration Date Visits Requested Visits Authorized [id number] Pending Review Auto-Generat ed Referral 01/27/2022 01/27/2023 1 1 [facility] Summary Purpose Family History No Family History Records FoundNo Family History Records FoundNo Family History Records FoundNo Family History Records Found Advance Directives No Advanced Directives Records FoundDocuments on File Type Date Recorded Patient Talent Assistant Expl anation Advance Directive(s) Health Concerns Problem Noted Date OB Reminders 12/17/2021 Problem Noted Date OB Reminders 12/17/2021 Problem Noted Date OB Reminders 12/17/2021 Additional Source Comments INFORMATION SOURCE (unrecogn ized section and content) DATE CREATED AUTHOR 11/24/2017 [facility] DATE CREATED AUTHOR AUTHOR'S ORGANIZ ATION 03/30/2022 [facility] DATE CREATED AUTHOR AUTHOR'S ORGANIZ ATION 10/07/2022 [facility] DATE CREATED AUTHOR AUTHOR'S ORGANIZ ATION 09/15/2023 [facility] [employer] EPIC Source Comments (unrecognize d section and content) In the event this informatio n is protected by the Federal Confidentiality of Alcohol and Drug Abuse Patient Records regulations: The Federal rules restrict any use of the information to criminally investigate or prosecute any alcohol or drug abuse patient.[facility] [facility] HospitalIn the event this information is protected by the Federal Confidentiality of Alcohol and Drug Abuse Patient Records regulations: The Federal rules restrict any use of the information to criminally investigate or prosecute any alcohol or drug abuse patient.[place] [facility] HospitalIn the event this information is protected by the Federal Confidentiality of Alcohol and Drug Abuse Patient Records regulations: The Federal rules restrict any use of the information to criminally investigate or prosecute any alcohol or drug abuse patient.[place] [facility] Hospital[facility] the event this information is protected by the Federal Confidentiality of Alcohol and Drug Abuse Patient Records regulations: The Federal rules restrict any use of the information to criminally investigate or prosecute any alcohol or drug abuse patient.[place] [facility] HospitalIn the event this information is protected by the Federal Confidentiality of Alcohol and Drug Abuse Patient Records regulations: The Federal rules restrict any use of the information to criminally investigate or prosecute any alcohol or drug abuse patient.[place] [facility] HospitalIn the event this information is protected by the Federal Confidentiality of Alcohol and Drug Abuse Patient Records regulations: The Federal rules restrict any use of the information to criminally investigate or prosecute any alcohol or drug abuse patient.[facility] Reason for Visit (unrecogniz ed section and content) Reason Comments Missed period Specialty Diagnoses / Procedures Referred By Pavel nettles Referred To Contact [facility] Diagnoses NEW PATIENT Procedures ANNUAL EXAM MD [facility] [address] [place] [address] Referral ID Status Reason Start Date Expiration Date Visits Requested Visits Authorized [id number] Authorized Financial Clearance Required - Self Pay Patient Cleared - Qualified 100% FAS 11/28/2021 02/26/2022 99 99 Reason Onset Date Comments Care 12/16/2021 Pre-New OB Reason Comments Initial OB Visit Reason Onset Date Comments Care 01/27/2022 Specialty Diagnoses / Procedures Referred By Pavel nettles Referred To Contact [facility] Diagnoses NEW PATIENT Procedures ANNUAL EXAM Self, MD [facility] [address] [place] [address] Reason Comments Transfer of Care Reason Comments Routine Visit Care Teams (unrecognized sec tion and content) Carpet Renovator Relationship Specialty Start Date End Date Martin Burgos, DO [address] [place] [address] PCP - General Family Practice 03/03/14 Carpet Renovator Relationship Specialty Start Date End Date Martin Burgos DO [address] [place] [address] PCP - General Family Practice 03/03/14 Carpet Renovator Relationship Specialty Start Date End Date Martin Burgos DO [address] [place] [address] PCP - General Family Practice 03/03/14 Carpet Renovator Relationship Specialty Start Date End Date Martin Burgos DO [address] [place] [address] PCP - General Family Practice 03/03/14 Carpet Renovator Relationship Specialty Start Date End Date Martin Burgos DO [address] [place] [address] PCP - General Family Practice 03/03/14 Carpet Renovator Relationship Specialty Start Date End Date Martin Burgos DO [address] [place] [address] PCP - General Family Medicine 03/03/14 Carpet Renovator Relationship Specialty Start Date End Date Rianna Quesada DO [address] [place], [place] [address] [address] PCP - S [facility] 08/29/22 FOR RECORDS PERTAINING TO PATIENTS WHO [...] BE BASED ON THE PRIMARY CLINICAL RECORDS. [employer] [facility]. provides no warranty or guarantee of the accuracy or completeness of information in this document.
--- NOTE | 2023-09-22 15:11 | US_ITS ---
[place] [id number] Patient Name: RADHA KEENAN MRN: [id number] date: 1995 Sex: F Assigned Patient Location: US Current Patient Location: Accession/Order Number: [id number] Exam Date: 09/22/2023 15:28 Report Date: 09/23/2023 07:14 At the request of: RIANNA LOREDO Procedure: US OB BPP w non-stress EXAMINATION: US OB BPP w non-stress HISTORY: Excessive growth COMPARISON: Ultrasound OB anatomy 06/24/2023 TECHNIQUE: Ultrasound biophysical profile was performed in the radiology department. BREATHING MOVEMENTS: 2.0 GROSS BODY MOVEMENTS: 2.0 TONE: 2.0 QUALITATIVE AMNIOTIC FLUID VOLUME: 2.0 PRESENTATION: CEPHALIC HEART RATE: 139.2 bpm bpm. AMNIOTIC FLUID VOLUME: 21.9 cm GESTATIONAL AGE: 33 weeks 5 days CONCLUSION: Total biophysical profile score 8.0. Electronically authenticated by: SCARLET TIAN Date: 09/23/2023 07:14
--- NOTE | 2023-09-22 15:11 | US_ITS ---
[place] [address] Patient Name: RADHA KEENAN MRN: [id number] date: 1995 Sex: F Assigned Patient Location: [facility] Current Patient Location: Accession/Order Number: [id number] Exam Date: 09/22/2023 15:28 Report Date: 09/23/2023 07:20 At the request of: RIANNA LOREDO Procedure: US OB growth EXAMINATION: US OB growth HISTORY: Excessive growth COMPARISON: Ultrasound OB anatomy 06/24/2023 FINDINGS: Heart Rate: 139.2 bpm Number: 1.0 Position: CEPHALIC Amniotic Fluid Volume: 21.9 cm Maximum Vertical Pocket: 8.6 cm BIOMETRY: BPD: 8.3 cm cm; 33 weeks 3 days; 38% HC: 30.6 cmcm; 34 weeks 0 days ; 22% AC: 29.3 cm cm; 33 weeks 2 days; 41% FL: 6.3 cm cm; 32 weeks 4 days; 15% EFW: 2146.2 grams; 28% FL/AC: 21.5 FL/BPD: 76.0 HC/AC: 1.0 GESTATIONAL AGE: Age by EDC: 33 weeks 5 days MAVERICK by EDC: 11/05/2023 Age by US: 33 weeks 2 days MAVERICK by US: 11/08/2023 US/US OB growth IMPRESSION: 1. Single live intrauterine with growth detailed above. Electronically authenticated by: SCARLET TIAN Date: 09/23/2023 07:20
[2023-09-22 15:41] VITALS: BP 124/77; PULSE 90
== END 2023-09-22 16:17 | disposition home or self-care (01) ==
LOC: US 07:09 → FBC 15:11
PROVIDERS: PCP Obstetrics & Gynecology; Visit Provider Obstetrics & Gynecology
DX: O36.63X0 Maternal care for excessive fetal growth, third trimester, not applicable or unspecified (principal); Z3A.33 33 weeks gestation of pregnancy
CPT/HCPCS: 76816; 76818

== ENCOUNTER 2023-09-29 07:16 | Outpatient (OUT) | payer MEDICAID, SELFPAY ==
--- OUTSIDE RECORDS SUMMARY | 2023-09-29 07:19 | XMS_ITS | CCD ---
Author Organization [facility] Care Team Providers Care Video Surveillance Technician Name Role Phone HARISH, AN E. Unavailable [...] [Other] Propensity to adverse reactions 8 [facility] Work Phone: (3 sources) OTHER; Translations: [OTHER] Propensity to adverse reactions (disorder) 8 [facility] Repository Medications Current Medications Medication [...] Drug Class(es) Dates Sig (Normalized) Sig (Original) [id number] 200 actuat albuterol 0.09 mg/actuat metered dose [...] Negative Negative - 4(7 0) +++ mg/dL [facility] Blood, UA Negative Negative - 50 Bartolo/mcL [facility] Clarity, UA Clear [facility] re Color, UA Yellow [facility] Glucose, UA Negative Negative - 1999(110) ++++ mg/dL [facility] Interpretation and review of laboratory results Normal [facility] re Ketones, UA Negative Negative - 160(16) ++++ mg/dL [facility] Leukocytes, UA Negative Negative - 500+++ Mary/mcL [facility] Nitrite, UA Negative Negative - Positive [facility] pH, UA 7.0 5 - 9 [facility] Protein, UA Negative Negative - 1999(20) ++++ mg/dL [facility] Spec Grav, UA 1.020 1 - 1.03 [facility] Urobilinogen, UA 0.2 0.2 - 12 mg/dL [facility] Health[facility] COVID + FLU Quick Testingon 06-27-2023 SARS-CoV-2 (COVID-19) RNA JOBY+probe Ql (Unsp spec) Negative [facility] [employer] Other COVID + FLU Quick Testing Negative [facility] [employer] Other CULTURE URINEon 10-06-2022 CULTURE URINE Isolate [...] Trimethoprim/Sulfam ethoxazole <=20 S F Normal [facility] Comment on above: Performed By: #### U RCX #### [facility] [address] [place] [address] Dr. Brando Betancourt CBC AUTO DIFFon 10-03-2022 BASO # 0.0 103/ul Normal 0.0-0.1 [facility] Comment on above: Performed By: #### H BSANS #### [facility] [address] [place] [address] Dr. Brando Betancourt Basophils/100 WBC (Bld) 0.3 % Normal 0.2-2.0 [facility] Comment on above: Performed By: #### H BSANS #### [facility] [address] [place] [address] Dr. Brando Betancourt EO # 0.2 103/ul Normal 0.0-0.7 [facility] Comment on above: Performed By: #### H BSANS #### [facility] [address] [place] [address] Dr. Brando Betancourt Eosinophils/100 WBC (Bld) 1.5 % Normal 0.9-7.0 [facility] Comment on above: Performed By: #### H BSANS #### [facility] [address] [place] [address] Dr. Brando Betancourt Erythrocyte distribution width (RBC) [Ratio] 12.6 % Normal 11.0-15.0 [facility] Comment on above: Performed By: #### H BSANS #### [facility] [address] [place] [address] Dr. Brando Betancourt Hematocrit (Bld) [Volume fraction] 38.3 % Normal 36.0-48.0 [facility] Comment on above: Performed By: #### H BSANS #### [facility] [address] [place] [address] Dr. Brando Betancourt Hemoglobin (Bld) [Mass/Vol] 12.8 g/dL Normal 12.0-16.0 [facility] Comment on above: Performed By: #### H BSANS #### [facility] [address] [place] [address] Dr. Brando Betancourt IG # 0.03 10e3/ul Normal 0.00-0.03 [facility] Comment on above: Performed By: #### H BSANS #### [facility] [address] [place] [address] Dr. Brando Betancourt IG % 0.3 % Normal 0.0-0.5 [facility] Comment on above: Performed By: #### H BSANS #### [facility] [address] [place] [address] Dr. Brando Betancourt LYMPH # 1.4 103/ul Normal 1.2-3.8 [facility] Comment on above: Performed By: #### H BSANS #### [facility] [address] [place] [address] Dr. Brando Betancourt Lymphocytes/100 WBC (Bld) 13.2 % Critically low 20.5-60.0 [facility] Comment on above: Performed By: #### H BSANS #### [facility] [address] [place] [address] Dr. Brando Betancourt MANUAL DIFF REQ NO Normal [facility] Comment on above: Performed By: #### H BSANS #### [facility] [address] [place] [address] Dr. Brando Betancourt MCH (RBC) [Entitic mass] 28.6 pg Normal 26.7-34.0 [facility] Comment on above: Performed By: #### H BSANS #### [facility] [address] [place] [address] Dr. Brando Betancourt MCHC (RBC) [Mass/Vol] 33.4 g/dL Normal 29.9-35.2 [facility] Comment on above: Performed By: #### H BSANS #### [facility] [address] [place] [address] Dr. Brando Betancourt MCV (RBC) [Entitic vol] 85.5 fL Normal 81.0-99.0 [facility] Comment on above: Performed By: #### H BSANS #### [facility] [address] [place] [address] Dr. Brando Betancourt MONO # 0.7 103/ul Normal 0.3-0.8 [facility] Comment on above: Performed By: #### H BSANS #### [facility] [address] [place] [address] Dr. Brando Betancourt Monocytes/100 WBC (Bld) 7.0 % Normal 1.7-12.0 [facility] Comment on above: Performed By: #### H BSANS #### [facility] [address] [place] [address] Dr. Brando Betancourt NEUT # 8.3 103/ul Critically high 1.4-6.5 [facility] Comment on above: Performed By: #### H BSANS #### [facility] [address] [place] [address] Dr. Brando Betancourt Neutrophils/100 WBC (Bld) 77.7 % Critically high 43.0-75.0 [facility] Comment on above: Performed By: #### H BSANS #### [facility] [address] [place] [address] Dr. Brando Betancourt Platelet mean volume (Bld) [Entitic vol] 8.5 fL Critically low 9.5-13.5 [facility] Comment on above: Performed By: #### H BSANS #### [facility] [address] [place] [address] Dr. Brando Betancourt PLT 263 103/ul Normal 150-450 [facility] Comment on above: Performed By: #### H BSANS #### [facility] [address] [place] [address] Dr. Brando Betancourt RBC 4.48 106/ul Normal 4.20-5.40 [facility] Comment on above: Performed By: #### H BSANS #### [facility] [address] [place] [address] Dr. Brando Betancourt WBC 10.6 103/ul Normal 4.0-11.0 [facility] Comment on above: Performed By: #### H BSANS #### [facility] [address] [place] [address] ABD/PELVIS WO CONon [...] by: RONNY CUMMINGS Date: 2022-10-03 18:56 Normal [facility] ER URINE PROFILEon 3 Bilirubin Ql (U) Negative Normal NEGATIVE [facility] Comment on above: Performed By: #### H BSANS #### [facility] [address] [place] [address] Dr. Brando Betancourt Clarity (U) SL CLOUDY Abnormal CLEAR [facility] Comment on above: Performed By: #### H BSANS #### [facility] [address] [address] [address] Brando Betancourt Color (U) YELLOW Normal YELLOW [facility] Comment on above: Performed By: #### H BSANS #### [facility] [address] [place] [address] Dr. Brando Betancourt ERUAHD A micrscopic examination will be performed if indicated. Normal [facility] Comment on above: Performed By: #### H BSANS #### [facility] [address] [address] [address] Brando Betancourt Glucose Ql (U) Negative Normal NEGATIVE [facility] Comment on above: Performed By: #### H BSANS #### [facility] [address] [address] [address] Brando Betancourt Hemoglobin Ql (U) MODERATE Abnormal NEGATIVE [facility] Comment on above: Performed By: #### H BSANS #### [facility] [address] [address] [address] Brando Betancourt Ketones Ql (U) Negative Normal NEGATIVE [facility] Comment on above: Performed By: #### H BSANS #### [facility] [address] [address] [address] Brando Betancourt LEUKOCYTES LARGE Abnormal NEGATIVE [facility] Comment on above: Performed By: #### H BSANS #### [facility] [address] [address] [address] Brando Betancourt Nitrite Ql (U) Negative Normal NEGATIVE [facility] Comment on above: Performed By: #### H BSANS #### [facility] [address] [address] [address] Brando Betancourt pH (U) 6.0 [pH] Normal 5-9 [facility] Comment on above: Performed By: #### H BSANS #### [facility] [address] [address] [address] Brando Betancourt Protein (U) [Mass/Vol] 100 mg/dL Abnormal NEGATIVE/ TRACE [facility] Comment on above: Performed By: #### H BSANS #### [facility] [address] [address] [address] Brando Betancourt SPEC GRAVITY 1.025 Normal 1.005-<=1.025 [facility] Comment on above: Performed By: #### H BSANS #### [facility] [address] [address] [address] Brando Betancourt UR MICRO IND INDICATED Normal [facility] Comment on above: Performed By: #### H BSANS #### [facility] [address] [address] [address] Brando Betancourt Urobilinogen Qn (U) 0.2 {Arturo'U}/dL Normal 0.2 - 1. 0 [facility] Comment on above: Performed By: #### H BSANS #### [facility] [address] [place] [address] Dr. Brando Betancourt URon 10-03-2022 , QUAL Negative Normal NEGATIVE [facility] Comment on above: Performed By: #### H BSANS #### [facility] [address] [place] [address] Dr. Brando Betancourt PROF CHEM 8 (BAS METB)on Anion gap [Moles/Vol] 11.8 mmol/L Normal [facility] Comment on above: Performed By: #### C BC #### [facility] [address] [place] [address] Dr. Brando Betancourt Calcium [Mass/Vol] 9.1 mg/dL Normal 8.5-10.1 [facility] Comment on above: Performed By: #### C BC #### [facility] [address] [place] [address] Dr. Brando Betancourt Chloride [Moles/Vol] 99 mmol/L Normal 98-107 [facility] Comment on above: Performed By: #### C BC #### [facility] [address] [place] [address] Dr. Brando Betancourt CO2 [Moles/Vol] 29.9 mmol/L Normal 21.0-32.0 [facility] Comment on above: Performed By: #### C BC #### [facility] [address] [place] [address] Dr. Brando Betancourt Creatinine [Mass/Vol] 0.89 mg/dL Normal 0.55-1.02 [facility] Comment on above: Performed By: #### C BC #### [facility] [address] [place] [address] Dr. Brando Betancourt EGFR-AF ALBANIAN >60 Normal >=60 [facility] Comment on above: Performed By: #### C BC #### [facility] [address] [place] [address] Dr. Brando Betancourt EGFR-NON AF ALBANIAN >60 Normal >=60 [facility] Comment on above: Performed By: #### C BC #### [facility] [address] [place] [address] Dr. Brando Betancourt Glucose [Mass/Vol] 122 mg/dL Critically high 74-[address] [facility] Comment on above: Performed By: #### C BC #### [facility] [address] [place] [address] Dr. Brando Betancourt Potassium [Moles/Vol] 3.7 mmol/L Normal 3.5-5.1 [facility] Comment on above: Performed By: #### C BC #### [facility] [address] [place] [address] Dr. Brando Betancourt Sodium [Moles/Vol] 137 mmol/L Normal 136-145 [facility] Comment on above: Performed By: #### C BC #### [facility] [address] [place] [address] Dr. Brando Betancourt Urea nitrogen [Mass/Vol] 17.0 mg/dL Normal 7.0-18.0 [facility] Comment on above: Performed By: #### C BC #### [facility] [address] [place] [address] Dr. Brando Betancourt Urea nitrogen/Creatinine [Mass ratio] 19.1 mg/mg Normal [facility] Comment on above: Performed By: #### C BC #### [facility] [address] [place] [address] Dr. Brando Betancourt URINE MICROSCOPIC ONLYon BACTERIA TRACE Abnormal NONE SEEN [facility] Comment on above: Performed By: #### H BSANS #### [facility] [address] [place] [address] Dr. Brando Betancourt Bacteria identified Cx Nom (U) INDICATED Normal [facility] Comment on above: Performed By: #### H BSANS #### [facility] [address] [place] [address] Dr. Brando Betancourt CAST NONE SEEN Normal NONE SEEN [facility] Comment on above: Performed By: #### H BSANS #### [facility] [address] [place] [address] Dr. Brando Betancourt Crystals LM Nom (Urine sed) NONE SEEN Normal NONE SEEN [facility] Comment on above: Performed By: #### H BSANS #### [facility] [address] [place] [address] Dr. Brando Betancourt Epithelial cells LM Ql (Urine sed) RARE Normal NONE SEEN /RARE [facility] Comment on above: Performed By: #### H BSANS #### [facility] [address] [place] [address] Dr. Brando Betancourt MUCOUS NONE SEEN Normal NONE SEEN [facility] Comment on above: Performed By: #### H BSANS #### [facility] [address] [place] [address] Dr. Brando Betancourt RBC 5-10 Abnormal 0-2 [facility] Comment on above: Performed By: #### H BSANS #### [facility] [address] [place] [address] Dr. Brando Betancourt WBC 50-75 Abnormal NONE SEEN [facility] Comment on above: Performed By: #### H BSANS #### [facility] [address] [place] [address] Dr. Brando Betancourt CBC AUTO DIFFon 07-14-2022 BASO # 0.0 103/ul Normal 0.0-0.1 [facility] Comment on above: Performed By: #### C BC #### [facility] [address] [place] [address] Dr. Brando Betancourt Basophils/100 WBC (Bld) 0.2 % Normal 0.2-2.0 [facility] Comment on above: Performed By: #### C BC #### [facility] [address] [place] [address] Dr. Brando Betancourt EO # 0.0 103/ul Normal 0.0-0.7 [facility] Comment on above: Performed By: #### C BC #### [facility] [address] [place] [address] Dr. Brando Betancourt Eosinophils/100 WBC (Bld) 0.3 % Critically low 0.9-7.0 [facility] Comment on above: Performed By: #### C BC #### [facility] [address] [place] [address] Dr. Brando Betancourt Erythrocyte distribution width (RBC) [Ratio] 13.0 % Normal 11.0-15.0 [facility] Comment on above: Performed By: #### C BC #### [facility] [address] [place] [address] Dr. Brando Betancourt Hematocrit (Bld) [Volume fraction] 28.8 % Critically low 36.0-48.0 [facility] Comment on above: Performed By: #### C BC #### [facility] [address] [place] [address] Dr. Brando Betancourt Hemoglobin (Bld) [Mass/Vol] 9.7 g/dL Critically low 12.0-16.0 [facility] Comment on above: Performed By: #### C BC #### [facility] [address] [place] [address] Dr. Brando Betancourt IG # 0.04 10e3/ul Critically high 0.00-0.03 [facility] Comment on above: Performed By: #### C BC #### [facility] [address] [place] [address] Dr. Brando Betancourt IG % 0.4 % Normal 0.0-0.5 [facility] Comment on above: Performed By: #### C BC #### [facility] [address] [place] [address] Dr. Brando Betancourt LYMPH # 1.6 103/ul Normal 1.2-3.8 [facility] Comment on above: Performed By: #### C BC #### [facility] [address] [place] [address] Dr. Brando Betancourt Lymphocytes/100 WBC (Bld) 15.0 % Critically low 20.5-60.0 [facility] Comment on above: Performed By: #### C BC #### [facility] [address] [place] [address] Dr. Brando Betancourt MANUAL DIFF REQ NO Normal [facility] Comment on above: Performed By: #### C BC #### [facility] [address] [place] [address] Dr. Brando Betancourt MCH (RBC) [Entitic mass] 30.0 pg Normal 26.7-34.0 [facility] Comment on above: Performed By: #### C BC #### [facility] [address] [place] [address] Dr. Brando Betancourt MCHC (RBC) [Mass/Vol] 33.7 g/dL Normal 29.9-35.2 [facility] Comment on above: Performed By: #### C BC #### [facility] [address] [place] [address] Dr. Brando Betancourt MCV (RBC) [Entitic vol] 89.2 fL Normal 81.0-99.0 [facility] Comment on above: Performed By: #### C BC #### [facility] [address] [place] [address] Dr. Brando Betancourt MONO # 0.6 103/ul Normal 0.3-0.8 [facility] Comment on above: Performed By: #### C BC #### [facility] [address] [place] [address] Dr. Brando Betancourt Monocytes/100 WBC (Bld) 5.6 % Normal 1.7-12.0 [facility] Comment on above: Performed By: #### C BC #### [facility] [address] [place] [address] Dr. Brando Betancourt NEUT # 8.6 103/ul Critically high 1.4-6.5 [facility] Comment on above: Performed By: #### C BC #### [facility] [address] [place] [address] Dr. Brando Betancourt Neutrophils/100 WBC (Bld) 78.5 % Critically high 43.0-75.0 [facility] Comment on above: Performed By: #### C BC #### [facility] [address] [place] [address] Dr. Brando Betancourt Platelet mean volume (Bld) [Entitic vol] 11.2 fL Normal 9.5-13.5 [facility] Comment on above: Performed By: #### C BC #### [facility] [address] [place] [address] Dr. Brando Betancourt PLT 143 103/ul Critically low 150-450 [facility] Comment on above: Performed By: #### C BC #### [facility] [address] [place] [address] Dr. Brando Betancourt RBC 3.23 106/ul Critically low 4.20-5.40 [facility] Comment on above: Performed By: #### C BC #### [facility] [address] [place] [address] Dr. Brando Betancourt WBC 10.9 103/ul Normal 4.0-11.0 [facility] Comment on above: Performed By: #### C BC #### [facility] [address] [place] [address] Dr. Brando Betancourt AMNISUREon 07-12-2022 AMNISURE Negative Normal NEGATIVE [facility] Comment on above: Performed By: #### H BSANS #### [facility] [address] [place] [address] Dr. Brando Betancourt CBC AUTO DIFFon 07-12-2022 BASO # 0.0 103/ul Normal 0.0-0.1 [facility] Comment on above: Performed By: #### C BC #### [facility] [address] [place] [address] Dr. Brando Betancourt Basophils/100 WBC (Bld) 0.1 % Critically low 0.2-2.0 [facility] Comment on above: Performed By: #### C BC #### [facility] [address] [place] [address] Dr. Brando Betancourt EO # 0.1 103/ul Normal 0.0-0.7 [facility] Comment on above: Performed By: #### C BC #### [facility] [address] [place] [address] Dr. Brando Betancourt Eosinophils/100 WBC (Bld) 0.7 % Critically low 0.9-7.0 [facility] Comment on above: Performed By: #### C BC #### [facility] [address] [place] [address] Dr. Brando Betancourt Erythrocyte distribution width (RBC) [Ratio] 12.6 % Normal 11.0-15.0 [facility] Comment on above: Performed By: #### C BC #### [facility] [address] [place] [address] Dr. Brando Betancourt Hematocrit (Bld) [Volume fraction] 29.4 % Critically low 36.0-48.0 [facility] Comment on above: Performed By: #### C BC #### [facility] [address] [place] [address] Dr. Brando Betancourt Hemoglobin (Bld) [Mass/Vol] 10.0 g/dL Critically low 12.0-16.0 [facility] Comment on above: Performed By: #### C BC #### [facility] [address] [place] [address] Dr. Brando Betancourt IG # 0.04 10e3/ul Critically high 0.00-0.03 [facility] Comment on above: Performed By: #### C BC #### [facility] [address] [place] [address] Dr. Brando Betancourt IG % 0.4 % Normal 0.0-0.5 [facility] Comment on above: Performed By: #### C BC #### [facility] [address] [place] [address] Dr. Brando Betancourt LYMPH # 1.3 103/ul Normal 1.2-3.8 [facility] Comment on above: Performed By: #### C BC #### [facility] [address] [place] [address] Dr. Brando Betancourt Lymphocytes/100 WBC (Bld) 11.8 % Critically low 20.5-60.0 [facility] Comment on above: Performed By: #### C BC #### [facility] [address] [place] [address] Dr. Brando Betancourt MANUAL DIFF REQ NO Normal [facility] Comment on above: Performed By: #### C BC #### [facility] [address] [address] [address] Brando Betancourt MCH (RBC) [Entitic mass] 30.1 pg Normal 26.7-34.0 [facility] Comment on above: Performed By: #### C BC #### [facility] [address] [address] [address] rBando Betancourt MCHC (RBC) [Mass/Vol] 34.0 g/dL Normal 29.9-35.2 [facility] Comment on above: Performed By: #### C BC #### [facility] Laboratory [address] [place] [address] Dr. Brando Betancourt MCV (RBC) [Entitic vol] 88.6 fL Normal 81.0-99.0 [facility] Comment on above: Performed By: #### C BC #### [facility] [address] [place] [address] Dr. Brando Betancourt MONO # 0.7 103/ul Normal 0.3-0.8 [facility] Comment on above: Performed By: #### C BC #### [facility] [address] [place] [address] Dr. Brando Betancourt Monocytes/100 WBC (Bld) 6.9 % Normal 1.7-12.0 [facility] Comment on above: Performed By: #### C BC #### [facility] [address] [place] [address] Dr. Brando Betancourt NEUT # 8.6 103/ul Critically high 1.4-6.5 [facility] Comment on above: Performed By: #### C BC #### [facility] [address] [place] [address] Dr. Brando Betancourt Neutrophils/100 WBC (Bld) 80.1 % Critically high 43.0-75.0 [facility] Comment on above: Performed By: #### C BC #### [facility] [address] [place] [address] Dr. Brando Betancourt Platelet mean volume (Bld) [Entitic vol] 11.3 fL Normal 9.5-13.5 [facility] Comment on above: Performed By: #### C BC #### [facility] [address] [address] [address] Brando Betancourt PLT 149 103/ul Critically low 150-450 [facility] Comment on above: Performed By: #### C BC #### [facility] [address] [address] [address] Brando Betancourt RBC 3.32 106/ul Critically low 4.20-5.40 [facility] Comment on above: Performed By: #### C BC #### [facility] [address] [address] [address] Brando Betancourt WBC 10.7 103/ul Normal 4.0-11.0 [facility] Comment on above: Performed By: #### C BC #### [facility] [place] [facility] [address] [place] [address] Dr. Brando Betancourt TYPE AND SCREENon 07-12-2022 TYPE AND SCREEN Negative Normal [facility] Comment on above: Performed By: #### T NS #### [facility] [address] [place] [address] Dr. Brando Betancourt US PREG AMNIOTIC FLUID [...] MICHAEL KIRK Date: 2022-07-12 07:56 Normal [facility] AMNISUREon 07-11-2022 AMNISURE Positive Abnormal NEGATIVE [facility] Comment on above: Performed By: #### A MNI #### [facility] [address] [place] [address] Dr. Brando Betancourt DRUG SCREEN RAPID (URINE)on 07-11-2022 AMP Negative Normal NEGATIVE [facility] Comment on above: Performed By: #### H BSANS #### [facility] [address] [address] [address] Brando Betancourt BAR Negative Normal NEGATIVE [facility] Comment on above: Performed By: #### H BSANS #### [facility] [address] [place] [address] Dr. Brando Betancourt BUP Negative Normal NEGATIVE [facility] Comment on above: Performed By: #### H BSANS #### [facility] [address] [place] [address] Dr. Brando Betancourt BZO Negative Normal NEGATIVE [facility] Comment on above: Performed By: #### H BSANS #### [facility] [address] [place] [address] Dr. Brando Betancourt JHONY Negative Normal NEGATIVE [facility] Comment on above: Performed By: #### H BSANS #### [facility] [address] [place] [address] Dr. Brando Betancourt CUT-OFFS SEE BELOW Normal [facility] [...] ng/mL Performed By: #### H BSANS #### [facility] [address] [place] [address] Dr. Brando Betancourt DRUG CUT HEADER DRUG CLASS TEST SYSTEM CUT-OFF CONCENTRATIONS ARE FOLLOWS: Normal [facility] Comment on above: Performed By: #### H BSANS #### [facility] [address] [place] [address] Dr. Brando Betancourt mAMP Negative Normal NEGATIVE [facility] Comment on above: Performed By: #### H BSANS #### [facility] [address] [place] [address] Dr. Brando Betancourt MTD Negative Normal NEGATIVE [facility] Comment on above: Performed By: #### H BSANS #### [facility] [address] [place] [address] Dr. Brando Betancourt OPI Negative Normal NEGATIVE [facility] Comment on above: Performed By: #### H BSANS #### [facility] [address] [place] [address] Dr. Brando Betancourt OXY Negative Normal NEGATIVE [facility] Comment on above: Performed By: #### H BSANS #### [facility] [address] [place] [address] Dr. Brando Betancourt PCP Negative Normal NEGATIVE [facility] Comment on above: Performed By: #### H BSANS #### [facility] [address] [place] [address] Dr. Brando Betancourt PPX Negative Normal NEGATIVE [facility] Comment on above: Performed By: #### H BSANS #### [facility] [address] [place] [address] Dr. Brando Betancourt TCA Negative Normal NEGATIVE [facility] Comment on above: Performed By: #### H BSANS #### [facility] [address] [place] [address] Dr. Brando Betancourt THC Negative Normal NEGATIVE [facility] Comment on above: Performed By: #### H BSANS #### [facility] [address] [place] [address] Dr. Brando Betancourt UA (CLEAN/CATCH) INSOLE BOTTOM FILLER/MICRO I F IND.on 07-11-2022 Bilirubin Ql (U) Negative Normal NEGATIVE [facility] Comment on above: Performed By: #### C T/NGNA #### [facility] [address] [place] [address] Dr. Brando Betancourt Clarity (U) CLEAR Normal CLEAR [facility] Comment on above: Performed By: #### C T/NGNA #### [facility] [address] [place] [address] Dr. Brando Betancourt Color (U) LT. YELLOW Normal YELLOW [facility] Comment on above: Performed By: #### C T/NGNA #### [facility] [address] [place] [address] Dr. Brando Betancourt Glucose Ql (U) Negative Normal NEGATIVE [facility] Comment on above: Performed By: #### C T/NGNA #### [facility] [address] [place] [address] Dr. Brando Betancourt Hemoglobin Ql (U) Negative Normal NEGATIVE [facility] Comment on above: Performed By: #### C T/NGNA #### [facility] [address] [place] [address] Dr. Brando Betancourt Ketones Ql (U) Negative Normal NEGATIVE [facility] Comment on above: Performed By: #### C T/NGNA #### [facility] [address] [place] [address] Dr. Brando Betancourt LEUKOCYTES Negative Normal NEGATIVE [facility] Comment on above: Performed By: #### C T/NGNA #### [facility] [address] [place] [address] Dr. Brando Betancourt Nitrite Ql (U) Negative Normal NEGATIVE [facility] Comment on above: Performed By: #### C T/NGNA #### [facility] [address] [place] [address] Dr. Brando Betancourt pH (U) 7.0 [pH] Normal 5-9 [facility] Comment on above: Performed By: #### C T/NGNA #### [facility] [address] [place] [address] Dr. Brando Betancourt SPEC GRAVITY <=1.005 Abnormal 1.005-<=1.025 [facility] Comment on above: Performed By: #### C T/NGNA #### [facility] [address] [place] [address] Dr. Brando Betancourt UA PROTEIN Negative Normal NEGATIVE/ TRACE [facility] Comment on above: Performed By: #### C T/NGNA #### [facility] [place] [facility] [address] [place] [address] Dr. Brando Betancourt UR MICRO IND NOT INDICATED Normal [facility] Comment on above: Performed By: #### C T/NGNA #### [facility] [address] [place] [address] Dr. Brando Betancourt Urobilinogen Qn (U) 0.2 {Arturo'U}/dL Normal 0.2 - 1. 0 [facility] Comment on above: Performed By: #### C T/NGNA #### [facility] [address] [place] [address] Dr. Brando Betancourt CHLAMYDIA/GONOCOCCUS JOBY ( AB/URINE/PAPon 06-25-2022 Chlamydia trachomatis, JOBY Negative Normal Negative [facility] Comment on above: Performed By: #### C T/NGNA #### [facility] [address] [place] [address] Dr. Brando Betancourt Neisseria gonorrhoeae, JOBY Negative Normal Negative [facility] Comment on above: Performed By: #### C T/NGNA #### [facility] [address] [place] [address] Dr. Brando Betancourt VAGINITIS/VAGINOSIS DNA PROB Zenon 06-25-2022 Eugenia species Negative Normal Negative [facility] Comment on above: Performed By: #### C T/NGNA #### [facility] [address] [place] [address] Dr. Brando Betancourt Gardnerella vaginalis Negative Normal Negative [facility] Comment on above: Performed By: #### C T/NGNA #### [facility] [address] [place] [address] Dr. Brando Betancourt Trichomonas vaginalis Negative Normal Negative [facility] Comment on above: Performed By: #### C T/NGNA #### [facility] [address] [place] [address] Dr. Brando Betancourt GROUP B STREP CULTUREon 06-01 S. agalactiae Ag Ql (Unsp spec) Culture Observations: NEGATIVE FOR GROUP B STREPTOCOCCUS. Normal [facility] Comment on above: Performed By: #### C T/NGNA #### [facility] [address] [place] [address] Dr. Brando Betancourt CULTURE URINEon 06-09-2022 CULTURE URINE Culture Observations: NO GROWTH. Normal [facility] Comment on above: Performed By: #### U RCX #### [facility] [address] [address] [address] Brando Betancourt US PREG GROWTHon 06-09-2022 [...] MICHAEL KIRK Date: 2022-06-09 10:31 Normal [facility] HEP B SURFACE ANTIGEN SCREEN on 05-13-2022 HBsAg Screen Negative Normal Negative [facility] Comment on above: Performed By: #### H BSANS #### [facility] [address] [address] [address] Brando Betancourt HEPATITIS C VIRUS AB W/ REFL EX QUANTon 05-13-2022 HCV AB <0.1 Normal 0.0-0.9 [facility] Comment on above: Performed By: #### H BSANS #### [facility] [address] [address] [address] Brando Betancourt Interpretation: Comment Normal [facility] Comment on above: Result Comment: Nega tive Not infected with HCV, unless recent infection is suspected or other evidence exists to indicate HCV infection. Performed By: #### H BSANS #### [facility] [address] [place] [address] Dr. Brando Betancourt HIV 1 AND 2 WITH REFLEXon HIV Screen 4th Generation wRfx Non-Reactive Normal Non Reactive [facility] Comment on above: Result Comment: HIV Negative HIV-1/HIV-2 antibodies and HIV-1 p24 antigen were NOT detected. There is no laboratory evidence of HIV infection. Performed By: #### C BC #### [facility] [address] [place] [address] Dr. Brando Betancourt RPR QUANTon 05-13-2022 Rapid Plasma Reagin, Quant Non-Reactive Normal NonRea<1:1 [facility] Comment [...] utilized, such as Treponema pallidum (Syphilis) Screening [place] (856335) or Rapid Plasma Reagin (RPR) Test With Reflex to Quantitative RPR and Confirmatory Treponema pallidum Antibodies (612293). Performed By: #### H BSANS #### [facility] [address] [place] [address] Dr. Brando Betancourt RUBELLA AB IGGon 05-13-2022 Rubella Antibodies, IgG 1.64 index Normal Immune >0.99 [facility] Comment on above: Result Comment: Non- immune <0.90 Equivocal 0.90 - 0.99 Immune >0.99 Performed By: #### R UBIGG #### [facility] [address] [place] [address] Dr. Brando Betancourt CBC AUTO DIFFon 05-12-2022 BASO # 0.0 103/ul Normal 0.0-0.1 [facility] Comment on above: Performed By: #### C BC #### [facility] [address] [place] [address] Dr. Brando Betancourt Basophils/100 WBC (Bld) 0.2 % Normal 0.2-2.0 [facility] Comment on above: Performed By: #### C BC #### [facility] [address] [place] [address] Dr. Brando Betancourt EO # 0.2 103/ul Normal 0.0-0.7 [facility] Comment on above: Performed By: #### C BC #### [facility] [address] [place] [address] Dr. Brando Betancourt Eosinophils/100 WBC (Bld) 2.0 % Normal 0.9-7.0 [facility] Comment on above: Performed By: #### C BC #### [facility] [address] [place] [address] Dr. Brando Betancourt Erythrocyte distribution width (RBC) [Ratio] 13.1 % Normal 11.0-15.0 [facility] Comment on above: Performed By: #### C BC #### [facility] [address] [place] [address] Dr. Brando Betancourt Hematocrit (Bld) [Volume fraction] 30.8 % Critically low 36.0-48.0 [facility] Comment on above: Performed By: #### C BC #### [facility] [address] [place] [address] Dr. Brando Betancourt Hemoglobin (Bld) [Mass/Vol] 10.4 g/dL Critically low 12.0-16.0 [facility] Comment on above: Performed By: #### C BC #### [facility] [address] [place] [address] Dr. Brando Betancourt IG # 0.04 10e3/ul Critically high 0.00-0.03 [facility] Comment on above: Performed By: #### C BC #### [facility] [address] [place] [address] Dr. Brando Betancourt IG % 0.4 % Normal 0.0-0.5 [facility] Comment on above: Performed By: #### C BC #### [facility] [address] [place] [address] Dr. Brando Betnacourt LYMPH # 0.8 103/ul Critically low 1.2-3.8 [facility] Comment on above: Performed By: #### C BC #### [facility] [address] [place] [address] Dr. Brando Betancourt Lymphocytes/100 WBC (Bld) 8.6 % Critically low 20.5-60.0 [facility] Comment on above: Performed By: #### C BC #### [facility] [address] [place] [address] Dr. Brando Betancourt MANUAL DIFF REQ NO Normal [facility] Comment on above: Performed By: #### C BC #### [facility] [address] [place] [address] Dr. Brando Betancourt MCH (RBC) [Entitic mass] 30.5 pg Normal 26.7-34.0 [facility] Comment on above: Performed By: #### C BC #### [facility] [address] [place] [address] Dr. Brando Betancourt MCHC (RBC) [Mass/Vol] 33.8 g/dL Normal 29.9-35.2 [facility] Comment on above: Performed By: #### C BC #### [facility] [address] [place] [address] Dr. Brando Betancourt MCV (RBC) [Entitic vol] 90.3 fL Normal 81.0-99.0 [facility] Comment on above: Performed By: #### C BC #### [facility] [address] [place] [address] Dr. Brando Betancourt MONO # 0.5 103/ul Normal 0.3-0.8 [facility] Comment on above: Performed By: #### C BC #### [facility] [address] [place] [address] Dr. Brando Betancourt Monocytes/100 WBC (Bld) 4.9 % Normal 1.7-12.0 [facility] Comment on above: Performed By: #### C BC #### [facility] [address] [place] [address] Dr. Brando Betancourt NEUT # 7.9 103/ul Critically high 1.4-6.5 [facility] Comment on above: Performed By: #### C BC #### [facility] [address] [place] [address] Dr. Brando Betancourt Neutrophils/100 WBC (Bld) 83.9 % Critically high 43.0-75.0 [facility] Comment on above: Performed By: #### C BC #### [facility] [address] [address] [address] Brando Betancourt Platelet mean volume (Bld) [Entitic vol] 9.4 fL Critically low 9.5-13.5 [facility] Comment on above: Performed By: #### C BC #### [facility] [address] [place] [address] Dr. Brando Betancourt PLT 189 103/ul Normal 150-450 [facility] Comment on above: Performed By: #### C BC #### [facility] [address] [place] [address] Dr. Brando Betancourt RBC 3.41 106/ul Critically low 4.20-5.40 [facility] Comment on above: Performed By: #### C BC #### [facility] [address] [place] [address] Dr. Brando Betancourt WBC 9.4 103/ul Normal 4.0-11.0 [facility] Comment on above: Performed By: #### C BC #### [facility] [address] [place] [address] Dr. Bradno Betancourt CULTURE URINEon 05-12-2022 CULTURE URINE Culture Observations: LIGHT GROWTH OF MIXED GENITAL STACEY. NO POTENTIAL PATHOGENS SEEN. Normal [facility] Comment on above: Performed By: #### U RCX #### [facility] [address] [place] [address] Dr. Brando Betancourt GLYCOHEMOGLOBIN A1Con 2021 ADA RECOMMENDATION SEE BELOW Normal [facility] Comment on above: Result Comment: ADA RECOMMENDED LIMIT 4.0 - 6.0 ADA THERAPEUTIC TARGET < 7.0 ACTION SUGGESTED > 7.0 Performed By: #### C BC #### [facility] [address] [address] [address] Brando Betancourt Glucose [Mass/Vol] 94 mg/dL Normal [facility] Comment on above: Performed By: #### C BC #### [facility] [address] [place], [place] [address] Dr. Brando Betancourt HbA1c (Bld) [Mass fraction] 4.9 % Normal 4.5-6.2 [facility] Comment on above: Performed By: #### C BC #### [facility] [address] [address] [address] Brando Betancourt TYPE AND SCREENon 05-12-2022 TYPE AND SCREEN Negative Normal [facility] Comment on above: Performed By: #### C T/NGNA #### [facility] [address] [address] [address] Brando Betancourt US PREG PLACENTAon US [...] SCARLET TIAN Date: 2022-04-28 16:22 Normal [facility] OVA AND PARASITE EXAMINATION on 04-15-2022 Ova + Parasite Exam Final report Normal [facility] Comment on above: Result Comment: Thes e results were obtained using wet preparation(s) and trichrome stained smear. This test does not include testing for Cryptosporidium parvum, Cyclospora, or Microsporidia. Performed By: #### H BSANS #### [facility] [id number] Brando Betancourt Result 1 Comment Normal [facility] Comment on above: Result Comment: No o va, cysts, or parasites seen. . One negative specimen does not rule out the possibility of a parasitic infection. Performed By: #### H BSANS #### [facility] [id number] Brando Betancourt GLUCOSE - 1HRon 04-07-2022 Glucose [Mass/Vol] 113 mg/dL Critically high 74-[address] [facility] Comment on above: Performed By: #### H BSANS #### [facility] [address] [address] [address] Brando Betancourt CNPNon 03-30-2022 CNPN Telephone (OBGYWM) ---- ELIDA KEENAN ([id number]) 1995 F Date Time Provider Department 03/30/22 ODESSA ISLAS OBALONA During your visit today, we recorded the following information about you: Ike Teresa RN 03/30/2022 10:27 AM Signed Patient transferred care to [facility] office. She was seen in our [...] by IKE TERESA RN on 03/30/22 Normal [facility] US PREG ANATOMY SINGLEon US PREG ANATOMY [...] by: SCARLET TIAN Date: 2022-03-09 16:44 Normal [facility] URINE OB DIP B/Oon 2 Glucose Ql (U) Negative Neg mg/dL [facility] Protein.monoclonal (U) [Mass/Vol] Negative Neg mg/dL [facility] Bacteria Ur Culton 2 Bacteria identified Cx Nom (U) ORGANISM ID: 1 <10,000 CFU/ml Normal urogenital stacey Normal [facility] Comment on above: Performed By: #### 6 30-4 #### [facility] CLIA [id number] [address] [place] [address] [place] C. trachomatis+N. gonorrhoea e DNA JOBY+probe Ql (Unsp spec)on 12-30-2021 C. trachomatis DNA JOBY+probe Ql (Unsp spec) Negative Normal Negative for Chlamydia trachomatis by amplificaton [facility] Comment on above: Order Comment: Speci men Type: SWAB Ordering Facility: [facility] Address: [address] [place] [address] Performed By: #### 3 6902-5 #### [facility] CLIA [id number] [address] [place] [address] [place] N. gonorrhoeae DNA JOBY+probe Ql (Unsp spec) Negative Normal Negative for Neisseria gonorrhoeae by amplification [facility] Comment on above: Order Comment: Speci men Type: SWAB Ordering Facility: [facility] Address: [address] [place] [address] Performed By: #### 3 6902-5 #### [facility] CLIA [id number] [address] [place] [address] [place] PAP FLUID CERVICAL SCREENING on 12-30-2021 CASE REPORT Normal [facility] Comment on above: Order Comment: Speci men Type: FLUID SAMPLE Ordering Facility: [facility] Address: [address] [place] [address] Result Comment: Gyne cologic Cytology Report Case: [id number] Authorizing Provider: Lamont Pulido MD Collected: 12/30/2021 01:57 PM Ordering Location: OB/Gynecology Received: 12/30/2021 05:25 PM First Screen: [place], CT, ASCP Specimen: Pap, Medical Records Director, Screening, CERVICAL SCREENING FLUID Performed By: #### L [id number] #### [facility] CLIA [id number] [address] [place] [address] [place] CLINICAL HISTORY ROUTINE EXAM Normal [facility] Comment on above: Order Comment: Speci men Type: FLUID SAMPLE Ordering Facility: [facility] Address: [address] [place] [address] Performed By: #### L [id number] #### [facility] CLIA [id number] [address] [place] [address] [place] [facility] CYTOLOGY INTERPRETATION PAP Normal [facility] Comment on above: Order Comment: Speci men Type: FLUID SAMPLE Ordering Facility: [facility] Address: [address] [place] [address] Result Comment: Nega tive for Intraepithelial lesion or malignancy. Performed By: #### L [id number] #### [facility] CLIA [id number] [address] [place] [address] FINAL DIAGNOSIS Normal [facility] Comment on above: Order Comment: Speci men Type: FLUID SAMPLE Ordering Facility: [facility] Address: [address] [place] [address] Result Comment: A - CERVICAL SCREENING FLUID Satisfactory for interpretation, No endocervical component Negative for Intraepithelial lesion or malignancy. Performed By: #### L [id number] #### [facility] CLIA [id number] [address] [place] [address] [place] FINAL PERFORMING LAB Normal [facility] Comment on above: Order Comment: Speci men Type: FLUID SAMPLE Ordering Facility: [facility] Address: [address] [place] [address] Result Comment: Tech nical component, heating repair technician screening performed at [facility], [address] [place] [address] [place] [address] CLIA# [id number] Diagnostic interpretation performed at [facility], [address] [place] [address] [place] [address] CLIA# [id number] Cigarette Maker: Baldev Jones M.D. Performed By: #### L [id number] #### [facility] CLIA [id number] [address] [place] [address] [place] HPV REQUESTED? Yes, Reflex HPV for ASCUS Normal [facility] Comment on above: Order Comment: Speci men Type: FLUID SAMPLE Ordering Facility: [facility] Address: [address] [place] [address] Performed By: #### L [id number] #### [facility] CLIA [id number] [address] [place] [address] [place] LMP Normal [facility] Comment on above: Order Comment: Speci men Type: FLUID SAMPLE Ordering Facility: [facility] Address: [address] [place] [address] Performed By: #### L [id number] #### [facility] CLIA [id number] [address] [place] [address] [place] PAP DISCLAIMER COMMENT The Pap Smear is a screening test for cervical cancer. False negative results occur with all screening tests, emphasizing the need for rescreening at recommended intervals, and clinical correlation. Normal [facility] Comment on above: Order Comment: Speci men Type: FLUID SAMPLE Ordering Facility: [facility] Address: [address] [place], [place] [id number] Performed By: #### L [id number] #### [facility] CLIA [id number] [address] [place] [address] [place] PAP MANAGER ECONOMIC COMMENT This specimen has been analyzed by the ThinPrep Imaging System, an automated imaging and review system, which assists the laboratory in evaluating cells on ThinPrep Pap tests. Following automated imaging, selected arriaga from every slide are reviewed by a heating repair technician. Normal [facility] Comment on above: Order Comment: Speci men Type: FLUID SAMPLE Ordering Facility: [facility] Address: [address] [place] [address] Performed By: #### L [id number] #### [facility] CLIA [id number] [address] [place] [address] OF [facility] CNNURSEon 12-16-2021 CNNURSE Nurse Visit (OBGYWM) ---- ELIDA KEENAN ([id number]) 1995 F Date Time Provider Department 12/16/21 9:30 AM NURSE PNOB [facility] OBGYWM During your visit today, we recorded the following information about you: Last Period 10/25/21 Anabel Bhardwaj RN 12/16/2021 10:11 AM Signed SEQUENTIAL SCREENINGS The [facility] offers sequential screenings for women who are [...] It will require an appointment with our master hearth technician. This is not an ultrasound performed [...] the above symptoms, contact our office at [phone] and ask to speak with a nurse. After hours, you can call doctors registry at [phone] OR call [facility] at [phone] and ask to have the doctor telephonic nurse paged. If you consider this an emergency, [...] treatment is particularly effective in young patients-the [facility] reports a 70 [...] of can (more content not included)... Normal [facility] HCG QUAL UR B/Oon 12-16-2021 status Positive neg - pos [facility] Quality Check Yes [facility] US TRANSVAGINAL OBon 017 US TRANSVAGINAL OB [...] electronically signed by: Dr. Adair Blank Normal [facility] Vital Signs Date Time Vital Sign Value Performing Clinician Facility 07-01-2023 11:29-0500 Body mass index (BMI) [Ratio] 27.59 kg/m2 Rianna Quesada DO Work Phone: [facility] 07-01-2023 11:29-0500 Body weight 75.21 kg Rianna Dipak DO Work Phone: [facility] 07-01-2023 11:29-0500 Diastolic blood pressure 60 mm[Hg] Rianna Dipak DO Work Phone: [facility] 07-01-2023 11:29-0500 Systolic blood pressure 112 mm[Hg] Rianna Dipak DO Work Phone: [facility] 06-27-2023 13:45-0500 Body height 160.02 cm Lyndsey Brown Other [facility] Other 06-27-2023 13:45-0500 Body mass index (BMI) [Ratio] 29.54 kg/m2 Lyndsey Brown Other [facility] Other 06-27-2023 13:45-0500 Body temperature 97.8 [degF] Lyndsey Brown Other [facility] Other 06-27-2023 13:45-0500 Body weight 75.66 kg Lyndsey Brown Other [facility] Other 06-27-2023 13:45-0500 Respiratory rate 18 /min Lyndsey Brown Other [facility] Other 06-27-2023 13:45-0500 SaO2% (BldA) [Mass fraction] 97 % Lyndsey Brown Other [facility] Other 01-27-2022 09:28-0400 Body weight 63.5 kg Serena Srinivasan MD Work Phone: [facility] 01-27-2022 09:28-0400 Diastolic blood pressure 62 mm[Hg] Serena Srinivasan MD Work Phone: [facility] 01-27-2022 09:28-0400 Systolic blood pressure 98 mm[Hg] Serena Srinivasan MD Work Phone: [facility] 12-30-2021 13:09-0400 Body weight 62.6 kg Lamont Pulido MD Work Phone: [facility] 12-30-2021 13:09-0400 Diastolic blood pressure 70 mm[Hg] Lamont Pulido MD Work Phone: [facility] 12-30-2021 13:09-0400 Systolic blood pressure 110 mm[Hg] Lamont Pulido MD Work Phone: [facility] 12-16-2021 08:55-0400 Body height 160 cm Raina Plotts OPERATOR [employer].CNM Work Phone: [facility] 12-16-2021 08:55-0400 Body weight 61.69 kg Raina Plotts OPERATOR [employer].CNM Work Phone: [facility] 12-16-2021 08:55-0400 Diastolic blood pressure 64 mm[Hg] Raina Plotts OPERATOR [employer].CNM Work Phone: [facility] 12-16-2021 08:55-0400 Systolic blood pressure 112 mm[Hg] Raina Plotts OPERATOR COATING FURNACE.CNM Work Phone: [facility] Encounters Encounter Date Encounter Type Care Provider [...] 06-27-2023 End: 06-27-2023 ambulatory Lyndsey Brown Other [facility] [employer] Other Start: 06-27-2023 Office outpatient ne w [...] End: 04-08-[address] RIANNA QUESADA . Facility:[facility] Start: 03-30-2022 Telephone encounter Odessa dixon APRN.CNM Work Phone: OB/Gynecology Comment on above: Transfer of Care Start: 03-09-2022 End: 03-10-[address] RIANNA QUESADA . Facility: Start: 01-27-2022 End: 01-27-2022 ambulatory SERENA SRINIVASAN Facility:[facility] Start: 01-27-2022 End: 01-27-2022 Patient encounter procedure Serena Srinivasan MD Work Phone: OB/Gynecology Comment on above: 14 weeks gestation o f (Primary Dx); Encounter for supervision of normal first in second trimester Start: 12-30-2021 End: 12-30-2021 ambulatory LAMONT PULIDO Facility:[facility] Start: 12-30-2021 End: 12-30-2021 Patient encounter procedure Lamont Pulido MD Work Phone: OB/Gynecology Comment on above: History of pulmonary embolism (Primary Dx); History of depression; Encounter for care in first trimester of first Start: 12-16-2021 End: 12-16-2021 ambulatory Raina Bonner APRN.CNM Work Phone: OB/Gynecology Comment on above: online resource Start: 12-16-2021 E-mail encounter fro m caregiver Raina Bnoner APRN.CNM Work Phone: [facility] Start: 12-16-2021 End: 12-16-2021 Nursing evaluation of patient and report [facility] Work Phone: OB/Gynecology Comment on above: Supervision of high risk , antepartum (Primary Dx); Patient request for diagnostic testing; History of pulmonary embolism; History of depression Start: 12-16-2021 End: 12-16-2021 Patient requested procedure Nurse [facility] Work Phone: [facility] Work Phone: Start: 12-16-2021 End: 12-16-2021 Patient encounter procedure Raina Bonner APRN.CNM Work Phone: OB/Gynecology Comment on above: Missed menses (Prima ry Dx); Encounter for test, result positive; History of depression Start: 12-11-2021 End: 12-11-2021 ambulatory MARTIN BURGOS Facility:[facility] Start: 12-18-2016 Ambulatory AN MOREIRA Facili ty:[facility] Start: 12-02-2016 End: 12-28-2016 Ambulatory AN MOREIRA Facility:[facility] Start: 11-26-2016 End: 11-26-2016 Ambulatory AN MOREIRA Facility:[facility] Start: 11-25-2016 End: 11-25-2016 Ambulatory AN MOREIRA Facility:[facility] Procedures Date Procedure Procedure Detail Performing [...] test visual color cmprsn meths Raina Bonner OPERATOR COATING FURNACE.CNM Work Phone: Plan of Treatment Date Care Activity Detail Author Start: 12-30-2024 PAP TESTING PAP TESTING [facility] Start: 12-30-2024 Screening for malignant neoplasm of cervix [facility] Start: 07-29-2023 End: 07-29-2023 Patient encounter procedure 07/29/2023 10:10 AM EST Routine [facility] BCP OB [address] [id number] Isabel Arellano PA [address] [place] [address] [facility] Start: 07-01-2023 End: 07-01-2024 CBC panel - Blood by Automated count CBC Lab Routine Diabetes mellitus screening Expected: 07/01/2023 (Approximate), Expires: 07/01/2024 [facility] Work Phone: Comment on above: Expected: 07/01/2023 (Approximate), Expires: 07/01/2024 Start: 07-01-2023 End: 07-01-2024 Measurement of glucose 1 hour after glucose challenge for glucose tolerance test Glucose tolerance, 1 hour Lab Routine Diabetes mellitus screening Expected: 07/01/2023 (Approximate), Expires: 07/01/2024 [facility] Comment on above: Expected: 07/01/2023 (Approximate), Expires: 07/01/2024 Start: 2023 Screening for malignant neoplasm of cervix HPV/Cotest [facility] Start: 01-29-2023 Influenza vaccination Influenza Vacc ine (#1) [facility] Start: 01-29-2022 Influenza vaccination INFLUENZA (#1) [facility] Start: 12-30-2021 End: 03-01-2022 CBC panel - Blood by Automated count CBC Lab Routine History of pulmonary embolism History of depression Encounter for care in first trimester of first Expected: 12/30/2021, Expires: 03/01/2022 [facility] Work Phone: Comment on above: Expected: 12/30/2021 , Expires: 03/01/2022 Start: 12-30-2021 End: 03-01-2022 Hepatitis B virus surface Ab [Presence] in Serum by Immunoassay HEP B SURF AG SCRN Lab Routine History of pulmonary embolism History of depression Encounter for care in first trimester of first Expected: 12/30/2021, Expires: 03/01/2022 [facility] Work Phone: Comment on above: Expected: 12/30/2021 , Expires: 03/01/2022 Start: 12-30-2021 End: 03-01-2022 Hepatitis C virus Ab [Presence] in Serum HEP C AB IA W/CONF SCRN Lab Routine History of pulmonary embolism History of depression Encounter for care in first trimester of first Expected: 12/30/2021, Expires: 03/01/2022 [facility] Work Phone: Comment on above: Expected: 12/30/2021 , Expires: 03/01/2022 Start: 12-30-2021 End: 03-01-2022 HIV 1+2 Ab [Presence] in Serum or Plasma by Immunoassay HIV 1 2 COMBO(AG/AB),WITH REFLEX TO DIFFERENTIATION Lab Routine History of pulmonary embolism History of depression Encounter for care in first trimester of first Expected: 12/30/2021, Expires: 03/01/2022 [facility] Work Phone: Comment on above: Expected: 12/30/2021 , Expires: 03/01/2022 Start: 12-30-2021 End: 03-01-2022 RUBELLA IGG AB RUBELLA IGG AB Lab Routine History of pulmonary embolism History of depression Encounter for care in first trimester of first Expected: 12/30/2021, Expires: 03/01/2022 [facility] Work Phone: Comment on above: Expected: 12/30/2021 , Expires: 03/01/2022 Start: 12-30-2021 End: 03-01-2022 SYPHILIS TOTAL W/REFLEX SYPHILIS TOTAL W/REFLEX Lab Routine History of pulmonary embolism History of depression Encounter for care in first trimester of first Expected: 12/30/2021, Expires: 03/01/2022 [facility] Work Phone: Comment on above: Expected: 12/30/2021 , Expires: 03/01/2022 Start: 12-30-2021 End: 03-01-2022 TYPE + SCREEN TYPE + SCREEN Blood Bank Routine History of pulmonary embolism History of depression Encounter for care in first trimester of first Expected: 12/30/2021, Expires: 03/01/2022 [facility] Work Phone: Comment on above: Expected: 12/30/2021 , Expires: 03/01/2022 Start: 07-15-2017 Urine microalbumin profile DTAP,TDAP,TD (2 - Td or Tdap) [facility] Start: 04-09-2017 PAP TESTING PAP TESTING [facility] Start: 1995 COVID-19 VACCINE (#1) COVID-19 VACCI NE (#1) [facility] Start: 1995 HEPATITIS B (1 of 3 - 3-dose series) HEPATITIS B (1 of 3 - 3-dose series) [facility] Bacteria identified in Urine by Culture URINE CULTURE Microbiology Routine History of pulmonary embolism History of depression Encounter for care in first trimester of first 12/30/2021 1:57 PM EDT [facility] Work Phone: Chlamydia trachomatis+Neisseria gonorrhoeae DNA [Presence] in Unspecified specimen by JOBY with probe detection GC/CHLAMYDIA DNA DET Lab Routine History of pulmonary embolism History of depression Encounter for care in first trimester of first 12/30/2021 1:57 PM EDT [facility] Work Phone: OBSTETRIC ULTRASOUND [facility]I OBSTETRIC ULTRASOUND [facility] Anc Imaging Routine Encounter for supervision of normal first in second trimester Ordered: 01/27/2022 [facility] Work Phone: Comment on above: Ordered: 01/27/2022 PAP FLUID CERVICAL SCREENING PAP FLUID CERVICAL SCREENING Lab Routine History of pulmonary embolism History of depression Encounter for care in first trimester of first 12/30/2021 1:57 PM EDT [facility] Work Phone: [facility] Immunizations Immunization Date Immunization Notes Care Provider Jack jeffery 04-12-2010 influenza virus vaccine, unspecified formulation Raina Bonner OPERATOR COATING [employer]URNA[employer].CNM Work Phone: [facility] 09-04-2008 human papilloma viru s vaccine, quadrivalent Raina Plotdinesh OPERATOR COATING [employer]URNACE.CNM Work Phone: [facility] Work Phone: 03-19-2008 human papilloma viru s vaccine, quadrivalent Raina Plotts OPERATOR [employer]ATING [employer].CNM Work Phone: [facility] Work Phone: 01-17-2008 hepatitis A vaccine, unspecified formulation Raina Plotts OPERATOR [employer].CNM Work Phone: [facility] Work Phone: 01-17-2008 human papilloma viru s vaccine, quadrivalent Raina Plotts OPERATOR COATING [employer]URNACE.CNM Work Phone: [facility] Work Phone: 07-15-2007 hepatitis A vaccine, unspecified formulation Raina Bonner OPERATOR [employer].CNM Work Phone: [facility] Work Phone: 07-15-2007 Meningococcal, MCV4, unspecified conjugate formulation(groups A, C, Y and W-135) Raina Bonner OPERATOR [employer].CNM Work Phone: [facility] Work Phone: 07-15-2007 tetanus toxoid, redu ruchi diphtheria toxoid, and acellular pertussis vaccine, adsorbed Raina Bonner OPERATOR COATING [employer].CNM Work Phone: [facility] Work Phone: Payers Date Payer Category Payer Medicaid [id number] 2015 Private Health Insurance [id number] 1995 Unknown [id number] 2.16.84 0.1.475630.3.579.2.593 1993 Unknown [id number] 2.16.84 0.1.552868.3.579.2.593 1993 Unknown [id number] 2.16.84 0.1.144852.3.579.2.593 1993 Unknown [id number] 2.16.84 0.1.730395.3.579.2.593 1993 Unknown [id number] 2.16.84 0.1.543465.3.579.2.593 1993 Unknown [id number] 2.16.84 0.1.096355.3.579.2.593 1993 Unknown [id number] 2.16.84 0.1.476199.3.579.2.593 1993 Unknown [id number] 2.16.84 0.1.535909.3.579.2.593 1993 Unknown [id number] 2.16.84 0.1.884808.3.579.2.593 1993 Unknown [id number] 2.16.84 0.1.686012.3.579.2.593 1993 Unknown [id number] 2.16.84 0.1.043854.3.579.2.593 1993 Unknown [id number] 2.16.84 0.1.951107.3.579.2.593 1993 Unknown [id number] 2.16.84 0.1.936588.3.579.2.593 1993 Unknown [id number] 2.16.84 0.1.124453.3.579.2.1259 1993 Unknown [id number] 2.16.84 0.1.807400.3.579.2.1259 1993 Unknown [id number] 2.16.84 0.1.341715.3.579.2.1259 1993 Unknown [id number] 2.16.84 0.1.081505.3.579.2.1259 1993 Unknown [id number] 2.16.840 .1.178340.3.579.2.1259 1993 Unknown [id number] 2.16.840 .1.050351.3.579.2.1259 1961 Medicaid [id number] Social History Date Type Detail Facility Start: 01-27-2022 End: 01-10-2023 Tobacco smoking status [facility] Never smoked tobacco [facility] Start: 12-16-2021 End: 03-30-2022 Alcohol intake Current non-drinker of alcohol (finding) [facility] Start: 12-16-2021 Education 15 [facility] Start: 10-30-2021 [facility] Start: 1995 Sex Assigned At Female [facility] Start: 12-06-2021 End: 01-27-2022 Exposure to SARS-CoV-2 (event) Not sure [facility] Start: 01-27-2022 End: 01-10-2023 Tobacco use and exposure Smokeless tobacco non-user [facility] Start: 08-16-2023 Sex Assigned At [facility] Other Start: 07-01-2023 Alcohol intake Lifetime non-drinker (finding) [facility] Start: 01-13-2023 History of Social function [facility] Start: 12-17-2022 Gender identity Identifies as female gender (finding) [facility] Start: 12-17-2022 Sexual orientation Heterosexual (finding) [facility] Goals Date Patient Goal Desired Activity [...] nursing note reviewed. Exam conducted with a wood inspector present. Vitals: Estimated body mass index is [...] Rianna Quesada DO documented in this encounter [facility] 06-27-2023 Evaluation note Encounter Date Diagnosis Assessment [...] otherwise f/u with PCP INB despite tx. [facility] Other 02-12-2023 NotePROCEDURE: US PREG BIOPHYSICAL NO [...] Electronically authenticated by: NADINE ENCISO Date: 2022-07-12 07:58[facility]02-01-2023 History general Narrative - Reported* Type Description Date Medical History 21 weeks Hospitalization History CHILD 07/2022 [facility] Other 10-31-2022 Miscellaneous Notes* Telephone Encounter - Ike Teresa RN - 03/30/2022 10:22 AM EDT Patient transferred care to [facility] office. She was seen in our office for 2 visits.Please bill all visits if needed. Ike Teresa RN documented in this encounterOhiohealth08-30-2022 Miscellaneous Notes* Quick Notes - Serena Srinivasan [...] indicated Serena Srinivasan MD documented in this encounterOhiohealth08-30-2022 Instructions* Patient Instructions* Carlota Alexandre Ma - 01/27/2022 9:23 AM EDT SEQUENTIAL SCREENINGS The [facility] offers sequential screenings for women who are [...] testing. It will require an appointment withour master hearth technician. This is not an ultrasound performed [...] the above symptoms, contact our office at [phone] and ask to speak with anurse. After hours, you can call doctors registry at [phone] OR call [facility] at [phone] ask to have the doctor telephonic nurse paged. If you consider this an emergency, dial [phone] or go to your nearest emergency department. NEED HELP? Are you dealing with a violent or abusive relationship? Are you a victim of rape or sexual assult? Call [facility] ([place]) 24 hour Crisis Hotline: 386.647.8643 or 891-448-9441. MANUAL Your Guide to a Healthy manual is now on-line. Visit [email or web address] to download your free copy documented in this encounterOhiohealth08-02-2022 NoteHNO ID: [id number] Author: Lamont Pulido MD Service: ? Author [...] Multivitamin with Folic acid: Yes Occupation: Unemployed Zoroastrianism or heritage: No Would refuse blood transfusion if medically necessary: No No weight on file for this encounter. Patient BMI over 30? No Marital Status:getting but in a relationship w/ new partner and they tested paternity and are confident he is FOB Partner: Name: Giancarlo Age: 25 Occupation: [employer] Gender: male History of STDs: None PAST MEDICAL HISTORY Diagnosis Date - Anemia - Asthma - Blood dyscrasia - Depression - HPV test positive 03/31/2014 - MTHFR mutation - PE (pulmonary embolism) 12/29/2012 [facility], took Xarelto for 6+ months from [facility] - PMH - PAST MEDICAL HISTORY OF [...] she is considered at (more content not included)...[facility]08-02-2022 History of Present illness Narrative* Lamont Pulido [...] Multivitamin with Folic acid: Yes Occupation: Unemployed Zoroastrianism or heritage: No Would refuse blood transfusion if medically necessary: No No weight on file for this encounter. Patient BMI over 30? No Marital Status:getting but in a relationship w/ new partner and they tested paternity and are confident he is FOB Partner: Name: Giancarlo Age: 25 Occupation: [employer] Gender: male History of STDs: None PAST MEDICAL HISTORY Diagnosis Date Anemia Asthma Blood dyscrasia Depression HPV test positive 03/31/2014 MTHFR mutation PE (pulmonary embolism) 12/29/2012 [facility], took Xarelto for 6+ months from [facility] PMH - PAST MEDICAL HISTORY [...] prn. Lamont Pulido MD documented in this encounterOhiohealth08-02-2022 Instructions* Patient Instructions* Glenis Lee Ma - 12/30/2021 12:59 PM EDT Please select the following link to access the [facility] Your Guide to a Healthy . [email or web address] documented in this encounterOhiohealth07-19-2022 Miscellaneous Notes* Quick Notes - Anabel Bhardwaj [...] She states that she was hospitalized at [facility]. Shestates that she took Xarelto for 6+ months. She denies any other recurrences. She denies any familyhistory of blood clots.Pt has a history of depression/anxiety diagnosed at age 16. She states that she was hospitalized in [place] for a suicidal attempt in 2012 with [...] would like referral to services here at [facility]. I did talk to Raina Bonner about this. Patient was also given the mental health crisis phone number that is open 24 hours a day. Patient declines aneuploidy screening and genetic carrier screening testing.Anabel Bhardwaj RN documented in this encounterOhiohealth07-19-2022 Miscellaneous Notes* Addendum Note - Raina Bonner APRN.CNM - 12/16/2021 12:03 PM EDT Addended by: RAINA BONNER on: 12/16/2021 12:03 PM Modules accepted: Orders documented in this encounterOhiohealth07-19-2022 NoteHNO ID: [id number] Author: Raina Bonner APRN.CNM Service: ? Author Type: Director Of Personnel Type: Progress Notes Filed: 12/16/2021 9:39 AM Note Text: Elida Keenan is a 26 year old female who presents with missed menses. LMP was approximately 10/25/21. No control since 2018- only using condoms Currently but from . Was in open relationship and unsure of paternity. 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 PAST MEDICAL HISTORY Diagnosis Date - HPV test positive 03/2014 - MTHFR mutation - PE (pulmonary embolism) 12/2012 [facility], took Xarelto for 6+ months from [facility] - PMH - PAST MEDICAL [...] in right leg with hog fencing - [facility] - PAST MEDICAL HISTORY OF nosebleeds [...] weeks for NOB or sooner if needed Raian Bonner APRN.ALONZO I spent a total of 30 minutes on the date of the service which included preparing to see the patient, [id number] patient care, completing clinical documentation, obtaining and/or reviewing separately obtained history and counseling and educating the patient/family/caregiver Medical Decision Making Raina Bonner APRN.[facility] Instructions* Patient Instructions* Anabel Bhardwaj RN - 12/16/2021 10:11 AM EDT SEQUENTIAL SCREENINGS [facility] offers sequential screenings for women who are [...] testing. It will require an appointment withour master hearth technician. This is not an ultrasound performed [...] the above symptoms, contact our office at [phone] and ask to speak with anurse. After hours, you can call doctors registry at [phone] OR call [facility] at [phone] ask to have the doctor telephonic nurse paged. If you consider this an emergency, [...] treatment is particularly effective in young patients-the [facility] reports a 70 [...] issues. What do the experts say? The [place] [employer] encourages philanthropic blood banking [...] baby needs at the moment. The nurse, nike athlete, or physician will then label the samples, [...] AHEAD OF TIME! Public cord-blood herrmann--DONATION: [employer] [phone] [facility]'s Placental Blood Program, [facility] Umbilical Cord Blood Bank, Private cord-blood herrmann--SAVING FOR YOUR OWN USE: [employer], (I think this is the least expensive) [employer] [phone] [employer], (187) [employer] [place] [facility], [phone], [phone] [place] [employer], Cord Blood Registry, (725) [employer], An Internet search may provide you with additional listings. documented in this encounterOhiohealth07-19-2022 History of Present illness Narrative* Raina Bonner APRN.[facility] - 12/16/2021 8:46 AM EDT Elida Keenan is a 26 year old female who presents with missed menses. LMP was approximately 10/25/21. No control since 2018- only using condoms Currently but from . Was in open relationship and unsure of paternity. 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 PAST MEDICAL HISTORY Diagnosis Date HPV test positive 03/2014 MTHFR mutation PE (pulmonary embolism) 12/2012 [facility], took Xarelto for 6+ months from [facility] PMH - PAST MEDICAL HISTORY [...] which included preparing to see the patient, [id number] patient care, completing clinical documentation, obtaining and/or reviewing separately obtained history and counseling and educating the patient/family/caregiver Medical Decision Making Raina Bonner APRN.CNM documented in this encounterOhiohealth08-29-2013 History of Past illness Narrative* Problem Noted Date Resolved Date Pulmonary embolism 01/26/2013 01/19/2014 GERD (gastroesophageal reflux disease) 01/19/2014 Weight gain, abnormal 05/21/2010 04/04/2012 Abdominal pain, acute, epigastric 05/21/2010 04/04/2012 Shoulder disorder 05/02/2009 04/04/2012 Excessive or frequent menstruation 01/20/2008 04/04/2012 documented as of this encounter (statuses as of 12/16/2021) [facility]08-29-[facility] History of Past illness Narrative* Problem Noted Date Resolved Date Pulmonary embolism 01/26/2013 01/19/2014 GERD (gastroesophageal reflux disease) 01/19/2014 Weight gain, abnormal 05/21/2010 04/04/2012 Abdominal pain, acute, epigastric 05/21/2010 04/04/2012 Shoulder disorder 05/02/2009 04/04/2012 Excessive or frequent menstruation 01/20/2008 04/04/2012 documented as of this encounter (statuses as of 12/16/2021) [facility]-29-[facility] History of Past illness Narrative* Problem Noted Date Resolved Date Pulmonary embolism 01/26/2013 01/19/2014 GERD (gastroesophageal reflux disease) 1 01/19/2014 Weight gain, abnormal 05/21/2010 04/04/2012 Abdominal pain, acute, epigastric 05/21/2010 04/04/2012 Shoulder disorder 05/02/2009 04/04/2012 Excessive or frequent menstruation 01/20/2008 04/04/2012 documented as of this encounter (statuses as of 12/16/2021) [facility] History of Past illness Narrative* Problem Noted Date Resolved Date Pulmonary embolism 01/26/2013 01/19/2014 GERD (gastroesophageal reflux disease) 1 01/19/2014 Weight gain, abnormal 05/21/2010 04/04/2012 Abdominal pain, acute, epigastric 05/21/2010 04/04/2012 Shoulder disorder 05/02/2009 04/04/2012 Excessive or frequent menstruation 01/20/2008 04/04/2012 documented as of this encounter (statuses as of 12/30/2021) [facility] History of Past illness Narrative* Problem Noted Date Resolved Date Pulmonary embolism 01/26/2013 01/19/2014 GERD (gastroesophageal reflux disease) 1 01/19/2014 Weight gain, abnormal 05/21/2010 04/04/2012 Abdominal pain, acute, epigastric 05/21/2010 04/04/2012 Shoulder disorder 05/02/2009 04/04/2012 Excessive or frequent menstruation 01/20/2008 04/04/2012 documented as of this encounter (statuses as of 01/27/2022) [facility] History of Past illness Narrative* Problem Noted Date Resolved Date Pulmonary embolism 01/26/2013 01/19/2014 GERD (gastroesophageal reflux disease) 1 01/19/2014 Weight gain, abnormal 05/21/2010 04/04/2012 Abdominal pain, acute, epigastric 05/21/2010 04/04/2012 Shoulder disorder 05/02/2009 04/04/2012 Excessive or frequent menstruation 01/20/2008 04/04/2012 documented as of this encounter (statuses as of 03/30/2022) [facility] Missed menses- Primary Absence of menstruation Encounter for test, result positive examination or test, positive result History of depression Personal history of other mental disorder documented in this encounter [facility] note* Diagnosis Supervision of high risk , antepartum- Primary Patient request for diagnostic testing Other specified examination History of pulmonary embolism Personal history of pulmonary embolism History of depression Personal history of other mental disorder documented in this encounter [facility] note* Diagnosis History of pulmonary embolism- Primary Personal history of pulmonary embolism History of depression Personal history of other mental disorder Encounter for care in first trimester of first documented in this encounter [facility] note* Diagnosis 14 weeks gestation of - Primary state, incidental Encounter for supervision of normal first in second trimester Supervision of normal first documented in this encounter [facility] note* Diagnosis Second trimester state, incidental Diabetes mellitus screening Screening for diabetes mellitus [facility] Diagnostic Procedure Only (Routine) - Pending Review Specialty Diagnoses / Procedures Referred By Pavel nettles Referred To Contact [facility] Diagnoses Encounter for supervision of normal first in second trimester Procedures OBSTETRIC ULTRASOUND WHI US PREG UTERUS AFTER 1ST TRIMEST GESTATION Serena Srinivasan MD [address] [place] [address] [address] Referral ID Status Reason Start Date Expiration Date Visits Requested Visits Authorized [id number] Pending Review Auto-Generat ed Referral 01/27/2022 01/27/2023 1 1 [facility] Summary Purpose Family History No Family History Records FoundNo Family History Records FoundNo Family History Records FoundNo Family History Records Found Advance Directives No Advanced Directives Records FoundDocuments on File Type Date 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 Advance Directive(s) Health Concerns Problem Noted Date OB Reminders 12/17/2021 Problem Noted Date OB Reminders 12/17/2021 Problem Noted Date OB Reminders 12/17/2021 Additional Source Comments INFORMATION SOURCE (unrecogn ized section and content) DATE CREATED AUTHOR 11/24/2017 [facility] DATE CREATED AUTHOR AUTHOR'S ORGANIZ ATION 03/30/2022 [facility] DATE CREATED AUTHOR AUTHOR'S ORGANIZ ATION 10/07/2022 [facility] DATE CREATED AUTHOR AUTHOR'S ORGANIZ ATION 09/15/2023 [facility] EPIC Source Comments (unrecognize d section and content) In the event this informatio n is protected by the Federal Confidentiality of Alcohol and Drug Abuse Patient Records regulations: The Federal rules restrict any use of the information to criminally investigate or prosecute any alcohol or drug abuse patient.[facility]healthIn the event this information is protected by the Federal Confidentiality of Alcohol and Drug Abuse Patient Records regulations: The Federal rules restrict any use of the information to criminally investigate or prosecute any alcohol or drug abuse patient.[facility]healthIn the event this information is protected by the Federal Confidentiality of Alcohol and Drug Abuse Patient Records regulations: The Federal rules restrict any use of the information to criminally investigate or prosecute any alcohol or drug abuse patient.[facility]healthIn the event this information is protected by the Federal Confidentiality of Alcohol and Drug Abuse Patient Records regulations: The Federal rules restrict any use of the information to criminally investigate or prosecute any alcohol or drug abuse patient.[facility]healthIn the event this information is protected by the Federal Confidentiality of Alcohol and Drug Abuse Patient Records regulations: The Federal rules restrict any use of the information to criminally investigate or prosecute any alcohol or drug abuse patient.[facility]healthIn the event this information is protected by the Federal Confidentiality of Alcohol and Drug Abuse Patient Records regulations: The Federal rules restrict any use of the information to criminally investigate or prosecute any alcohol or drug abuse patient.[facility] Reason for Visit (unrecogniz ed section and content) Reason Comments Missed period Specialty Diagnoses / Procedures Referred By Pavel nettles Referred To Contact [facility] Diagnoses NEW PATIENT Procedures ANNUAL EXAM MD Bobo [facility] [address] [place] [address] Referral ID Status Reason Start Date Expiration Date Visits Requested Visits Authorized [id number] Authorized Financial Clearance Required - Self Pay Patient Cleared - Qualified 100% FAS 11/28/2021 02/26/2022 99 99 Reason Onset Date Comments Care 12/16/2021 Pre-New OB Reason Comments Initial OB Visit Reason Onset Date Comments Care 01/27/2022 Specialty Diagnoses / Procedures Referred By Pavel nettles Referred To Contact [facility] Diagnoses NEW PATIENT Procedures ANNUAL EXAM Self, MD Butt [facility] [place] [address] [place] [address] Reason Comments Transfer of Care Reason Comments Routine Visit Care Teams (unrecognized sec tion and content) Video Surveillance Technician Relationship Specialty Start Date End Date Martin Burgos, DO [address] [place] [address] PCP - General Family Practice 03/03/14 Video Surveillance Technician Relationship Specialty Start Date End Date Martin Burgos DO [address] [place] [address] PCP - General Family Practice 03/03/14 Video Surveillance Technician Relationship Specialty Start Date End Date Martin Burgos DO [address] [place] [address] PCP - General Family Practice 03/03/14 Video Surveillance Technician Relationship Specialty Start Date End Date Martin Burgos DO [address] [place] [address] PCP - General Family Practice 03/03/14 Video Surveillance Technician Relationship Specialty Start Date End Date Martin Burgos DO [address] [place] [address] PCP - General Family Practice 03/03/14 Video Surveillance Technician Relationship Specialty Start Date End Date Martin Burgos DO [address] [place] [address] PCP - General Family Medicine 03/03/14 Video Surveillance Technician Relationship Specialty Start Date End Date Rianna Quesada DO [address] [place], [place] [address] [address] PCP - [facility] 08/29/22 FOR RECORDS PERTAINING TO PATIENTS [...] BE BASED ON THE PRIMARY CLINICAL RECORDS. Dr. Z [facility]. provides no warranty or guarantee of the accuracy or completeness of information in this document.
--- NOTE | 2023-09-29 15:04 | US_ITS ---
[address] [address] Patient Name: RADHA KEENAN MRN: [id number] date: 1995 Sex: F Assigned Patient Location: [facility] Current Patient Location: [facility] Accession/Order Number: [id number] Exam Date: 09/29/2023 15:08 Report Date: 09/29/2023 15:56 At the request of: RIANNA LOREDO Procedure: US OB BPP w non-stress EXAMINATION: US OB BPP w non-stress HISTORY: Excessive growth COMPARISON: No relevant comparison available. TECHNIQUE: Ultrasound biophysical profile was performed in the radiology department. FINDINGS: BREATHING MOVEMENTS: 2.0 GROSS BODY MOVEMENTS: 2.0 TONE: 2.0 QUALITATIVE AMNIOTIC FLUID VOLUME: 2.0 PRESENTATION: CEPHALIC HEART RATE: 150.0 bpm H.B./min AMNIOTIC FLUID VOLUME: 19.1 cm cm GESTATIONAL AGE: 34 weeks 5 days CONCLUSION: Total biophysical profile score: 8.0 Electronically authenticated by: MICHAEL KIRK Date: 09/29/2023 15:56
[2023-09-29 15:36] VITALS: BP 119/72; PULSE 88
== END 2023-09-29 16:12 | disposition home or self-care (01) ==
LOC: US 07:17 → FBC 15:03
PROVIDERS: PCP Obstetrics & Gynecology; Visit Provider Obstetrics & Gynecology
DX: Z34.93 Encounter for supervision of normal pregnancy, unspecified, third trimester (principal); Z3A.34 34 weeks gestation of pregnancy
CPT/HCPCS: 76818

== ENCOUNTER 2023-10-06 07:30 | Outpatient (OUT) | payer MEDICAID, SELFPAY ==
--- NOTE | 2023-10-06 | US_ITS ---
[address] [address] Patient Name: RADHA KEENAN MRN: [id number] date: 1995 Sex: F Assigned Patient Location: US Current Patient Location: [place] Accession/Order Number: [id number] Exam Date: 10/06/2023 15:15 Report Date: 10/07/2023 07:38 At the request of: RIANNA LOREDO Procedure: US OB BPP w non-stress EXAMINATION: US OB BPP w non-stress HISTORY: EXCESSIVE GROWTH O36.63X0 COMPARISON: Ultrasound OB biophysical 09/29/2023 TECHNIQUE: Ultrasound biophysical profile was performed in the radiology department. BREATHING MOVEMENTS: 2.0 GROSS BODY MOVEMENTS: 2.0 TONE: 2.0 QUALITATIVE AMNIOTIC FLUID VOLUME: 2.0 PRESENTATION: CEPHALIC HEART RATE: 133.0 bpm bpm. AMNIOTIC FLUID VOLUME: 17.3 cm GESTATIONAL AGE: 35 weeks 5 days CONCLUSION: Total biophysical profile score 8.0. Electronically authenticated by: SCARLET TIAN Date: 10/07/2023 07:38
--- OUTSIDE RECORDS SUMMARY | 2023-10-06 07:33 | XMS_ITS | CCD ---
Author Organization [facility] Care Team Providers Care Cellar Hand Name Role Phone HARISH, AN E. Unavailable Unavailable DON PEERZ Unavailable Unavailable HARISH, AN E. Unavailable Unavailable [...] Unavailable MARTIN BURGOS Primary Care Unavailable DR LOBITO RODRIGUEZ Consulting Unavailable DIPAK ., DR BLANCA Attending Unavailable [facility] DR BYRNE Primary Care Unavailable DR LOBITO RODRIGUEZ Admitting Unavailable ADAN ., ISABEL Admitting Unavailable ADAN ., ISABEL Attending Unavailable YELENA, DR MICHAEL Siddiqui Consulting Unavailable MISC, DR BYRNE Primary Care Unavailable ADAN ., ISABEL Consulting Unavailable ADAN ., ISABEL Consulting Unavailable ADAN ., ISABEL Attending Unavailable SOLISC, DR BYRNE Primary Care Unavailable ADAN ., ISABEL Admitting Unavailable DIPAK ., DR BLANCA Attending Unavailable DIAPK ., DR BLANCA Admitting Unavailable DIPAK ., [...] BLANCA Consulting Unavailable Brown, Lyndsey Unavailable Dipak Lobito TRACY Unavailable ADAN, ISABEL Attending Unavailable DIPAK, LOBITO Attending Unavailable ADAN, ISABEL Attending Unavailable DIPAK, LOBITO Attending Unavailable ADAN, ISABEL Attending Unavailable DIPAKLOBITO Attending Unavailable DIPAKLOBITO Attending Unavailable Allergies Allergy Classification Reported Allergen(s) Allergy Type Date of Onset Reaction(s) Facility (6 sources) environmental [Other] Propensity to adverse reactions 8 [facility] Work Phone: (3 sources) OTHER; Translations: [OTHER] Propensity to adverse reactions (disorder) 8 [facility] Repository Medications Current Medications Medication Drug [...] 1 tablet by jorge th once daily. ondansetron 4 mg disintegrating oral [...] Drug Class(es) Dates Sig (Normalized) Sig (Original) [id number] 200 actuat albuterol 0.09 mg/actuat metered dose [...] Negative Negative - 4(7 0) +++ mg/dL [facility] Blood, UA Negative Negative - 50 Bartolo/mcL [facility] Clarity, UA Clear [facility] Color, UA Yellow [facility] Glucose, UA Negative Negative - 1999(110) ++++ mg/dL [facility] Interpretation and review of laboratory results Normal [facility] re Ketones, UA Negative Negative - 160(16) ++++ mg/dL [facility] Leukocytes, UA Negative Negative - 500+++ Mary/mcL [facility] Nitrite, UA Negative Negative - Positive [facility] pH, UA 7.0 5 - 9 [facility] e Protein, UA Negative Negative - 1999(20) ++++ mg/dL [facility] Spec Grav, UA 1.020 1 - 1.03 [facility] Urobilinogen, UA 0.2 0.2 - 12 mg/dL [facility] COVID + FLU Quick Testingon 06-27-2023 SARS-CoV-2 (COVID-19) RNA JOBY+probe Ql (Unsp spec) Negative [facility] [employer] Other COVID + FLU Quick Testing Negative [facility] [employer] Other CULTURE URINEon 10-06-2022 CULTURE URINE Isolate [...] F Trimethoprim/Sulfam ethoxazole <=20 S F Normal [facility] Comment on above: Performed By: #### U RCX #### [facility] [address] [place] [address] Dr. Brando Betancourt CBC AUTO DIFFon 10-03-2022 BASO # 0.0 103/ul Normal 0.0-0.1 [facility] Comment on above: Performed By: #### H BSANS #### [facility] [address] [place] [address] Dr. Brando Betancourt Basophils/100 WBC (Bld) 0.3 % Normal 0.2-2.0 [facility] Comment on above: Performed By: #### H BSANS #### [facility] [address] [place] [address] Dr. Brando Betancourt EO # 0.2 103/ul Normal 0.0-0.7 [facility] Comment on above: Performed By: #### H BSANS #### [facility] [address] [place] [address] Dr. Brando Betancourt Eosinophils/100 WBC (Bld) 1.5 % Normal 0.9-7.0 [facility] Comment on above: Performed By: #### H BSANS #### [facility] [address] [place] [address] Dr. Brando Betancourt Erythrocyte distribution width (RBC) [Ratio] 12.6 % Normal 11.0-15.0 [facility] Comment on above: Performed By: #### H BSANS #### [facility] [address] [place] [address] Dr. Brando Betancourt Hematocrit (Bld) [Volume fraction] 38.3 % Normal 36.0-48.0 [facility] Comment on above: Performed By: #### H BSANS #### [facility] [address] [place] [address] Dr. Brando Betancourt Hemoglobin (Bld) [Mass/Vol] 12.8 g/dL Normal 12.0-16.0 [facility] Comment on above: Performed By: #### H BSANS #### [facility] [address] [place], [place] [id number] Dr. Brando Betancourt IG # 0.03 10e3/ul Normal 0.00-0.03 [facility] Comment on above: Performed By: #### H BSANS #### [facility] [address] [place] [address] Dr. Brando Betancourt IG % 0.3 % Normal 0.0-0.5 [facility] Comment on above: Performed By: #### H BSANS #### [facility] [address] [place] [address] Dr. Brando Betancourt LYMPH # 1.4 103/ul Normal 1.2-3.8 [facility] Comment on above: Performed By: #### H BSANS #### [facility] [address] [place] [address] Dr. Brando Betancourt Lymphocytes/100 WBC (Bld) 13.2 % Critically low 20.5-60.0 [facility] Comment on above: Performed By: #### H BSANS #### [facility] [address] [place] [address] Dr. Brando Betancourt MANUAL DIFF REQ NO Normal [facility] Comment on above: Performed By: #### H BSANS #### [facility] [address] [place] [address] Dr. Brando Betancourt MCH (RBC) [Entitic mass] 28.6 pg Normal 26.7-34.0 [facility] Comment on above: Performed By: #### H BSANS #### [facility] [address] [place] [address] Dr. Brando Betancourt MCHC (RBC) [Mass/Vol] 33.4 g/dL Normal 29.9-35.2 [facility] Comment on above: Performed By: #### H BSANS #### [facility] [address] [place] [address] Dr. Brando Betancourt MCV (RBC) [Entitic vol] 85.5 fL Normal 81.0-99.0 [facility] Comment on above: Performed By: #### H BSANS #### [facility] [address] [place] [address] Dr. Brando Betancourt MONO # 0.7 103/ul Normal 0.3-0.8 [facility] Comment on above: Performed By: #### H BSANS #### [facility] [address] [place] [address] Dr. Brando Betancourt Monocytes/100 WBC (Bld) 7.0 % Normal 1.7-12.0 [facility] Comment on above: Performed By: #### H BSANS #### [facility] [address] [place] [address] Dr. Brando Betancourt NEUT # 8.3 103/ul Critically high 1.4-6.5 [facility] Comment on above: Performed By: #### H BSANS #### [facility] [address] [place] [address] Dr. Brando Betancourt Neutrophils/100 WBC (Bld) 77.7 % Critically high 43.0-75.0 [facility] Comment on above: Performed By: #### H BSANS #### [facility] [address] [place] [address] Dr. Brando Betancourt Platelet mean volume (Bld) [Entitic vol] 8.5 fL Critically low 9.5-13.5 [facility] Comment on above: Performed By: #### H BSANS #### [facility] [address] [place] [address] Dr. Brando Betancourt PLT 263 103/ul Normal 150-450 [facility] Comment on above: Performed By: #### H BSANS #### [facility] [address] [place] [address] Dr. Brando Betancourt RBC 4.48 106/ul Normal 4.20-5.40 [facility] Comment on above: Performed By: #### H BSANS #### [facility] [address] [place] [address] Dr. Brando Betancourt WBC 10.6 103/ul Normal 4.0-11.0 [facility] Comment on above: Performed By: #### H BSANS #### [facility] [address] [place] [address] ABD/PELVIS WO CONon [...] RONNY CUMMINGS Date: 2022-10-03 18:56 Normal [facility] ER URINE PROFILEon 3 Bilirubin Ql (U) Negative Normal NEGATIVE [facility] Comment on above: Performed By: #### H BSANS #### [facility] [address] [place] [address] Dr. Brando Betancourt Clarity (U) SL CLOUDY Abnormal CLEAR [facility] Comment on above: Performed By: #### H BSANS #### [facility] [address] [address] [address] Brando Betancourt Color (U) YELLOW Normal YELLOW [facility] Comment on above: Performed By: #### H BSANS #### [facility] [address] [address] [address] Brando Betancourt ERUAHD A micrscopic examination will be performed if indicated. Normal [facility] Comment on above: Performed By: #### H BSANS #### [facility] [address] [address] [address] Brando Betancourt Glucose Ql (U) Negative Normal NEGATIVE [facility] Comment on above: Performed By: #### H BSANS #### [facility] [address] [address] [address] Brando Betancourt Hemoglobin Ql (U) MODERATE Abnormal NEGATIVE [facility] Comment on above: Performed By: #### H BSANS #### [facility] [address] [address] [address] Brando Betancourt Ketones Ql (U) Negative Normal NEGATIVE [facility] Comment on above: Performed By: #### H BSANS #### [facility] [address] [address] [address] Brando Betancourt LEUKOCYTES LARGE Abnormal NEGATIVE [facility] Comment on above: Performed By: #### H BSANS #### [facility] [address] [address] [address] Brando Betancourt Nitrite Ql (U) Negative Normal NEGATIVE [facility] Comment on above: Performed By: #### H BSANS #### [facility] [address] [address] [address] Brando Betancourt pH (U) 6.0 [pH] Normal 5-9 [facility] Comment on above: Performed By: #### H BSANS #### [facility] [address] [address] [address] Brando Betancourt Protein (U) [Mass/Vol] 100 mg/dL Abnormal NEGATIVE/ TRACE [facility] Comment on above: Performed By: #### H BSANS #### [facility] [address] [address] [address] Brando Betancourt SPEC GRAVITY 1.025 Normal 1.005-<=1.025 [facility] Comment on above: Performed By: #### H BSANS #### [facility] [address] [address] [address] Brando Betancourt UR MICRO IND INDICATED Normal [facility] Comment on above: Performed By: #### H BSANS #### [facility] [address] [address] [address] Brando Betancourt Urobilinogen Qn (U) 0.2 {Arturo'U}/dL Normal 0.2 - 1. 0 [facility] Comment on above: Performed By: #### H BSANS #### [facility] [address] [place] [address] Dr. Brando Betancourt URon 10-03-2022 , QUAL Negative Normal NEGATIVE [facility] Comment on above: Performed By: #### H BSANS #### [facility] [address] [place] [address] Dr. Brando Betancourt PROF CHEM 8 (BAS METB)on Anion gap [Moles/Vol] 11.8 mmol/L Normal [facility] Comment on above: Performed By: #### C BC #### [facility] [address] [place] [address] Dr. Brando Betancourt Calcium [Mass/Vol] 9.1 mg/dL Normal 8.5-10.1 [facility] Comment on above: Performed By: #### C BC #### [facility] [address] [place] [address] Dr. Brando Betancourt Chloride [Moles/Vol] 99 mmol/L Normal 98-107 [facility] Comment on above: Performed By: #### C BC #### [facility] [address] [place] [address] Dr. Brando Betancourt CO2 [Moles/Vol] 29.9 mmol/L Normal 21.0-32.0 [facility] Comment on above: Performed By: #### C BC #### [facility] [address] [address] [address] Brando Betancourt Creatinine [Mass/Vol] 0.89 mg/dL Normal 0.55-1.02 [facility] Comment on above: Performed By: #### C BC #### [facility] [address] [place] [address] Dr. Brando Betancourt EGFR-AF BERMUDIAN >60 Normal >=60 [facility] Comment on above: Performed By: #### C BC #### [facility] [address] [place] [address] Dr. Brando Betancourt EGFR-NON AF BERMUDIAN >60 Normal >=60 [facility] Comment on above: Performed By: #### C BC #### [facility] [address] [place] [address] Dr. Brando Betancourt Glucose [Mass/Vol] 122 mg/dL Critically high 74-106 [facility] Comment on above: Performed By: #### C BC #### [facility] [address] [place] [address] Dr. Brando Betancourt Potassium [Moles/Vol] 3.7 mmol/L Normal 3.5-5.1 [facility] Comment on above: Performed By: #### C BC #### [facility] [address] [place] [address] Dr. Brando Betancourt Sodium [Moles/Vol] 137 mmol/L Normal 136-145 [facility] Comment on above: Performed By: #### C BC #### [facility] [address] [place] [address] Dr. Brando Betancourt Urea nitrogen [Mass/Vol] 17.0 mg/dL Normal 7.0-18.0 [facility] Comment on above: Performed By: #### C BC #### [facility] [address] [place] [address] Dr. Brando Betancourt Urea nitrogen/Creatinine [Mass ratio] 19.1 mg/mg Normal [facility] Comment on above: Performed By: #### C BC #### [facility] [address] [place] [address] Dr. Brando Betancourt URINE MICROSCOPIC ONLYon BACTERIA TRACE Abnormal NONE SEEN [facility] Comment on above: Performed By: #### H BSANS #### [facility] [address] [place] [address] Dr. Brando Betancourt Bacteria identified Cx Nom (U) INDICATED Normal [facility] Comment on above: Performed By: #### H BSANS #### [facility] [address] [place] [address] Dr. Brando Betancourt CAST NONE SEEN Normal NONE SEEN [facility] Comment on above: Performed By: #### H BSANS #### [facility] [address] [place] [address] Dr. Brando Betancourt Crystals LM Nom (Urine sed) NONE SEEN Normal NONE SEEN [facility] Comment on above: Performed By: #### H BSANS #### [facility] [address] [place] [address] Dr. Brando Betancourt Epithelial cells LM Ql (Urine sed) RARE Normal NONE SEEN /RARE [facility] Comment on above: Performed By: #### H BSANS #### [facility] [address] [place] [address] Dr. Brando Betancourt MUCOUS NONE SEEN Normal NONE SEEN [facility] Comment on above: Performed By: #### H BSANS #### [facility] [address] [place] [address] Dr. Brando Betancourt RBC 5-10 Abnormal 0-2 [facility] Comment on above: Performed By: #### H BSANS #### [facility] [address] [place] [address] Dr. Brando Betancourt WBC 50-75 Abnormal NONE SEEN [facility] Comment on above: Performed By: #### H BSANS #### [facility] [address] [place] [address] Dr. Brando Betancourt CBC AUTO DIFFon 07-14-2022 BASO # 0.0 103/ul Normal 0.0-0.1 [facility] Comment on above: Performed By: #### C BC #### [facility] [address] [place] [address] Dr. Brando Betancourt Basophils/100 WBC (Bld) 0.2 % Normal 0.2-2.0 [facility] Comment on above: Performed By: #### C BC #### [facility] [address] [place] [address] Dr. Brando Betancourt EO # 0.0 103/ul Normal 0.0-0.7 [facility] Comment on above: Performed By: #### C BC #### [facility] [address] [place] [address] Dr. Brando Betancourt Eosinophils/100 WBC (Bld) 0.3 % Critically low 0.9-7.0 [facility] Comment on above: Performed By: #### C BC #### [facility] [address] [place] [address] Dr. Brando Betancourt Erythrocyte distribution width (RBC) [Ratio] 13.0 % Normal 11.0-15.0 [facility] Comment on above: Performed By: #### C BC #### [facility] [address] [place] [address] Dr. Brando Betancourt Hematocrit (Bld) [Volume fraction] 28.8 % Critically low 36.0-48.0 [facility] Comment on above: Performed By: #### C BC #### [facility] [address] [place] [address] Dr. Brando Betancourt Hemoglobin (Bld) [Mass/Vol] 9.7 g/dL Critically low 12.0-16.0 [facility] Comment on above: Performed By: #### C BC #### [facility] [address] [place] [address] Dr. Brando Betancourt IG # 0.04 10e3/ul Critically high 0.00-0.03 [facility] Comment on above: Performed By: #### C BC #### [facility] [address] [place] [address] Dr. Brando Betancourt IG % 0.4 % Normal 0.0-0.5 [facility] Comment on above: Performed By: #### C BC #### [facility] [address] [place] [address] Dr. Brando Betancourt LYMPH # 1.6 103/ul Normal 1.2-3.8 [facility] Comment on above: Performed By: #### C BC #### [facility] [address] [place] [address] Dr. Brando Betancourt Lymphocytes/100 WBC (Bld) 15.0 % Critically low 20.5-60.0 [facility] Comment on above: Performed By: #### C BC #### [facility] [address] [place] [address] Dr. Brando Betancourt MANUAL DIFF REQ NO Normal [facility] Comment on above: Performed By: #### C BC #### [facility] [address] [place] [address] Dr. Brando Betancourt MCH (RBC) [Entitic mass] 30.0 pg Normal 26.7-34.0 [facility] Comment on above: Performed By: #### C BC #### [facility] [address] [place] [address] Dr. Brando Betancourt MCHC (RBC) [Mass/Vol] 33.7 g/dL Normal 29.9-35.2 [facility] Comment on above: Performed By: #### C BC #### [facility] [address] [place] [address] Dr. Brando Betancourt MCV (RBC) [Entitic vol] 89.2 fL Normal 81.0-99.0 [facility] Comment on above: Performed By: #### C BC #### [facility] [address] [place] [address] Dr. Brando Betancourt MONO # 0.6 103/ul Normal 0.3-0.8 [facility] Comment on above: Performed By: #### C BC #### [facility] [address] [place] [address] Dr. Brando Betancourt Monocytes/100 WBC (Bld) 5.6 % Normal 1.7-12.0 [facility] Comment on above: Performed By: #### C BC #### [facility] [address] [place] [address] Dr. Brando Betancourt NEUT # 8.6 103/ul Critically high 1.4-6.5 [facility] Comment on above: Performed By: #### C BC #### [facility] [address] [place] [address] Dr. Brando Betancourt Neutrophils/100 WBC (Bld) 78.5 % Critically high 43.0-75.0 [facility] Comment on above: Performed By: #### C BC #### [facility] [address] [place] [address] Dr. Brando eBtancourt Platelet mean volume (Bld) [Entitic vol] 11.2 fL Normal 9.5-13.5 [facility] Comment on above: Performed By: #### C BC #### [facility] [address] [place] [address] Dr. Brando Betancourt PLT 143 103/ul Critically low 150-450 [facility] Comment on above: Performed By: #### C BC #### [facility] [address] [place] [address] Dr. Brando Betancourt RBC 3.23 106/ul Critically low 4.20-5.40 [facility] Comment on above: Performed By: #### C BC #### [facility] [address] [place] [address] Dr. Brando Betancourt WBC 10.9 103/ul Normal 4.0-11.0 [facility] Comment on above: Performed By: #### C BC #### [facility] [address] [place] [address] Dr. Brando Betancourt AMNISUREon 07-12-2022 AMNISURE Negative Normal NEGATIVE [facility] Comment on above: Performed By: #### H BSANS #### [facility] [address] [place] [address] Dr. Bradno Betancourt CBC AUTO DIFFon 07-12-2022 BASO # 0.0 103/ul Normal 0.0-0.1 [facility] Comment on above: Performed By: #### C BC #### [facility] [address] [place] [address] Dr. Brando Betancourt Basophils/100 WBC (Bld) 0.1 % Critically low 0.2-2.0 [facility] Comment on above: Performed By: #### C BC #### [facility] [address] [place] [address] Dr. Brando Betancourt EO # 0.1 103/ul Normal 0.0-0.7 [facility] Comment on above: Performed By: #### C BC #### [facility] [address] [place] [address] Dr. Brando Betancourt Eosinophils/100 WBC (Bld) 0.7 % Critically low 0.9-7.0 [facility] Comment on above: Performed By: #### C BC #### [facility] [address] [place] [address] Dr. Brando Betancourt Erythrocyte distribution width (RBC) [Ratio] 12.6 % Normal 11.0-15.0 [facility] Comment on above: Performed By: #### C BC #### [facility] [address] [place] [address] Dr. Brando Betancourt Hematocrit (Bld) [Volume fraction] 29.4 % Critically low 36.0-48.0 [facility] Comment on above: Performed By: #### C BC #### [facility] [address] [place] [address] Dr. Brando Betancourt Hemoglobin (Bld) [Mass/Vol] 10.0 g/dL Critically low 12.0-16.0 [facility] Comment on above: Performed By: #### C BC #### [facility] [address] [place] [address] Dr. Brando Betancourt IG # 0.04 10e3/ul Critically high 0.00-0.03 [facility] Comment on above: Performed By: #### C BC #### [facility] [address] [place] [address] Dr. Brando Betancourt IG % 0.4 % Normal 0.0-0.5 [facility] Comment on above: Performed By: #### C BC #### [facility] [address] [place] [address] Dr. Brando Betancorut LYMPH # 1.3 103/ul Normal 1.2-3.8 [facility] Comment on above: Performed By: #### C BC #### [facility] [address] [place] [address] Dr. Brando Betancourt Lymphocytes/100 WBC (Bld) 11.8 % Critically low 20.5-60.0 [facility] Comment on above: Performed By: #### C BC #### [facility] [address] [place] [address] Dr. Brando Betancourt MANUAL DIFF REQ NO Normal [facility] Comment on above: Performed By: #### C BC #### [facility] [address] [place] [address] Dr. Brando Betancourt MCH (RBC) [Entitic mass] 30.1 pg Normal 26.7-34.0 [facility] Comment on above: Performed By: #### C BC #### [facility] [address] [place] [address] Dr. Brando Betancourt MCHC (RBC) [Mass/Vol] 34.0 g/dL Normal 29.9-35.2 [facility] Comment on above: Performed By: #### C BC #### [facility] [address] [place] [address] Dr. Brando Betancourt MCV (RBC) [Entitic vol] 88.6 fL Normal 81.0-99.0 [facility] Comment on above: Performed By: #### C BC #### [facility] [address] [place] [address] Dr. Brando Betancourt MONO # 0.7 103/ul Normal 0.3-0.8 [facility] Comment on above: Performed By: #### C BC #### [facility] [address] [place] [address] Dr. Brando Betancourt Monocytes/100 WBC (Bld) 6.9 % Normal 1.7-12.0 [facility] Comment on above: Performed By: #### C BC #### [facility] [address] [place] [address] Dr. Brando Betancourt NEUT # 8.6 103/ul Critically high 1.4-6.5 [facility] Comment on above: Performed By: #### C BC #### [facility] [address] [place] [address] Dr. Brando Betancourt Neutrophils/100 WBC (Bld) 80.1 % Critically high 43.0-75.0 [facility] Comment on above: Performed By: #### C BC #### [facility] [address] [place] [address] Dr. Brando Betancourt Platelet mean volume (Bld) [Entitic vol] 11.3 fL Normal 9.5-13.5 [facility] Comment on above: Performed By: #### C BC #### [facility] [address] [place] [address] Dr. Brando Betancourt PLT 149 103/ul Critically low 150-450 [facility] Comment on above: Performed By: #### C BC #### [facility] [address] [address] [address] Brando Betancourt RBC 3.32 106/ul Critically low 4.20-5.40 [facility] Comment on above: Performed By: #### C BC #### [facility] [address] [place] [address] Dr. Brando Betancourt WBC 10.7 103/ul Normal 4.0-11.0 [facility] Comment on above: Performed By: #### C BC #### [facility] [address] [place] [address] Dr. Brando Betancourt TYPE AND SCREENon 07-12-2022 TYPE AND SCREEN Negative Normal [facility] Comment on above: Performed By: #### T NS #### [facility] [address] [place] [address] Dr. Brando Betancourt US PREG AMNIOTIC FLUID [...] MICHAEL KIRK Date: 2022-07-12 07:56 Normal [facility] AMNISUREon 07-11-2022 AMNISURE Positive Abnormal NEGATIVE [facility] Comment on above: Performed By: #### A MNI #### [facility] [address] [place] [address] Dr. Brando Betancourt DRUG SCREEN RAPID (URINE)on 07-11-2022 AMP Negative Normal NEGATIVE [facility] Comment on above: Performed By: #### H BSANS #### [facility] [address] [address] [address] Brando Betancourt BAR Negative Normal NEGATIVE [facility] Comment on above: Performed By: #### H BSANS #### [facility] [address] [address] [address] Brando Betancourt BUP Negative Normal NEGATIVE [facility] Comment on above: Performed By: #### H BSANS #### [facility] [address] [address] [address] Brando Betancourt BZO Negative Normal NEGATIVE [facility] Comment on above: Performed By: #### H BSANS #### [facility] [address] [place] [address] Dr. Brando Betancourt JHONY Negative Normal NEGATIVE [facility] Comment on above: Performed By: #### H BSANS #### [facility] [address] [place] [address] Dr. Brando Betancourt CUT-OFFS SEE BELOW Normal [facility] Comment on above: Result Comment: AMP [...] ng/mL Performed By: #### H BSANS #### [facility] [address] [place] [address] Dr. Brando Betancourt DRUG CUT HEADER DRUG CLASS TEST SYSTEM CUT-OFF CONCENTRATIONS ARE FOLLOWS: Normal [facility] Comment on above: Performed By: #### H BSANS #### [facility] [address] [place] [address] Dr. Brando Betancourt mAMP Negative Normal NEGATIVE [facility] Comment on above: Performed By: #### H BSANS #### [facility] [address] [address] [address] Brando Betancourt MTD Negative Normal NEGATIVE [facility] Comment on above: Performed By: #### H BSANS #### [facility] [address] [place] [address] Dr. Brando Betancourt OPI Negative Normal NEGATIVE [facility] Comment on above: Performed By: #### H BSANS #### [facility] [address] [place] [address] Dr. Brando Betancourt OXY Negative Normal NEGATIVE [facility] Comment on above: Performed By: #### H BSANS #### [facility] [address] [place] [address] Dr. Brando Betancourt PCP Negative Normal NEGATIVE [facility] Comment on above: Performed By: #### H BSANS #### [facility] [address] [place] [address] Dr. Brando Betancourt PPX Negative Normal NEGATIVE [facility] Comment on above: Performed By: #### H BSANS #### [facility] [address] [place] [address] Dr. Brando Betancourt TCA Negative Normal NEGATIVE [facility] Comment on above: Performed By: #### H BSANS #### [facility] [address] [place] [address] Dr. Brando Betancourt THC Negative Normal NEGATIVE [facility] Comment on above: Performed By: #### H BSANS #### [facility] [address] [place] [address] Dr. Brando Betancourt UA (CLEAN/CATCH) BRAND AMBASS[employer]OR PROMOTIONAL MODEL/MICRO I F IND.on 07-11-2022 Bilirubin Ql (U) Negative Normal NEGATIVE [facility] Comment on above: Performed By: #### C T/NGNA #### [facility] [address] [place] [address] Dr. Brando Betancourt Clarity (U) CLEAR Normal CLEAR [facility] Comment on above: Performed By: #### C T/NGNA #### [facility] [address] [place] [address] Dr. Brando Betancourt Color (U) LT. YELLOW Normal YELLOW [facility] Comment on above: Performed By: #### C T/NGNA #### [facility] [address] [place] [address] Dr. Brando Betancourt Glucose Ql (U) Negative Normal NEGATIVE [facility] Comment on above: Performed By: #### C T/NGNA #### [facility] [address] [place] [address] Dr. Brando Betancourt Hemoglobin Ql (U) Negative Normal NEGATIVE [facility] Comment on above: Performed By: #### C T/NGNA #### [facility] [address] [place] [address] Dr. Brando Betancourt Ketones Ql (U) Negative Normal NEGATIVE [facility] Comment on above: Performed By: #### C T/NGNA #### [facility] [address] [place] [address] Dr. Brando Betancourt LEUKOCYTES Negative Normal NEGATIVE [facility] Comment on above: Performed By: #### C T/NGNA #### [facility] [address] [place] [address] Dr. Brando Betancourt Nitrite Ql (U) Negative Normal NEGATIVE [facility] Comment on above: Performed By: #### C T/NGNA #### [facility] [address] [place] [address] Dr. Brando Betancourt pH (U) 7.0 [pH] Normal 5-9 [facility] Comment on above: Performed By: #### C T/NGNA #### [facility] [address] [place] [address] Dr. Brando Betancourt SPEC GRAVITY <=1.005 Abnormal 1.005-<=1.025 [facility] Comment on above: Performed By: #### C T/NGNA #### [facility] [address] [place] [address] Dr. Brando Betancourt UA PROTEIN Negative Normal NEGATIVE/ TRACE [facility] Comment on above: Performed By: #### C T/NGNA #### [facility] [address] [place] [address] Dr. Brando Betancourt UR MICRO IND NOT INDICATED Normal [facility] Comment on above: Performed By: #### C T/NGNA #### [facility] [address] [place] [address] Dr. Brando Betancourt Urobilinogen Qn (U) 0.2 {Arturo'U}/dL Normal 0.2 - 1. 0 [facility] Comment on above: Performed By: #### C T/NGNA #### [facility] [address] [place] [address] Dr. Brando Betancourt CHLAMYDIA/GONOCOCCUS JOBY ( AB/URINE/PAPon 06-25-2022 Chlamydia trachomatis, JOBY Negative Normal Negative [facility] Comment on above: Performed By: #### C T/NGNA #### [facility] [address] [place] [address] Dr. Brando Betancourt Neisseria gonorrhoeae, JOBY Negative Normal Negative [facility] Comment on above: Performed By: #### C T/NGNA #### [facility] [address] [place] [address] Dr. Brando Betancourt VAGINITIS/VAGINOSIS DNA PROB Zenon 06-25-2022 Eugenia species Negative Normal Negative [facility] Comment on above: Performed By: #### C T/NGNA #### [facility] [address] [place] [address] Dr. Brando Betancourt Gardnerella vaginalis Negative Normal Negative [facility] Comment on above: Performed By: #### C T/NGNA #### [facility] [address] [place] [address] Dr. Brando Betancourt Trichomonas vaginalis Negative Normal Negative [facility] Comment on above: Performed By: #### C T/NGNA #### [facility] [address] [place] [address] Dr. Brando Betancourt GROUP B STREP CULTUREon 06-01 S. agalactiae Ag Ql (Unsp spec) Culture Observations: NEGATIVE FOR GROUP B STREPTOCOCCUS. Normal [facility] Comment on above: Performed By: #### C T/NGNA #### [facility] [address] [address] [address] Brando Betancourt CULTURE URINEon 06-09-2022 CULTURE URINE Culture Observations: NO GROWTH. Normal [facility] Comment on above: Performed By: #### U RCX #### [facility] [address] [address] [address] Brando Betancourt US PREG GROWTHon 06-09-2022 [...] by: MICHAEL KIRK Date: 2022-06-09 10:31 Normal [facility] HEP B SURFACE ANTIGEN SCREEN on 05-13-2022 HBsAg Screen Negative Normal Negative [facility] Comment on above: Performed By: #### H BSANS #### [facility] [address] [address] [address] Brando Betancourt HEPATITIS C VIRUS AB W/ REFL EX QUANTon 05-13-2022 HCV AB <0.1 Normal 0.0-0.9 [facility] Comment on above: Performed By: #### H BSANS #### [facility] [address] [address] [address] Brando Betancourt Interpretation: Comment Normal [facility] Comment on above: Result Comment: Nega tive Not infected with HCV, unless recent infection is suspected or other evidence exists to indicate HCV infection. Performed By: #### H DWAINENS #### [facility] [address] [place] [address] Dr. Brando Betancourt HIV 1 AND 2 WITH REFLEXon HIV Screen 4th Generation wRfx Non-Reactive Normal Non Reactive [facility] Comment on above: Result Comment: HIV Negative HIV-1/HIV-2 antibodies and HIV-1 p24 antigen were NOT detected. There is no laboratory evidence of HIV infection. Performed By: #### C BC #### [facility] [address] [place] [address] Dr. Brando Betancourt RPR QUANTon 05-13-2022 Rapid Plasma Reagin, Quant Non-Reactive Normal NonRea<1:1 [facility] Comment on above: Result Comment: Plea se Note: This test does not meet current guidelines for screening and diagnosis of syphilis. This test is intended for following treatment response in patients being treated for syphilis infection. To screen for syphilis infection, a reflex cascade that includes both RPR and a treponema-specific assay should be utilized, such as Treponema pallidum (Syphilis) Screening [place] (587193) or Rapid Plasma Reagin (RPR) Test With Reflex to Quantitative RPR and Confirmatory Treponema pallidum Antibodies (708622). Performed By: #### H BSANS #### [facility] [address] [place] [address] Dr. Brando Betancourt RUBELLA AB IGGon 05-13-2022 Rubella Antibodies, IgG 1.64 index Normal Immune >0.99 [facility] Comment on above: Result Comment: Non- immune <0.90 Equivocal 0.90 - 0.99 Immune >0.99 Performed By: #### R UBIGG #### [facility] [address] [place] [address] Dr. Brando Betancourt CBC AUTO DIFFon 05-12-2022 BASO # 0.0 103/ul Normal 0.0-0.1 [facility] Comment on above: Performed By: #### C BC #### [facility] [address] [place], [place] [id number] Dr. Brando Betancourt Basophils/100 WBC (Bld) 0.2 % Normal 0.2-2.0 [facility] Comment on above: Performed By: #### C BC #### [facility] [address] [place] [address] Dr. Brando Betancourt EO # 0.2 103/ul Normal 0.0-0.7 [facility] Comment on above: Performed By: #### C BC #### [facility] [address] [place] [address] Dr. Brando Betancourt Eosinophils/100 WBC (Bld) 2.0 % Normal 0.9-7.0 [facility] Comment on above: Performed By: #### C BC #### [facility] [address] [place] [address] Dr. Brando Betancourt Erythrocyte distribution width (RBC) [Ratio] 13.1 % Normal 11.0-15.0 [facility] Comment on above: Performed By: #### C BC #### [facility] [address] [place] [address] Dr. Brando Betancourt Hematocrit (Bld) [Volume fraction] 30.8 % Critically low 36.0-48.0 [facility] Comment on above: Performed By: #### C BC #### [facility] [address] [place] [address] Dr. Brando Betancourt Hemoglobin (Bld) [Mass/Vol] 10.4 g/dL Critically low 12.0-16.0 [facility] Comment on above: Performed By: #### C BC #### [facility] [address] [place] [address] Dr. Brando Betancourt IG # 0.04 10e3/ul Critically high 0.00-0.03 [facility] Comment on above: Performed By: #### C BC #### [facility] [address] [place] [address] Dr. Brando Betancourt IG % 0.4 % Normal 0.0-0.5 [facility] Comment on above: Performed By: #### C BC #### [facility] [address] [place], [place] [id number] Dr. Brando Betancourt LYMPH # 0.8 103/ul Critically low 1.2-3.8 [facility] Comment on above: Performed By: #### C BC #### [facility] [address] [place] [address] Dr. Brando Betancourt Lymphocytes/100 WBC (Bld) 8.6 % Critically low 20.5-60.0 [facility] Comment on above: Performed By: #### C BC #### [facility] [address] [place] [address] Dr. Brando Betancourt MANUAL DIFF REQ NO Normal [facility] Comment on above: Performed By: #### C BC #### [facility] [address] [place] [address] Dr. Brando Betancourt MCH (RBC) [Entitic mass] 30.5 pg Normal 26.7-34.0 [facility] Comment on above: Performed By: #### C BC #### [facility] [address] [place] [address] Dr. Brando Betancourt MCHC (RBC) [Mass/Vol] 33.8 g/dL Normal 29.9-35.2 [facility] Comment on above: Performed By: #### C BC #### [facility] [address] [place] [address] Dr. Brando Betancourt MCV (RBC) [Entitic vol] 90.3 fL Normal 81.0-99.0 [facility] Comment on above: Performed By: #### C BC #### [facility] [address] [place] [address] Dr. Brando Betancourt MONO # 0.5 103/ul Normal 0.3-0.8 [facility] Comment on above: Performed By: #### C BC #### [facility] [address] [place] [address] Dr. Brando Betancourt Monocytes/100 WBC (Bld) 4.9 % Normal 1.7-12.0 [facility] Comment on above: Performed By: #### C BC #### [facility] [address] [place] [address] Dr. Brando Betancourt NEUT # 7.9 103/ul Critically high 1.4-6.5 [facility] Comment on above: Performed By: #### C BC #### [facility] [address] [place] [address] Dr. Brando Betancourt Neutrophils/100 WBC (Bld) 83.9 % Critically high 43.0-75.0 [facility] Comment on above: Performed By: #### C BC #### [facility] [address] [place] [address] Dr. Brando Betancourt Platelet mean volume (Bld) [Entitic vol] 9.4 fL Critically low 9.5-13.5 [facility] Comment on above: Performed By: #### C BC #### [facility] [address] [place] [address] Dr. Brando Betancourt PLT 189 103/ul Normal 150-450 [facility] Comment on above: Performed By: #### C BC #### [facility] [address] [place] [address] Dr. Brando Betancourt RBC 3.41 106/ul Critically low 4.20-5.40 [facility] Comment on above: Performed By: #### C BC #### [facility] [address] [place] [address] Dr. Brando Betancourt WBC 9.4 103/ul Normal 4.0-11.0 [facility] Comment on above: Performed By: #### C BC #### [facility] [address] [place] [address] Dr. Brando Betancourt CULTURE URINEon 05-12-2022 CULTURE URINE Culture Observations: LIGHT GROWTH OF MIXED GENITAL STACEY. NO POTENTIAL PATHOGENS SEEN. Normal [facility] Comment on above: Performed By: #### U RCX #### [facility] [address] [place] [address] Dr. Brando Betancourt GLYCOHEMOGLOBIN A1Con 2021 ADA RECOMMENDATION SEE BELOW Normal [facility] Comment on above: Result Comment: ADA RECOMMENDED LIMIT 4.0 - 6.0 ADA THERAPEUTIC TARGET < 7.0 ACTION SUGGESTED > 7.0 Performed By: #### C BC #### [facility] [address] [place], [place] [address] Dr. Brando Betancourt Glucose [Mass/Vol] 94 mg/dL Normal [facility] Comment on above: Performed By: #### C BC #### [facility] [address] [place], [place] [address] Dr. Brando Betancourt HbA1c (Bld) [Mass fraction] 4.9 % Normal 4.5-6.2 [facility] Comment on above: Performed By: #### C BC #### [facility] [address] [place], [place] [address] Dr. Brando Betancourt TYPE AND SCREENon 05-12-2022 TYPE AND SCREEN Negative Normal [facility] Comment on above: Performed By: #### C T/NGNA #### [facility] [address] [place], [place] [address] Dr. Brando Betancourt US PREG PLACENTAon US [...] SCARLET TIAN Date: 2022-04-28 16:22 Normal [facility] OVA AND PARASITE EXAMINATION on 04-15-2022 Ova + Parasite Exam Final report Normal [facility] Comment on above: Result Comment: Thes e results were obtained using wet preparation(s) and trichrome stained smear. This test does not include testing for Cryptosporidium parvum, Cyclospora, or Microsporidia. Performed By: #### H BSANS #### [facility] [address] [place], [place] [address] Dr. Brando Betancourt Result 1 Comment Normal [facility] Comment on above: Result Comment: No o va, cysts, or parasites seen. . One negative specimen does not rule out the possibility of a parasitic infection. Performed By: #### H BSANS #### [facility] [address] [address] [address] Brando Betancourt GLUCOSE - 1HRon 04-07-2022 Glucose [Mass/Vol] 113 mg/dL Critically high 74-106 [facility] Comment on above: Performed By: #### H BSANS #### [facility] [address] [address] [address] Brando Betancourt CNPNon 03-30-2022 CNPN Telephone (OBGYWM) ---- RADHA KEENAN ([id number]) 1995 F Date Time Provider Department 03/30/22 [facility] During your visit today, we recorded the following information about you: Kathy Teresa RN 03/30/2022 10:27 AM Signed Patient transferred care to [facility] office. She was seen in our office for 2 visits. Please bill all visits if needed. Kathy Teresa RN Allergies As of Date: 03/30/2022 [...] of depression [Z86.59] 12/16/2021 Encounter Status:Closed by KATHY TERESA RN on 03/30/22 Normal [facility] US PREG ANATOMY SINGLEon US PREG ANATOMY [...] by: SCARLET TIAN Date: 2022-03-09 16:44 Normal [facility] URINE OB DIP B/Oon 2 Glucose Ql (U) Negative Neg mg/dL [facility] Protein.monoclonal (U) [Mass/Vol] Negative Neg mg/dL [facility] Bacteria Ur Culton 2 Bacteria identified Cx Nom (U) ORGANISM ID: 1 <10,000 CFU/ml Normal urogenital stacey Normal [facility] Comment on above: Performed By: #### 6 30-4 #### [facility] CLIA [id number] [address] [place] [address] [place] C. trachomatis+N. gonorrhoea e DNA JOBY+probe Ql (Unsp spec)on 12-30-2021 C. trachomatis DNA JOBY+probe Ql (Unsp spec) Negative Normal Negative for Chlamydia trachomatis by amplificaton [facility] Comment on above: Order Comment: Speci men Type: SWAB Ordering Facility: [facility] Address: [address] [place] [address] Performed By: #### 3 [id number] #### [facility] CLIA [id number] [address] [place] [address] OF CONNIE N. gonorrhoeae DNA JOBY+probe Ql (Unsp spec) Negative Normal Negative for Neisseria gonorrhoeae by amplification [facility] Comment on above: Order Comment: Speci men Type: SWAB Ordering Facility: [facility] Address: [address] [place] [address] Performed By: #### 3 [id number] #### [facility] CLIA [id number] [address] [place] [address] STATES OF [place] PAP FLUID CERVICAL SCREENING on 12-30-2021 CASE REPORT Normal [facility] Comment on above: Order Comment: Speci men Type: FLUID SAMPLE Ordering Facility: [facility] Address: [address] [place] [address] Result Comment: Gyne cologic Cytology Report Case: [id number] Authorizing Provider: Lamont Pulido MD Collected: 12/30/2021 01:57 PM Ordering Location: OB/Gynecology Received: 12/30/2021 05:25 PM First Screen: MITZY Scott, ASCP Specimen: Pap, Metal Sprayer Protective Coating, Screening, CERVICAL SCREENING FLUID Performed By: #### L [id number] #### [facility] CLIA [id number] [address] [place] [address] [place] CLINICAL HISTORY ROUTINE EXAM Normal [facility] Comment on above: Order Comment: Speci men Type: FLUID SAMPLE Ordering Facility: [facility] Address: [address] [place] [address] Performed By: #### L [id number] #### [facility] CLIA [id number] [address] [place] [address] [place] [address] [facility] CYTOLOGY INTERPRETATION PAP Normal [facility] Comment on above: Order Comment: Speci men Type: FLUID SAMPLE Ordering Facility: [facility] Address: [address] [place] [address] Result Comment: Nega tive for Intraepithelial lesion or malignancy. Performed By: #### L [id number] #### [facility] CLIA [id number] [address] [place] [address] FINAL DIAGNOSIS Normal [facility] Comment on above: Order Comment: Speci men Type: FLUID SAMPLE Ordering Facility: [facility] Address: [address] [place] [address] Result Comment: A - CERVICAL SCREENING FLUID Satisfactory for interpretation, No endocervical component Negative for Intraepithelial lesion or malignancy. Performed By: #### L [id number] #### [facility] CLIA [id number] [address] [place] [address] [place] FINAL PERFORMING LAB Normal [facility] Comment on above: Order Comment: Speci men Type: FLUID SAMPLE Ordering Facility: [facility] Address: [address] [place] [address] Result Comment: Tech nical component, bat person screening performed at [facility], [address] [place] [address] [place] [address] CLIA# [id number] Diagnostic interpretation performed at [facility], [address] [place] [address] [place] [address] CLIA# [id number] [employer]: Baldev Jones M.D. Performed By: #### L [id number] #### [facility] CLIA [id number] [address] [place] [address] STATES OF [place] HPV REQUESTED? Yes, Reflex HPV for ASCUS Normal [facility] Comment on above: Order Comment: Speci men Type: FLUID SAMPLE Ordering Facility: [facility] Address: [address] [place] [address] Performed By: #### L [id number] #### [facility] CLIA [id number] [address] [place] [address] [place] LMP Normal [facility] Comment on above: Order Comment: Speci men Type: FLUID SAMPLE Ordering Facility: [facility] Address: [address] [place], [place] [address] Performed By: #### L [id number] #### [facility] CLIA [id number] [address] [place] [address] [place] PAP DISCLAIMER COMMENT The Pap Smear is a screening test for cervical cancer. False negative results occur with all screening tests, emphasizing the need for rescreening at recommended intervals, and clinical correlation. Normal [facility] Comment on above: Order Comment: Speci men Type: FLUID SAMPLE Ordering Facility: [facility] Address: [address] [place], [place] [address] Performed By: #### L [id number] #### [facility] CLIA [id number] [address] [place] [address] [place] OF [place] PAP EXPERIMENTAL ROCKET SLED MECHANIC COMMENT This specimen has been analyzed by the ThinPrep Imaging System, an automated imaging and review system, which assists the laboratory in evaluating cells on ThinPrep Pap tests. Following automated imaging, selected arriaga from every slide are reviewed by a bat person. Normal [facility] Comment on above: Order Comment: Speci men Type: FLUID SAMPLE Ordering Facility: [facility] Address: [address] [place] [address] Performed By: #### L [id number] #### [facility] CLIA [id number] [address] [place] [address] CNNURSEon 12-16-2021 CNNURSE Nurse Visit (OBGYWM) ---- RADHA KEENAN ([id number]) 1995 F Date Time Provider Department 12/16/21 9:30 AM NURSE [facility] During your visit today, we recorded the following information about you: Last Period 10/25/21 Anabel Bhardwaj RN 12/16/2021 10:11 AM Signed SEQUENTIAL SCREENINGS [facility] offers sequential screenings for women who [...] It will require an appointment with our pharmaceutical development technician. This is not an ultrasound performed [...] the above symptoms, contact our office at [phone] and ask to speak with a nurse. After hours, you can call [facility] at [phone] OR call [facility] at [phone] and ask to have the doctor international marketing coordinator paged. If you consider this an emergency, [...] of can (more content not included)... Normal [facility] HCG QUAL UR B/Oon 12-16-2021 status Positive neg - pos [facility] Quality Check Yes [facility] US TRANSVAGINAL OBon 017 US TRANSVAGINAL [...] ultrasound.Report electronically signed by: Dr. Adair Blank [facility] Vital Signs Date Time Vital Sign Value Performing Clinician Facility 07-01-2023 11:29-0500 Body mass index (BMI) [Ratio] 27.59 kg/m2 Lobito Dipak DO Work Phone: [facility] 07-01-2023 11:29-0500 Body weight 75.21 kg Lobito Dipak DO Work Phone: [facility] 07-01-2023 11:29-0500 Diastolic blood pressure 60 mm[Hg] Lobito Dipak DO Work Phone: [facility] 07-01-2023 11:29-0500 Systolic blood pressure 112 mm[Hg] Lobito Dipak DO Work Phone: [facility] 06-27-2023 13:45-0500 Body height 160.02 cm Lyndsey Brown Other [employer] Other 06-27-2023 13:45-0500 Body mass index (BMI) [Ratio] 29.54 kg/m2 Lyndsey Brown Other [employer] Other 06-27-2023 13:45-0500 Body temperature 97.8 [degF] Lyndsey Brown Other [employer] Other 06-27-2023 13:45-0500 Body weight 75.66 kg Lyndsey Brown Other [employer] Other 06-27-2023 13:45-0500 Respiratory rate 18 /min Lyndsey Brown Other [employer] Other 06-27-2023 13:45-0500 SaO2% (BldA) [Mass fraction] 97 % Lyndsey Brown Other [employer] Other 01-27-2022 09:28-0400 Body weight 63.5 kg Serena Srinivasan MD Work Phone: [facility] 01-27-2022 09:28-0400 Diastolic blood pressure 62 mm[Hg] Serena Srinivasan MD Work Phone: [facility] 01-27-2022 09:28-0400 Systolic blood pressure 98 mm[Hg] Serena Srinivasan MD Work Phone: [facility] 12-30-2021 13:09-0400 Body weight 62.6 kg Lamont Pulido MD Work Phone: [facility] 12-30-2021 13:09-0400 Diastolic blood pressure 70 mm[Hg] Lamont Pulido MD Work Phone: [facility] 12-30-2021 13:09-0400 Systolic blood pressure 110 mm[Hg] Lamont Pulido MD Work Phone: [facility] 12-16-2021 08:55-0400 Body height 160 cm Raina Plotts ABSORPTION PLANT OPERATOR.CNM Work Phone: [facility] 12-16-2021 08:55-0400 Body weight 61.69 kg Raina Plotts ABSORPTION PLANT OPERATOR.CNM Work Phone: [facility] 12-16-2021 08:55-0400 Diastolic blood pressure 64 mm[Hg] Raina Plotts ABSORPTION PLANT OPERATOR.CNM Work Phone: [facility] 12-16-2021 08:55-0400 Systolic blood pressure 112 mm[Hg] Raina Plotts ABSORPTION PLANT OPERATOR.CNM Work Phone: [facility] Encounters Encounter Date Encounter Type Care Provider Facility Start: 09-28-2023 End: 09-28-2023 ambulatory LOBITO DIPAK Not Available Start: 09-14-2023 End: 09-14-2023 ambulatory ISABEL ADAN Not Available Start: 08-25-2023 End: 08-25-2023 ambulatory LOBITO DIPAK Not Available Start: 07-29-2023 End: 07-29-2023 ambulatory ISABEL ADAN Not Available Start: 07-01-2023 End: 07-01-2023 ambulatory LOBITO DIPAK Not Available Start: 07-01-2023 End: 07-01-2023 Office outpatient visit 15 minutes Lobito Dipak DO Work Phone: [facility] Comment on above: Second trimester pre gnancy; Diabetes mellitus screening Start: 06-27-2023 End: 06-27-2023 ambulatory Lyndsey Brown Other [employer] Other Start: 06-27-2023 Office outpatient ne w 20 minutes Lyndsey Brown [facility] Start: 06-03-2023 End: 06-03-2023 ambulatory ISABEL ARELLANO Not Available Start: 05-05-2023 End: 05-05-2023 ambulatory LOBITO QUESADA Not Available Start: 10-03-2022 End: 10-03-[address] DOCTOR AYON Facility: Start: 07-28-2022 End: 07-28-[address] LOBITO QUESADA . Facility: Start: 07-21-2022 End: 07-21-[address] LOBITO QUESADA . Facility: Start: 07-13-[address] DOCTOR AYON Facility : Start: 07-12-2022 End: 07-15-2022 Evaluation and management of inpatient DR DOCTOR AYON Facility: Start: 06-23-2022 End: 06-23-2022 ambulatory ISABEL ARELLANO . Facility: Start: 06-09-2022 End: 06-10-2022 ambulatory ISABEL AERLLANO . Facility: Start: 05-12-2022 End: 05-13-2022 ambulatory ISABEL ARELLANO . Facility: Start: 04-28-2022 End: 04-29-[address] LOBITO QUESADA . Facility: Start: 04-14-2022 End: 04-14-[address] LOBITO QUESADA . Facility: Start: 04-07-2022 End: 04-08-[address] LOBITO QUESADA . Facility: Start: 03-30-2022 Telephone encounter Che dixon APRN.CNM Work Phone: OB/Gynecology Comment on above: Transfer of Care Start: 03-09-2022 End: 03-10-[address] LOBITO QUESADA . Facility: Start: 01-27-2022 End: 01-27-2022 ambulatory SERENA SRINIVASAN Facility:[facility] Start: 01-27-2022 End: 01-27-2022 Patient encounter procedure Serena Srinivasan MD Work Phone: OB/Gynecology Comment on above: 14 weeks gestation o f (Primary Dx); Encounter for supervision of normal first in second trimester Start: 12-30-2021 End: 12-30-2021 ambulatory LAMONT PULIDO Facility:[facility] Start: 12-30-2021 End: 12-30-2021 Patient encounter procedure Lamont Pulido MD Work Phone: OB/Gynecology Comment on above: History of pulmonary embolism (Primary Dx); History of depression; Encounter for care in first trimester of first Start: 12-16-2021 End: 12-16-2021 ambulatory Raina Bonner APRN.CNM Work Phone: OB/Gynecology Comment on above: online resource Start: 12-16-2021 E-mail encounter fro m caregiver Raina Bonner APRN.CNM Work Phone: [facility] Start: 12-16-2021 End: 12-16-2021 Nursing evaluation of patient and report [facility] Work Phone: OB/Gynecology Comment on above: Supervision of high risk , antepartum (Primary Dx); Patient request for diagnostic testing; History of pulmonary embolism; History of depression Start: 12-16-2021 End: 12-16-2021 Patient requested procedure [facility] Work Phone: [facility] Work Phone: Start: 12-16-2021 End: 12-16-2021 Patient encounter procedure Raina Bonner APRN.CNM Work Phone: OB/Gynecology Comment on above: Missed menses (Prima ry Dx); Encounter for test, result positive; History of depression Start: 12-11-2021 End: 12-11-2021 ambulatory MARTIN BURGOS Facility:[facility] Start: 12-18-2016 Ambulatory AN MOREIRA Facili ty:[facility] Start: 12-02-2016 End: 12-28-2016 Ambulatory AN ALFORDKLIN Facility:[facility] Start: 11-26-2016 End: 11-26-2016 Ambulatory AN MOREIRA Facility:[facility] Start: 11-25-2016 End: 11-25-2016 Ambulatory AN MOREIRA Facility:[facility] Procedures Date Procedure Procedure Detail Performing Clinician Start: 07-01-2023 Urnls dip stick/tabl et rgnt non-auto w/o micrscp Lobito Quesada DO Work Phone: Start: 07-13-2022 Delivery of Products of Conception, External Approach DR LOBITO QUESADA . Start: 07-13-2022 Division of Female Perineum, External Approach DR LOBITO QUESADA . Start: 07-13-2022 Drainage of Amniotic Fluid, Therapeutic from Products of Conception, Via Natural or Artificial Opening DR LOBITO QUESADA . Start: 07-13-2022 Repair Perineum Musc le, Open Approach DR LOBITO QUESADA . Start: 01-27-2022 URINE OB DIP B/O Serena Srinivasan MD Work Phone: Start: 12-30-2021 Microscopic observat ion [Identifier] in Cervix by Cyto stain Lobito Quesada DO Work Phone: Start: 12-16-2021 Urine test visual color cmprsn ramin Bonner ABSORPTION PLANT OPERATOR.CNM Work Phone: Plan of Treatment Date Care Activity Detail Author Start: 12-30-2024 PAP TESTING PAP TESTING [facility] Start: 12-30-2024 Screening for malignant neoplasm of cervix [facility] Start: 07-29-2023 End: 07-29-2023 Patient encounter procedure 07/29/2023 10:10 AM EST Routine [facility] [address] [place] [address] Isabel Arellano PA [address] [place] [address] [facility] Start: 07-01-2023 End: 07-01-2024 CBC panel - Blood by Automated count CBC Lab Routine Diabetes mellitus screening Expected: 07/01/2023 (Approximate), Expires: 07/01/2024 [facility] Work Phone: Comment on above: Expected: 07/01/2023 (Approximate), Expires: 07/01/2024 Start: 07-01-2023 End: 07-01-2024 Measurement of glucose 1 hour after glucose challenge for glucose tolerance test Glucose tolerance, 1 hour Lab Routine Diabetes mellitus screening Expected: 07/01/2023 (Approximate), Expires: 07/01/2024 [facility] Comment on above: Expected: 07/01/2023 (Approximate), Expires: 07/01/2024 Start: 2023 Screening for malignant neoplasm of cervix HPV/Cotest [facility] Start: 01-29-2023 Influenza vaccination Influenza Vacc ine (#1) [facility] Start: 01-29-2022 Influenza vaccination INFLUENZA (#1) [facility] Start: 12-30-2021 End: 03-01-2022 CBC panel - Blood by Automated count CBC Lab Routine History of pulmonary embolism History of depression Encounter for care in first trimester of first Expected: 12/30/2021, Expires: 03/01/2022 [facility] Work Phone: Comment on above: Expected: 12/30/2021 , Expires: 03/01/2022 Start: 12-30-2021 End: 03-01-2022 Hepatitis B virus surface Ab [Presence] in Serum by Immunoassay HEP B SURF AG SCRN Lab Routine History of pulmonary embolism History of depression Encounter for care in first trimester of first Expected: 12/30/2021, Expires: 03/01/2022 [facility] Work Phone: Comment on above: Expected: 12/30/2021 , Expires: 03/01/2022 Start: 12-30-2021 End: 03-01-2022 Hepatitis C virus Ab [Presence] in Serum HEP C AB IA W/CONF SCRN Lab Routine History of pulmonary embolism History of depression Encounter for care in first trimester of first Expected: 12/30/2021, Expires: 03/01/2022 [facility] Work Phone: Comment on above: Expected: 12/30/2021 , Expires: 03/01/2022 Start: 12-30-2021 End: 03-01-2022 HIV 1+2 Ab [Presence] in Serum or Plasma by Immunoassay HIV 1 2 COMBO(AG/AB),WITH REFLEX TO DIFFERENTIATION Lab Routine History of pulmonary embolism History of depression Encounter for care in first trimester of first Expected: 12/30/2021, Expires: 03/01/2022 [facility] Work Phone: Comment on above: Expected: 12/30/2021 , Expires: 03/01/2022 Start: 12-30-2021 End: 03-01-2022 RUBELLA IGG AB RUBELLA IGG AB Lab Routine History of pulmonary embolism History of depression Encounter for care in first trimester of first Expected: 12/30/2021, Expires: 03/01/2022 [facility] Work Phone: Comment on above: Expected: 12/30/2021 , Expires: 03/01/2022 Start: 12-30-2021 End: 03-01-2022 SYPHILIS TOTAL W/REFLEX SYPHILIS TOTAL W/REFLEX Lab Routine History of pulmonary embolism History of depression Encounter for care in first trimester of first Expected: 12/30/2021, Expires: 03/01/2022 [facility] Work Phone: Comment on above: Expected: 12/30/2021 , Expires: 03/01/2022 Start: 12-30-2021 End: 03-01-2022 TYPE + SCREEN TYPE + SCREEN Blood Bank Routine History of pulmonary embolism History of depression Encounter for care in first trimester of first Expected: 12/30/2021, Expires: 03/01/2022 [facility] Work Phone: Comment on above: Expected: 12/30/2021 , Expires: 03/01/2022 Start: 07-15-2017 Urine microalbumin profile DTAP,TDAP,TD (2 - Td or Tdap) [facility] Start: 04-09-2017 PAP TESTING PAP TESTING [facility] Start: 1995 COVID-19 VACCINE (#1) COVID-19 VACCI NE (#1) [facility] Start: 1995 HEPATITIS B (1 of 3 - 3-dose series) HEPATITIS B (1 of 3 - 3-dose series) [facility] Bacteria identified in Urine by Culture URINE CULTURE Microbiology Routine History of pulmonary embolism History of depression Encounter for care in first trimester of first 12/30/2021 1:57 PM EDT [facility] Work Phone: Chlamydia trachomatis+Neisseria gonorrhoeae DNA [Presence] in Unspecified specimen by JOBY with probe detection GC/CHLAMYDIA DNA DET Lab Routine History of pulmonary embolism History of depression Encounter for care in first trimester of first 12/30/2021 1:57 PM EDT [facility] Work Phone: OBSTETRIC ULTRASOUND WHI OBSTETRIC ULTRASOUND [facility]I Anc Imaging Routine Encounter for supervision of normal first in second trimester Ordered: 01/27/2022 [facility] Work Phone: Comment on above: Ordered: 01/27/2022 PAP FLUID CERVICAL SCREENING PAP FLUID CERVICAL SCREENING Lab Routine History of pulmonary embolism History of depression Encounter for care in first trimester of first 12/30/2021 1:57 PM EDT [facility] Work Phone: [facility] Immunizations Immunization Date Immunization Notes Care Provider Jack mora 04-12-2010 influenza virus vaccine, unspecified formulation Raina Bonner ABSORPTION PLANT OPERATOR.CNM Work Phone: [facility] 09-04-2008 human papilloma viru s vaccine, quadrivalent Raina Bonner ABSORPTION PLANT OPERATOR.CNM Work Phone: [facility] Work Phone: 03-19-2008 human papilloma viru s vaccine, quadrivalent Raina Plotdinesh ABSORPTION PLANT OPERATOR.CNM Work Phone: [facility] Work Phone: 01-17-2008 hepatitis A vaccine, unspecified formulation Raina Bonner ABSORPTION PLANT OPERATOR.CNM Work Phone: [facility] Work Phone: 01-17-2008 human papilloma viru s vaccine, quadrivalent Raina Bonner ABSORPTION PLANT OPERATOR.CNM Work Phone: [facility] Work Phone: 07-15-2007 hepatitis A vaccine, unspecified formulation Raina Bonner ABSORPTION PLANT OPERATOR.CNM Work Phone: [facility] Work Phone: 07-15-2007 Meningococcal, MCV4, unspecified conjugate formulation(groups A, C, Y and W-135) Raina Bonner ABSORPTION PLANT OPERATOR.CNM Work Phone: [facility] Work Phone: 07-15-2007 tetanus toxoid, redu ruchi diphtheria toxoid, and acellular pertussis vaccine, adsorbed Raina Bonner ABSORPTION PLANT OPERATOR.CNM Work Phone: [facility] Work Phone: Payers Date Payer Category Payer Medicaid [id number] 2015 Private Health Insurance [id number] 1993 Unknown [id number] 2.16.84 0.1.170917.3.579.2.593 1993 Unknown [id number] 2.16.84 0.1.509495.3.579.2.593 1993 Unknown [id number] 2.16.84 0.1.496937.3.579.2.593 1993 Unknown [id number] 2.16.84 0.1.020374.3.579.2.593 1993 Unknown [id number] 2.16.84 0.1.325506.3.579.2.593 1993 Unknown [id number] 2.16.84 0.1.799886.3.579.2.593 1993 Unknown [id number] 2.16.84 0.1.759641.3.579.2.593 1993 Unknown [id number] 2.16.84 0.1.933200.3.579.2.593 1993 Unknown [id number] 2.16.84 0.1.872649.3.579.2.593 1993 Unknown [id number] 2.16.84 0.1.091711.3.579.2.593 1993 Unknown [id number] 2.16.84 0.1.489392.3.579.2.593 1993 Unknown [id number] 2.16.84 0.1.669065.3.579.2.593 1993 Unknown [id number] 2.16.84 0.1.513895.3.579.2.593 1993 Unknown [id number] 2.16.84 0.1.043769.3.579.2.1259 1993 Unknown [id number] 2.16.84 0.1.939986.3.579.2.1259 1993 Unknown [id number] 2.16.84 0.1.991805.3.579.2.1259 1993 Unknown [id number] 2.16.84 0.1.778179.3.579.2.1259 1993 Unknown [id number] 2.16.84 0.1.636494.3.579.2.1259 1993 Unknown [id number] 2.16.840 .1.508154.3.579.2.1259 1993 Unknown [id number] 2.16.840 .1.571732.3.579.2.1259 1961 Medicaid [id number] Social History Date Type Detail Facility Start: 01-27-2022 End: 01-10-2023 Tobacco smoking status NHIS Never smoked tobacco [facility] Start: 12-16-2021 End: 03-30-2022 Alcohol intake Current non-drinker of alcohol (finding) [facility] Start: 12-16-2021 Education 15 [facility] Start: 10-30-2021 [facility] Start: 1995 Sex Assigned At Female [facility] Start: 12-06-2021 End: 01-27-2022 Exposure to SARS-CoV-2 (event) Not sure [facility] Start: 01-27-2022 End: 01-10-2023 Tobacco use and exposure Smokeless tobacco non-user [facility] Start: 01-13-2023 Sex Assigned At [employer] Other Start: 07-01-2023 Alcohol intake Lifetime non-drinker (finding) [facility] Start: 01-13-2023 History of Social function [facility] Start: 12-17-2022 Gender identity Identifies as female gender (finding) [facility] Start: 12-17-2022 Sexual orientation Heterosexual (finding) [facility] Goals Date Patient Goal Desired Activity /State Personal health goal Clinical Notes 01-26-2013 to 07-01-2023 Merry Oden LPN - 07/01/2023 11:10 AM EST Note Date & Type Note Facility 07-01-2023 History of Presen t illness Narrative Reason for Appointment: Patient ID: Radha Keenan is a 28 y.o. female who [...] nursing note reviewed. Exam conducted with a investment banking manager present. Vitals: Estimated body mass index is [...] by Merry Oden LPN on behalf of: Lobito Quesada DO documented in this encounter [facility] 06-27-2023 Evaluation note Encounter Date Diagnosis [...] otherwise f/u with PCP INB despite tx. [employer] Other 02-12-2023 NotePROCEDURE: US PREG BIOPHYSICAL NO [...] Electronically authenticated by: NADINE ENCISO Date: 2022-07-12 07:58[facility]02-01-2023 History general Narrative - Reported* Type Description Date Medical History 21 weeks Hospitalization History CHILD 07/2022 [employer] Other 10-31-2022 Miscellaneous Notes* Telephone Encounter - Kathy Teresa RN - 03/30/2022 10:22 AM EDT Patient transferred care to [facility] office. She was seen in our office for 2 visits.Please bill all visits if needed. Kathy Teresa RN [facility] Miscellaneous Notes* Quick Notes - Serena [...] indicated Serena Srinivasan MD [facility] Instructions* Patient Instructions* Carlota Alexandre Ma - 01/27/2022 9:23 AM EDT SEQUENTIAL SCREENINGS [facility] offers sequential screenings for women who [...] testing. It will require an appointment withour pharmaceutical development technician. This is not an ultrasound performed [...] the above symptoms, contact our office at [phone] and ask to speak with anurse. After hours, you can call doctors registry at [phone] OR call [facility] at [phone] ask to have the doctor international marketing coordinator paged. If you consider this an emergency, dial 6-1-2 or go to your nearest emergency department. NEED HELP? Are you dealing with a violent or abusive relationship? Are you a victim of rape or sexual assult? Call [facility] ([place]) 24 hour Crisis Hotline: 311.564.5818 or 068-574-0945. MANUAL Your Guide to a Healthy manual is now on-line. Visit [email or web address] to download your free copy documented in this encounterDoctors Hospital08-02-2022 NoteHNO ID: [id number] Author: Lamont Pulido MD Service: ? Author Type: Physician Type: Progress Notes Filed: 12/30/2021 1:44 PM Note Text: INITIAL OB ASSESSMENT OB Provider: Lamont Pulido MD HPI: Radha Keenan is a 26 year old female [...] Multivitamin with Folic acid: Yes Occupation: Unemployed Judaism or heritage: No Would refuse blood transfusion if medically necessary: No No weight on file for this encounter. Patient BMI over 30? No Marital Status:getting but in a relationship w/ new partner and they tested paternity and are confident he is FOB Partner: Name: Giancarlo Age: 25 Occupation: [employer] Gender: male History of STDs: None PAST MEDICAL HISTORY Diagnosis Date - Anemia - Asthma - Blood dyscrasia - Depression - HPV test positive 03/31/2014 - MTHFR mutation - PE (pulmonary embolism) 12/29/2012 [facility], [facility] - PAST MEDICAL HISTORY [...] Screening: Completed, no positive findings documented. SBIRT Radha Ajnormalazaro was given the 4P's screening tool. Radha answered as follows: OB Opioid Screening - [...] she is considered at (more content not included)...[facility]08-02-2022 History of Present illness Narrative* Lamont Pulido MD - 12/30/2021 12:59 PM EDT Images from the original note were not included. INITIAL OB ASSESSMENT OB Provider: Lamont Pulido MD HPI: Radha Keenan is a 26 year old female [...] Multivitamin with Folic acid: Yes Occupation: Unemployed Judaism or heritage: No Would refuse blood transfusion if medically necessary: No No weight on file for this encounter. Patient BMI over 30? 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 PMH - PAST MEDICAL HISTORY OF stayed [...] Screening: Completed, no positive findings documented. SBIRT Radha Keenan was given the 4P's screening tool. Radha answered as follows: OB Opioid Screening - [...] prn. Lamont Pulido MD documented in this encounterDoctors Hospital08-02-2022 Instructions* Patient Instructions* Glenis Lee Ma - 12/30/2021 12:59 PM EDT Please select the following link to access the [facility] Your Guide to a Healthy . [email or web address] documented in this encounterDoctors Hospital07-19-2022 Miscellaneous Notes* Quick Notes - Anabel [...] She states that she was hospitalized at [facility]. Shestates that she took Xarelto for 6+ months. She denies any other recurrences. She denies any familyhistory of blood clots.Pt has a history of depression/anxiety diagnosed at age 16. She states that she was hospitalized in [place] for a suicidal attempt in 2012 with [...] would like referral to services here at [facility]. I did talk to Raina Bonner about this. Patient was also given the mental health crisis phone number that is open 24 hours a day. Patient declines aneuploidy screening and genetic carrier screening testing.Anabel Bhardwaj RN documented in this encounterDoctors Hospital07-19-2022 Miscellaneous Notes* Addendum Note - Raina Bonner APRN.CNM - 12/16/2021 12:03 PM EDT Addended by: RAINA BONNER on: 12/16/2021 12:03 PM Modules accepted: Orders documented in this encounterDoctors Hospital07-19-2022 NoteHNO ID: [id number] Author: Raina Bonner APRN.CNM Service: ? Author Type: Want Ad Clerk Type: Progress Notes Filed: 12/16/2021 9:39 AM Note Text: Radha Keenan is a 26 year old female who presents with missed menses. LMP was approximately 10/25/21. No control since 2018- only using condoms Currently but from . Was in open relationship and unsure of paternity. OB History T0 L0 SAB0 IAB0 Ectopic0 Multiple0 Live Births0 Assembling Motor Builder History LMP: 10/25/2021, Age at Menarche: Age at First : Age at Menopause: Assembling Motor Builder History Comments: Sexual Activity: Yes; Male Contraception: Condom, I.U.D. PAST MEDICAL HISTORY Diagnosis Date - HPV test positive 03/2014 - MTHFR mutation - PE (pulmonary embolism) 12/2012 [facility], [facility] - PAST MEDICAL HISTORY [...] which included preparing to see the patient, [id number] patient care, completing clinical documentation, obtaining and/or reviewing separately obtained history and counseling and educating the patient/family/caregiver Medical Decision Making Raina Bonner APRN.[facility]07-19-2022 Instructions* Patient Instructions* Anabel Bhardwaj RN - 12/16/2021 10:11 AM EDT SEQUENTIAL SCREENINGS [facility] offers sequential screenings for women who [...] testing. It will require an appointment withour pharmaceutical development technician. This is not an ultrasound performed [...] the above symptoms, contact our office at [phone] and ask to speak with anurse. After hours, you can call doctors registry at [phone] OR call [facility] at [phone] ask to have the doctor international marketing coordinator paged. If you consider this an emergency, [...] issues. What do the experts say? The [place] [employer] encourages philanthropic blood banking [...] baby needs at the moment. The nurse, fire equipment repairer inspector, or physician will then label the samples, [...] AHEAD OF TIME! Public cord-blood herrmann--DONATION: [employer] [phone] [facility] Placental Blood Program, [facility] Umbilical Cord Blood Bank, Private cord-blood herrmann--SAVING FOR YOUR OWN USE: [employer], (I think this is the least expensive) [employer] [phone] [employer], (135) [employer] [place] Cord Blood [facility], [phone], [phone] [place] [employer], Cord Blood Registry, (507) [employer], An Internet search may provide you with additional listings. documented in this encounterDoctors Hospital07-19-2022 History of Present illness Narrative* Raina Bonner APRN.[facility] - 12/16/2021 8:46 AM EDT Radha Keenan is a 26 year old female who presents with missed menses. LMP was approximately 10/25/21. No control since 2018- only using condoms Currently but from . Was in open relationship and unsure of paternity. OB History T0 L0 SAB0 IAB0 Ectopic0 Multiple0 Live Births0 Assembling Motor Builder History LMP: 10/25/2021, Age at Menarche: Age at First : Age at Menopause: Assembling Motor Builder History Comments: Sexual Activity: Yes; Male Contraception: Condom, I.U.D. PAST MEDICAL HISTORY Diagnosis Date HPV test positive 03/2014 MTHFR mutation PE (pulmonary embolism) 12/2012 [facility], took Xarelto for 6+ months from [facility] PMH - PAST MEDICAL HISTORY OF stayed [...] which included preparing to see the patient, [id number] patient care, completing clinical documentation, obtaining and/or reviewing separately obtained history and counseling and educating the patient/family/caregiver Medical Decision Making Raina Bonner APRN.CNM documented in this encounterDoctors Hospital08-29-2013 History of Past illness Narrative* Problem Noted Date Resolved Date Pulmonary embolism 01/26/2013 01/19/2014 GERD (gastroesophageal reflux disease) 1 01/19/2014 Weight gain, abnormal 05/21/2010 04/04/2012 Abdominal pain, acute, epigastric 05/21/2010 04/04/2012 Shoulder disorder 05/02/2009 04/04/2012 Excessive or frequent menstruation 01/20/2008 04/04/2012 documented as of this encounter (statuses as of 12/16/2021) [facility] Narrative* Problem Noted Date Resolved Date Pulmonary embolism 01/26/2013 01/19/2014 GERD (gastroesophageal reflux disease) 1 01/19/2014 Weight gain, abnormal 05/21/2010 04/04/2012 Abdominal pain, acute, epigastric 05/21/2010 04/04/2012 Shoulder disorder 05/02/2009 04/04/2012 Excessive or frequent menstruation 01/20/2008 04/04/2012 documented as of this encounter (statuses as of 12/16/2021) [facility] Narrative* Problem Noted Date Resolved Date Pulmonary embolism 01/26/2013 01/19/2014 GERD (gastroesophageal reflux disease) 01/19/2014 Weight gain, abnormal 05/21/2010 04/04/2012 Abdominal pain, acute, epigastric 05/21/2010 04/04/2012 Shoulder disorder 05/02/2009 04/04/2012 Excessive or frequent menstruation 01/20/2008 04/04/2012 documented as of this encounter (statuses as of 12/16/2021) [facility] Narrative* Problem Noted Date Resolved Date Pulmonary embolism 01/26/2013 01/19/2014 GERD (gastroesophageal reflux disease) 01/19/2014 Weight gain, abnormal 05/21/2010 04/04/2012 Abdominal pain, acute, epigastric 05/21/2010 04/04/2012 Shoulder disorder 05/02/2009 04/04/2012 Excessive or frequent menstruation 01/20/2008 04/04/2012 documented as of this encounter (statuses as of 12/30/2021) [facility] Narrative* Problem Noted Date Resolved Date Pulmonary embolism 01/26/2013 01/19/2014 GERD (gastroesophageal reflux disease) 01/19/2014 Weight gain, abnormal 05/21/2010 04/04/2012 Abdominal pain, acute, epigastric 05/21/2010 04/04/2012 Shoulder disorder 05/02/2009 04/04/2012 Excessive or frequent menstruation 01/20/2008 04/04/2012 documented as of this encounter (statuses as of 01/27/2022) [facility] of [facility] Narrative* Problem Noted Date Resolved Date Pulmonary embolism 01/26/2013 01/19/2014 GERD (gastroesophageal reflux disease) 01/19/2014 Weight gain, abnormal 05/21/2010 04/04/2012 Abdominal pain, acute, epigastric 05/21/2010 04/04/2012 Shoulder disorder 05/02/2009 04/04/2012 Excessive or frequent menstruation 01/20/2008 04/04/2012 documented as of this encounter (statuses as of 03/30/2022) [facility] note* Diagnosis Missed menses- Primary Absence of menstruation Encounter for test, result positive examination or test, positive result History of depression Personal history of other mental disorder documented in this encounter [facility] note* Diagnosis Supervision of high risk , antepartum- Primary Patient request for diagnostic testing Other specified examination History of pulmonary embolism Personal history of pulmonary embolism History of depression Personal history of other mental disorder documented in this encounter [facility] note* Diagnosis History of pulmonary embolism- Primary Personal history of pulmonary embolism History of depression Personal history of other mental disorder Encounter for care in first trimester of first documented in this encounter [facility] note* Diagnosis 14 weeks gestation of - Primary state, incidental Encounter for supervision of normal first in second trimester Supervision of normal first documented in this encounter [facility] note* Diagnosis Second trimester state, incidental Diabetes mellitus screening Screening for diabetes mellitus [facility] Diagnostic Procedure Only (Routine) - Pending Review Specialty Diagnoses / Procedures Referred By Pavel nettles Referred To Contact [facility] Diagnoses Encounter for supervision of normal first in second trimester Procedures OBSTETRIC ULTRASOUND WHI US PREG UTERUS AFTER 1ST TRIMEST GESTATION Serena Srinivasan MD [address] 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 Expl anation Advance Directive(s) Health Concerns Problem Noted Date OB Reminders 12/17/2021 Problem Noted Date OB Reminders 12/17/2021 Problem Noted Date OB Reminders 12/17/2021 Additional Source Comments INFORMATION SOURCE (unrecogn ized section and content) DATE CREATED AUTHOR 11/24/2017 [facility] DATE CREATED AUTHOR AUTHOR'S ORGANIZ ATION 03/30/2022 [facility] DATE CREATED AUTHOR AUTHOR'S ORGANIZ ATION 10/07/2022 [facility] DATE CREATED AUTHOR AUTHOR'S ORGANIZ ATION 09/29/2023 [facility] EPIC Source Comments (unrecognize d section and content) In the event this informatio n is protected by the Federal Confidentiality of Alcohol and Drug Abuse Patient Records regulations: The Federal rules restrict any use of the information to criminally investigate or prosecute any alcohol or drug abuse patient.Doctors HospitalIn the event this information is protected by the Federal Confidentiality of Alcohol and Drug Abuse Patient Records regulations: The Federal rules restrict any use of the information to criminally investigate or prosecute any alcohol or drug abuse patient.Doctors HospitalIn the event this information is protected by the Federal Confidentiality of Alcohol and Drug Abuse Patient Records regulations: The Federal rules restrict any use of the information to criminally investigate or prosecute any alcohol or drug abuse patient.Doctors HospitalIn the event this information is protected by the Federal Confidentiality of Alcohol and Drug Abuse Patient Records regulations: The Federal rules restrict any use of the information to criminally investigate or prosecute any alcohol or drug abuse patient.Doctors HospitalIn the event this information is protected by the Federal Confidentiality of Alcohol and Drug Abuse Patient Records regulations: The Federal rules restrict any use of the information to criminally investigate or prosecute any alcohol or drug abuse patient.Doctors HospitalIn the event this information is protected by the Federal Confidentiality of Alcohol and Drug Abuse Patient Records regulations: The Federal rules restrict any use of the information to criminally investigate or prosecute any alcohol or drug abuse patient.[facility] Reason for Visit (unrecogniz ed section and content) Reason Comments Missed period Specialty Diagnoses / Procedures Referred By Pavel nettles Referred To Contact [facility] Diagnoses NEW PATIENT Procedures ANNUAL EXAM MD Bobo [facility] [address] [place] [address] Referral ID Status Reason Start Date Expiration Date Visits Requested Visits Authorized [id number] Authorized Financial Clearance Required - Self Pay Patient Cleared - Qualified 100% FAS 11/28/2021 02/26/2022 99 99 Reason Onset Date Comments Care 12/16/2021 Pre-New OB Reason Comments Initial OB Visit Reason Onset Date Comments Care 01/27/2022 Specialty Diagnoses / Procedures Referred By Pavel nettles Referred To Contact [facility] Diagnoses NEW PATIENT Procedures ANNUAL EXAM Self, [facility] [address] [place] [address] Reason Comments Transfer of Care Reason Comments Routine Visit Care Teams (unrecognized sec tion and content) Cellar Hand Relationship Specialty Start Date End Date Martin Burgos DO [address] [place] [address] PCP - General Family Practice 03/03/14 Cellar Hand Relationship Specialty Start Date End Date Martin Burgos DO [address] [place] [address] PCP - General Family Practice 03/03/14 Cellar Hand Relationship Specialty Start Date End Date Martin Burgos DO [address] [place] [address] PCP - General Family Practice 03/03/14 Cellar Hand Relationship Specialty Start Date End Date Martin Burgos DO [address] [place] [address] PCP - General Family Practice 03/03/14 Cellar Hand Relationship Specialty Start Date End Date Martin Burgos DO [address] [place] [address] PCP - General Family Practice 03/03/14 Cellar Hand Relationship Specialty Start Date End Date Martin Burgos DO [address] [place] [address] PCP - General Family Medicine 03/03/14 Cellar Hand Relationship Specialty Start Date End Date Lobito Quesada DO [address] [place] [address] [place] [address] PCP - FFS [facility] 08/29/22 FOR RECORDS PERTAINING TO [...] BE BASED ON THE PRIMARY CLINICAL RECORDS. [facility] [employer] [facility]. provides no warranty or guarantee of the accuracy or completeness of information in this document.
[2023-10-06 15:06] VITALS: BP 127/84; PULSE 92
== END 2023-10-06 15:50 | disposition home or self-care (01) ==
LOC: US 07:30 → FBC 15:01
PROVIDERS: Visit Provider Obstetrics & Gynecology
DX: O36.63X0 Maternal care for excessive fetal growth, third trimester, not applicable or unspecified (principal); Z3A.35 35 weeks gestation of pregnancy
CPT/HCPCS: 76818

== ENCOUNTER 2023-10-12 20:44 | Outpatient (REF) | payer MEDICAID, SELFPAY ==
--- OUTSIDE RECORDS SUMMARY | 2023-10-12 20:52 | XMS_ITS | CCD ---
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 Unavailable [...] Unavailable DIPAK ., DR BLANCA Attending Unavailable [facility] BYRNE Primary Care Unavailable DR [...] environmental [Other] Propensity to adverse reactions 8 [facility] Work Phone: (3 sources) OTHER; Translations: [OTHER] Propensity to adverse reactions (disorder) 8 [facility] Medications Current Medications Medication Drug Class(es) [...] Drug Class(es) Dates Sig (Normalized) Sig (Original) [id number] 200 actuat albuterol 0.09 mg/actuat metered dose [...] Negative Negative - 4(7 0) +++ mg/dL [facility] Blood, UA Negative Negative - 50 Bartolo/mcL [facility] Clarity, UA Clear [facility] re Color, UA Yellow [facility]car [facility] Glucose, UA Negative Negative - 1999(110) ++++ mg/dL [facility] Interpretation and review of laboratory results Normal [facility] re Ketones, UA Negative Negative - 160(16) ++++ mg/dL [facility] Leukocytes, UA Negative Negative - 500+++ Mary/mcL [facility] Nitrite, UA Negative Negative - Positive [facility] pH, UA 7.0 5 - 9 [facility] e Protein, UA Negative Negative - 1999(20) ++++ mg/dL [facility] Spec Grav, UA 1.020 1 - 1.03 [facility] Urobilinogen, UA 0.2 0.2 - 12 mg/dL [facility] Healthcar e COVID + FLU Quick Testingon 06-27-2023 SARS-CoV-2 (COVID-19) RNA JOBY+probe Ql (Unsp spec) Negative [facility] [place] Other COVID + FLU Quick Testing Negative [facility] [place] Other CULTURE URINEon 10-06-2022 CULTURE URINE Isolate [...] F Trimethoprim/Sulfam ethoxazole <=20 S F Normal [facility] Comment on above: Performed By: #### U RCX #### [facility] [address] [place] [address] Dr. Brando Betancourt CBC AUTO DIFFon 10-03-2022 BASO # 0.0 103/ul Normal 0.0-0.1 [facility] Comment on above: Performed By: #### H BSANS #### [facility] [address] [place] [address] Dr. Brando Betancourt Basophils/100 WBC (Bld) 0.3 % Normal 0.2-2.0 [facility] Comment on above: Performed By: #### H BSANS #### [facility] [address] [place] [address] Dr. Brando Betancourt EO # 0.2 103/ul Normal 0.0-0.7 [facility] Comment on above: Performed By: #### H BSANS #### [facility] [address] [place] [address] Dr. Brando Betancourt Eosinophils/100 WBC (Bld) 1.5 % Normal 0.9-7.0 [facility] Comment on above: Performed By: #### H BSANS #### [facility] [address] [place] [address] Dr. Brando Betancourt Erythrocyte distribution width (RBC) [Ratio] 12.6 % Normal 11.0-15.0 [facility] Comment on above: Performed By: #### H BSANS #### [facility] [address] [place] [address] Dr. Brando Betancourt Hematocrit (Bld) [Volume fraction] 38.3 % Normal 36.0-48.0 [facility] Comment on above: Performed By: #### H BSANS #### [facility] [address] [place] [address] Dr. Brando Betancourt Hemoglobin (Bld) [Mass/Vol] 12.8 g/dL Normal 12.0-16.0 [facility] Comment on above: Performed By: #### H BSANS #### [facility] [address] [place], [place] [id number] Dr. Brando Betancourt IG # 0.03 10e3/ul Normal 0.00-0.03 [facility] Comment on above: Performed By: #### H BSANS #### [facility] [address] [place] [address] Dr. Brando Betancourt IG % 0.3 % Normal 0.0-0.5 [facility] Comment on above: Performed By: #### H BSANS #### [facility] [address] [place] [address] Dr. Brando Betancourt LYMPH # 1.4 103/ul Normal 1.2-3.8 [facility] Comment on above: Performed By: #### H BSANS #### [facility] [address] [place] [address] Dr. Brando Betancourt Lymphocytes/100 WBC (Bld) 13.2 % Critically low 20.5-60.0 [facility] Comment on above: Performed By: #### H BSANS #### [facility] [address] [place] [address] Dr. Brando Betancourt MANUAL DIFF REQ NO Normal [facility] Comment on above: Performed By: #### H BSANS #### [facility] [address] [place] [address] Dr. Brando Betancourt MCH (RBC) [Entitic mass] 28.6 pg Normal 26.7-34.0 [facility] Comment on above: Performed By: #### H BSANS #### [facility] [address] [place] [address] Dr. Brando Betancourt MCHC (RBC) [Mass/Vol] 33.4 g/dL Normal 29.9-35.2 [facility] Comment on above: Performed By: #### H BSANS #### [facility] [address] [place] [address] Dr. Brando Betancourt MCV (RBC) [Entitic vol] 85.5 fL Normal 81.0-99.0 [facility] Comment on above: Performed By: #### H BSANS #### [facility] [address] [place] [address] Dr. Brando Betancourt MONO # 0.7 103/ul Normal 0.3-0.8 [facility] Comment on above: Performed By: #### H BSANS #### [facility] [address] [place] [address] Dr. Brando Betancourt Monocytes/100 WBC (Bld) 7.0 % Normal 1.7-12.0 [facility] Comment on above: Performed By: #### H BSANS #### [facility] [address] [place] [address] Dr. Brando Betancourt NEUT # 8.3 103/ul Critically high 1.4-6.5 [facility] Comment on above: Performed By: #### H BSANS #### [facility] [address] [place] [address] Dr. Brando Betancourt Neutrophils/100 WBC (Bld) 77.7 % Critically high 43.0-75.0 [facility] Comment on above: Performed By: #### H BSANS #### [facility] [address] [place] [address] Dr. Brando Betancourt Platelet mean volume (Bld) [Entitic vol] 8.5 fL Critically low 9.5-13.5 [facility] Comment on above: Performed By: #### H BSANS #### [facility] [address] [place] [address] Dr. Brando Betancourt PLT 263 103/ul Normal 150-450 [facility] Comment on above: Performed By: #### H BSANS #### [facility] [address] [place] [address] Dr. Brando Betancourt RBC 4.48 106/ul Normal 4.20-5.40 [facility] Comment on above: Performed By: #### H BSANS #### [facility] [address] [place] [address] Dr. Brando Betancourt WBC 10.6 103/ul Normal 4.0-11.0 [facility] Comment on above: Performed By: #### H BSANS #### [facility] [address] [place] [address] ABD/PELVIS WO CONon [...] The [facility] ER URINE PROFILEon 3 Bilirubin Ql (U) Negative Normal NEGATIVE [facility] Comment on above: Performed By: #### H BSANS #### [facility] [address] [place] [address] Dr. Brando eBtancourt Clarity (U) SL CLOUDY Abnormal CLEAR [facility] Comment on above: Performed By: #### H BSANS #### [facility] [address] [address] [address] Brando Betancourt Color (U) YELLOW Normal YELLOW [facility] Comment on above: Performed By: #### H BSANS #### [facility] [address] [address] [address] Brando Betancourt ERUAHD A micrscopic examination will be performed if indicated. Normal [facility] Comment on above: Performed By: #### H BSANS #### [facility] [address] [address] [address] Brando Betancourt Glucose Ql (U) Negative Normal NEGATIVE [facility] Comment on above: Performed By: #### H BSANS #### [facility] [address] [address] [address] Brando Betancourt Hemoglobin Ql (U) MODERATE Abnormal NEGATIVE [facility] Comment on above: Performed By: #### H BSANS #### [facility] [address] [address] [address] Brando Betancourt Ketones Ql (U) Negative Normal NEGATIVE [facility] Comment on above: Performed By: #### H BSANS #### [facility] [address] [address] [address] Brando Betnacourt LEUKOCYTES LARGE Abnormal NEGATIVE [facility] Comment on above: Performed By: #### H BSANS #### [facility] [address] [address] [address] Brando Betancourt Nitrite Ql (U) Negative Normal NEGATIVE [facility] Comment on above: Performed By: #### H BSANS #### [facility] [address] [address] [address] Brando Betancourt pH (U) 6.0 [pH] Normal 5-9 [facility] Comment on above: Performed By: #### H BSANS #### [facility] [address] [address] [address] Brando Betancourt Protein (U) [Mass/Vol] 100 mg/dL Abnormal NEGATIVE/ TRACE [facility] Comment on above: Performed By: #### H BSANS #### [facility] [address] [address] [address] Brando Betancourt SPEC GRAVITY 1.025 Normal 1.005-<=1.025 [facility] Comment on above: Performed By: #### H BSANS #### [facility] [address] [address] [address] Brando Betancourt UR MICRO IND INDICATED Normal [facility] Comment on above: Performed By: #### H BSANS #### [facility] [address] [address] [address] Brando Betancourt Urobilinogen Qn (U) 0.2 {Arturo'U}/dL Normal 0.2 - 1. 0 [facility] Comment on above: Performed By: #### H BSANS #### [facility] [address] [place] [address] Dr. Brando Betancourt URon 10-03-2022 , QUAL Negative Normal NEGATIVE [facility] Comment on above: Performed By: #### H BSANS #### [facility] [address] [place] [address] Dr. Brando Betancourt PROF CHEM 8 (BAS METB)on Anion gap [Moles/Vol] 11.8 mmol/L Normal [facility] Comment on above: Performed By: #### C BC #### [facility] [address] [place] [address] Dr. Brando Betancourt Calcium [Mass/Vol] 9.1 mg/dL Normal 8.5-10.1 [facility] Comment on above: Performed By: #### C BC #### [facility] [address] [place] [address] Dr. Brando Betancourt Chloride [Moles/Vol] 99 mmol/L Normal 98-107 [facility] Comment on above: Performed By: #### C BC #### [facility] [address] [place] [address] Dr. Brando Betancourt CO2 [Moles/Vol] 29.9 mmol/L Normal 21.0-32.0 [facility] Comment on above: Performed By: #### C BC #### [facility] [address] [address] [address] Brando Betancourt Creatinine [Mass/Vol] 0.89 mg/dL Normal 0.55-1.02 [facility] Comment on above: Performed By: #### C BC #### [facility] [address] [place] [address] Dr. Brando Betancourt EGFR-AF NIUEAN >60 Normal >=60 [facility] Comment on above: Performed By: #### C BC #### [facility] [address] [place] [address] Dr. Brando Betancourt EGFR-NON AF NIUEAN >60 Normal >=60 [facility] Comment on above: Performed By: #### C BC #### [facility] [address] [place] [address] Dr. Brando Betancourt Glucose [Mass/Vol] 122 mg/dL Critically high 74-106 [facility] Comment on above: Performed By: #### C BC #### [facility] [address] [place] [address] Dr. Brando Betancourt Potassium [Moles/Vol] 3.7 mmol/L Normal 3.5-5.1 [facility] Comment on above: Performed By: #### C BC #### [facility] [address] [place] [address] Dr. Brando Betancourt Sodium [Moles/Vol] 137 mmol/L Normal 136-145 [facility] Comment on above: Performed By: #### C BC #### [facility] [address] [place] [address] Dr. Brando Betancourt Urea nitrogen [Mass/Vol] 17.0 mg/dL Normal 7.0-18.0 [facility] Comment on above: Performed By: #### C BC #### [facility] [address] [place] [address] Dr. Brando Betancourt Urea nitrogen/Creatinine [Mass ratio] 19.1 mg/mg Normal [facility] Comment on above: Performed By: #### C BC #### [facility] [address] [place] [address] Dr. Brando Betancourt URINE MICROSCOPIC ONLYon BACTERIA TRACE Abnormal NONE SEEN [facility] Comment on above: Performed By: #### H BSANS #### [facility] [address] [place] [address] Dr. Brando Betancourt Bacteria identified Cx Nom (U) INDICATED Normal [facility] Comment on above: Performed By: #### H BSANS #### [facility] [address] [place] [address] Dr. Brando Betancourt CAST NONE SEEN Normal NONE SEEN [facility] Comment on above: Performed By: #### H BSANS #### [facility] [address] [place] [address] Dr. Brando Betancourt Crystals LM Nom (Urine sed) NONE SEEN Normal NONE SEEN [facility] Comment on above: Performed By: #### H BSANS #### [facility] [address] [place] [address] Dr. Brando Betancourt Epithelial cells LM Ql (Urine sed) RARE Normal NONE SEEN /RARE [facility] Comment on above: Performed By: #### H BSANS #### [facility] [address] [place] [address] Dr. Brando Betancourt MUCOUS NONE SEEN Normal NONE SEEN [facility] Comment on above: Performed By: #### H BSANS #### [facility] [address] [place] [address] Dr. Brando Betancourt RBC 5-10 Abnormal 0-2 [facility] Comment on above: Performed By: #### H BSANS #### [facility] [address] [place] [address] Dr. Brando Betancourt WBC 50-75 Abnormal NONE SEEN [facility] Comment on above: Performed By: #### H BSANS #### [facility] [address] [place] [address] Dr. Brando Betancourt CBC AUTO DIFFon 07-14-2022 BASO # 0.0 103/ul Normal 0.0-0.1 [facility] Comment on above: Performed By: #### C BC #### [facility] [address] [place] [address] Dr. Brando Betancourt Basophils/100 WBC (Bld) 0.2 % Normal 0.2-2.0 [facility] Comment on above: Performed By: #### C BC #### [facility] [address] [place] [address] Dr. Brando Betancourt EO # 0.0 103/ul Normal 0.0-0.7 [facility] Comment on above: Performed By: #### C BC #### [facility] [address] [place] [address] Dr. Brando Betancourt Eosinophils/100 WBC (Bld) 0.3 % Critically low 0.9-7.0 [facility] Comment on above: Performed By: #### C BC #### [facility] [address] [place] [address] Dr. Brando Betancourt Erythrocyte distribution width (RBC) [Ratio] 13.0 % Normal 11.0-15.0 [facility] Comment on above: Performed By: #### C BC #### [facility] [address] [place] [address] Dr. Brando Betancourt Hematocrit (Bld) [Volume fraction] 28.8 % Critically low 36.0-48.0 [facility] Comment on above: Performed By: #### C BC #### [facility] [address] [place] [address] Dr. Brando Betancourt Hemoglobin (Bld) [Mass/Vol] 9.7 g/dL Critically low 12.0-16.0 [facility] Comment on above: Performed By: #### C BC #### [facility] [address] [place] [address] Dr. Brando Betancourt IG # 0.04 10e3/ul Critically high 0.00-0.03 [facility] Comment on above: Performed By: #### C BC #### [facility] [address] [place] [address] Dr. Brando Betancourt IG % 0.4 % Normal 0.0-0.5 [facility] Comment on above: Performed By: #### C BC #### [facility] [address] [place] [address] Dr. Brando Betancourt LYMPH # 1.6 103/ul Normal 1.2-3.8 [facility] Comment on above: Performed By: #### C BC #### [facility] [address] [place] [address] Dr. Brando Betancourt Lymphocytes/100 WBC (Bld) 15.0 % Critically low 20.5-60.0 [facility] Comment on above: Performed By: #### C BC #### [facility] [address] [place] [address] Dr. Brando Betancourt MANUAL DIFF REQ NO Normal [facility] Comment on above: Performed By: #### C BC #### [facility] [address] [place] [address] Dr. Brando Betancourt MCH (RBC) [Entitic mass] 30.0 pg Normal 26.7-34.0 [facility] Comment on above: Performed By: #### C BC #### [facility] [address] [place] [address] Dr. Brando Betancourt MCHC (RBC) [Mass/Vol] 33.7 g/dL Normal 29.9-35.2 [facility] Comment on above: Performed By: #### C BC #### [facility] [address] [place] [address] Dr. Brando Betancourt MCV (RBC) [Entitic vol] 89.2 fL Normal 81.0-99.0 [facility] Comment on above: Performed By: #### C BC #### [facility] [address] [place] [address] Dr. Brando Betancourt MONO # 0.6 103/ul Normal 0.3-0.8 [facility] Comment on above: Performed By: #### C BC #### [facility] [address] [place] [address] Dr. Brando Betancourt Monocytes/100 WBC (Bld) 5.6 % Normal 1.7-12.0 [facility] Comment on above: Performed By: #### C BC #### [facility] [address] [place] [address] Dr. Brando Betancourt NEUT # 8.6 103/ul Critically high 1.4-6.5 [facility] Comment on above: Performed By: #### C BC #### [facility] [address] [place] [address] Dr. Brando Betancourt Neutrophils/100 WBC (Bld) 78.5 % Critically high 43.0-75.0 [facility] Comment on above: Performed By: #### C BC #### [facility] [address] [place] [address] Dr. Brando Betancourt Platelet mean volume (Bld) [Entitic vol] 11.2 fL Normal 9.5-13.5 [facility] Comment on above: Performed By: #### C BC #### [facility] [address] [place] [address] Dr. Brando Betancourt PLT 143 103/ul Critically low 150-[address] [facility] Comment on above: Performed By: #### C BC #### [facility] [address] [place] [address] Dr. Brando Betancourt RBC 3.23 106/ul Critically low 4.20-5.40 [facility] Comment on above: Performed By: #### C BC #### [facility] [address] [place] [address] Dr. Brando Betancourt WBC 10.9 103/ul Normal 4.0-11.0 [facility] Comment on above: Performed By: #### C BC #### [facility] [address] [place] [address] Dr. Brando Betancourt AMNISUREon 07-12-2022 AMNISURE Negative Normal NEGATIVE [facility] Comment on above: Performed By: #### H BSANS #### [facility] [address] [place] [address] Dr. Brando Betancourt CBC AUTO DIFFon 07-12-2022 BASO # 0.0 103/ul Normal 0.0-0.1 [facility] Comment on above: Performed By: #### C BC #### [facility] [address] [place] [address] Dr. Brando Betancourt Basophils/100 WBC (Bld) 0.1 % Critically low 0.2-2.0 [facility] Comment on above: Performed By: #### C BC #### [facility] [address] [place] [address] Dr. Brando Betancourt EO # 0.1 103/ul Normal 0.0-0.7 [facility] Comment on above: Performed By: #### C BC #### [facility] [address] [place] [address] Dr. Brando Betancourt Eosinophils/100 WBC (Bld) 0.7 % Critically low 0.9-7.0 [facility] Comment on above: Performed By: #### C BC #### [facility] [address] [place] [address] Dr. Brando Betancourt Erythrocyte distribution width (RBC) [Ratio] 12.6 % Normal 11.0-15.0 [facility] Comment on above: Performed By: #### C BC #### [facility] [address] [place] [address] Dr. Brando Betancourt Hematocrit (Bld) [Volume fraction] 29.4 % Critically low 36.0-48.0 [facility] Comment on above: Performed By: #### C BC #### [facility] [address] [place] [address] Dr. Brando Betancourt Hemoglobin (Bld) [Mass/Vol] 10.0 g/dL Critically low 12.0-16.0 [facility] Comment on above: Performed By: #### C BC #### [facility] [address] [place] [address] Dr. Brando Betancourt IG # 0.04 10e3/ul Critically high 0.00-0.03 [facility] Comment on above: Performed By: #### C BC #### [facility] [address] [place] [address] Dr. Brando Betancourt IG % 0.4 % Normal 0.0-0.5 [facility] Comment on above: Performed By: #### C BC #### [facility] [address] [place] [address] Dr. Brando Betancourt LYMPH # 1.3 103/ul Normal 1.2-3.8 [facility] Comment on above: Performed By: #### C BC #### [facility] [address] [place] [address] Dr. Brando Betancourt Lymphocytes/100 WBC (Bld) 11.8 % Critically low 20.5-60.0 [facility] Comment on above: Performed By: #### C BC #### [facility] [address] [place] [address] Dr. Brando Betancourt MANUAL DIFF REQ NO Normal [facility] Comment on above: Performed By: #### C BC #### [facility] [address] [place] [address] Dr. Brando Betancourt MCH (RBC) [Entitic mass] 30.1 pg Normal 26.7-34.0 [facility] Comment on above: Performed By: #### C BC #### [facility] [address] [place] [address] Dr. Brando Betancourt MCHC (RBC) [Mass/Vol] 34.0 g/dL Normal 29.9-35.2 [facility] Comment on above: Performed By: #### C BC #### [facility] [address] [place] [address] Dr. Brando Betancourt MCV (RBC) [Entitic vol] 88.6 fL Normal 81.0-99.0 [facility] Comment on above: Performed By: #### C BC #### [facility] [address] [place] [address] Dr. Brando Betancourt MONO # 0.7 103/ul Normal 0.3-0.8 [facility] Comment on above: Performed By: #### C BC #### [facility] [address] [place] [address] Dr. Brando Betancourt Monocytes/100 WBC (Bld) 6.9 % Normal 1.7-12.0 [facility] Comment on above: Performed By: #### C BC #### [facility] [address] [place] [address] Dr. Brando Betancourt NEUT # 8.6 103/ul Critically high 1.4-6.5 [facility] Comment on above: Performed By: #### C BC #### [facility] [address] [place] [address] Dr. Brando Betancourt Neutrophils/100 WBC (Bld) 80.1 % Critically high 43.0-75.0 [facility] Comment on above: Performed By: #### C BC #### [facility] [address] [place] [address] Dr. Brando Betancourt Platelet mean volume (Bld) [Entitic vol] 11.3 fL Normal 9.5-13.5 [facility] Comment on above: Performed By: #### C BC #### [facility] [address] [place] [address] Dr. Brando Betancourt PLT 149 103/ul Critically low 150-450 [facility] Comment on above: Performed By: #### C BC #### [facility] [address] [address] [address] Brando Betancourt RBC 3.32 106/ul Critically low 4.20-5.40 [facility] Comment on above: Performed By: #### C BC #### [facility] [address] [place] [address] Dr. Brando Betancourt WBC 10.7 103/ul Normal 4.0-11.0 [facility] Comment on above: Performed By: #### C BC #### [facility] [address] [place] [address] Dr. Brando Betancourt TYPE AND SCREENon 07-12-2022 TYPE AND SCREEN Negative Normal [facility] Comment on above: Performed By: #### T NS #### [facility] [address] [place] [address] Dr. Brando Betancourt US PREG AMNIOTIC FLUID [...] The [facility] AMNISUREon 07-11-2022 AMNISURE Positive Abnormal NEGATIVE [facility] Comment on above: Performed By: #### A MNI #### [facility] [address] [place] [address] Dr. Brando Betancourt DRUG SCREEN RAPID (URINE)on 07-11-2022 AMP Negative Normal NEGATIVE [facility] Comment on above: Performed By: #### H BSANS #### [facility] [address] [address] [address] Brando Betancourt BAR Negative Normal NEGATIVE [facility] Comment on above: Performed By: #### H BSANS #### [facility] [address] [address] [address] Brando Betancourt BUP Negative Normal NEGATIVE [facility] Comment on above: Performed By: #### H BSANS #### [facility] [address] [address] [address] Brando Betancourt BZO Negative Normal NEGATIVE [facility] Comment on above: Performed By: #### H BSANS #### [facility] [address] [place] [address] Dr. Brando Betancourt JHONY Negative Normal NEGATIVE [facility] Comment on above: Performed By: #### H BSANS #### [facility] [address] [place] [address] Dr. Brando Betancourt CUT-OFFS SEE BELOW Normal [facility] Comment on above: Result Comment: AMP (Amphetamine): [...] #### [facility] [address] [place] [address] Dr. Brando Betancourt DRUG CUT HEADER DRUG CLASS TEST SYSTEM CUT-OFF CONCENTRATIONS ARE FOLLOWS: Normal [facility] Comment on above: Performed By: #### H BSANS #### [facility] [address] [place] [address] Dr. Brando Betancourt mAMP Negative Normal NEGATIVE [facility] Comment on above: Performed By: #### H BSANS #### [facility] [address] [address] [address] Brando Betancourt MTD Negative Normal NEGATIVE [facility] Comment on above: Performed By: #### H BSANS #### [facility] [address] [place] [address] Dr. Brando Betancourt OPI Negative Normal NEGATIVE [facility] Comment on above: Performed By: #### H BSANS #### [facility] [address] [place] [address] Dr. Brando Betancourt OXY Negative Normal NEGATIVE [facility] Comment on above: Performed By: #### H BSANS #### [facility] [address] [place] [address] Dr. Brando Betancourt PCP Negative Normal NEGATIVE [facility] Comment on above: Performed By: #### H BSANS #### [facility] [address] [place] [address] Dr. Brando Betancourt PPX Negative Normal NEGATIVE [facility] Comment on above: Performed By: #### H BSANS #### [facility] [address] [place] [address] Dr. Branod Betancourt TCA Negative Normal NEGATIVE [facility] Comment on above: Performed By: #### H BSANS #### [facility] [address] [place] [address] Dr. Brando Betancourt THC Negative Normal NEGATIVE [facility] Comment on above: Performed By: #### H BSANS #### [facility] [address] [place] [address] Dr. Brando Betancourt UA (CLEAN/CATCH) ART APPRAISER/MICRO I F IND.on 07-11-2022 Bilirubin Ql (U) Negative Normal NEGATIVE [facility] Comment on above: Performed By: #### C T/NGNA #### [facility] [address] [place] [address] Dr. Brando Betancourt Clarity (U) CLEAR Normal CLEAR [facility] Comment on above: Performed By: #### C T/NGNA #### [facility] [address] [place] [address] Dr. Brando Betancourt Color (U) LT. YELLOW Normal YELLOW [facility] Comment on above: Performed By: #### C T/NGNA #### [facility] [address] [place] [address] Dr. Brando Betancourt Glucose Ql (U) Negative Normal NEGATIVE [facility] Comment on above: Performed By: #### C T/NGNA #### [facility] [address] [place] [address] Dr. Brando Betancourt Hemoglobin Ql (U) Negative Normal NEGATIVE [facility] Comment on above: Performed By: #### C T/NGNA #### [facility] [address] [place] [address] Dr. Brando Betancourt Ketones Ql (U) Negative Normal NEGATIVE [facility] Comment on above: Performed By: #### C T/NGNA #### [facility] [address] [place] [address] Dr. Brando Betancourt LEUKOCYTES Negative Normal NEGATIVE [facility] Comment on above: Performed By: #### C T/NGNA #### [facility] [address] [place] [address] Dr. Brando Betancourt Nitrite Ql (U) Negative Normal NEGATIVE [facility] Comment on above: Performed By: #### C T/NGNA #### [facility] [address] [place] [address] Dr. Brando Betancourt pH (U) 7.0 [pH] Normal 5-9 [facility] Comment on above: Performed By: #### C T/NGNA #### [facility] [address] [place] [address] Dr. Brando Betancourt SPEC GRAVITY <=1.005 Abnormal 1.005-<=1.025 [facility] Comment on above: Performed By: #### C T/NGNA #### [facility] [address] [place] [address] Dr. Brando Betancourt UA PROTEIN Negative Normal NEGATIVE/ TRACE [facility] Comment on above: Performed By: #### C T/NGNA #### [facility] [address] [place] [address] Dr. Brando Betancourt UR MICRO IND NOT INDICATED Normal [facility] Comment on above: Performed By: #### C T/NGNA #### [facility] [address] [place] [address] Dr. Brando Betancourt Urobilinogen Qn (U) 0.2 {Arturo'U}/dL Normal 0.2 - 1. 0 [facility] Comment on above: Performed By: #### C T/NGNA #### [facility] [address] [place] [address] Dr. Brando Betancourt CHLAMYDIA/GONOCOCCUS JOBY ( AB/URINE/PAPon 06-25-2022 Chlamydia trachomatis, JOBY Negative Normal Negative [facility] Comment on above: Performed By: #### C T/NGNA #### [facility] [address] [place] [address] Dr. Brando Betancourt Neisseria gonorrhoeae, JOBY Negative Normal Negative [facility] Comment on above: Performed By: #### C T/NGNA #### [facility] [address] [place] [address] Dr. Brnado Betancourt VAGINITIS/VAGINOSIS DNA PROB Zenon 06-25-2022 Eugenia species Negative Normal Negative [facility] Comment on above: Performed By: #### C T/NGNA #### [facility] [address] [place] [address] Dr. Brando Betancourt Gardnerella vaginalis Negative Normal Negative [facility] Comment on above: Performed By: #### C T/NGNA #### [facility] [address] [place] [address] Dr. Brando Betancourt Trichomonas vaginalis Negative Normal Negative [facility] Comment on above: Performed By: #### C T/NGNA #### [facility] [address] [place] [address] Dr. Brando Betancourt GROUP B STREP CULTUREon 06-01 S. agalactiae Ag Ql (Unsp spec) Culture Observations: NEGATIVE FOR GROUP B STREPTOCOCCUS. Normal [facility] Comment on above: Performed By: #### C T/NGNA #### [facility] [address] [address] [address] Brando Betancourt CULTURE URINEon 06-09-2022 CULTURE URINE Culture Observations: NO GROWTH. Normal [facility] Comment on above: Performed By: #### U RCX #### [facility] [address] [address] [address] Brando Betancourt US PREG GROWTHon 06-09-2022 [...] by: MICHAEL KIRK Date: 2022-06-09 10:31 Normal [facility] HEP B SURFACE ANTIGEN SCREEN on 05-13-2022 HBsAg Screen Negative Normal Negative [facility] Comment on above: Performed By: #### H BSANS #### [facility] [address] [address] [address] Brando Betancourt HEPATITIS C VIRUS AB W/ REFL EX QUANTon 05-13-2022 HCV AB <0.1 Normal 0.0-0.9 [facility] Comment on above: Performed By: #### H BSANS #### [facility] [address] [address] [address] Brando Betancourt Interpretation: Comment Normal [facility] Comment on above: Result Comment: Nega tive Not infected with HCV, unless recent infection is suspected or other evidence exists to indicate HCV infection. Performed By: #### H DWAINENS #### [facility] [address] [place] [address] Dr. Brando Betancourt HIV 1 AND 2 WITH REFLEXon HIV Screen 4th Generation wRfx Non-Reactive Normal Non Reactive [facility] Comment on above: Result Comment: HIV Negative HIV-1/HIV-2 antibodies and HIV-1 p24 antigen were NOT detected. There is no laboratory evidence of HIV infection. Performed By: #### C BC #### [facility] [address] [place] [address] Dr. Brando Betancourt RPR QUANTon 05-13-2022 Rapid Plasma Reagin, Quant Non-Reactive Normal NonRea<1:1 [facility] Comment on above: Result Comment: Plea se Note: This test does not meet current guidelines for screening and diagnosis of syphilis. This test is intended for following treatment response in patients being treated for syphilis infection. To screen for syphilis infection, a reflex cascade that includes both RPR and a treponema-specific assay should be utilized, such as Treponema pallidum (Syphilis) Screening [place] (073697) or Rapid Plasma Reagin (RPR) Test With Reflex to Quantitative RPR and Confirmatory Treponema pallidum Antibodies (570080). Performed By: #### H BSANS #### [facility] [address] [place] [address] Dr. Brando Betancourt RUBELLA AB IGGon 05-13-2022 Rubella Antibodies, IgG 1.64 index Normal Immune >0.99 [facility] Comment on above: Result Comment: Non- immune <0.90 Equivocal 0.90 - 0.99 Immune >0.99 Performed By: #### R UBIGG #### [facility] [address] [place] [address] Dr. Brando Betancourt CBC AUTO DIFFon 05-12-2022 BASO # 0.0 103/ul Normal 0.0-0.1 [facility] Comment on above: Performed By: #### C BC #### [facility] [address] [place], [place] [address] Dr. Brando Betancourt Basophils/100 WBC (Bld) 0.2 % Normal 0.2-2.0 [facility] Comment on above: Performed By: #### C BC #### [facility] [address] [place] [address] Dr. Brando Betancourt EO # 0.2 103/ul Normal 0.0-0.7 [facility] Comment on above: Performed By: #### C BC #### [facility] [address] [place] [address] Dr. Brando Betancourt Eosinophils/100 WBC (Bld) 2.0 % Normal 0.9-7.0 [facility] Comment on above: Performed By: #### C BC #### [facility] [address] [place] [address] Dr. Brando Betancourt Erythrocyte distribution width (RBC) [Ratio] 13.1 % Normal 11.0-15.0 [facility] Comment on above: Performed By: #### C BC #### [facility] [address] [place] [address] Dr. Brando Betancourt Hematocrit (Bld) [Volume fraction] 30.8 % Critically low 36.0-48.0 [facility] Comment on above: Performed By: #### C BC #### [facility] [address] [place] [address] Dr. Brando Betancourt Hemoglobin (Bld) [Mass/Vol] 10.4 g/dL Critically low 12.0-16.0 [facility] Comment on above: Performed By: #### C BC #### [facility] [address] [place] [address] Dr. Brando Betancourt IG # 0.04 10e3/ul Critically high 0.00-0.03 [facility] Comment on above: Performed By: #### C BC #### [facility] [address] [place] [address] Dr. Brando Betancourt IG % 0.4 % Normal 0.0-0.5 [facility] Comment on above: Performed By: #### C BC #### [facility] [address] [place], [place] [address] Dr. Brando Betancourt LYMPH # 0.8 103/ul Critically low 1.2-3.[address] [facility] Comment on above: Performed By: #### C BC #### [facility] [address] [place] [address] Dr. Brando Betancourt Lymphocytes/100 WBC (Bld) 8.6 % Critically low 20.5-60.0 [facility] Comment on above: Performed By: #### C BC #### [facility] [address] [place] [address] Dr. Brando Betancourt MANUAL DIFF REQ NO Normal [facility] Comment on above: Performed By: #### C BC #### [facility] [address] [place] [address] Dr. Brando Betancourt MCH (RBC) [Entitic mass] 30.5 pg Normal 26.7-34.0 [facility] Comment on above: Performed By: #### C BC #### [facility] [address] [place] [address] Dr. Brando Betancourt MCHC (RBC) [Mass/Vol] 33.8 g/dL Normal 29.9-35.2 [facility] Comment on above: Performed By: #### C BC #### [facility] [address] [place] [address] Dr. Brando Betancourt MCV (RBC) [Entitic vol] 90.3 fL Normal 81.0-99.0 [facility] Comment on above: Performed By: #### C BC #### [facility] [address] [place] [address] Dr. Brando Betancourt MONO # 0.5 103/ul Normal 0.3-0.8 [facility] Comment on above: Performed By: #### C BC #### [facility] [address] [place] [address] Dr. Brando Betancourt Monocytes/100 WBC (Bld) 4.9 % Normal 1.7-12.0 [facility] Comment on above: Performed By: #### C BC #### [facility] [address] [place] [address] Dr. Brando Betancourt NEUT # 7.9 103/ul Critically high 1.4-6.5 [facility] Comment on above: Performed By: #### C BC #### [facility] [address] [place] [address] Dr. Brando Betancourt Neutrophils/100 WBC (Bld) 83.9 % Critically high 43.0-75.0 [facility] Comment on above: Performed By: #### C BC #### [facility] [address] [place] [address] Dr. Brando Betancourt Platelet mean volume (Bld) [Entitic vol] 9.4 fL Critically low 9.5-13.5 [facility] Comment on above: Performed By: #### C BC #### [facility] [address] [place] [address] Dr. Brando Betancourt PLT 189 103/ul Normal 150-450 [facility] Comment on above: Performed By: #### C BC #### [facility] [address] [place] [address] Dr. Brando Betancourt RBC 3.41 106/ul Critically low 4.20-5.40 [facility] Comment on above: Performed By: #### C BC #### [facility] [address] [place] [address] Dr. Brando Betancourt WBC 9.4 103/ul Normal 4.0-11.0 [facility] Comment on above: Performed By: #### C BC #### [facility] [address] [place] [address] Dr. Brando Betancourt CULTURE URINEon 05-12-2022 CULTURE URINE Culture Observations: LIGHT GROWTH OF MIXED GENITAL STACEY. NO POTENTIAL PATHOGENS SEEN. Normal [facility] Comment on above: Performed By: #### U RCX #### [facility] [address] [place] [address] Dr. Brando Betancourt GLYCOHEMOGLOBIN A1Con 2021 ADA RECOMMENDATION SEE BELOW Normal [facility] Comment on above: Result Comment: ADA RECOMMENDED LIMIT 4.0 - 6.0 ADA THERAPEUTIC TARGET < 7.0 ACTION SUGGESTED > 7.0 Performed By: #### C BC #### [facility] [address] [place], [place] [address] Dr. Brando Betancourt Glucose [Mass/Vol] 94 mg/dL Normal [facility] Comment on above: Performed By: #### C BC #### [facility] [address] [place], [place] [address] Dr. Brando Betancourt HbA1c (Bld) [Mass fraction] 4.9 % Normal 4.5-6.2 [facility] Comment on above: Performed By: #### C BC #### [facility] [address] [place], [place] [address] Dr. Brando Betancourt TYPE AND SCREENon 05-12-2022 TYPE AND SCREEN Negative Normal [facility] Comment on above: Performed By: #### C T/NGNA #### [facility] [address] [place], [place] [address] Dr. Brando Betancourt US PREG PLACENTAon US [...] The [facility] OVA AND PARASITE EXAMINATION on 04-15-2022 Ova + Parasite Exam Final report Normal [facility] Comment on above: Result Comment: Thes e results were obtained using wet preparation(s) and trichrome stained smear. This test does not include testing for Cryptosporidium parvum, Cyclospora, or Microsporidia. Performed By: #### H BSANS #### [facility] [address] [place], [place] [address] Dr. Brando Betancourt Result 1 Comment Normal [facility] Comment on above: Result Comment: No o va, cysts, or parasites seen. . One negative specimen does not rule out the possibility of a parasitic infection. Performed By: #### H BSANS #### [facility] [address] [address] [address] Brando Betancourt GLUCOSE - 1HRon 04-07-2022 Glucose [Mass/Vol] 113 mg/dL Critically high 74-106 T [facility] Comment on above: Performed By: #### H BSANS #### [facility] [address] [address] [address] Brando Betancourt CNPNon 03-30-2022 CNPN Telephone (OBGYWM) ---- RADHA KEENAN ([id number]) 1995 F Date Time Provider Department 03/30/22 CHE ISLAS During your visit today, we recorded the following information about you: Kathy Teresa RN 03/30/2022 10:27 AM Signed Patient transferred care to [facility] office. She was seen in our [...] by KATHY TERESA RN on 03/30/22 Normal [facility] US PREG ANATOMY SINGLEon US PREG [...] by: SCARLET TIAN Date: 2022-03-09 16:44 Normal [facility] URINE OB DIP B/Oon 2 Glucose Ql (U) Negative Neg mg/dL [facility] Protein.monoclonal (U) [Mass/Vol] Negative Neg mg/dL [facility] Bacteria Ur Culton 2 Bacteria identified Cx Nom (U) ORGANISM ID: 1 <10,000 CFU/ml Normal urogenital stacey Normal [facility] Comment on above: Performed By: #### 6 30-4 #### [facility] CLIA [id number] [address] [place] [address] [place] C. trachomatis+N. gonorrhoea e DNA JOBY+probe Ql (Unsp spec)on 12-30-2021 C. trachomatis DNA JOBY+probe Ql (Unsp spec) Negative Normal Negative for Chlamydia trachomatis by amplificaton [facility] Comment on above: Order Comment: Speci men Type: SWAB Ordering Facility: [facility] Address: [address] [place] [address] Performed By: #### 3 [id number] #### [facility] CLIA [id number] [address] [place] [address] OF [place] N. gonorrhoeae DNA JOBY+probe Ql (Unsp spec) Negative Normal Negative for Neisseria gonorrhoeae by amplification [facility] Comment on above: Order Comment: Speci men Type: SWAB Ordering Facility: [facility] Address: [address] [place] [address] Performed By: #### 3 6902-5 #### [facility] CLIA [id number] [address] [place] [address] [place] PAP FLUID CERVICAL SCREENING on 12-30-2021 CASE REPORT Normal [facility] Comment on above: Order Comment: Speci men Type: FLUID SAMPLE Ordering Facility: [facility] Address: [address] [place] [address] Result Comment: Gyne cologic Cytology Report Case: [id number] Authorizing Provider: Lamont Pulido MD Collected: 12/30/2021 01:57 PM Ordering Location: OB/Gynecology Received: 12/30/2021 05:25 PM First Screen: MITZY Scott, ASCP Specimen: Pap, Skeet Operator, Screening, CERVICAL SCREENING FLUID Performed By: #### L [id number] #### [facility] CLIA [id number] [address] [place] [address] [place] CLINICAL HISTORY ROUTINE EXAM Normal [facility] Comment on above: Order Comment: Speci men Type: FLUID SAMPLE Ordering Facility: [facility] Address: [address] [place] [address] Performed By: #### L [id number] #### [facility] CLIA [id number] [address] [place] [address] STATES OF [facility] CYTOLOGY INTERPRETATION PAP Normal [facility] Comment on above: Order Comment: Speci men Type: FLUID SAMPLE Ordering Facility: [facility] Address: [address] [place] [address] Result Comment: Nega tive for Intraepithelial lesion or malignancy. Performed By: #### L [id number] #### [facility] CLIA [id number] [address] [place] [address] FINAL DIAGNOSIS Normal [facility] Comment on above: Order Comment: Speci men Type: FLUID SAMPLE Ordering Facility: [facility] Address: [address] [place] [address] Result Comment: A - CERVICAL SCREENING FLUID Satisfactory for interpretation, No endocervical component Negative for Intraepithelial lesion or malignancy. Performed By: #### L [id number] #### [facility] CLIA [id number] [address] [place] [address] [place] FINAL PERFORMING LAB Normal [facility] Comment on above: Order Comment: Speci men Type: FLUID SAMPLE Ordering Facility: [facility] Address: [address] [place] [address] Result Comment: Tech nical component, supervisor transcribing operators screening performed at [facility], [address] [place] [address] [place] [address] CLIA# [id number] Diagnostic interpretation performed at [facility], [address] [place] [address] [place] [address] CLIA# [id number] Underwriting Analyst: Baldev Jones M.D. Performed By: #### L [id number] #### [facility] CLIA [id number] [address] [place] [address] [place] HPV REQUESTED? Yes, Reflex HPV for ASCUS Normal [facility] Comment on above: Order Comment: Speci men Type: FLUID SAMPLE Ordering Facility: [facility] Address: [address] [place] [address] Performed By: #### L [id number] #### [facility] CLIA [id number] [address] [place] [address] [place] LMP Normal [facility] Comment on above: Order Comment: Speci men Type: FLUID SAMPLE Ordering Facility: [facility] Address: [address] [place], [place] [address] Performed By: #### L [id number] #### [facility] CLIA [id number] [address] [place] [address] [place] PAP DISCLAIMER COMMENT The Pap Smear is a screening test for cervical cancer. False negative results occur with all screening tests, emphasizing the need for rescreening at recommended intervals, and clinical correlation. Normal [facility] Comment on above: Order Comment: Speci men Type: FLUID SAMPLE Ordering Facility: [facility] Address: [address] [place], [place] [address] Performed By: #### L [id number] #### [facility] CLIA [id number] [address] [place] [address] [place] PAP SOCIAL MEDIA MARKETER COMMENT This specimen has been analyzed by the ThinPrep Imaging System, an automated imaging and review system, which assists the laboratory in evaluating cells on ThinPrep Pap tests. Following automated imaging, selected arriaga from every slide are reviewed by a supervisor transcribing operators. Normal [facility] Comment on above: Order Comment: Speci men Type: FLUID SAMPLE Ordering Facility: [facility] Address: [address] [place] [address] Performed By: #### L [id number] #### [facility] CLIA [id number] [address] [place] [address] CNNURSEon 12-16-2021 CNNURSE Nurse Visit (OBGYWM) ---- RADHA KEENAN ([id number]) 1995 F Date Time Provider Department 12/16/21 9:30 AM NURSE PNOB [facility] OBGYWM During your visit today, we recorded the following information about you: Last Period 10/25/21 Anabel Bhardwaj RN 12/16/2021 10:11 AM Signed SEQUENTIAL SCREENINGS The [facility] offers sequential screenings for women who [...] It will require an appointment with our racking technician. This is not an ultrasound performed [...] the above symptoms, contact our office at [phone] and ask to speak with a nurse. After hours, you can call doctors registry at [phone] OR call [facility] at [phone] and ask to have the doctor cash reconciliation specialist paged. If you consider this an [...] treatment is particularly effective in young patients-the [facility] reports a [...] of can (more content not included)... Normal [facility] HCG QUAL UR B/Oon 12-16-2021 status Positive neg - pos [facility] Quality Check Yes [facility] US TRANSVAGINAL OBon 017 US TRANSVAGINAL [...] ultrasound.Report electronically signed by: Dr. Adair Blank [facility] Vital Signs Date Time Vital Sign Value Performing Clinician Facility 07-01-2023 11:29-0500 Body mass index (BMI) [Ratio] 27.59 kg/m2 Lobito Dipak DO Work Phone: [facility] 07-01-2023 11:29-0500 Body weight 75.21 kg Lobito Dipak DO Work Phone: [facility] 07-01-2023 11:29-0500 Diastolic blood pressure 60 mm[Hg] Lobito Dipak DO Work Phone: [facility] 07-01-2023 11:29-0500 Systolic blood pressure 112 mm[Hg] Lobito Dipak DO Work Phone: [facility] 06-27-2023 13:45-0500 Body height 160.02 cm Lyndsey Brown Other [facility] Other 06-27-2023 13:45-0500 Body mass index (BMI) [Ratio] 29.54 kg/m2 Lyndsey Brown Other [facility] Other 06-27-2023 13:45-0500 Body temperature 97.8 [degF] Lyndsey Brown Other [facility] Other 06-27-2023 13:45-0500 Body weight 75.66 kg Lyndsey Brown Other [facility] Other 06-27-2023 13:45-0500 Respiratory rate 18 /min Lyndsey Brown Other [facility] Other 06-27-2023 13:45-0500 SaO2% (BldA) [Mass fraction] 97 % Lyndsey Brown Other [facility] Other 01-27-2022 09:28-0400 Body weight 63.5 kg Serena Srinivasan MD Work Phone: [facility] 01-27-2022 09:28-0400 Diastolic blood pressure 62 mm[Hg] Serena Srinivasan MD Work Phone: [facility] 01-27-2022 09:28-0400 Systolic blood pressure 98 mm[Hg] Serena Srinivasan MD Work Phone: [facility] 12-30-2021 13:09-0400 Body weight 62.6 kg Lamont Pulido MD Work Phone: [facility] 12-30-2021 13:09-0400 Diastolic blood pressure 70 mm[Hg] Lamont Pulido MD Work Phone: [facility] 12-30-2021 13:09-0400 Systolic blood pressure 110 mm[Hg] Lamont Pulido MD Work Phone: [facility] 12-16-2021 08:55-0400 Body height 160 cm Raina Plotts INTRUSION ANALYST.CNM Work Phone: [facility] 12-16-2021 08:55-0400 Body weight 61.69 kg Raina Plotts INTRUSION ANALYST.CNM Work Phone: [facility] 12-16-2021 08:55-0400 Diastolic blood pressure 64 mm[Hg] Raina Plotts INTRUSION ANALYST.CNM Work Phone: [facility] 12-16-2021 08:55-0400 Systolic blood pressure 112 mm[Hg] Raina Plotts INTRUSION ANALYST.CNM Work Phone: [facility] Encounters Encounter Date Encounter Type Care [...] 06-27-2023 End: 06-27-2023 ambulatory Lyndsey Brown Other [facility] Other Start: 06-27-2023 Office outpatient ne w [...] 06-09-2022 End: 06-10-2022 ambulatory ISABEL ARELLANO . Facility: Start: 05-12-2022 End: 05-13-2022 [...] End: 01-27-2022 ambulatory SERENA SRINIVASAN Facility:[facility] Start: 01-27-2022 End: 01-27-2022 Patient encounter procedure Serena Srinivasan MD Work Phone: OB/Gynecology Comment on above: 14 weeks gestation o f (Primary Dx); Encounter for supervision of normal first in second trimester Start: 12-30-2021 End: 12-30-2021 ambulatory LAMONT PULIDO Facility:[facility] Start: 12-30-2021 End: 12-30-2021 Patient encounter procedure Lamont Pulido MD Work Phone: OB/Gynecology Comment on above: History of pulmonary embolism (Primary Dx); History of depression; Encounter for care in first trimester of first Start: 12-16-2021 End: 12-16-2021 ambulatory Raina Bonner APRN.CNM Work Phone: OB/Gynecology Comment on above: online resource Start: 12-16-2021 E-mail encounter fro m caregiver Raina Bonner APRN.CNM [facility] Phone[facility] Start: 12-16-2021 End: 12-16-2021 Nursing evaluation of patient and [facility] Work Phone: OB/Gy[facility] Comment on above: Supervision of high risk , antepartum (Primary Dx); Patient request for diagnostic testing; History of pulmonary embolism; History of depression Start: 12-16-2021 End: 12-16-2021 [facility] Work [facility]: [facility] Work Phone: Start: 12-16-2021 End: 12-16-2021 Patient encounter procedure Raina Bonner APRN.CNM Work Phone: OB/Gynecology Comment on above: Missed menses (Prima ry Dx); Encounter for test, result positive; History of depression Start: 12-11-2021 End: 12-11-2021 ambulatory MARTIN BURGOS Facility:[facility] Start: 12-18-2016 Ambulatory AN MOREIRA Facili ty:[facility] Start: 12-02-2016 End: 12-28-2016 Ambulatory AN ALFORDKLIN Facility:[facility] Start: 11-26-2016 End: 11-26-2016 Ambulatory AN MOREIRA Facility:[facility] Start: 11-25-2016 End: 11-25-2016 Ambulatory AN MOREIRA Facility:[facility] Procedures Date Procedure Procedure Detail [...] Urine test visual color cmprsn ramin Bonner INTRUSION ANALYST.CNM Work Phone: Plan of Treatment Date Care Activity Detail Author Start: 12-30-2024 PAP TESTING PAP TESTING [facility] Start: 12-30-2024 Screening for malignant neoplasm of cervix [facility] Start: 07-29-2023 End: 07-29-2023 Patient encounter procedure 07/29/2023 10:10 AM EST Routine [facility] [address] [place] [address] Isabel Arellano PA [address] [place] [address] [facility] Start: 07-01-2023 End: 07-01-2024 CBC panel - Blood by Automated count CBC Lab Routine Diabetes mellitus screening Expected: 07/01/2023 (Approximate), Expires: 07/01/2024 [facility] Work Phone: Comment on above: Expected: 07/01/2023 (Approximate), Expires: 07/01/2024 Start: 07-01-2023 End: 07-01-2024 Measurement of glucose 1 hour after glucose challenge for glucose tolerance test Glucose tolerance, 1 hour Lab Routine Diabetes mellitus screening Expected: 07/01/2023 (Approximate), Expires: 07/01/2024 [facility] Comment on above: Expected: 07/01/2023 (Approximate), Expires: 07/01/2024 Start: 2023 Screening for malignant neoplasm of cervix HPV/Cotest [facility] Start: 01-29-2023 Influenza vaccination Influenza Vacc ine (#1) [facility] Start: 01-29-2022 Influenza vaccination INFLUENZA (#1) [facility] Start: 12-30-2021 End: 03-01-2022 CBC panel - Blood by Automated count CBC Lab Routine History of pulmonary embolism History of depression Encounter for care in first trimester of first Expected: 12/30/2021, Expires: 03/01/2022 [facility] Work Phone: Comment on above: Expected: 12/30/2021 , Expires: 03/01/2022 Start: 12-30-2021 End: 03-01-2022 Hepatitis B virus surface Ab [Presence] in Serum by Immunoassay HEP B SURF AG SCRN Lab Routine History of pulmonary embolism History of depression Encounter for care in first trimester of first Expected: 12/30/2021, Expires: 03/01/2022 [facility] Work Phone: Comment on above: Expected: 12/30/2021 , Expires: 03/01/2022 Start: 12-30-2021 End: 03-01-2022 Hepatitis C virus Ab [Presence] in Serum HEP C AB IA W/CONF SCRN Lab Routine History of pulmonary embolism History of depression Encounter for care in first trimester of first Expected: 12/30/2021, Expires: 03/01/2022 [facility] Work Phone: Comment on above: Expected: 12/30/2021 , Expires: 03/01/2022 Start: 12-30-2021 End: 03-01-2022 HIV 1+2 Ab [Presence] in Serum or Plasma by Immunoassay HIV 1 2 COMBO(AG/AB),WITH REFLEX TO DIFFERENTIATION Lab Routine History of pulmonary embolism History of depression Encounter for care in first trimester of first Expected: 12/30/2021, Expires: 03/01/2022 [facility] Work Phone: Comment on above: Expected: 12/30/2021 , Expires: 03/01/2022 Start: 12-30-2021 End: 03-01-2022 RUBELLA IGG AB RUBELLA IGG AB Lab Routine History of pulmonary embolism History of depression Encounter for care in first trimester of first Expected: 12/30/2021, Expires: 03/01/2022 [facility] Work Phone: Comment on above: Expected: 12/30/2021 , Expires: 03/01/2022 Start: 12-30-2021 End: 03-01-2022 SYPHILIS TOTAL W/REFLEX SYPHILIS TOTAL W/REFLEX Lab Routine History of pulmonary embolism History of depression Encounter for care in first trimester of first Expected: 12/30/2021, Expires: 03/01/2022 [facility] Work Phone: Comment on above: Expected: 12/30/2021 , Expires: 03/01/2022 Start: 12-30-2021 End: 03-01-2022 TYPE + SCREEN TYPE + SCREEN Blood Bank Routine History of pulmonary embolism History of depression Encounter for care in first trimester of first Expected: 12/30/2021, Expires: 03/01/2022 [facility] Work Phone: Comment on above: Expected: 12/30/2021 , Expires: 03/01/2022 Start: 07-15-2017 Urine microalbumin profile DTAP,TDAP,TD (2 - Td or Tdap) [facility] Start: 04-09-2017 PAP TESTING PAP TESTING [facility] Start: 1995 COVID-19 VACCINE (#1) COVID-19 VACCI NE (#1) [facility] Start: 1995 HEPATITIS B (1 of 3 - 3-dose series) HEPATITIS B (1 of 3 - 3-dose series) [facility] Bacteria identified in Urine by Culture URINE CULTURE Microbiology Routine History of pulmonary embolism History of depression Encounter for care in first trimester of first 12/30/2021 1:57 PM EDT [facility] Work Phone: Chlamydia trachomatis+Neisseria gonorrhoeae DNA [Presence] in Unspecified specimen by JOBY with probe detection GC/CHLAMYDIA DNA DET Lab Routine History of pulmonary embolism History of depression Encounter for care in first trimester of first 12/30/2021 1:57 PM EDT [facility] Work Phone: OBSTETRIC ULTRASOUND [facility] OBSTETRIC ULTRASOUND [facility] Anc Imaging Routine Encounter for supervision of normal first in second trimester Ordered: 01/27/2022 [facility] Work Phone: Comment on above: Ordered: 01/27/2022 PAP FLUID CERVICAL SCREENING PAP FLUID CERVICAL SCREENING Lab Routine History of pulmonary embolism History of depression Encounter for care in first trimester of first 12/30/2021 1:57 PM EDT [facility] Work Phone: [facility] Immunizations Immunization Date Immunization Notes Care Provider Jack mora 04-12-2010 influenza virus vaccine, unspecified formulation Raina Bonner INTRUSION ANALYST.CNM Work Phone: [facility] 09-04-2008 human papilloma viru s vaccine, quadrivalent Raina Bonner INTRUSION ANALYST.CNM Work Phone: [facility] Work Phone: 03-19-2008 human papilloma viru s vaccine, quadrivalent Raina Plotdinesh INTRUSION ANALYST.CNM Work Phone: [facility] Work Phone: 01-17-2008 hepatitis A vaccine, unspecified formulation Raina Bonner INTRUSION ANALYST.CNM Work Phone: [facility] Work Phone: 01-17-2008 human papilloma viru s vaccine, quadrivalent Raina Bonner INTRUSION ANALYST.CNM Work Phone: [facility] Work Phone: 07-15-2007 hepatitis A vaccine, unspecified formulation Raina Bonner INTRUSION ANALYST.CNM Work Phone: [facility] Work Phone: 07-15-2007 Meningococcal, MCV4, unspecified conjugate formulation(groups A, C, Y and W-135) Raina Bonner INTRUSION ANALYST.CNM Work Phone: [facility] Work Phone: 07-15-2007 tetanus toxoid, redu ruchi diphtheria toxoid, and acellular pertussis vaccine, adsorbed Raina Bonner INTRUSION ANALYST.CNM Work Phone: [facility] Work Phone: Payers Date Payer Category Payer Medicaid [id number] 2015 Private Health Insurance [id number] 1995 Unknown [id number] 2.16.84 0.1.724888.3.579.2.593 1995 Unknown [id number] 2.16.84 0.1.463948.3.579.2.593 1993 Unknown [id number] 2.16.84 0.1.551783.3.579.2.593 1993 Unknown [id number] 2.16.84 0.1.690706.3.579.2.593 1993 Unknown [id number] 2.16.84 0.1.154831.3.579.2.593 1993 Unknown [id number] 2.16.84 0.1.973769.3.579.2.593 1993 Unknown [id number] 2.16.84 0.1.337164.3.579.2.593 1993 Unknown [id number] 2.16.84 0.1.263214.3.579.2.593 1993 Unknown [id number] 2.16.84 0.1.010724.3.579.2.593 1993 Unknown [id number] 2.16.84 0.1.518617.3.579.2.593 1993 Unknown [id number] 2.16.84 0.1.099693.3.579.2.593 1993 Unknown [id number] 2.16.84 0.1.529593.3.579.2.593 1993 Unknown [id number] 2.16.84 0.1.031647.3.579.2.593 1993 Unknown [id number] 2.16.84 0.1.244762.3.579.2.1259 1993 Unknown [id number] 2.16.84 0.1.648893.3.579.2.1259 1993 Unknown [id number] 2.16.84 0.1.022431.3.579.2.1259 1993 Unknown [id number] 2.16.84 0.1.308120.3.579.2.1259 1993 Unknown [id number] 2.16.84 0.1.349687.3.579.2.1259 1993 Unknown [id number] 2.16.840 .1.206735.3.579.2.1259 1993 Unknown [id number] 2.16.840 .1.961027.3.579.2.1259 1961 Medicaid [id number] Social History Date Type Detail Facility Start: 01-27-2022 End: 01-10-2023 Tobacco smoking status NHIS Never smoked tobacco [facility] Start: 12-16-2021 End: 03-30-2022 Alcohol intake Current non-drinker of alcohol (finding) [facility] Start: 12-16-2021 Education 15 [facility] Start: 10-30-2021 [facility] Start: 1995 Sex Assigned At Female [facility] Start: 12-06-2021 End: 01-27-2022 Exposure to SARS-CoV-2 (event) Not sure [facility] Start: 01-27-2022 End: 01-10-2023 Tobacco use and exposure Smokeless tobacco non-user [facility] Start: 01-13-2023 Sex Assigned At [facility] Other Start: 07-01-2023 Alcohol intake Lifetime non-drinker (finding) [facility] Start: 01-13-2023 History of Social function [facility] Start: 12-17-2022 Gender identity Identifies as female gender (finding) [facility] Start: 12-17-2022 Sexual orientation Heterosexual (finding) [facility] Goals Date Patient Goal Desired [...] nursing note reviewed. Exam conducted with a ornamental iron worker apprentice present. Vitals: Estimated body mass index is [...] Lobito Quesada DO documented in this encounter [facility] 06-27-2023 Evaluation note Encounter Date Diagnosis Assessment [...] otherwise f/u with PCP INB despite tx. [facility] Other 02-12-2023 NotePROCEDURE: US PREG BIOPHYSICAL NO [...] Electronically authenticated by: NADINE ENCISO Date: 2022-07-12 07:58[facility]02-01-2023 History general Narrative - Reported* Type Description Date Medical History 21 weeks Hospitalization History CHILD 07/2022 [facility] Other 10-31-2022 Miscellaneous Notes* Telephone Encounter - Kathy Teresa RN - 03/30/2022 10:22 AM EDT Patient transferred care to [facility] office. She was seen in our office for 2 visits.Please bill all visits if needed. Kathy Teresa RN [facility] Miscellaneous Notes* Quick Notes - Serena [...] indicated Serena Srinivasan MD documented in [facility]2022 Instructions* Patient Instructions* Carlota Alexandre Ma - 01/27/2022 9:23 AM EDT SEQUENTIAL SCREENINGS The [facility] offers sequential screenings for women who [...] testing. It will require an appointment withour racking technician. This is not an ultrasound performed [...] the above symptoms, contact our office at [phone] and ask to speak with anurse. After hours, you can call doctors registry at [phone] OR call [facility] at [phone] ask to have the doctor cash reconciliation specialist paged. If you consider this an emergency, dial 5-1-0 or go to your nearest emergency department. NEED HELP? Are you dealing with a violent or abusive relationship? Are you a victim of rape or sexual assult? Call [facility] ([place]) 24 hour Crisis Hotline: 208.966.6626 or 585-061-1776. MANUAL Your Guide to a Healthy manual is now on-line. Visit [email or web address] to download your free copy documented in this encounterJoint [facility]-2022 NoteHNO ID: [id number] Author: Lamont Pulido MD Service: ? Author [...] Multivitamin with Folic acid: Yes Occupation: Unemployed Religious or heritage: No Would refuse blood transfusion if medically necessary: No No weight on file for this encounter. Patient BMI over 30? No Marital Status:getting but in a relationship w/ new partner and they tested paternity and are confident he is FOB Partner: Name: Giancarlo Age: 25 Occupation: [employer] Gender: male History of STDs: None PAST MEDICAL HISTORY Diagnosis Date - Anemia - Asthma - Blood dyscrasia - Depression - HPV test positive 03/31/2014 - MTHFR mutation - PE (pulmonary embolism) 12/29/2012 [facility], took Xarelto for 6+ months from [facility] - PMH - PAST MEDICAL HISTORY [...] she is considered at (more content not included)...[facility]08-02-2022 History of Present illness Narrative* Lamont [...] Multivitamin with Folic acid: Yes Occupation: Unemployed Religious or heritage: No Would refuse blood transfusion if medically necessary: No No weight on file for this encounter. Patient BMI over 30? 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 Lamont Pulido MD documented in [facility] encounter[facility] Instructions* Patient Instructions* Glenis Lee Ma - 12/30/2021 12:59 PM EDT Please select the following link to access the [facility] Your Guide to a Healthy . [email or web address] documented in this encounterJoint [facility]07-[facility]22 Miscellaneous Notes* Quick Notes - Anabel [...] that she was hospitalized at [facility]. Shestates that she took Xarelto for 6+ months. She denies any other recurrences. She denies any familyhistory of blood clots.Pt has a history of depression/anxiety diagnosed at age 16. She states that she was hospitalized in [place] for a suicidal attempt in 2012 with [...] here at [facility]. I did talk to Raina Bonner about this. Patient was also given the mental health crisis phone number that is open 24 hours a day. Patient declines aneuploidy screening and genetic carrier screening testing.Anabel Bhardwaj RN documented in this encounterJoint [facility]07-19-2022 Miscellaneous Notes* Addendum Note - Raina Bonner APRN.CNM - 12/16/2021 12:03 PM EDT Addended by: RAINA BONNER on: 12/16/2021 12:03 PM Modules accepted: Orders documented in this encounterJoint [facility] District [facility] Hospital07-19-2022 NoteHNO ID: [id number] Author: Raina Bonner APRN.CNM Service: ? Author Type: Block Bolter Mule Operator Type: Progress Notes Filed: 12/16/2021 9:39 AM Note Text: Radha Keenan is a 26 year old female who presents with missed menses. LMP was approximately 10/25/21. No control since 2018- only using condoms Currently but from . Was in open relationship and unsure of paternity. OB History T0 L0 SAB0 IAB0 Ectopic0 Multiple0 Live Births0 Integration Director History LMP: 10/25/2021, Age at Menarche: Age at First : Age at Menopause: Integration Director History Comments: Sexual Activity: Yes; Male Contraception: Condom, I.U.D. PAST MEDICAL HISTORY Diagnosis Date - HPV test positive 03/2014 - MTHFR mutation - PE (pulmonary embolism) 12/2012 [facility], took Xarelto for 6+ [facility] from [facility] - PMH - PAST MEDICAL HISTORY [...] which included preparing to see the patient, [id number] patient care, completing clinical documentation, obtaining and/or reviewing separately obtained history and counseling and educating the patient/family/caregiver Medical Decision Making Raina Bonner APRN.[facility]07-19-2022 Instructions* Patient Instructions* Anabel Bhardwaj RN - 12/16/2021 10:11 AM EDT SEQUENTIAL SCREENINGS The [facility] offers sequential screenings for women who [...] testing. It will require an appointment withour racking technician. This is not an ultrasound performed [...] the above symptoms, contact our office at [phone] and ask to speak with anurse. After hours, you can call doctors registry at [phone] OR call [facility] at [phone] ask to have the doctor cash reconciliation specialist paged. If you consider this an [...] treatment is particularly effective in young patients-the [facility] Cord Blood [facility] reports a [...] issues. What do the experts say? The [place] [employer] encourages philanthropic blood banking [...] baby needs at the moment. The nurse, architectural practice manager, or physician will then label the samples, [...] AHEAD OF TIME! Public cord-blood herrmann--DONATION: [employer] [phone] [facility]'s Placental Blood Program, [facility] U[facility]ilical Cord Blood Bank, Private cord-blood herrmann--SAVING FOR YOUR OWN USE: [employer] [place], (I think this is the least expensive) [employer] [phone] [employer], [phone]) [employer] [place] [facility] Blood [facility], [phone], [phone] [place] [facility], Cord Blood Registry, [phone]) [employer], An Internet search may provide you with additional listings. documented in this encounterJoint Township District Memorial Hospital07-19-2022 History of Present illness Narrative* Raina Bonner APRN.[facility] - 12/16/2021 8:46 AM EDT Radha Keenan is a 26 year old female who presents with missed menses. LMP was approximately 10/25/21. No control since 2018- only using condoms Currently but from . Was in open relationship and unsure of paternity. OB History T0 L0 SAB0 IAB0 Ectopic0 Multiple0 Live Births0 Integration Director History LMP: 10/25/2021, Age at Menarche: Age at First : Age at Menopause: Integration Director History Comments: Sexual Activity: Yes; Male Contraception: Condom, I.U.D. PAST MEDICAL HISTORY Diagnosis Date HPV test positive 03/2014 MTHFR mutation PE (pulmonary embolism) 12/2012 [facility], took Xarelto for 6+ months from [facility] PMH - PAST MEDICAL HISTORY OF [...] which included preparing to see the patient, [id number] patient care, completing clinical documentation, obtaining and/or reviewing separately obtained history and counseling and educating the patient/family/caregiver Medical Decision Making Raina Bonner APRN.CNM documented in this encounterJoint [facility]08-29-2013 History of Past illness Narrative* Problem Noted Date Resolved Date Pulmonary embolism 01/26/2013 01/19/2014 GERD (gastroesophageal reflux disease) 1 01/19/2014 Weight gain, abnormal 05/21/2010 04/04/2012 Abdominal pain, acute, epigastric 05/21/2010 04/04/2012 Shoulder disorder 05/02/2009 04/04/2012 Excessive or frequent menstruation 01/20/2008 04/04/2012 documented as of this encounter (statuses as of 12/16/2021) [facility] History of Past illness Narrative* Problem Noted Date Resolved Date Pulmonary embolism 01/26/2013 01/19/2014 GERD (gastroesophageal reflux disease) 1 01/19/2014 Weight gain, abnormal 05/21/2010 04/04/2012 Abdominal pain, acute, epigastric 05/21/2010 04/04/2012 Shoulder disorder 05/02/2009 04/04/2012 Excessive or frequent menstruation 01/20/2008 04/04/2012 documented as of this encounter (statuses as of 12/16/2021) [facility] History of Past illness Narrative* Problem Noted Date Resolved Date Pulmonary embolism 01/26/2013 01/19/2014 GERD (gastroesophageal reflux disease) 01/19/2014 Weight gain, abnormal 05/21/2010 04/04/2012 Abdominal pain, acute, epigastric 05/21/2010 04/04/2012 Shoulder disorder 05/02/2009 04/04/2012 Excessive or frequent menstruation 01/20/2008 04/04/2012 documented as of this encounter (statuses as of 12/16/2021) [facility] History of Past illness Narrative* Problem Noted Date Resolved Date Pulmonary embolism 01/26/2013 01/19/2014 GERD (gastroesophageal reflux disease) 01/19/2014 Weight gain, abnormal 05/21/2010 04/04/2012 Abdominal pain, acute, epigastric 05/21/2010 04/04/2012 Shoulder disorder 05/02/2009 04/04/2012 Excessive or frequent menstruation 01/20/2008 04/04/2012 documented as of this encounter (statuses as of 12/30/2021) [facility] History of Past illness Narrative* Problem Noted Date Resolved Date Pulmonary embolism 01/26/2013 01/19/2014 GERD (gastroesophageal reflux disease) 01/19/2014 Weight gain, abnormal 05/21/2010 04/04/2012 Abdominal pain, acute, epigastric 05/21/2010 04/04/2012 Shoulder disorder 05/02/2009 04/04/2012 Excessive or frequent menstruation 01/20/2008 04/04/2012 documented as of this encounter (statuses as of 01/27/2022) [facility] History of Past illness Narrative* Problem Noted Date Resolved Date Pulmonary embolism 01/26/2013 01/19/2014 GERD (gastroesophageal reflux disease) 01/19/2014 Weight gain, abnormal 05/21/2010 04/04/2012 Abdominal pain, acute, epigastric 05/21/2010 04/04/2012 Shoulder disorder 05/02/2009 04/04/2012 Excessive or frequent menstruation 01/20/2008 04/04/2012 documented as of this encounter (statuses as of 03/30/2022) [facility] note* Diagnosis Missed menses- Primary Absence of menstruation Encounter for test, result positive examination or test, positive result History of depression Personal history of other mental disorder documented in this encounter [facility] note* Diagnosis Supervision of high risk , antepartum- Primary Patient request for diagnostic testing Other specified examination History of pulmonary embolism Personal history of pulmonary embolism History of depression Personal history of other mental disorder documented in this encounter [facility] note* Diagnosis History of pulmonary embolism- Primary Personal history of pulmonary embolism History of depression Personal history of other mental disorder Encounter for care in first trimester of first documented in this encounter [facility] note* Diagnosis 14 weeks gestation of - Primary state, incidental Encounter for supervision of normal first in second trimester Supervision of normal first documented in this encounter [facility] note* Diagnosis Second trimester state, incidental Diabetes mellitus screening Screening for diabetes mellitus documented in this encounter [facility] (n[facility]ative[facility] Diagnostic Procedure Only (Routine) - Pending Review Specialty Diagnoses / Procedures Referred By Pavel nettles Referred To Contact [facility] Diagnoses Encounter for supervision of normal first in second trimester Procedures OBSTETRIC ULTRASOUND WHI US PREG UTERUS AFTER 1ST TRIMEST GESTATION Serena Srinivasan MD [address] [place] [address] [address] Referral ID Status Reason Start Date Expiration Date Visits Requested Visits Authorized [id number] Pending Review Auto-Generat ed Referral 01/27/2022 01/27/2023 1 1 [facility] Summary Purpose Family History No Family History Records FoundNo Family History Records FoundNo Family History Records FoundNo Family History Records Found Advance Directives No Advanced Directives Records FoundDocuments on File Type Date Recorded Patient Lung Splitter Expl anation Advance Directive(s) Health Concerns Problem Noted Date OB Reminders 12/17/2021 Problem Noted Date OB Reminders 12/17/2021 Problem Noted Date OB Reminders 12/17/2021 Additional Source Comments INFORMATION SOURCE (unrecogn ized section and content) DATE CREATED AUTHOR 11/24/2017 [facility] DATE CREATED AUTHOR AUTHOR'S ORGANIZ ATION 03/30/2022 [facility] DATE CREATED AUTHOR AUTHOR'S ORGANIZ ATION 10/07/2022 [facility] DATE CREATED AUTHOR AUTHOR'S ORGANIZ ATION 09/29/2023 [facility] EPIC Source Comments (unrecognize d section and content) In the event this informatio n is protected by the Federal Confidentiality of Alcohol and Drug Abuse Patient Records regulations: The Federal rules restrict any use of the information to criminally investigate or prosecute any alcohol or drug abuse patient.[facility] HospitalIn the event this information is protected by the Federal Confidentiality of Alcohol and Drug Abuse Patient Records regulations: The Federal rules restrict any use of the information to criminally investigate or prosecute any alcohol or drug abuse patient.[facility] HospitalIn the event this information is protected by the Federal Confidentiality of Alcohol and Drug Abuse Patient Records regulations: The Federal rules restrict any use of the information to criminally investigate or prosecute any alcohol or drug abuse patient.[facility] HospitalIn the event this information is protected by the Federal Confidentiality of Alcohol and Drug Abuse Patient Records regulations: The Federal rules restrict any use of the information to criminally investigate or prosecute any alcohol or drug abuse patient.[facility] HospitalIn the event this information is protected by the Federal Confidentiality of Alcohol and Drug Abuse Patient Records regulations: The Federal rules restrict any use of the information to criminally investigate or prosecute any alcohol or drug abuse patient.[facility] HospitalIn the event this information is protected by the Federal Confidentiality of Alcohol and Drug Abuse Patient Records regulations: The Federal rules restrict any use of the information to criminally investigate or prosecute any alcohol or drug abuse patient.[facility] Reason for Visit (unrecogniz ed section and content) Reason Comments Missed period Specialty Diagnoses / Procedures Referred By Pavel nettles Referred To Contact [facility] Diagnoses NEW PATIENT Procedures ANNUAL EXAM MD Bobo [facility] [address] [place] [address] Referral ID Status Reason Start Date Expiration Date Visits Requested Visits Authorized [id number] Authorized Financial Clearance Required - Self Pay Patient Cleared - Qualified 100% FAS 11/28/2021 02/26/2022 99 99 Reason Onset Date Comments Care 12/16/2021 Pre-New OB Reason Comments Initial OB Visit Reason Onset Date Comments Care 01/27/2022 Specialty Diagnoses / Procedures Referred By Pavel nettles Referred To Contact [facility] Diagnoses NEW PATIENT Procedures ANNUAL EXAM Self, [facility] [address] [place] [address] Reason Comments Transfer of Care Reason Comments Routine Visit Care Teams (unrecognized sec tion and content) Cable Splicer Apprentice Relationship Specialty Start Date End Date Martin Burgos DO [address] [place] [address] PCP - General Family Practice 03/03/14 Cable Splicer Apprentice Relationship Specialty Start Date End Date Martin Burgos DO [address] [place] [address] PCP - General Family Practice 03/03/14 Cable Splicer Apprentice Relationship Specialty Start Date End Date Martin Burgos DO [address] [place] [address] PCP - General Family Practice 03/03/14 Cable Splicer Apprentice Relationship Specialty Start Date End Date Martin Burgos DO [address] [place] [address] PCP - General Family Practice 03/03/14 Cable Splicer Apprentice Relationship Specialty Start Date End Date Martin Burgos DO [address] [place] [address] PCP - General Family Practice 03/03/14 Cable Splicer Apprentice Relationship Specialty Start Date End Date Martin Burgos DO [address] [place] [address] PCP - General Family Medicine 03/03/14 Cable Splicer Apprentice Relationship Specialty Start Date End Date Lobito Quesada DO [address] [place] [address] [place] [address] PCP - FFS [facility] 08/29/22 FOR RECORDS PERTAINING TO PATIENTS [...] BE BASED ON THE PRIMARY CLINICAL RECORDS. [facility]. provides no warranty or guarantee of the accuracy or completeness of information in this document.
== END 2023-10-12 20:45 | disposition home or self-care (01) ==
LOC: LAB 20:44
PROVIDERS: Visit Provider Obstetrics & Gynecology
DX: Z34.93 Encounter for supervision of normal pregnancy, unspecified, third trimester (principal)
CPT/HCPCS: 87081

== ENCOUNTER 2023-10-13 07:11 | Outpatient (OUT) | payer MEDICAID, SELFPAY ==
--- OUTSIDE RECORDS SUMMARY | 2023-10-13 07:14 | XMS_ITS | CCD ---
Author Organization [facility] Care Team Providers Care Commis Chef Name Role Phone HARISH, AN E. Unavailable [...] Unavailable DIPAK ., DR BLANCA Attending Unavailable [facility], DR BYRNE Primary Care Unavailable DR LOBITO [...] Attending Unavailable ADAN, ISABEL Attending Unavailable DIPAK, OLBITO Attending Unavailable ADAN, ISABEL Attending Unavailable DIPAKLOBITO Attending Unavailable DIPAKLOBITO Attending Unavailable Allergies Allergy Classification Reported Allergen(s) Allergy Type Date of Onset Reaction(s) Facility (6 sources) environmental [Other] Propensity to adverse reactions 8 [facility] Work Phone: (3 sources) OTHER; Translations: [OTHER] Propensity to adverse reactions (disorder) 8 [facility] Medications Current Medications Medication Drug Class(es) [...] Drug Class(es) Dates Sig (Normalized) Sig (Original) [id number] actuat albuterol 0.09 mg/actuat metered dose [...] Negative Negative - 4(7 0) +++ mg/dL [facility] Blood, UA Negative Negative - 50 Bartolo/mcL [facility] Clarity, UA Clear [facility] Healthnm re Color, UA Yellow [facility] Healthcar e Glucose, UA Negative Negative - 1999(110) ++++ mg/dL [facility] Interpretation and review of laboratory results Normal [facility] re Ketones, UA Negative Negative - 160(16) ++++ mg/dL [facility] Leukocytes, UA Negative Negative - 500+++ Mary/mcL [facility] Nitrite, UA Negative Negative - Positive [facility] pH, UA 7.0 5 - 9 [facility] e Protein, UA Negative Negative - 1999(20) ++++ mg/dL [facility] Spec Grav, UA 1.020 1 - 1.03 [facility] Urobilinogen, UA 0.2 0.2 - 12 mg/dL [facility] Healthcar e COVID + FLU Quick Testingon 06-27-2023 SARS-CoV-2 (COVID-19) RNA JOBY+probe Ql (Unsp spec) Negative [facility] [employer] Other COVID + FLU Quick Testing Negative [facility] [employer] Other CULTURE URINEon 10-06-2022 CULTURE URINE Isolate [...] F Trimethoprim/Sulfam ethoxazole <=20 S F Normal [facility] Comment on above: Performed By: #### U RCX #### [facility] [address] [place] [address] Dr. Brando Betancourt CBC AUTO DIFFon 10-03-2022 BASO # 0.0 103/ul Normal 0.0-0.1 [facility] Comment on above: Performed By: #### H BSANS #### [facility] [address] [place] [address] Dr. Brando Betancourt Basophils/100 WBC (Bld) 0.3 % Normal 0.2-2.0 [facility] Comment on above: Performed By: #### H BSANS #### [facility] [address] [place] [address] Dr. Brando Betancourt EO # 0.2 103/ul Normal 0.0-0.7 [facility] Comment on above: Performed By: #### H BSANS #### [facility] [address] [place] [address] Dr. Brando Betancourt Eosinophils/100 WBC (Bld) 1.5 % Normal 0.9-7.0 [facility] Comment on above: Performed By: #### H BSANS #### [facility] [address] [place] [address] Dr. Brando Betancourt Erythrocyte distribution width (RBC) [Ratio] 12.6 % Normal 11.0-15.0 [facility] Comment on above: Performed By: #### H BSANS #### [facility] [address] [place] [address] Dr. Brando Betancourt Hematocrit (Bld) [Volume fraction] 38.3 % Normal 36.0-48.0 [facility] Comment on above: Performed By: #### H BSANS #### [facility] [address] [place] [address] Dr. Brando Betancourt Hemoglobin (Bld) [Mass/Vol] 12.8 g/dL Normal 12.0-16.0 [facility] Comment on above: Performed By: #### H BSANS #### [facility] [address] [place], [place] [id number] Dr. Brando Betancourt IG # 0.03 10e3/ul Normal 0.00-0.03 [facility] Comment on above: Performed By: #### H BSANS #### [facility] [address] [place] [address] Dr. Brando Betancourt IG % 0.3 % Normal 0.0-0.5 [facility] Comment on above: Performed By: #### H BSANS #### [facility] [address] [place] [address] Dr. Brando Betancourt LYMPH # 1.4 103/ul Normal 1.2-3.8 [facility] Comment on above: Performed By: #### H BSANS #### [facility] [address] [place] [address] Dr. Brando Betancourt Lymphocytes/100 WBC (Bld) 13.2 % Critically low 20.5-60.0 [facility] Comment on above: Performed By: #### H BSANS #### [facility] [address] [place] [address] Dr. Brando Betancourt MANUAL DIFF REQ NO Normal [facility] Comment on above: Performed By: #### H BSANS #### [facility] [address] [place] [address] Dr. Brando Betancourt MCH (RBC) [Entitic mass] 28.6 pg Normal 26.7-34.0 [facility] Comment on above: Performed By: #### H BSANS #### [facility] [address] [place] [address] Dr. Brando Betancourt MCHC (RBC) [Mass/Vol] 33.4 g/dL Normal 29.9-35.2 [facility] Comment on above: Performed By: #### H BSANS #### [facility] [address] [place] [address] Dr. Brando Betancourt MCV (RBC) [Entitic vol] 85.5 fL Normal 81.0-99.0 [facility] Comment on above: Performed By: #### H BSANS #### [facility] [address] [place] [address] Dr. Brando Betancourt MONO # 0.7 103/ul Normal 0.3-0.8 [facility] Comment on above: Performed By: #### H BSANS #### [facility] [address] [place] [address] Dr. Brando Betancourt Monocytes/100 WBC (Bld) 7.0 % Normal 1.7-12.0 [facility] Comment on above: Performed By: #### H BSANS #### [facility] [address] [place] [address] Dr. Brando Betancourt NEUT # 8.3 103/ul Critically high 1.4-6.5 [facility] Comment on above: Performed By: #### H BSANS #### [facility] [address] [place] [address] Dr. Brando Betancourt Neutrophils/100 WBC (Bld) 77.7 % Critically high 43.0-75.0 [facility] Comment on above: Performed By: #### H BSANS #### [facility] [address] [place] [address] Dr. Brando Betancourt Platelet mean volume (Bld) [Entitic vol] 8.5 fL Critically low 9.5-13.5 [facility] Comment on above: Performed By: #### H BSANS #### [facility] [address] [place] [address] Dr. Brando Betancourt PLT 263 103/ul Normal 150-450 [facility] Comment on above: Performed By: #### H BSANS #### [facility] [address] [place] [address] Dr. Brando Betancourt RBC 4.48 106/ul Normal 4.20-5.40 [facility] Comment on above: Performed By: #### H BSANS #### [facility] [address] [place] [address] Dr. Brando Betancourt WBC 10.6 103/ul Normal 4.0-11.0 [facility] Comment on above: Performed By: #### H BSANS #### [facility] [address] [place] [address] ABD/PELVIS WO CONon [...] RONNY CUMMINGS Date: 2022-10-03 18:56 Normal [facility] ER URINE PROFILEon 3 Bilirubin Ql (U) Negative Normal NEGATIVE [facility] Comment on above: Performed By: #### H BSANS #### [facility] [address] [place] [address] Dr. Brando Betancourt Clarity (U) SL CLOUDY Abnormal CLEAR [facility] Comment on above: Performed By: #### H BSANS #### [facility] [address] [address] [address] Brando Betancourt Color (U) YELLOW Normal YELLOW [facility] Comment on above: Performed By: #### H BSANS #### [facility] [address] [address] [address] Brando Betancourt ERUAHD A micrscopic examination will be performed if indicated. Normal [facility] Comment on above: Performed By: #### H BSANS #### [facility] [address] [address] [address] Brando Betancourt Glucose Ql (U) Negative Normal NEGATIVE [facility] Comment on above: Performed By: #### H BSANS #### [facility] [address] [address] [address] Brando Betancourt Hemoglobin Ql (U) MODERATE Abnormal NEGATIVE [facility] Comment on above: Performed By: #### H BSANS #### [facility] [address] [address] [address] Brando Betancourt Ketones Ql (U) Negative Normal NEGATIVE [facility] Comment on above: Performed By: #### H BSANS #### [facility] [address] [address] [address] Brando Betancourt LEUKOCYTES LARGE Abnormal NEGATIVE [facility] Comment on above: Performed By: #### H BSANS #### [facility] [address] [address] [address] Brando Betancourt Nitrite Ql (U) Negative Normal NEGATIVE [facility] Comment on above: Performed By: #### H BSANS #### [facility] [address] [address] [address] Brando Betancourt pH (U) 6.0 [pH] Normal 5-9 [facility] Comment on above: Performed By: #### H BSANS #### [facility] [address] [address] [address] Brando Betancourt Protein (U) [Mass/Vol] 100 mg/dL Abnormal NEGATIVE/ TRACE [facility] Comment on above: Performed By: #### H BSANS #### [facility] [address] [address] [address] Brando Betancourt SPEC GRAVITY 1.025 Normal 1.005-<=1.025 [facility] Comment on above: Performed By: #### H BSANS #### [facility] [address] [address] [address] Brando Betancourt UR MICRO IND INDICATED Normal [facility] Comment on above: Performed By: #### H BSANS #### [facility] [address] [address] [address] Brando Betancourt Urobilinogen Qn (U) 0.2 {Arturo'U}/dL Normal 0.2 - 1. 0 [facility] Comment on above: Performed By: #### H BSANS #### [facility] [address] [place] [address] Dr. Brando Betancourt URon 10-03-2022 , QUAL Negative Normal NEGATIVE [facility] Comment on above: Performed By: #### H BSANS #### [facility] [address] [place] [address] Dr. Brando Betancourt PROF CHEM 8 (BAS METB)on Anion gap [Moles/Vol] 11.8 mmol/L Normal [facility] Comment on above: Performed By: #### C BC #### [facility] [address] [place] [address] Dr. Brando Betancourt Calcium [Mass/Vol] 9.1 mg/dL Normal 8.5-10.1 [facility] Comment on above: Performed By: #### C BC #### [facility] [address] [place] [address] Dr. Brando Betancourt Chloride [Moles/Vol] 99 mmol/L Normal 98-107 [facility] Comment on above: Performed By: #### C BC #### [facility] [address] [place] [address] Dr. Brando Betancourt CO2 [Moles/Vol] 29.9 mmol/L Normal 21.0-32.0 [facility] Comment on above: Performed By: #### C BC #### [facility] [address] [address] [address] Brando Betancourt Creatinine [Mass/Vol] 0.89 mg/dL Normal 0.55-1.02 [facility] Comment on above: Performed By: #### C BC #### [facility] [address] [place] [address] Dr. Brando Betancourt EGFR-AF KITTITIAN >60 Normal >=60 [facility] Comment on above: Performed By: #### C BC #### [facility] [address] [place] [address] Dr. Brando Betancourt EGFR-NON AF KITTITIAN >60 Normal >=60 [facility] Comment on above: Performed By: #### C BC #### [facility] [address] [place] [address] Dr. Brando Betancourt Glucose [Mass/Vol] 122 mg/dL Critically high 74-[address] [facility] Comment on above: Performed By: #### C BC #### [facility] [address] [place] [address] Dr. Brando Betancourt Potassium [Moles/Vol] 3.7 mmol/L Normal 3.5-5.1 [facility] Comment on above: Performed By: #### C BC #### [facility] [address] [place] [address] Dr. Brando Betancourt Sodium [Moles/Vol] 137 mmol/L Normal 136-145 [facility] Comment on above: Performed By: #### C BC #### [facility] [address] [place] [address] Dr. Brando Betancourt Urea nitrogen [Mass/Vol] 17.0 mg/dL Normal 7.0-18.0 [facility] Comment on above: Performed By: #### C BC #### [facility] [address] [place] [address] Dr. Brando Betancourt Urea nitrogen/Creatinine [Mass ratio] 19.1 mg/mg Normal [facility] Comment on above: Performed By: #### C BC #### [facility] [address] [place] [address] Dr. Brando Betancourt URINE MICROSCOPIC ONLYon BACTERIA TRACE Abnormal NONE SEEN [facility] Comment on above: Performed By: #### H BSANS #### [facility] [address] [place] [address] Dr. Brando Betancourt Bacteria identified Cx Nom (U) INDICATED Normal [facility] Comment on above: Performed By: #### H BSANS #### [facility] [address] [place] [address] Dr. Brando Betancourt CAST NONE SEEN Normal NONE SEEN [facility] Comment on above: Performed By: #### H BSANS #### [facility] [address] [place] [address] Dr. Brando Betancourt Crystals LM Nom (Urine sed) NONE SEEN Normal NONE SEEN [facility] Comment on above: Performed By: #### H BSANS #### [facility] [address] [place] [address] Dr. Brando Betancourt Epithelial cells LM Ql (Urine sed) RARE Normal NONE SEEN /RARE [facility] Comment on above: Performed By: #### H BSANS #### [facility] [address] [place] [address] Dr. Brando Betancourt MUCOUS NONE SEEN Normal NONE SEEN [facility] Comment on above: Performed By: #### H BSANS #### [facility] [address] [place] [address] Dr. Brando Betancourt RBC 5-10 Abnormal 0-2 [facility] Comment on above: Performed By: #### H BSANS #### [facility] [address] [place] [address] Dr. Brando Betancourt WBC 50-75 Abnormal NONE SEEN [facility] Comment on above: Performed By: #### H BSANS #### [facility] [address] [place] [address] Dr. Brando Betancourt CBC AUTO DIFFon 07-14-2022 BASO # 0.0 103/ul Normal 0.0-0.1 [facility] Comment on above: Performed By: #### C BC #### [facility] [address] [place] [address] Dr. Brando Betancourt Basophils/100 WBC (Bld) 0.2 % Normal 0.2-2.0 [facility] Comment on above: Performed By: #### C BC #### [facility] [address] [place] [address] Dr. Brando Betancourt EO # 0.0 103/ul Normal 0.0-0.7 [facility] Comment on above: Performed By: #### C BC #### [facility] [address] [place] [address] Dr. Brando Betancourt Eosinophils/100 WBC (Bld) 0.3 % Critically low 0.9-7.0 [facility] Comment on above: Performed By: #### C BC #### [facility] [address] [place] [address] Dr. Brando Betancourt Erythrocyte distribution width (RBC) [Ratio] 13.0 % Normal 11.0-15.0 [facility] Comment on above: Performed By: #### C BC #### [facility] [address] [place] [address] Dr. Brando Betancourt Hematocrit (Bld) [Volume fraction] 28.8 % Critically low 36.0-48.0 [facility] Comment on above: Performed By: #### C BC #### [facility] [address] [place] [address] Dr. Brando Betancourt Hemoglobin (Bld) [Mass/Vol] 9.7 g/dL Critically low 12.0-16.0 [facility] Comment on above: Performed By: #### C BC #### [facility] [address] [place] [address] Dr. Brando Betancourt IG # 0.04 10e3/ul Critically high 0.00-0.[address] [facility] Comment on above: Performed By: #### C BC #### [facility] [address] [place] [address] Dr. Brando Betancourt IG % 0.4 % Normal 0.0-0.5 [facility] Comment on above: Performed By: #### C BC #### [facility] [address] [place] [address] Dr. Brando Betancourt LYMPH # 1.6 103/ul Normal 1.2-3.8 [facility] Comment on above: Performed By: #### C BC #### [facility] [address] [place] [address] Dr. Brando Betancourt Lymphocytes/100 WBC (Bld) 15.0 % Critically low 20.5-60.0 [facility] Comment on above: Performed By: #### C BC #### [facility] [address] [place] [address] Dr. Brando Betancourt MANUAL DIFF REQ NO Normal [facility] Comment on above: Performed By: #### C BC #### [facility] [address] [place] [address] Dr. Brando Betancourt MCH (RBC) [Entitic mass] 30.0 pg Normal 26.7-34.0 [facility] Comment on above: Performed By: #### C BC #### [facility] [address] [place] [address] Dr. Brando Betancourt MCHC (RBC) [Mass/Vol] 33.7 g/dL Normal 29.9-35.2 [facility] Comment on above: Performed By: #### C BC #### [facility] [address] [place] [address] Dr. Brando Betancourt MCV (RBC) [Entitic vol] 89.2 fL Normal 81.0-99.0 [facility] Comment on above: Performed By: #### C BC #### [facility] [address] [place] [address] Dr. Brando Betancourt MONO # 0.6 103/ul Normal 0.3-0.8 [facility] Comment on above: Performed By: #### C BC #### [facility] [address] [place] [address] Dr. Brando Betancourt Monocytes/100 WBC (Bld) 5.6 % Normal 1.7-12.0 [facility] Comment on above: Performed By: #### C BC #### [facility] [address] [place] [address] Dr. Brando Betancourt NEUT # 8.6 103/ul Critically high 1.4-6.5 [facility] Comment on above: Performed By: #### C BC #### [facility] [address] [place] [address] Dr. Brando Betancourt Neutrophils/100 WBC (Bld) 78.5 % Critically high 43.0-75.0 [facility] Comment on above: Performed By: #### C BC #### [facility] [address] [place] [address] Dr. Brando Betancourt Platelet mean volume (Bld) [Entitic vol] 11.2 fL Normal 9.5-13.5 [facility] Comment on above: Performed By: #### C BC #### [facility] [address] [place] [address] Dr. Brando Betancourt PLT 143 103/ul Critically low 150-450 [facility] Comment on above: Performed By: #### C BC #### [facility] [address] [place] [address] Dr. Brando Betancourt RBC 3.23 106/ul Critically low 4.20-5.40 [facility] Comment on above: Performed By: #### C BC #### [facility] [address] [place] [address] Dr. Brando Betancourt WBC 10.9 103/ul Normal 4.0-11.0 [facility] Comment on above: Performed By: #### C BC #### [facility] [address] [place] [address] Dr. Brando Betancourt AMNISUREon 07-12-2022 AMNISURE Negative Normal NEGATIVE [facility] Comment on above: Performed By: #### H BSANS #### [facility] [address] [place] [address] Dr. Brando Betancourt CBC AUTO DIFFon 07-12-2022 BASO # 0.0 103/ul Normal 0.0-0.1 [facility] Comment on above: Performed By: #### C BC #### [facility] [address] [place] [address] Dr. Brando Betancourt Basophils/100 WBC (Bld) 0.1 % Critically low 0.2-2.0 [facility] Comment on above: Performed By: #### C BC #### [facility] [address] [place] [address] Dr. Brando Betancourt EO # 0.1 103/ul Normal 0.0-0.7 [facility] Comment on above: Performed By: #### C BC #### [facility] [address] [place] [address] Dr. Brando Betancourt Eosinophils/100 WBC (Bld) 0.7 % Critically low 0.9-7.0 [facility] Comment on above: Performed By: #### C BC #### [facility] [address] [place] [address] Dr. Brando Betancourt Erythrocyte distribution width (RBC) [Ratio] 12.6 % Normal 11.0-15.0 [facility] Comment on above: Performed By: #### C BC #### [facility] [facility] [address] [place] [address] Dr. Brando Betancourt Hematocrit (Bld) [Volume fraction] 29.4 % Critically low 36.0-48.0 [facility] Comment on above: Performed By: #### C BC #### [facility] [address] [place] [address] Dr. Brando Betancourt Hemoglobin (Bld) [Mass/Vol] 10.0 g/dL Critically low 12.0-16.0 [facility] Comment on above: Performed By: #### C BC #### [facility] [address] [place] [address] Dr. Brando Betancourt IG # 0.04 10e3/ul Critically high 0.00-0.[address] [facility] Comment on above: Performed By: #### C BC #### [facility] [address] [place] [address] Dr. Brando Betancourt IG % 0.4 % Normal 0.0-0.5 [facility] Comment on above: Performed By: #### C BC #### [facility] [address] [place] [address] Dr. Brando Betancourt LYMPH # 1.3 103/ul Normal 1.2-3.8 [facility] Comment on above: Performed By: #### C BC #### [facility] [address] [place] [address] Dr. Brando Betancourt Lymphocytes/100 WBC (Bld) 11.8 % Critically low 20.5-60.0 [facility] Comment on above: Performed By: #### C BC #### [facility] [address] [place] [address] Dr. Brando Betancourt MANUAL DIFF REQ NO Normal [facility] Comment on above: Performed By: #### C BC #### [facility] [address] [place] [address] Dr. Brando Betancourt MCH (RBC) [Entitic mass] 30.1 pg Normal 26.7-34.0 [facility] Comment on above: Performed By: #### C BC #### [facility] [address] [place] [address] Dr. Brando Betancourt MCHC (RBC) [Mass/Vol] 34.0 g/dL Normal 29.9-35.2 [facility] Comment on above: Performed By: #### C BC #### [facility] [address] [place] [address] Dr. Brando Betancourt MCV (RBC) [Entitic vol] 88.6 fL Normal 81.0-99.0 [facility] Comment on above: Performed By: #### C BC #### [facility] [address] [place] [address] Dr. Brando Betancourt MONO # 0.7 103/ul Normal 0.3-0.8 [facility] Comment on above: Performed By: #### C BC #### [facility] [address] [place] [address] Dr. Brando Betancourt Monocytes/100 WBC (Bld) 6.9 % Normal 1.7-12.0 [facility] Comment on above: Performed By: #### C BC #### [facility] [address] [place] [address] Dr. Brando Betancourt NEUT # 8.6 103/ul Critically high 1.4-6.5 [facility] Comment on above: Performed By: #### C BC #### [facility] [address] [place] [address] Dr. Brando Betancourt Neutrophils/100 WBC (Bld) 80.1 % Critically high 43.0-75.0 [facility] Comment on above: Performed By: #### C BC #### [facility] [address] [place] [address] Dr. Brando Betancourt Platelet mean volume (Bld) [Entitic vol] 11.3 fL Normal 9.5-13.5 [facility] Comment on above: Performed By: #### C BC #### [facility] [address] [place] [address] Dr. Brando Betancourt PLT 149 103/ul Critically low 150-450 [facility] Comment on above: Performed By: #### C BC #### [facility] [address] [address] [address] Brando Betancourt RBC 3.32 106/ul Critically low 4.20-5.40 [facility] Comment on above: Performed By: #### C BC #### [facility] [address] [place] [address] Dr. Brando Betancourt WBC 10.7 103/ul Normal 4.0-11.0 [facility] Comment on above: Performed By: #### C BC #### [facility] [address] [place] [address] Dr. Brando Betancourt TYPE AND SCREENon 07-12-2022 TYPE AND SCREEN Negative Normal [facility] Comment on above: Performed By: #### T NS #### [facility] [address] [place] [address] Dr. Brando Betancourt US PREG AMNIOTIC FLUID [...] MICHAEL KIRK Date: 2022-07-12 07:56 Normal [facility] AMNISUREon 07-11-2022 AMNISURE Positive Abnormal NEGATIVE [facility] Comment on above: Performed By: #### A MNI #### [facility] [address] [place] [address] Dr. Brando Betancourt DRUG SCREEN RAPID (URINE)on 07-11-2022 AMP Negative Normal NEGATIVE [facility] Comment on above: Performed By: #### H BSANS #### [facility] [address] [address] [address] Brando Betancourt BAR Negative Normal NEGATIVE [facility] Comment on above: Performed By: #### H BSANS #### [facility] [address] [address] [address] Brando Betancourt BUP Negative Normal NEGATIVE [facility] Comment on above: Performed By: #### H BSANS #### [facility] [address] [address] [address] Brando Betancourt BZO Negative Normal NEGATIVE [facility] Comment on above: Performed By: #### H BSANS #### [facility] [address] [place] [address] Dr. Brando Betancourt JHONY Negative Normal NEGATIVE [facility] Comment on above: Performed By: #### H BSANS #### [facility] [address] [place] [address] Dr. Brando Betancourt CUT-OFFS SEE BELOW Normal [facility] Comment on above: Result Comment: AMP [...] ng/mL Performed By: #### H BSANS #### [facility] [address] [place] [address] Dr. Brando Betancourt DRUG CUT HEADER DRUG CLASS TEST SYSTEM CUT-OFF CONCENTRATIONS ARE FOLLOWS: Normal [facility] Comment on above: Performed By: #### H BSANS #### [facility] [address] [place] [address] Dr. Brando Betancourt mAMP Negative Normal NEGATIVE [facility] Comment on above: Performed By: #### H BSANS #### [facility] [address] [address] [address] Brando Betancourt MTD Negative Normal NEGATIVE [facility] Comment on above: Performed By: #### H BSANS #### [facility] [address] [place] [address] Dr. Brando Betancourt OPI Negative Normal NEGATIVE [facility] Comment on above: Performed By: #### H BSANS #### [facility] [address] [place] [address] Dr. Brando Betancourt OXY Negative Normal NEGATIVE [facility] Comment on above: Performed By: #### H BSANS #### [facility] [address] [place] [address] Dr. Brando Betancourt PCP Negative Normal NEGATIVE [facility] Comment on above: Performed By: #### H BSANS #### [facility] [address] [place] [address] Dr. Brando Betancourt PPX Negative Normal NEGATIVE [facility] Comment on above: Performed By: #### H BSANS #### [facility] [address] [place] [address] Dr. Brando Betancourt TCA Negative Normal NEGATIVE [facility] Comment on above: Performed By: #### H BSANS #### [facility] [address] [place] [address] Dr. Brando Betancourt THC Negative Normal NEGATIVE [facility] Comment on above: Performed By: #### H BSANS #### [facility] [address] [place] [address] Dr. Brando Betancourt UA (CLEAN/CATCH) ADMINISTRATIVE VOLUNTEER/MICRO I F IND.on 07-11-2022 Bilirubin Ql (U) Negative Normal NEGATIVE [facility] Comment on above: Performed By: #### C T/NGNA #### [facility] [address] [place] [address] Dr. Brando Betancourt Clarity (U) CLEAR Normal CLEAR [facility] Comment on above: Performed By: #### C T/NGNA #### [facility] [address] [place] [address] Dr. Brando Betancourt Color (U) LT. YELLOW Normal YELLOW [facility] Comment on above: Performed By: #### C T/NGNA #### [facility] [address] [place] [address] Dr. Brando Betancourt Glucose Ql (U) Negative Normal NEGATIVE [facility] Comment on above: Performed By: #### C T/NGNA #### [facility] [address] [place] [address] Dr. Brando Betancourt Hemoglobin Ql (U) Negative Normal NEGATIVE [facility] Comment on above: Performed By: #### C T/NGNA #### [facility] [address] [place] [address] Dr. Brando Betancourt Ketones Ql (U) Negative Normal NEGATIVE [facility] Comment on above: Performed By: #### C T/NGNA #### [facility] [address] [place] [address] Dr. Brando Betancourt LEUKOCYTES Negative Normal NEGATIVE [facility] Comment on above: Performed By: #### C T/NGNA #### [facility] [address] [place] [address] Dr. Brando Betancourt Nitrite Ql (U) Negative Normal NEGATIVE [facility] Comment on above: Performed By: #### C T/NGNA #### [facility] [address] [place] [address] Dr. Brando Betancourt pH (U) 7.0 [pH] Normal 5-9 [facility] Comment on above: Performed By: #### C T/NGNA #### [facility] [address] [place] [address] Dr. Brando Betancourt SPEC GRAVITY <=1.005 Abnormal 1.005-<=1.025 [facility] Comment on above: Performed By: #### C T/NGNA #### [facility] [address] [place] [address] Dr. Brando Betancourt UA PROTEIN Negative Normal NEGATIVE/ TRACE [facility] Comment on above: Performed By: #### C T/NGNA #### [facility] [address] [place] [address] Dr. Brando Betancourt UR MICRO IND NOT INDICATED Normal [facility] Comment on above: Performed By: #### C T/NGNA #### [facility] [address] [place] [address] Dr. Brando Betancourt Urobilinogen Qn (U) 0.2 {Arturo'U}/dL Normal 0.2 - 1. 0 [facility] Comment on above: Performed By: #### C T/NGNA #### [facility] [address] [place] [address] Dr. Brando Betancourt CHLAMYDIA/GONOCOCCUS JOBY ( AB/URINE/PAPon 06-25-2022 Chlamydia trachomatis, JOBY Negative Normal Negative [facility] Comment on above: Performed By: #### C T/NGNA #### [facility] [address] [place] [address] Dr. Brando Betancourt Neisseria gonorrhoeae, JOBY Negative Normal Negative [facility] Comment on above: Performed By: #### C T/NGNA #### [facility] [address] [place] [address] Dr. Brando Betancourt VAGINITIS/VAGINOSIS DNA PROB Zenon 06-25-2022 Eugenia species Negative Normal Negative [facility] Comment on above: Performed By: #### C T/NGNA #### [facility] [address] [place] [address] Dr. Brando Betancourt Gardnerella vaginalis Negative Normal Negative [facility] Comment on above: Performed By: #### C T/NGNA #### [facility] [address] [place] [address] Dr. Brando Betancourt Trichomonas vaginalis Negative Normal Negative [facility] Comment on above: Performed By: #### C T/NGNA #### [facility] [address] [place] [address] Dr. Brando Betancourt GROUP B STREP CULTUREon 06-01 S. agalactiae Ag Ql (Unsp spec) Culture Observations: NEGATIVE FOR GROUP B STREPTOCOCCUS. Normal [facility] Comment on above: Performed By: #### C T/NGNA #### [facility] [address] [address] [address] Brando Betancourt CULTURE URINEon 06-09-2022 CULTURE URINE Culture Observations: NO GROWTH. Normal [facility] Comment on above: Performed By: #### U RCX #### [facility] [address] [address] [address] Brando Betancourt US PREG GROWTHon 06-09-2022 [...] by: MICHAEL KIRK Date: 2022-06-09 10:31 Normal [facility] HEP B SURFACE ANTIGEN SCREEN on 05-13-2022 HBsAg Screen Negative Normal Negative [facility] Comment on above: Performed By: #### H BSANS #### [facility] [address] [address] [address] Brando Betancourt HEPATITIS C VIRUS AB W/ REFL EX QUANTon 05-13-2022 HCV AB <0.1 Normal 0.0-0.9 [facility] Comment on above: Performed By: #### H BSANS #### [facility] [address] [address] [address] Brando Betancourt Interpretation: Comment Normal [facility] Comment on above: Result Comment: Nega tive Not infected with HCV, unless recent infection is suspected or other evidence exists to indicate HCV infection. Performed By: #### H DWAINENS #### [facility] [address] [place] [address] Dr. Brando Betancourt HIV 1 AND 2 WITH REFLEXon HIV Screen 4th Generation wRfx Non-Reactive Normal Non Reactive [facility] Comment on above: Result Comment: HIV Negative HIV-1/HIV-2 antibodies and HIV-1 p24 antigen were NOT detected. There is no laboratory evidence of HIV infection. Performed By: #### C BC #### [facility] [address] [place] [address] Dr. Brando Betancourt RPR QUANTon 05-13-2022 Rapid Plasma Reagin, Quant Non-Reactive Normal NonRea<1:1 [facility] Comment on above: Result Comment: Plea se Note: This test does not meet current guidelines for screening and diagnosis of syphilis. This test is intended for following treatment response in patients being treated for syphilis infection. To screen for syphilis infection, a reflex cascade that includes both RPR and a treponema-specific assay should be utilized, such as Treponema pallidum (Syphilis) Screening Dyer (164290) or Rapid Plasma Reagin (RPR) Test With Reflex to Quantitative RPR and Confirmatory Treponema pallidum Antibodies (631347). Performed By: #### H BSANS #### [facility] [address] [place] [address] Dr. Brando Betancorut RUBELLA AB IGGon 05-13-2022 Rubella Antibodies, IgG 1.64 index Normal Immune >0.99 [facility] Comment on above: Result Comment: Non- immune <0.90 Equivocal 0.90 - 0.99 Immune >0.99 Performed By: #### R UBIGG #### [facility] [address] [place] [address] Dr. Brando Betancourt CBC AUTO DIFFon 05-12-2022 BASO # 0.0 103/ul Normal 0.0-0.1 [facility] Comment on above: Performed By: #### C BC #### [facility] [address] [place], [place] [id number] Dr. Brando Betancourt Basophils/100 WBC (Bld) 0.2 % Normal 0.2-2.0 [facility] Comment on above: Performed By: #### C BC #### [facility] [address] [place] [address] Dr. Brando Betancourt EO # 0.2 103/ul Normal 0.0-0.7 [facility] Comment on above: Performed By: #### C BC #### [facility] [address] [place] [address] Dr. Brando Betancourt Eosinophils/100 WBC (Bld) 2.0 % Normal 0.9-7.0 [facility] Comment on above: Performed By: #### C BC #### [facility] [address] [place] [address] Dr. Brando Betancourt Erythrocyte distribution width (RBC) [Ratio] 13.1 % Normal 11.0-15.0 [facility] Comment on above: Performed By: #### C BC #### [facility] [address] [place] [address] Dr. Brando Betancourt Hematocrit (Bld) [Volume fraction] 30.8 % Critically low 36.0-48.0 [facility] Comment on above: Performed By: #### C BC #### [facility] [address] [place] [address] Dr. Brando Betancourt Hemoglobin (Bld) [Mass/Vol] 10.4 g/dL Critically low 12.0-16.0 [facility] Comment on above: Performed By: #### C BC #### [facility] [address] [place] [address] Dr. Brando Betancourt IG # 0.04 10e3/ul Critically high 0.00-0.[address] [facility] Comment on above: Performed By: #### C BC #### [facility] [address] [place] [address] Dr. Brando Betancourt IG % 0.4 % Normal 0.0-0.5 [facility] Comment on above: Performed By: #### C BC #### [facility] [address] [place], [place] [id number] Dr. Brando Betancourt LYMPH # 0.8 103/ul Critically low 1.2-3.8 [facility] Comment on above: Performed By: #### C BC #### [facility] [address] [place] [address] Dr. Brando Betancourt Lymphocytes/100 WBC (Bld) 8.6 % Critically low 20.5-60.0 [facility] Comment on above: Performed By: #### C BC #### [facility] [address] [place] [address] Dr. Brando Betancourt MANUAL DIFF REQ NO Normal [facility] Comment on above: Performed By: #### C BC #### [facility] [address] [place] [address] Dr. Brando Betancourt MCH (RBC) [Entitic mass] 30.5 pg Normal 26.7-34.0 [facility] Comment on above: Performed By: #### C BC #### [facility] [address] [place] [address] Dr. Brando Betancourt MCHC (RBC) [Mass/Vol] 33.8 g/dL Normal 29.9-35.2 [facility] Comment on above: Performed By: #### C BC #### [facility] [address] [place] [address] Dr. Brando Betancourt MCV (RBC) [Entitic vol] 90.3 fL Normal 81.0-99.0 [facility] Comment on above: Performed By: #### C BC #### [facility] [address] [place] [address] Dr. Brando Betancourt MONO # 0.5 103/ul Normal 0.3-0.8 [facility] Comment on above: Performed By: #### C BC #### [facility] [address] [place] [address] Dr. Brando Betancourt Monocytes/100 WBC (Bld) 4.9 % Normal 1.7-12.0 [facility] Comment on above: Performed By: #### C BC #### [facility] [address] [place] [address] Dr. Brando Betancourt NEUT # 7.9 103/ul Critically high 1.4-6.5 [facility] Comment on above: Performed By: #### C BC #### [facility] [address] [place] [address] Dr. Brando Betancourt Neutrophils/100 WBC (Bld) 83.9 % Critically high 43.0-75.0 [facility] Comment on above: Performed By: #### C BC #### [facility] [address] [place] [address] Dr. Brando Betancourt Platelet mean volume (Bld) [Entitic vol] 9.4 fL Critically low 9.5-13.5 [facility] Comment on above: Performed By: #### C BC #### [facility] [address] [place] [address] Dr. Brando Betancourt PLT 189 103/ul Normal 150-450 [facility] Comment on above: Performed By: #### C BC #### [facility] [address] [place] [address] Dr. Brando Betancourt RBC 3.41 106/ul Critically low 4.20-5.40 [facility] Comment on above: Performed By: #### C BC #### [facility] [address] [place] [address] Dr. Brando Betancourt WBC 9.4 103/ul Normal 4.0-11.0 [facility] Comment on above: Performed By: #### C BC #### [facility] [address] [place] [address] Dr. Brando Betancourt CULTURE URINEon 05-12-2022 CULTURE URINE Culture Observations: LIGHT GROWTH OF MIXED GENITAL STACEY. NO POTENTIAL PATHOGENS SEEN. Normal [facility] Comment on above: Performed By: #### U RCX #### [facility] [address] [place] [address] Dr. Brando Betancourt GLYCOHEMOGLOBIN A1Con 2021 ADA RECOMMENDATION SEE BELOW Normal [facility] [place] [facility] Comment on above: Result Comment: ADA RECOMMENDED LIMIT 4.0 - 6.0 ADA THERAPEUTIC TARGET < 7.0 ACTION SUGGESTED > 7.0 Performed By: #### C BC #### [facility] [address] [place], [place] [address] Dr. Brando Betancourt Glucose [Mass/Vol] 94 mg/dL Normal [facility] Comment on above: Performed By: #### C BC #### [facility] [address] [place], [place] [address] Dr. Brando Betancourt HbA1c (Bld) [Mass fraction] 4.9 % Normal 4.5-6.2 [facility] Comment on above: Performed By: #### C BC #### [facility] [address] [place], [place] [address] Dr. Brando Betancourt TYPE AND SCREENon 05-12-2022 TYPE AND SCREEN Negative Normal [facility] Comment on above: Performed By: #### C T/NGNA #### [facility] [address] [place], [place] [address] Dr. Brando Betancourt US PREG PLACENTAon US [...] SCARLET TIAN Date: 2022-04-28 16:22 Normal [facility] OVA AND PARASITE EXAMINATION on 04-15-2022 Ova + Parasite Exam Final report Normal [facility] Comment on above: Result Comment: Thes e results were obtained using wet preparation(s) and trichrome stained smear. This test does not include testing for Cryptosporidium parvum, Cyclospora, or Microsporidia. Performed By: #### H BSANS #### [facility] [address], [place] [address] Dr. Brando Betancourt Result 1 Comment Normal [facility] Comment on above: Result Comment: No o va, cysts, or parasites seen. . One negative specimen does not rule out the possibility of a parasitic infection. Performed By: #### H BSANS #### [facility] [address] [address] [address] Brando Betancourt GLUCOSE - 1HRon 04-07-2022 Glucose [Mass/Vol] 113 mg/dL Critically high 74-[address] [facility] Comment on above: Performed By: #### H BSANS #### [facility] [address] [address] [address] Brando Betancourt CNPNon 03-30-2022 CNPN Telephone (OBGYWM) ---- RADHA KEENAN ([id number]) 1995 F Date Time Provider Department 03/30/22 CHE ISLAS During your visit today, we recorded the following information about you: Kathy Teresa RN 03/30/2022 10:27 AM Signed Patient transferred care to [facility] office. She was seen in our [...] by KATHY TERESA RN on 03/30/22 Normal [facility] US PREG ANATOMY SINGLEon US PREG [...] by: SCARLET TIAN Date: 2022-03-09 16:44 Normal [facility] URINE OB DIP B/Oon 2 Glucose Ql (U) Negative Neg mg/dL [facility] Protein.monoclonal (U) [Mass/Vol] Negative Neg mg/dL [facility] Bacteria Ur Culton 2 Bacteria identified Cx Nom (U) ORGANISM ID: 1 <10,000 CFU/ml Normal urogenital stacey Normal [facility] Comment on above: Performed By: #### 6 30-4 #### [facility] CLIA [id number] [address] [place] [address] [place] C. trachomatis+N. gonorrhoea e DNA JOBY+probe Ql (Unsp spec)on 12-30-2021 C. trachomatis DNA JOBY+probe Ql (Unsp spec) Negative Normal Negative for Chlamydia trachomatis by amplificaton [facility] Comment on above: Order Comment: Speci men Type: SWAB Ordering Facility: [facility] Address: [address] [place] [address] Performed By: #### 3 [id number] #### [facility] CLIA [id number] [address] [place] [address] OF CONN[place] N. gonorrhoeae DNA JOBY+probe Ql (Unsp spec) Negative Normal Negative for Neisseria gonorrhoeae by amplification [facility] Comment on above: Order Comment: Speci men Type: SWAB Ordering Facility: [facility] Address: [address] [place] [address] Performed By: #### 3 [id number] #### [facility] CLIA [id number] [address] [place] [address] [place] PAP FLUID CERVICAL SCREENING on 12-30-2021 CASE REPORT Normal [facility] Comment on above: Order Comment: Speci men Type: FLUID SAMPLE Ordering Facility: [facility] Address: [address] [place] [address] Result Comment: Gyne cologic Cytology Report Case: [id number] Authorizing Provider: Lamont Pulido MD Collected: 12/30/2021 01:57 PM Ordering Location: OB/Gynecology Received: 12/30/2021 05:25 PM First Screen: MITZY Scott, ASCP Specimen: Pap, Training Project Manager, Screening, CERVICAL SCREENING FLUID Performed By: #### L [id number] #### [facility] CLIA [id number] [address] [place] [address] [place] CLINICAL HISTORY ROUTINE EXAM Normal [facility] Comment on above: Order Comment: Speci men Type: FLUID SAMPLE Ordering Facility: [facility] Address: [address] [place] [address] Performed By: #### L [id number] #### [facility] CLIA [id number] [address] [place] [address] STATES OF [facility] CYTOLOGY INTERPRETATION PAP Normal [facility] Comment on above: Order Comment: Speci men Type: FLUID SAMPLE Ordering Facility: [facility] Address: [address] [place] [address] Result Comment: Nega tive for Intraepithelial lesion or malignancy. Performed By: #### L [id number] #### [facility] CLIA [id number] [address] [place] [address] FINAL DIAGNOSIS Normal [facility] Comment on above: Order Comment: Speci men Type: FLUID SAMPLE Ordering Facility: [facility] Address: [address] [place] [address] Result Comment: A - CERVICAL SCREENING FLUID Satisfactory for interpretation, No endocervical component Negative for Intraepithelial lesion or malignancy. Performed By: #### L [id number] #### [facility] CLIA [id number] [address] [place] [address] [place] FINAL PERFORMING LAB Normal [facility] Comment on above: Order Comment: Speci men Type: FLUID SAMPLE Ordering Facility: [facility] Address: [address] [place] [address] Result Comment: Tech nical component, display and banner designer screening performed at [facility], [address] [place] [address] [place] [address] CLIA# [id number] Diagnostic interpretation performed at [facility], [address] [place] [address] [place] [address] CLIA# [id number] Preventive Medicine Physician: Baldev Jones M.D. Performed By: #### L [id number] #### [facility] CLIA [id number] [address] [place] [address] [place] HPV REQUESTED? Yes, Reflex HPV for ASCUS Normal [facility] Comment on above: Order Comment: Speci men Type: FLUID SAMPLE Ordering Facility: [facility] Address: [address] [place] [address] Performed By: #### L [id number] #### [facility] CLIA [id number] [address] [place] [address] [place] LMP Normal [facility] Comment on above: Order Comment: Speci men Type: FLUID SAMPLE Ordering Facility: [facility] Address: [address] [place], [place] [id number] Performed By: #### L [id number] #### [facility] CLIA [id number] [address] [place] [address] [place] PAP DISCLAIMER COMMENT The Pap Smear is a screening test for cervical cancer. False negative results occur with all screening tests, emphasizing the need for rescreening at recommended intervals, and clinical correlation. Normal [facility] Comment on above: Order Comment: Speci men Type: FLUID SAMPLE Ordering Facility: [facility] Address: [address] [place], [place] [id number] Performed By: #### L [id number] #### [facility] CLIA [id number] [address] [place] [address] [place] PAP WARP KNIT OPERATOR COMMENT This specimen has been analyzed by the ThinPrep Imaging System, an automated imaging and review system, which assists the laboratory in evaluating cells on ThinPrep Pap tests. Following automated imaging, selected arriaga from every slide are reviewed by a display and banner designer. Normal [facility] Comment on above: Order Comment: Speci men Type: FLUID SAMPLE Ordering Facility: [facility] Address: [address] [place] [address] Performed By: #### L [id number] #### [facility] CLIA [id number] [address] [place] [address] CNNURSEon 12-16-2021 CNNURSE Nurse Visit (OBGYWM) ---- RADHA KEENAN ([id number]) 1995 F Date Time Provider Department 12/16/21 9:30 AM NURSE PNOB [facility] W[facility] OBGYWM During your visit today, we recorded the following information about you: Last Period 10/25/21 Anabel Bhardwaj RN 12/16/2021 10:11 AM Signed SEQUENTIAL SCREENINGS The [facility] offers sequential screenings for women who [...] It will require an appointment with our marine engineering technicians. This is not an ultrasound performed by [...] the above symptoms, contact our office at [phone] and ask to speak with a nurse. After hours, you can call doctors registry at [phone] OR call [facility] at [phone] and ask to have the doctor hydro generation manager paged. If you consider this an emergency, [...] treatment is particularly effective in young patients-the [facility] reports a [...] of can (more content not included)... Normal [facility] HCG QUAL UR B/Oon 12-16-2021 status Positive neg - pos [facility] Quality Check Yes [facility] US TRANSVAGINAL OBon 017 US TRANSVAGINAL [...] ultrasound.Report electronically signed by: Dr. Adair Blank [facility] Vital Signs Date Time Vital Sign Value Performing Clinician Facility 07-01-2023 11:29-0500 Body mass index (BMI) [Ratio] 27.59 kg/m2 Lobito Dipak DO Work Phone: [facility] 07-01-2023 11:29-0500 Body weight 75.21 kg Lobito Dipak DO Work Phone: [facility] 07-01-2023 11:29-0500 Diastolic blood pressure 60 mm[Hg] Lobito Dipak DO Work Phone: [facility] 07-01-2023 11:29-0500 Systolic blood pressure 112 mm[Hg] Lobito Dipak DO Work Phone: [facility] 06-27-2023 13:45-0500 Body height 160.02 cm Lyndsey Brown Other [facility] Other 06-27-2023 13:45-0500 Body mass index (BMI) [Ratio] 29.54 kg/m2 Lyndsey Brown Other [facility] Other 06-27-2023 13:45-0500 Body temperature 97.8 [degF] Lyndsey Brown Other [facility] Other 06-27-2023 13:45-0500 Body weight 75.66 kg Lyndsey Brown Other [facility] Other 06-27-2023 13:45-0500 Respiratory rate 18 /min Lyndsey Brown Other [facility] Other 06-27-2023 13:45-0500 SaO2% (BldA) [Mass fraction] 97 % Lyndsey Brown Other [facility] Other 01-27-2022 09:28-0400 Body weight 63.5 kg Serena Srinivasan MD Work Phone: [facility] 01-27-2022 09:28-0400 Diastolic blood pressure 62 mm[Hg] Serena Srinivasan MD Work Phone: [facility] 01-27-2022 09:28-0400 Systolic blood pressure 98 mm[Hg] Serena Srinivasan MD Work Phone: [facility] 12-30-2021 13:09-0400 Body weight 62.6 kg Lamont Pulido MD Work Phone: [facility] 12-30-2021 13:09-0400 Diastolic blood pressure 70 mm[Hg] Lamont Pulido MD Work Phone: [facility] 12-30-2021 13:09-0400 Systolic blood pressure 110 mm[Hg] Lamont Pulido MD Work Phone: [facility] 12-16-2021 08:55-0400 Body height 160 cm Raina Plotts TAR AND AMMONIA PUMP OPERATOR.CNM Work Phone: [facility] 12-16-2021 08:55-0400 Body weight 61.69 kg Raina Plotts TAR AND AMMONIA PUMP OPERATOR.CNM Work Phone: [facility] 12-16-2021 08:55-0400 Diastolic blood pressure 64 mm[Hg] Raina Plotts TAR AND AMMONIA PUMP OPERATOR.CNM Work Phone: [facility] 12-16-2021 08:55-0400 Systolic blood pressure 112 mm[Hg] Raina Plotts TAR AND AMMONIA PUMP OPERATOR.CNM Work Phone: [facility] Encounters Encounter Date Encounter Type Care [...] 06-27-2023 End: 06-27-2023 ambulatory Lyndsey Brown Other [facility] Other Start: 06-27-2023 Office outpatient ne w [...] Start: 01-27-2022 End: 01-27-2022 ambulatory SERENA SRINIVASAN Facility:[facility] Start: 01-27-2022 End: 01-27-2022 Patient encounter procedure Serena Srinivasan MD Work Phone: OB/Gynecology Comment on above: 14 weeks gestation o f (Primary Dx); Encounter for supervision of normal first in second trimester Start: 12-30-2021 End: 12-30-2021 ambulatory LAMONT PULIDO Facility:[facility] Start: 12-30-2021 End: 12-30-2021 Patient encounter procedure Lamont Pulido MD Work Phone: OB/Gynecology Comment on above: History of pulmonary embolism (Primary Dx); History of depression; Encounter for care in first trimester of first Start: 12-16-2021 End: 12-16-2021 ambulatory Raina Bonner APRN.CNM Work Phone: OB/Gynecology Comment on above: online resource Start: 12-16-2021 E-mail encounter fro m caregiver Raina Bonner APRN.CNM [facility] Phone[facility] Start: 12-16-2021 End: 12-16-2021 Nursing [facility] of [facility] and [facility] Work Phone: [facility] Comment on above: Supervision of high risk , antepartum (Primary Dx); Patient request for diagnostic testing; History of pulmonary embolism; History of depression Start: 12-16-2021 End: 12-16-2021 [facility] requested [facility] Work Phone: [facility] Work Phone: Start: 12-16-2021 End: 12-16-2021 Patient encounter procedure Raina Bonner APRN.CNM Work Phone: OB/Gynecology Comment on above: Missed menses (Prima ry Dx); Encounter for test, result positive; History of depression Start: 12-11-2021 End: 12-11-2021 ambulatory MARTIN BURGOS Facility:[facility] Start: 12-18-2016 Ambulatory AN MOREIRA Facili ty:[facility] Start: 12-02-2016 End: 12-28-2016 Ambulatory AN ALFORDKLIN Facility:[facility] Start: 11-26-2016 End: 11-26-2016 Ambulatory AN MOREIRA Facility:[facility] Start: 11-25-2016 End: 11-25-2016 Ambulatory AN MOREIRA Facility:[facility] Procedures Date Procedure Procedure Detail Performing Clinician Start: 07-01-2023 Urnls dip stick/tabl et rgnt non-auto w/o micrscp Lobito Quesada DO Work Phone: Start: 07-13-2022 Delivery of Products of Conception, External Approach DR LOBITO QUESDAA . Start: 07-13-2022 Division of Female Perineum, [...] Urine test visual color cmprsn ramin Bonner TAR AND AMMONIA PUMP OPERATOR.CNM Work Phone: Plan of Treatment Date Care Activity Detail Author Start: 12-30-2024 PAP TESTING PAP TESTING [facility] Start: 12-30-2024 Screening for malignant neoplasm of cervix [facility] Start: 07-29-2023 End: 07-29-2023 Patient encounter procedure 07/29/2023 10:10 AM EST Routine [facility] [address] [place] [address] Isabel Arellano PA [address] [place] [address] [facility] Start: 07-01-2023 End: 07-01-2024 CBC panel - Blood by Automated count CBC Lab Routine Diabetes mellitus screening Expected: 07/01/2023 (Approximate), Expires: 07/01/2024 [facility] Work Phone: Comment on above: Expected: 07/01/2023 (Approximate), Expires: 07/01/2024 Start: 07-01-2023 End: 07-01-2024 Measurement of glucose 1 hour after glucose challenge for glucose tolerance test Glucose tolerance, 1 hour Lab Routine Diabetes mellitus screening Expected: 07/01/2023 (Approximate), Expires: 07/01/2024 [facility] Comment on above: Expected: 07/01/2023 (Approximate), Expires: 07/01/2024 Start: 2023 Screening for malignant neoplasm of cervix HPV/Cotest [facility] Start: 01-29-2023 Influenza vaccination Influenza Vacc ine (#1) [facility] Start: 01-29-2022 Influenza vaccination INFLUENZA (#1) [facility] Start: 12-30-2021 End: 03-01-2022 CBC panel - Blood by Automated count CBC Lab Routine History of pulmonary embolism History of depression Encounter for care in first trimester of first Expected: 12/30/2021, Expires: 03/01/[address] [facility] Work Phone: Comment on above: Expected: 12/30/2021 , Expires: 03/01/2022 Start: 12-30-2021 End: 03-01-2022 Hepatitis B virus surface Ab [Presence] in Serum by Immunoassay HEP B SURF AG SCRN Lab Routine History of pulmonary embolism History of depression Encounter for care in first trimester of first Expected: 12/30/2021, Expires: 03/01/[address] [facility] Work Phone: Comment on above: Expected: 12/30/2021 , Expires: 03/01/2022 Start: 12-30-2021 End: 03-01-2022 Hepatitis C virus Ab [Presence] in Serum HEP C AB IA W/CONF SCRN Lab Routine History of pulmonary embolism History of depression Encounter for care in first trimester of first Expected: 12/30/2021, Expires: 03/01/[address] [facility] Work Phone: Comment on above: Expected: 12/30/2021 , Expires: 03/01/2022 Start: 12-30-2021 End: 03-01-2022 HIV 1+2 Ab [Presence] in Serum or Plasma by Immunoassay HIV 1 2 COMBO(AG/AB),WITH REFLEX TO DIFFERENTIATION Lab Routine History of pulmonary embolism History of depression Encounter for care in first trimester of first Expected: 12/30/2021, Expires: 03/01/[address] [facility] Work Phone: Comment on above: Expected: 12/30/2021 , Expires: 03/01/2022 Start: 12-30-2021 End: 03-01-2022 RUBELLA IGG AB RUBELLA IGG AB Lab Routine History of pulmonary embolism History of depression Encounter for care in first trimester of first Expected: 12/30/2021, Expires: 03/01/[address] [facility] Work Phone: Comment on above: Expected: 12/30/2021 , Expires: 03/01/2022 Start: 12-30-2021 End: 03-01-2022 SYPHILIS TOTAL W/REFLEX SYPHILIS TOTAL W/REFLEX Lab Routine History of pulmonary embolism History of depression Encounter for care in first trimester of first Expected: 12/30/2021, Expires: 03/01/[address] [facility] Work Phone: Comment on above: Expected: 12/30/2021 , Expires: 03/01/2022 Start: 12-30-2021 End: 03-01-2022 TYPE + SCREEN TYPE + SCREEN Blood Bank Routine History of pulmonary embolism History of depression Encounter for care in first trimester of first Expected: 12/30/2021, Expires: 03/01/[address] [facility] Work Phone: Comment on above: Expected: 12/30/2021 , Expires: 03/01/2022 Start: 07-15-2017 Urine microalbumin profile DTAP,TDAP,TD (2 - Td or Tdap) [facility] Start: 04-09-2017 PAP TESTING PAP TESTING [facility] Start: 1995 COVID-19 VACCINE (#1) COVID-19 VACCI NE (#1) [facility] Start: 1995 HEPATITIS B (1 of 3 - 3-dose series) HEPATITIS B (1 of 3 - 3-dose series) [facility] Bacteria identified in Urine by Culture URINE CULTURE Microbiology Routine History of pulmonary embolism History of depression Encounter for care in first trimester of first 12/30/2021 1:[address] [facility] Work Phone: Chlamydia trachomatis+Neisseria gonorrhoeae DNA [Presence] in Unspecified specimen by JOBY with probe detection GC/CHLAMYDIA DNA DET Lab Routine History of pulmonary embolism History of depression Encounter for care in first trimester of first 12/30/2021 1:[address] [facility] Work Phone: OBSTETRIC ULTRASOUND [facility] OBSTETRIC ULTRASOUND [facility] Anc Imaging Routine Encounter for supervision of normal first in second trimester Ordered: 01/27/[address] [facility] Work Phone: Comment on above: Ordered: 01/27/2022 PAP FLUID CERVICAL SCREENING PAP FLUID CERVICAL SCREENING Lab Routine History of pulmonary embolism History of depression Encounter for care in first trimester of first 12/30/2021 1:[address] [facility] Work Phone[facility] Immunizations Immunization Date Immunization Notes Care Provider Jack mora 04-12-2010 influenza virus vaccine, unspecified formulation Raina Bonner TAR AND AMMONIA PUMP OPERATOR.CNM Work Phone: [facility] 09-04-2008 human papilloma viru s vaccine, quadrivalent Raina Bonner TAR AND AMMONIA PUMP OPERATOR.CNM Work Phone: [facility] Work Phone: 03-19-2008 human papilloma viru s vaccine, quadrivalent Raina Plotdinesh TAR AND AMMONIA PUMP OPERATOR.CNM Work Phone: [facility] Work Phone: 01-17-2008 hepatitis A vaccine, unspecified formulation Raina Bonner TAR AND AMMONIA PUMP OPERATOR.CNM Work Phone: [facility] Work Phone: 01-17-2008 human papilloma viru s vaccine, quadrivalent Raina Bonner TAR AND AMMONIA PUMP OPERATOR.CNM Work Phone: [facility] Work Phone: 07-15-2007 hepatitis A vaccine, unspecified formulation Raina Bonner TAR AND AMMONIA PUMP OPERATOR.CNM Work Phone: [facility] Work Phone: 07-15-2007 Meningococcal, MCV4, unspecified conjugate formulation(groups A, C, Y and W-135) Raina Bonner TAR AND AMMONIA PUMP OPERATOR.CNM Work Phone: [facility] Work Phone: 07-15-2007 tetanus toxoid, redu ruchi diphtheria toxoid, and acellular pertussis vaccine, adsorbed Raina Bonner TAR AND AMMONIA PUMP OPERATOR.CNM Work Phone: [facility] Work Phone: Payers Date Payer Category Payer Medicaid [id number] 2015 Private Health Insurance [id number] 1995 Unknown [id number] 2.16.84 0.1.312353.3.579.2.593 1993 Unknown [id number] 2.16.84 0.1.273524.3.579.2.593 1993 Unknown [id number] 2.16.84 0.1.057231.3.579.2.593 1993 Unknown [id number] 2.16.84 0.1.515365.3.579.2.593 1993 Unknown [id number] 2.16.84 0.1.276236.3.579.2.593 1993 Unknown [id number] 2.16.84 0.1.444552.3.579.2.593 1993 Unknown [id number] 2.16.84 0.1.741423.3.579.2.593 1993 Unknown [id number] 2.16.84 0.1.990754.3.579.2.593 1993 Unknown [id number] 2.16.84 0.1.761033.3.579.2.593 1993 Unknown [id number] 2.16.84 0.1.823671.3.579.2.593 1993 Unknown [id number] 2.16.84 0.1.816516.3.579.2.593 1993 Unknown [id number] 2.16.84 0.1.874451.3.579.2.593 1993 Unknown [id number] 2.16.84 0.1.392831.3.579.2.593 1993 Unknown [id number] 2.16.84 0.1.760720.3.579.2.1259 1993 Unknown [id number] 2.16.84 0.1.814251.3.579.2.1259 1993 Unknown [id number] 2.16.84 0.1.380376.3.579.2.1259 1993 Unknown [id number] 2.16.84 0.1.964952.3.579.2.1259 1993 Unknown [id number] 2.16.84 0.1.399407.3.579.2.1259 1993 Unknown [id number] 2.16.840 .1.017919.3.579.2.1259 1993 Unknown [id number] 2.16.840 .1.472822.3.579.2.1259 1961 Medicaid [id number] Social History Date Type Detail Facility Start: 01-27-2022 End: 01-10-2023 Tobacco smoking status NHIS Never smoked tobacco [facility] Start: 12-16-2021 End: 03-30-2022 Alcohol intake Current non-drinker of alcohol (finding) [facility] Start: 12-16-2021 Education 15 [facility] Start: 10-30-2021 [facility] Start: 1995 Sex Assigned At Female [facility] Start: 12-06-2021 End: 01-27-2022 Exposure to SARS-CoV-2 (event) Not sure [facility] Start: 01-27-2022 End: 01-10-2023 Tobacco use and exposure Smokeless tobacco non-user [facility] Start: 01-13-2023 Sex Assigned At [facility] Other Start: 07-01-2023 Alcohol intake Lifetime non-drinker (finding) [facility] Start: 01-13-2023 History of Social function [facility] Start: 12-17-2022 Gender identity Identifies as female gender (finding) [facility] Start: 12-17-2022 Sexual orientation Heterosexual (finding) [facility] Goals Date Patient Goal [...] nursing note reviewed. Exam conducted with a adult secondary education instructor present. Vitals: Estimated body mass index is [...] Lobito Quesada DO documented in this encounter [facility] 06-27-2023 Evaluation note Encounter Date Diagnosis [...] otherwise f/u with PCP INB despite tx. [facility] Other 02-12-2023 NotePROCEDURE: US PREG BIOPHYSICAL NO [...] Electronically authenticated by: NADINE ENCISO Date: 2022-07-12 07:58[facility]02-01-2023 History general Narrative - Reported* Type Description Date Medical History 21 weeks Hospitalization History CHILD 07/2022 [facility] Other 10-31-2022 Miscellaneous Notes* Telephone Encounter - Kathy Teresa RN - 03/30/2022 10:22 AM EDT Patient transferred care to [facility] office. She was seen in our office for 2 visits.Please bill all visits if needed. Kathy Teresa RN [facility] Miscellaneous Notes* Quick Notes - Serena [...] indicated Serena Srinivasan MD documented [facility]-2022 Instructions* Patient Instructions* Carlota Alexandre Ma - 01/27/2022 9:23 AM EDT SEQUENTIAL SCREENINGS The [facility] offers sequential screenings for women who [...] testing. It will require an appointment withour marine engineering technicians. This is not an ultrasound performed by [...] the above symptoms, contact our office at [phone] and ask to speak with anurse. After hours, you can call doctors registry at [phone] OR call [facility] at [phone] ask to have the doctor hydro generation manager paged. If you consider this an emergency, dial 1-2-6 or go to your nearest emergency department. NEED HELP? Are you dealing with a violent or abusive relationship? Are you a victim of rape or sexual assult? Call [facility] ([place]) 24 hour Crisis Hotline: 894.841.3619 or 553-484-4545. MANUAL Your Guide to a Healthy manual is now on-line. Visit [email or web address] to download your free copy documented in this encounterOhio Valley Surgical Hospital08-02-2022 NoteHNO ID: [id number] Author: Lamont Pulido MD Service: ? Author [...] Multivitamin with Folic acid: Yes Occupation: Unemployed Sikh or heritage: No Would refuse blood transfusion if medically necessary: No No weight on file for this encounter. Patient BMI over 30? No Marital Status:getting but in a relationship w/ new partner and they tested paternity and are confident he is FOB Partner: Name: Giancarlo Age: 25 Occupation: [employer] Gender: male History of STDs: None PAST MEDICAL HISTORY Diagnosis Date - Anemia - Asthma - Blood dyscrasia - Depression - HPV test positive 03/31/2014 - MTHFR mutation - PE (pulmonary embolism) 12/29/2012 [facility], took Xarelto for 6+ months from [facility] - [facility]H - PAST MEDICAL [...] she is considered at (more content not included)...[facility]08-02-2022 History of Present illness Narrative* Lamont [...] Multivitamin with Folic acid: Yes Occupation: Unemployed Sikh or heritage: No Would refuse blood transfusion if medically necessary: No No weight on file for this encounter. Patient BMI over 30? No Marital Status:getting but in a relationship w/ new partner and they tested paternity and are confident he is FOB Partner: Name: Giancarlo Age: 25 Occupation: [employer] Gender: male History of STDs: None PAST MEDICAL HISTORY Diagnosis Date Anemia Asthma Blood dyscrasia Depression HPV test positive 03/31/2014 MTHFR mutation PE (pulmonary embolism) 12/29/2012 [facility], took Xarelto for 6+ months from [facility] PMH - PAST MEDICAL HISTORY OF stayed [...] prn. Lamont Pulido MD documented in this encounterOhio Valley Surgical Hospital08-02-2022 Instructions* Patient Instructions* Glenis Lee Ma - 12/30/2021 12:59 PM EDT Please select the following link to access the [facility] Your Guide to a Healthy . [email or web address] documented in this encounterOhio Valley Surgical Hospital07-19-2022 Miscellaneous Notes* Quick Notes - Anabel [...] She states that she was hospitalized at [facility] [place]. Shestates that she took Xarelto for 6+ months. She denies any other recurrences. She denies any familyhistory of blood clots.Pt has a history of depression/anxiety diagnosed at age 16. She states that she was hospitalized in [place] for a suicidal attempt in 2012 with [...] would like referral to services here at [facility]. I did talk to Raina Bonner about this. Patient was also given the mental health crisis phone number that is open 24 hours a day. Patient declines aneuploidy screening and genetic carrier screening testing.Anabel Bhardwaj RN documented in this encounterOhio Valley Surgical Hospital07-19-2022 Miscellaneous Notes* Addendum Note - Raina Bonner APRN.CNM - 12/16/2021 12:03 PM EDT Addended by: RAINA BONNER on: 12/16/2021 12:03 PM Modules accepted: Orders documented in this encounterOhio Valley Surgical Hospital07-19-2022 NoteHNO ID: [id number] Author: Raina Bonner APRN.CNM Service: ? Author Type: Collar Sewer Type: Progress Notes Filed: 12/16/2021 9:39 AM Note Text: Radha Keenan is a 26 year old female who presents with missed menses. LMP was approximately 10/25/21. No control since 2018- only using condoms Currently but from . Was in open relationship and unsure of paternity. OB History T0 L0 SAB0 IAB0 Ectopic0 Multiple0 Live Births0 Estimator Project Manager History LMP: 10/25/2021, Age at Menarche: Age at First : Age at Menopause: Estimator Project Manager History Comments: Sexual Activity: Yes; Male Contraception: Condom, I.U.D. PAST MEDICAL HISTORY Diagnosis Date - HPV test positive 03/2014 - MTHFR mutation - PE (pulmonary embolism) 12/2012 [facility], took Xarelto for 6+ months from [facility] - PMH - PAST MEDICAL [...] which included preparing to see the patient, [id number] patient care, completing clinical documentation, obtaining and/or reviewing separately obtained history and counseling and educating the patient/family/caregiver Medical Decision Making Raina Bonner APRN.[facility]07-19-2022 Instructions* Patient Instructions* Anabel Bhardwaj RN - 12/16/2021 10:11 AM EDT SEQUENTIAL SCREENINGS The [facility] offers sequential screenings for women who [...] testing. It will require an appointment withour marine engineering technicians. This is not an ultrasound performed by [...] the above symptoms, contact our office at [phone] and ask to speak with anurse. After hours, you can call doctors registry at [phone] OR call [facility] at [phone] ask to have the doctor hydro generation manager paged. If you consider this an emergency, [...] treatment is particularly effective in young patients-the [facility] Cord Blood [facility] reports a [...] issues. What do the experts say? The [place] [employer] encourages philanthropic blood banking [...] baby needs at the moment. The nurse, fisherman helper, or physician will then label the samples, [...] AHEAD OF TIME! Public cord-blood herrmann--DONATION: [employer] [phone] [facility]'s Placental Blood Program, [facility] U[facility]ilical Cord Blood Bank, Private cord-blood herrmann--SAVING FOR YOUR OWN USE: [employer], (I think this is the least expensive) [employer] [phone] [employer], (092) [employer] [place] Cord Blood [facility], [phone] Cells, [phone] [place] [facility], Cord Blood Registry, (889) CORDBLOOD [employer], An Internet search may provide you with additional listings. documented in this encounterOhio Valley Surgical Hospital07-19-2022 History of Present illness Narrative* Raina Bonner APRN.[facility] - 12/16/2021 8:46 AM EDT Radha Keenan is a 26 year old female who presents with missed menses. LMP was approximately 10/25/21. No control since 2018- only using condoms Currently but from . Was in open relationship and unsure of paternity. OB History T0 L0 SAB0 IAB0 Ectopic0 Multiple0 Live Births0 Estimator Project Manager History LMP: 10/25/2021, Age at Menarche: Age at First : Age at Menopause: Estimator Project Manager History Comments: Sexual Activity: Yes; Male Contraception: Condom, I.U.D. PAST MEDICAL HISTORY Diagnosis Date HPV test positive 03/2014 MTHFR mutation PE (pulmonary embolism) 12/2012 [facility], took Xarelto for 6+ months from [facility]H - PAST MEDICAL HISTORY OF stayed [...] which included preparing to see the patient, [id number] patient care, completing clinical documentation, obtaining and/or reviewing separately obtained history and counseling and educating the patient/family/caregiver Medical Decision Making Raina Bonner APRN.CNM documented in this encounterOhio Valley Surgical Hospital08-29-2013 History of Past illness Narrative* Problem Noted Date Resolved Date Pulmonary embolism 01/26/2013 01/19/2014 GERD (gastroesophageal reflux disease) 1 01/19/2014 Weight gain, abnormal 05/21/2010 04/04/2012 Abdominal pain, acute, epigastric 05/21/2010 04/04/2012 Shoulder disorder 05/02/2009 04/04/2012 Excessive or frequent menstruation 01/20/2008 04/04/2012 documented as of this encounter (statuses as of 12/16/2021) [facility] History of Past illness Narrative* Problem Noted Date Resolved Date Pulmonary embolism 01/26/2013 01/19/2014 GERD (gastroesophageal reflux disease) 1 01/19/2014 Weight gain, abnormal 05/21/2010 04/04/2012 Abdominal pain, acute, epigastric 05/21/2010 04/04/2012 Shoulder disorder 05/02/2009 04/04/2012 Excessive or frequent menstruation 01/20/2008 04/04/2012 documented as of this encounter (statuses as of 12/16/2021) [facility] History of Past illness Narrative* Problem Noted Date Resolved Date Pulmonary embolism 01/26/2013 01/19/2014 GERD (gastroesophageal reflux disease) 01/19/2014 Weight gain, abnormal 05/21/2010 04/04/2012 Abdominal pain, acute, epigastric 05/21/2010 04/04/2012 Shoulder disorder 05/02/2009 04/04/2012 Excessive or frequent menstruation 01/20/2008 04/04/2012 documented as of this encounter (statuses as of 12/16/2021) [facility] History of Past illness Narrative* Problem Noted Date Resolved Date Pulmonary embolism 01/26/2013 01/19/2014 GERD (gastroesophageal reflux disease) 01/19/2014 Weight gain, abnormal 05/21/2010 04/04/2012 Abdominal pain, acute, epigastric 05/21/2010 04/04/2012 Shoulder disorder 05/02/2009 04/04/2012 Excessive or frequent menstruation 01/20/2008 04/04/2012 documented as of this encounter (statuses as of 12/30/2021) [facility] History of Past illness Narrative* Problem Noted Date Resolved Date Pulmonary embolism 01/26/2013 01/19/2014 GERD (gastroesophageal reflux disease) 01/19/2014 Weight gain, abnormal 05/21/2010 04/04/2012 Abdominal pain, acute, epigastric 05/21/2010 04/04/2012 Shoulder disorder 05/02/2009 04/04/2012 Excessive or frequent menstruation 01/20/2008 04/04/2012 documented as of this encounter (statuses as of 01/27/2022) [facility] History of Past illness Narrative* Problem Noted Date Resolved Date Pulmonary embolism 01/26/2013 01/19/2014 GERD (gastroesophageal reflux disease) 01/19/2014 Weight gain, abnormal 05/21/2010 04/04/2012 Abdominal pain, acute, epigastric 05/21/2010 04/04/2012 Shoulder disorder 05/02/2009 04/04/2012 Excessive or frequent menstruation 01/20/2008 04/04/2012 documented as of this encounter (statuses as of 03/30/2022) [facility] note* Diagnosis Missed menses- Primary Absence of menstruation Encounter for test, result positive examination or test, positive result History of depression Personal history of other mental disorder documented in this encounter [facility] note* Diagnosis Supervision of high risk , antepartum- Primary Patient request for diagnostic testing Other specified examination History of pulmonary embolism Personal history of pulmonary embolism History of depression Personal history of other mental disorder documented in this encounter [facility] note* Diagnosis History of pulmonary embolism- Primary Personal history of pulmonary embolism History of depression Personal history of other mental disorder Encounter for care in first trimester of first documented in this encounter [facility] note* Diagnosis 14 weeks gestation of - Primary state, incidental Encounter for supervision of normal first in second trimester Supervision of normal first documented in this encounter [facility] note* Diagnosis Second trimester state, incidental Diabetes mellitus screening Screening for diabetes mellitus documented [facility] this [facility] Diagnostic Procedure Only (Routine) - Pending Review Specialty Diagnoses / Procedures Referred By Pavle nettles Referred To Contact [facility] Diagnoses Encounter for supervision of normal first in second trimester Procedures OBSTETRIC ULTRASOUND WHI US PREG UTERUS AFTER 1ST TRIMEST GESTATION Serena Srinivasan MD [address] [place] [address] [address] Referral ID Status Reason Start Date Expiration Date Visits Requested Visits Authorized [id number] Pending Review Auto-Generat ed Referral 01/27/2022 01/27/2023 1 1 [facility] Summary Purpose Family History No Family History Records FoundNo Family History Records FoundNo Family History Records FoundNo Family History Records Found Advance Directives No Advanced Directives Records FoundDocuments on File Type Date Recorded Patient Agricultural Labor Camp Manager Expl anation Advance Directive(s) Health Concerns Problem Noted Date OB Reminders 12/17/2021 Problem Noted Date OB Reminders 12/17/2021 Problem Noted Date OB Reminders 12/17/2021 Additional Source Comments INFORMATION SOURCE (unrecogn ized section and content) DATE CREATED AUTHOR 11/24/2017 [facility] DATE CREATED AUTHOR AUTHOR'S ORGANIZ ATION 03/30/2022 [facility] DATE CREATED AUTHOR AUTHOR'S ORGANIZ ATION 10/07/2022 [facility] DATE CREATED AUTHOR AUTHOR'S ORGANIZ ATION 09/29/2023 [facility] EPIC Source Comments (unrecognize d section and content) In the event this informatio n is protected by the Federal Confidentiality of Alcohol and Drug Abuse Patient Records regulations: The Federal rules restrict any use of the information to criminally investigate or prosecute any alcohol or drug abuse patient.[facility] HospitalIn the event this information is protected by the Federal Confidentiality of Alcohol and Drug Abuse Patient Records regulations: The Federal rules restrict any use of the information to criminally investigate or prosecute any alcohol or drug abuse patient.[facility] HospitalIn the event this information is protected by the Federal Confidentiality of Alcohol and Drug Abuse Patient Records regulations: The Federal rules restrict any use of the information to criminally investigate or prosecute any alcohol or drug abuse patient.[facility] HospitalIn the event this information is protected by the Federal Confidentiality of Alcohol and Drug Abuse Patient Records regulations: The Federal rules restrict any use of the information to criminally investigate or prosecute any alcohol or drug abuse patient.[facility] HospitalIn the event this information is protected by the Federal Confidentiality of Alcohol and Drug Abuse Patient Records regulations: The Federal rules restrict any use of the information to criminally investigate or prosecute any alcohol or drug abuse patient.[facility] HospitalIn the event this information is protected by the Federal Confidentiality of Alcohol and Drug Abuse Patient Records regulations: The Federal rules restrict any use of the information to criminally investigate or prosecute any alcohol or drug abuse patient.[facility] Reason for Visit (unrecogniz ed section and content) Reason Comments Missed period Specialty Diagnoses / Procedures Referred By Pavel nettles Referred To Contact [facility] Diagnoses NEW PATIENT Procedures ANNUAL EXAM MD Bobo [facility] [address] [place] [address] Referral ID Status Reason Start Date Expiration Date Visits Requested Visits Authorized [id number] Authorized Financial Clearance Required - Self Pay Patient Cleared - Qualified 100% FAS 11/28/2021 02/26/2022 99 99 Reason Onset Date Comments Care 12/16/2021 Pre-New OB Reason Comments Initial OB Visit Reason Onset Date Comments Care 01/27/2022 Specialty Diagnoses / Procedures Referred By Pavel nettles Referred To Contact [facility] Diagnoses NEW PATIENT Procedures ANNUAL EXAM Self, [facility] [address] [place] [address] Reason Comments Transfer of Care Reason Comments Routine Visit Care Teams (unrecognized sec tion and content) Commis Chef Relationship Specialty Start Date End Date Martin Burgos DO [address] [place] [address] PCP - General Family Practice 03/03/14 Commis Chef Relationship Specialty Start Date End Date Martin Burgos DO [address] [place] [address] PCP - General Family Practice 03/03/14 Commis Chef Relationship Specialty Start Date End Date Martin Burgos DO [address] [place] [address] PCP - General Family Practice 03/03/14 Commis Chef Relationship Specialty Start Date End Date Martin Burgos DO [address] [place] [address] PCP - General Family Practice 03/03/14 Commis Chef Relationship Specialty Start Date End Date Martin Burgos DO [address] [place] [address] PCP - General Family Practice 03/03/14 Commis Chef Relationship Specialty Start Date End Date Martin Burgos DO [address] [place] [address] PCP - General Family Medicine 03/03/14 Commis Chef Relationship Specialty Start Date End Date Lobito Quesada DO [address] [place] [address] [place] [address] PCP - FFS [facility] 08/29/22 FOR RECORDS PERTAINING TO [...] BE BASED ON THE PRIMARY CLINICAL RECORDS. [facility] [facility]. provides no warranty or guarantee of the accuracy or completeness of information in this document.
[2023-10-13 15:26] VITALS: BP 124/81; PULSE 72
--- NOTE | 2023-10-13 15:52 | US_ITS ---
[place] [id number] Patient Name: RADHA KEENAN MRN: [id number] date: 1995 Sex: F Assigned Patient Location: [facility] Current Patient Location: Accession/Order Number: [id number] Exam Date: 10/13/2023 16:00 Report Date: 10/13/2023 16:21 At the request of: RIANNA LOREDO Procedure: US OB BPP w non-stress EXAMINATION: US OB BPP w non-stress HISTORY: LGA COMPARISON: No relevant comparison available. TECHNIQUE: Ultrasound biophysical profile was performed in the radiology department. FINDINGS: BREATHING MOVEMENTS: 2.0 GROSS BODY MOVEMENTS: 2.0 TONE: 2.0 QUALITATIVE AMNIOTIC FLUID VOLUME: 2.0 PRESENTATION: CEPHALIC HEART RATE: 126.8 bpm H.B./min AMNIOTIC FLUID VOLUME: 15.5 cm cm GESTATIONAL AGE: 36 weeks 5 days CONCLUSION: Total biophysical profile score: 8.0 Electronically authenticated by: MICHAEL KIRK Date: 10/13/2023 16:21
== END 2023-10-13 16:17 | disposition home or self-care (01) ==
LOC: US 07:11 → FBC 15:09
PROVIDERS: Visit Provider Obstetrics & Gynecology
DX: Z34.93 Encounter for supervision of normal pregnancy, unspecified, third trimester (principal); Z3A.36 36 weeks gestation of pregnancy
CPT/HCPCS: 76818